=== PATIENT | female | born 2000 | race Native Hawaiian/Other Pacific Islander ===

== ENCOUNTER 2022-03-03 15:03 | Inpatient (IN) | payer OTHER, SELFPAY ==
--- NOTE | ~2022-03-03 | MR_ITS ---
EXAMINATION: MR ABDOMEN WITHOUT AND WITH CONTRAST CLINICAL INFORMATION: Pancreatitis. Elevated liver function tests. COMPARISON: Previous CT of the abdomen and pelvis, limited abdominal ultrasound and nuclear medicine scan from earlier this month. TECHNIQUE: MR abdomen was performed without and with use of 5 mL intravenous Gadavist gadolinium contrast. Postcontrast images are performed in multiphase dynamic sequences. Imaging was performed in 3 planes. MRCP sequences were also performed. FINDINGS: LUNG BASES: The visualized lung bases are unremarkable. LIVER, GALLBLADDER, AND BILIARY TREE: The liver is normal in size, smooth in contour, and normal in signal. No focal hepatic lesion or biliary ductal dilatation is present. The common bile duct measures 2 mm. No common bile duct stone is seen. The gallbladder is unremarkable with no evidence of gallbladder wall thickening, or obvious pericholecystic inflammatory changes. PANCREAS: There may be slight thickening of the tail of the pancreas. The pancreas is normal in signal. The pancreas enhances normally. The main pancreatic duct does not appear dilated. No ascites. SPLEEN: Normal. ADRENAL GLANDS: Normal. KIDNEYS AND URETERS: The kidneys are normal in size, shape, and enhance symmetrically. No hydronephrosis. No perinephric stranding. GASTROINTESTINAL TRACT: No bowel obstruction. No ascites or fluid collection. There is abnormal signal seen inferior to the left lobe of the liver, anterior to the right kidney and adjacent to the duodenum and head of the pancreas. This area measures approximately 3 x 5 cm in AP and transverse dimension and 4.7 cm in longitudinal dimension. This is intermediate signal on T1-weighted sequences, intermediate signal on T2-weighted sequences and does not demonstrate appreciable enhancement. It is uncertain whether this is related to an abnormal loop of bowel. ABDOMINAL WALL: No significant hernia is appreciated. LYMPH NODES: No lymphadenopathy. VASCULAR: Unremarkable. OSSEOUS STRUCTURES: Marrow signal normal. MR/MR abdomen wo/w con IMPRESSION: Slight enlargement of the tail of the pancreas. The pancreas enhances normally. Normal-appearing gallbladder. Normal-appearing intrahepatic and extrahepatic bile ducts. No common bile duct stone seen. Abnormal signal seen in the right upper quadrant inferior to the left lobe of the liver, anterior to the right kidney and adjacent to the duodenum and head of the pancreas. It is uncertain whether this represents an abnormal loop of bowel. Followup CT of the abdomen with IV and oral contrast is recommended for better characterization. Findings were communicated to Dr. Vo @8:04pm by telephone on 03/15/2022
--- NOTE | ~2022-03-03 | US_ITS ---
EXAMINATION: US ABDOMEN LIMITED XR CHEST CLINICAL INFORMATION: Elevated LFTs, vomiting and lipase elevated, low white count. COMPARISON: None TECHNIQUE: Limited abdomen ultrasound was obtained. Chest, one view. FINDINGS: CHEST: The lungs are well expanded and clear of acute process. The heart size and pulmonary vascularity is normal. ABDOMEN ULTRASOUND: Pancreas: The pancreas is homogeneous echotexture, normal size. The peripancreatic fat borders are normal. Liver: The liver is normal size, contour and echogenicity. No focal lesion or intrahepatic ductal dilatation seen. No perihepatic fluid collection seen. Spleen: The spleen is normal size measuring 11.0 cm. There is no free fluid visualized. US/US abdomen limited IMPRESSION: CHEST: Unremarkable chest x-ray. ABDOMEN: Unremarkable liver, spleen and pancreas on limited abdominal ultrasound.
--- NOTE | ~2022-03-03 | CT_ITS ---
EXAMINATION: CT ANGIOGRAM OF THE CHEST WITH AND WITHOUT CONTRAST (CT PULMONARY ANGIOGRAM FOR PE) CLINICAL INFORMATION: Reason for Exam chest pain COMPARISON: None TECHNIQUE: Prior to contrast administration, noncontrast localization images were obtained. Subsequently, multidetector volumetric imaging was performed from the thoracic inlet to below the diaphragms following the administration of 80 mL Omnipaque 350 intravenous contrast. No contrast reaction reported Sagittal, coronal, and MIP oblique sagittal reformatted images were obtained on the CT workstation, uploaded to PACS, and reviewed. This CT examination was performed using dose optimization techniques as appropriate, variously including the following: *Automated exposure control *Adjustment of mA and/or kV according to patient size (this includes techniques or standardized protocols for targeted exams where dose is matched to indication/reason for exam; i.e. extremities or head) *Use of iterative reconstruction technique Total exam dose-length product 192 mGy-cm FINDINGS: QUALITY OF STUDY/CONTRAST BOLUS: Satisfactory. PULMONARY ARTERIES: No central or segmental pulmonary emboli. THORACIC AORTA: No aneurysm or dissection. LUNG: Diffuse groundglass opacities basilar or focal distribution. Question minimal thickening of interlobular septal lines best seen on the sagittal projections. PLEURA: No pleural effusion or pneumothorax. MEDIASTINUM: Normal heart size. No pericardial effusion. No hilar or mediastinal lymphadenopathy. No evidence of septal bowing or right heart strain. CHEST WALL/AXILLA: No axillary or internal mammary lymphadenopathy. OSSEOUS STRUCTURES: No acute or suspicious osseous abnormality. UPPER ABDOMEN: Unremarkable. No reflux of contrast into the hepatic veins to suggest elevated right heart pressures. CT/CT angio chest PE protocol IMPRESSION: No evidence for acute or chronic pulmonary embolism. Groundglass opacities which may related to atypical infection or small vessel airway disease. VTE: negative
--- NOTE | ~2022-03-03 | CT_ITS ---
EXAMINATION: CT ABDOMEN AND PELVIS WITHOUT CONTRAST CLINICAL INFORMATION: Intractable nausea and vomiting COMPARISON: Previous limited abdominal ultrasound from earlier this month and chest CTA from earlier the same day TECHNIQUE: Multidetector volumetric imaging was performed from the superior aspect of the liver through the pubic symphysis. Sagittal and coronal reformatted images were obtained on the technologist's workstation. Exam is limited due to lack of oral and IV contrast and paucity of intra-abdominal fat. This CT examination was performed using dose optimization techniques as appropriate, variously including the following: *Automated exposure control *Adjustment of mA and/or kV according to patient size (this includes techniques or standardized protocols for targeted exams where dose is matched to indication/reason for exam; i.e. extremities or head) *Use of iterative reconstruction technique DLP: 364 mGy-cm FINDINGS: LUNG BASES: There are patchy groundglass opacities at the lung bases. There are small bilateral pleural effusions. There is a small pericardial effusion. LIVER, GALLBLADDER, AND BILIARY TREE: The liver is normal in size and shape. The gallbladder is normal in size. There is a question of pericholecystic fluid. No gallstones are appreciated. There is no intra or extrahepatic biliary duct dilatation. PANCREAS: Difficulty evaluate due to lack of oral and IV contrast and paucity of intra-abdominal fat but appears unremarkable. SPLEEN: Unremarkable. ADRENAL GLANDS: Unremarkable. KIDNEYS AND URETERS: The kidneys are normal in size, shape, and attenuation. No hydronephrosis, hydroureter. There are small high attenuation densities seen centrally in the kidneys. This probably represents excreted IV contrast in the collecting systems from yesterday's chest CTA. It is difficult to exclude a small stone.. BLADDER: Unremarkable. GASTROINTESTINAL TRACT: There is stool throughout the colon questionable for constipation. The small and large bowel are otherwise unremarkable. The appendix is unremarkable. There is a small amount of air inferior to the left lobe of the liver for example axial image 24-34 series 3. This probably represents air in the distal stomach and duodenum. ABDOMINAL WALL: No significant hernia is appreciated. LYMPH NODES: Normal. VASCULAR: Unremarkable. PELVIC VISCERA: There is a small amount of ascites in the pelvis. OSSEOUS STRUCTURES: Unremarkable. CT/CT abdomen pelvis wo con IMPRESSION: Limited exam due to lack of oral and IV contrast and paucity of intra-abdominal fat. Patchy areas of groundglass attenuation at the lung bases, small pericardial effusion and small bilateral pleural effusions similar to yesterday's chest CTA. Question small amount of fluid around the gallbladder or gallbladder wall edema. The gallbladder is normal in size and no gallstones are appreciated by CT. Small amount of air inferior to the left lobe of the liver that is probably in the distal stomach and duodenum. Evaluate evaluation of this region and evaluation of the pancreas is limited due to lack of oral and IV contrast and paucity of intra-abdominal fat. Stool throughout the colon questionable for constipation. Small amount of ascites in the pelvis. Fleischner guidelines were followed.
--- NOTE | ~2022-03-03 | NM_ITS ---
EXAMINATION: NM HIDA SCAN CLINICAL INFORMATION: Abdominal pain, abnormal gallbladder. Elevated LFTs. COMPARISON: Abdominal ultrasound 03/13/2022. TECHNIQUE: Following intravenous administration of 5 mCi of 99M technetium mebrofenin, imaging over the right upper quadrant was obtained up to 60 minutes. At 60 minutes, 8 ounces of Ensure was administered orally and further imaging was obtained up to next 60 minutes. FINDINGS: There is normal hepatic uptake without focal defect. There is prompt visualization of common bile duct and gallbladder by 10 minutes. CBD is not visualized. Post oral Ensure administration, there is visualization of small bowel by 61 minutes. More activity is seen in the subsequent 80 to 90 minutes. NM/NM hepatobiliary w pharm IMPRESSION: Normal hepatic uptake. Patent cystic duct. Patent CBD.
--- NOTE | ~2022-03-03 | US_ITS ---
EXAMINATION: US ABDOMEN LIMITED CLINICAL INFORMATION: Abdominal pain. Just need gallbladder evaluated. COMPARISON: CT abdomen and pelvis 03/08/2022. Ultrasound abdomen limited 03/03/2022. TECHNIQUE: Real-time imaging of the gallbladder and common bile duct. FINDINGS: GALLBLADDER: There is mild gallbladder wall thickening and pericholecystic fluid. The gallbladder is not significantly distended. No evidence of stones, sludge, or polyps. COMMON BILE DUCT: Normal in caliber measuring 0.3 cm in diameter. US/US abdomen limited IMPRESSION: Mild gallbladder wall thickening and pericholecystic fluid without cholelithiasis. Findings could reflect sequelae of fluid status or underlying liver disease.
[2022-03-03 15:50] VITALS: BP 105/76; PULSE 113; RESP 20; TEMP 37.5; O2SAT 100; BMI 18.8
[2022-03-03 17:20] LABS: PLT CLUMP 1; Red Cell Distribution Width 13.1 % (11.0-16.0); SCAN SMEAR FLAG 1
[2022-03-03 17:22] LABS: Hematocrit 35.7 % (37.0-47.0); Hemoglobin 11.9 g/dl (12.0-16.0); Imm Gran Abs Auto 0.01 X10*3/uL (0.00-0.03); Imm Gran Pct Auto 0.5 % (0.0-0.4); Lymphocytes Absolute Auto 0.7 X10*3/uL (1.2-4.9); Lymphocytes Percent Auto 36.8 % (20-40); MANUAL DIFF FLAG SCAN; Mean Corpuscular HGB Conc 33.3 g/dl (31.0-35.0); Mean Corpuscular Hemoglobin 28.6 pg (27.0-33.0); Mean Corpuscular Volume 85.8 fL (80.0-98.0); Mean Platelet Volume 10.6 fL (9.4-12.3); Monocytes Absolute Auto 0.1 X10*3/uL (0.1-1.2); Monocytes Percent Auto 5.5 % (2-11); Neutrophils Absolute Auto 1.2 x10*3/uL (2.0-8.3); Neutrophils Percent Auto 57.2 % (45-73); Red Blood Count 4.16 X10*6/uL (4.20-5.50)
[2022-03-03 17:35] LABS: Anion Gap 12 (12-20); Blood Urea Nitrogen 8 mg/dL (9-16); Calcium 8.8 mg/dL (8.4-10.2); Carbon Dioxide 24 mmol/L (22-29); Chloride 103 mmol/L (96-108); Creatinine Clr Calc Pharmacy 118.3; Estimated Glomerular Filt Rate > 60; Glucose Random 87 mg/dL (60-115); Potassium 4.1 mmol/L (3.3-5.1); Sodium 135 mmol/L (135-145)
[2022-03-03 17:40] LABS: Platelet Count 137 X10*3/uL (160-400)
[2022-03-03 17:41] LABS: SLIDE REVIEW VERIFIED
[2022-03-03 19:12] LABS: Alanine Aminotransferase 76 U/L (0-31); Albumin Level 3.8 g/dL (3.5-5.0); Alkaline Phosphatase 69 U/L (39-117); Aspartate Amino Transferase 150 U/L (5-31); Bilirubin Direct 0.5 mg/dL (0.0-0.5); Bilirubin Total 0.8 mg/dL (0.0-1.0); Lipase 262 U/L (8-78); Total Protein 9.2 g/dL (6.5-8.0)
[2022-03-03 19:20] LABS: COVID-19 Test Negative (Negative); IDNOW Serial# 16C4AD1C; Influenza A Negative (Negative); Influenza B2 Negative (Negative)
--- NOTE | 2022-03-03 19:20 | ED_ITS ---
HPI - Abdominal Pain General Chief Complaint: Abdominal Pain Stated Complaint: Vomiting/abd pain Time Seen by Provider: 03/03/22 18:30 Source: patient, family and old records reviewed Mode of arrival: ambulatory Limitations: no limitations History of Present Illness HPI narrative: 21 yo female states she has no medical problems was doing well until October when she just lost her appetite and noted on and off bouts of abdominal pain, fevers, acne, vomiting. She has been seen at her PCP and [facility] ER told her LFTs were fine and has a low WBC count. Plan for EGD on 03/11 and has oncology appointment on 03/17. She notes recently she has felt worse. She takes tylenol only occasionally for fevers, said she had a negative HIV test at [facility] last month, she takes only prescribed medications. Has no surgical history, transfusion history, IVDA. She does do home tattoos with friends. MD elicited complaint: abdominal pain (nausea vomiting, skin lesions, weakness, fevers, low WBC count) Pertinent past history: other (started around October) Onset (ago): month(s) (4) Pain Consistency: intermittent Location: epigastric Severity: moderate Quality: stabbing Migration to: no migration Exacerbating factors: eating Relieving factors: nothing Context: history of similar episodes Associated symptoms: nausea, vomiting, fever and chills Treatments prior to arrival: antacids Related Data Home Medications Medication Instructions Recorded Confirmed fluticasone propionate 50 1 spray INTRANASAL DAILY PRN 03/03/22 03/03/22 mcg/actuation nasal spray,suspension ondansetron 4 mg disintegrating 1 tab PO Q6H PRN 03/03/22 03/03/22 tablet Allergies Allergy/AdvReac Type Severity Reaction Status Date / Time No Known Allergies Allergy Verified 03/03/22 15:55 Review of Systems Review of Systems Constitutional : pos Weight loss, pos Fever, pos Chills ENT/Mouth : No sore throat, No Rhinorrhea, pos ulcers in mouth Eyes: No Swelling, No Redness Cardiovascular : No Chest Pain, No SOB, NoEdema Respiratory : No Cough, No Sputum, No Wheezing Gastrointestinal : Positive Nausea, Positive Vomiting, no Diarrhea, positive abdominal Pain, No Hematochezia, No Melena Genitourinary : No Dysuria, No Urinary Frequency, No Hematuria, No Urgency Musculoskeletal : No joint pain, No Myalgias, No Joint Swelling Skin : pos Skin Lesions, No rash Neuro : pos Weakness, No Numbness, No Dizziness, No Headache Psych : No Anxiety/Panic, No Depression Heme/Lymph: No Bruising, No Lymphadenopathy Endocrine : No Polyuria, No Polydipsia All other systems reviewed and are negative. [facility] Past Medical History Attestation statement: The following information was validated with the patient. Medical History Generalized headaches GERD (gastroesophageal reflux disease) Social History Social History (Updated 03/03/22 @ 19:32 by Erica Barlow DO) Patient Tobacco Use Status: Never used Tobacco Use of substances other than those prescribed or required for medical reasons: No Advance Directives: No Advance Directives Information Provided: No Patient : No Physical Exam ED Vital Signs: Vital Signs - 24 hr 03/03/22 15:50 03/03/22 20:40 Temperature 99.5 F 101.4 F H Pulse Rate 113 H 97 Respiratory Rate 20 18 Blood Pressure 105/76 113/67 Pulse Oximetry 100 98 BMI result Body Mass Index 18.8 Appearance: Alert. Oriented X3. No acute distress. Eyes: Pupils equal, round and reactive to light. ENT: Pharynx dry MM - mild, multiple ulcers noted on lips/pharynx/ soft and hard palate Neck: Normal inspection. Neck supple. CVS: Normal heart rate and rhythm. Pulses normal. Respiratory: No respiratory distress. Breath sounds normal. Abdomen: Soft and mild epigastric ttp Skin: Skin warm and dry. pale skin color. poor skin turgor. Extremities: No lower extremity edema. No calf ttp Neuro: Oriented X 3. No motor deficit. No sensory deficit. Course Course Course Narrative: [facility] admission - hepatitis panel negative HIV ab negative CT scan negative for acute findings in liver, pancreas, spleen fever of 101 at this time 840pm possible bacterial infection suspected given leukocytopenia will give dose of cefepime, cultures and lactic acid already done signed out to Dr Singh pending further results and admission. I did speak to the hospitalist about history and presentation. MDM - Abdominal Pain MDM Narrative Medical decision making narrative: 21 yo female with hx of GERD, headaches with prolonged illness since October now with pancytopenia, oral mucositis, elevated LFTs - mostly seen at [facility] has plan to see oncology 03/17 and EGD on 03/11. She appears ill denies IVDA but does do home tattoos - records from [facility] requested. Will obtain basic labs, HIV, hepatitis panel, UA, US of abdomen to evaluate the liver and spleen. IVF. Possible admission given presentation Lab Data Result diagrams: 03/03/22 17:15 03/03/22 17:15 Labs: Lab Results 03/03/22 03/03/22 03/03/22 Range/Units 17:15 17:15 18:57 WBC 2.0 L (4.8-10.8) X10*3/uL RBC 4.16 L (4.20-5.50) X10*6/uL Hgb 11.9 L (12.0-16.0) g/dl Hct 35.7 L (37.0-47.0) % MCV 85.8 (80.0-98.0) fL MCH 28.6 (27.0-33.0) pg MCHC 33.3 (31.0-35.0) g/dl RDW 13.1 (11.0-16.0) % Plt Count 137 L (160-400) X10*3/uL MPV 10.6 (9.4-12.3) fL Immature Gran % (Auto) 0.5 H (0.0-0.4) % Neut % (Auto) 57.2 (45-73) % Lymph % (Auto) 36.8 (20-40) % [place] % (Auto) 5.5 (2-11) % Eos % (Auto) 0.0 (0-4) % Baso % (Auto) 0.0 (0-2) % Lymph # (Auto) 0.7 L (1.2-4.9) X10*3/uL [place] # (Auto) 0.1 (0.1-1.2) X10*3/uL Eos # (Auto) 0.0 (0.0-0.4) X10*3/uL Baso # (Auto) 0.0 (0.0-0.2) X10*3/uL Abs Immat Gran (auto) 0.01 (0.00-0.03) X10*3/uL Absolute Neuts (auto) 1.2 L (2.0-8.3) x10*3/uL Absolute Nucleated RBC 0.000 (0.0-0.012) X10*3/uL Nucleated RBC % (auto) 0.0 (0.0-0.2) /100WBC Smear Tech's Comments VERIFIED ESR (0-20) MM/HR PT (9.9-13.0) SEC INR (0.9-1.1) APTT (24.1-38.0) SEC Sodium 135 (135-145) mmol/L Potassium 4.1 (3.3-5.1) mmol/L Chloride 103 (96-108) mmol/L Carbon Dioxide 24 (22-29) mmol/L Anion Gap 12 (12-20) BUN 8 L (9-16) mg/dL Creatinine 0.63 (0.5-1.4) mg/dL Estim Creat Clear Calc 118.3 Estimated GFR > 60 Random Glucose 87 (60-115) mg/dL Lactic Acid (0.5-2.0) mmol/L Calcium 8.8 (8.4-10.2) mg/dL Magnesium (1.6-2.6) mg/dL Total Bilirubin 0.8 (0.0-1.0) mg/dL Direct Bilirubin 0.5 (0.0-0.5) mg/dL AST 150 H (5-31) U/L ALT 76 H (0-31) U/L Alkaline Phosphatase 69 (39-117) U/L C-Reactive Protein (< or = 0.50) mg/dL Total Protein 9.2 H (6.5-8.0) g/dL Albumin 3.8 (3.5-5.0) g/dL Lipase 262 H (8-78) U/L TSH (0.32-4.0) uIU/mL Acetaminophen (<30) mcg/mL COVID-19 ([facility]) (Negative) COVID-19 Clin Com Influenza Type A (CB) Negative (Negative) Influenza Type B (CB) Negative (Negative) Influenza A & B Note See Note 03/03/22 03/03/22 03/03/22 Range/Units 18:57 19:51 19:51 WBC (4.8-10.8) X10*3/uL RBC (4.20-5.50) X10*6/uL Hgb (12.0-16.0) g/dl Hct (37.0-47.0) % MCV (80.0-98.0) fL MCH (27.0-33.0) pg MCHC (31.0-35.0) g/dl RDW (11.0-16.0) % Plt Count (160-400) X10*3/uL MPV (9.4-12.3) fL Immature Gran % (Auto) (0.0-0.4) % Neut % (Auto) (45-73) % Lymph % (Auto) (20-40) % [place] % (Auto) (2-11) % Eos % (Auto) (0-4) % Baso % (Auto) (0-2) % Lymph # (Auto) (1.2-4.9) X10*3/uL [place] # (Auto) (0.1-1.2) X10*3/uL Eos # (Auto) (0.0-0.4) X10*3/uL Baso # (Auto) (0.0-0.2) X10*3/uL Abs Immat Gran (auto) (0.00-0.03) X10*3/uL Absolute Neuts (auto) (2.0-8.3) x10*3/uL Absolute Nucleated RBC (0.0-0.012) X10*3/uL Nucleated RBC % (auto) (0.0-0.2) /100WBC Smear Tech's Comments ESR 29 H (0-20) MM/HR PT (9.9-13.0) SEC INR (0.9-1.1) APTT (24.1-38.0) SEC Sodium (135-145) mmol/L Potassium (3.3-5.1) mmol/L Chloride (96-108) mmol/L Carbon Dioxide (22-29) mmol/L Anion Gap (12-20) BUN (9-16) mg/dL Creatinine (0.5-1.4) mg/dL Estim Creat Clear Calc Estimated GFR Random Glucose (60-115) mg/dL Lactic Acid (0.5-2.0) mmol/L Calcium (8.4-10.2) mg/dL Magnesium 1.8 (1.6-2.6) mg/dL Total Bilirubin (0.0-1.0) mg/dL Direct Bilirubin (0.0-0.5) mg/dL AST (5-31) U/L ALT (0-31) U/L Alkaline Phosphatase (39-117) U/L C-Reactive Protein 0.72 H (< or = 0.50) mg/dL Total Protein (6.5-8.0) g/dL Albumin (3.5-5.0) g/dL Lipase (8-78) U/L TSH 1.32 (0.32-4.0) uIU/mL Acetaminophen < 1 (<30) mcg/mL COVID-19 ([facility]) Negative (Negative) COVID-19 Clin Com See Note Influenza Type A (CB) (Negative) Influenza Type B (CB) (Negative) Influenza A & B Note 03/03/22 03/03/22 Range/Units 19:51 19:51 WBC (4.8-10.8) X10*3/uL RBC (4.20-5.50) X10*6/uL Hgb (12.0-16.0) g/dl Hct (37.0-47.0) % MCV (80.0-98.0) fL MCH (27.0-33.0) pg MCHC (31.0-35.0) g/dl RDW (11.0-16.0) % Plt Count (160-400) X10*3/uL MPV (9.4-12.3) fL Immature Gran % (Auto) (0.0-0.4) % Neut % (Auto) (45-73) % Lymph % (Auto) (20-40) % [place] % (Auto) (2-11) % Eos % (Auto) (0-4) % Baso % (Auto) (0-2) % Lymph # (Auto) (1.2-4.9) X10*3/uL [place] # (Auto) (0.1-1.2) X10*3/uL Eos # (Auto) (0.0-0.4) X10*3/uL Baso # (Auto) (0.0-0.2) X10*3/uL Abs Immat Gran (auto) (0.00-0.03) X10*3/uL Absolute Neuts (auto) (2.0-8.3) x10*3/uL Absolute Nucleated RBC (0.0-0.012) X10*3/uL Nucleated RBC % (auto) (0.0-0.2) /100WBC Smear Tech's Comments ESR (0-20) MM/HR PT 13.2 H (9.9-13.0) SEC INR 1.2 H (0.9-1.1) APTT 25.1 (24.1-38.0) SEC Sodium (135-145) mmol/L Potassium (3.3-5.1) mmol/L Chloride (96-108) mmol/L Carbon Dioxide (22-29) mmol/L Anion Gap (12-20) BUN (9-16) mg/dL Creatinine (0.5-1.4) mg/dL Estim Creat Clear Calc Estimated GFR Random Glucose (60-115) mg/dL Lactic Acid 1.4 (0.5-2.0) mmol/L Calcium (8.4-10.2) mg/dL Magnesium (1.6-2.6) mg/dL Total Bilirubin (0.0-1.0) mg/dL Direct Bilirubin (0.0-0.5) mg/dL AST (5-31) U/L ALT (0-31) U/L Alkaline Phosphatase (39-117) U/L C-Reactive Protein (< or = 0.50) mg/dL Total Protein (6.5-8.0) g/dL Albumin (3.5-5.0) g/dL Lipase (8-78) U/L TSH (0.32-4.0) uIU/mL Acetaminophen (<30) mcg/mL COVID-19 ([facility]) (Negative) COVID-19 Clin Com Influenza Type A (CB) (Negative) Influenza Type B (CB) (Negative) Influenza A & B Note Discharge Plan Discharge Clinical Impression: Elevated LFTs, Acute mucositis, Elevated lipase Leukocytopenia, unspecified Qualifiers: Leukopenia type: unspecified Qualified Code(s): D72.819 - Decreased white blood cell count, unspecified Abdominal pain Qualifiers: Abdominal location: epigastric Qualified Code(s): R10.13 - Epigastric pain Vomiting Qualifiers: Vomiting type: unspecified Nausea presence: with nausea Qualified Code(s): R11.2 - Nausea with vomiting, unspecified Fever Qualifiers: Fever type: unspecified Qualified Code(s): R50.9 - Fever, unspecified Patient Disposition: Admitted As Inpatient
[2022-03-03] MEDS: ondansetron HCL 4 MG/2 ML VIAL IVPUSH (20:12)
[2022-03-03] MEDS: 0.9 % Sodium Chloride 1,000 ML 999 ML IVCONT (20:14)
[2022-03-03 20:15] LABS: INTERNATIONAL NORM RATIO 1.2 (0.9-1.1); Prothrombin Time 13.2 SEC (9.9-13.0)
[2022-03-03 20:18] LABS: Partial Thromboplastin Time 25.1 SEC (24.1-38.0)
[2022-03-03 20:22] LABS: Lactic Acid 1.4 mmol/L (0.5-2.0)
[2022-03-03 20:28] LABS: C Reactive Protein 0.72 mg/dL (< or = 0.50); Magnesium 1.8 mg/dL (1.6-2.6)
[2022-03-03 20:31] LABS: Acetaminophen LAB < 1 mcg/mL (<30)
[2022-03-03 20:40] VITALS: BP 113/67; PULSE 97; RESP 18; TEMP 38.6; O2SAT 98
[2022-03-03 20:42] LABS: Erythrocyte Sedimentation Rate 29 MM/HR (0-20)
--- NOTE | 2022-03-03 20:42 | PHA.MEDREC ---
Pharmacy Consult ? Medication Reconciliation Pharmacy has completed the medication reconciliation. No remarkable issues.
[2022-03-03 20:46] LABS: TSH reflex Free T4 1.32 uIU/mL (0.32-4.0)
[2022-03-03] MEDS: Ibuprofen Oral Susp 200 MG/10 ML ORAL.SUSP 400 MG PO (20:46)
--- NOTE | 2022-03-03 21:07 | MHC.CM.PN ---
CM met with admitted patient with bed assignment pending. Pt appears ill. Lives alone, but has recently been staying with her aunt, as she has been feeling so poorly. No DME or services. Pfizer x2.. PCP Erica Clayton. No HCP. Reviewed, completed and signed. Copies given. Uploaded into [facility] [employer] and [facility]. HCP/aunt Jeanne Klein ([phone]). Has appointments at [facility] for EGC 03/11 and Oncology 03/17. Pt would rather come to [facility]. States all they told her at [facility] was that she had a cyst on her ovary. Aunt tells CM pt can stay with her at discharge until she feels better. D/C plan is home without services. Aunt to provide transportation. CM to follow for d/c needs.
[2022-03-03] MEDS: cefEPime HCl 2 GM in 0.9 % Sodium Chloride 50 ML IV (21:14)
[2022-03-03 21:23] LABS: Monotest Negative (Negative)
[2022-03-03] MEDS: 0.9 % Sodium Chloride 1,000 ML 999 ML IV (21:53)
[2022-03-03 21:54] VITALS: BP 114/59; PULSE 100; RESP 18; TEMP 38.9; O2SAT 96
[2022-03-03 22:37] VITALS: TEMP 37.8
--- NOTE | 2022-03-03 23:09 | PC.NURSE ---
pt given urine cup and told of need for urine sample.
[2022-03-04] VITALS (7 sets, daily range): BP systolic 93–116; BP diastolic 54–70; PULSE 76–101; RESP 16–22; TEMP 36.6–39.1; O2SAT 95–100
[2022-03-04 00:16] LABS: Appearance Urine HAZY; Color Urine YELLOW; Glucose Urine UA NEG (NEG); Leukocyte Esterase Urine 2+ (NEG); Nitrite Urine NEG (NEG); PH 6.5 (5.0-8.0); UACC Culture Trigger YES; Urine Blood NEG (NEG); Urine Ketones >=80 MG/DL (NEG); Urine Protein 1+ MG/DL (NEG-TRACE)
[2022-03-04 00:19] LABS: UPreg QC Valid YES; Urine Pregnancy NEGATIVE (NEGATIVE)
[2022-03-04 00:25] LABS: Amphetamine Screen Urine Not Detected (Not Detect); Barbiturates, Urine Not Detected (Not Detect); Benzodiazepines Screen Urine Not Detected (Not Detect); Cannabinoid Screen Urine Not Detected (Not Detect); Cocaine Screen Urine Not Detected (Not Detect); Fentanyl, urine Not Detected (Not Detect); Opiate Screen Urine Not Detected (Not Detect); Phencyclidine Screen Urine Not Detected (Not Detect)
[2022-03-04 00:26] LABS: Bacteria Urine 2+ /LPF; Mucus Urine 2+ /LPF; Squamous Epithelial Cell Urine 1+ /LPF
--- NOTE | 2022-03-04 03:12 | P.HPHOSP_ITS ---
History of Present Illness Date of Service: 03/03/22 Chief Complaint: abdominal pain 21-year-old female with no significant past medical history presented to the hospital with a chief complaint of abdominal pain. Patient reported that over the past 3 weeks he has been having abdominal discomfort associated nausea; has been having reduced oral intake. Denies any diarrhea. Denies any blood in the vomitus. Symptoms have been gradually progressing; mentioned that she has seen her PCP few days ago and was referred to Gastroenterology. Also mentioned that she has outpatient labs which showed low white cell count; and is planned to see Hematology-Oncology as outpatient; patient also reported that she went to the [facility] recently. denies any chest pain palpitations lightheadedness or dizziness. Denies any high-risk sexual behavior. Mentions that she has rash in her hands which spread to do her face; going on since October. Denies any discharge. Also complains of couple oral lesions. Denies any rash on the lower parts of the body; Denies any throat pain, dysphagia, neck swelling. Reports he has occasional headaches and body aches. Denies any neck pain. Patient denied any urinary symptoms Review of all other systems is negative except mentioned above ER course: Per ER team patient noted to have rash, leukopenia, thrombocytopenia; concerning for acute viral syndrome; sent a HIV, hepatitis, Lyme titers; Monospot test negative. Patient was empirically given cefepime. Urinalysis was abnormal consistent UTI. [facility] Medical History Generalized headaches GERD (gastroesophageal reflux disease) Social History Household Members: Family Housing: House Do you presently have visiting nurse or other home services: No Alcohol intake: unknown Patient Tobacco Use Status: Never used Tobacco Advance Directives Date on File: 03/03/22 service: No Current occupational status: unemployed Meds Allergies Allergy/AdvReac Type Severity Reaction Status Date / Time No Known Allergies Allergy Verified 04/29/22 10:24 Active Medications: Current Medications Vancomycin HCl 1,000 mg/ (Sodium Chloride) 270 mls @ 270 mls/hr IV Q12H COUNT INCLUDES THE [facility] Cefepime HCl 1 gm/ Sodium (Chloride) 50 mls @ 100 mls/hr IV Q8H COUNT INCLUDES THE [facility] Pharmacy Consult (Consult Rx Perform Med Rec) 1 each MISCELLANE ONCE PRN PRN Reason: Consult order Pharmacy Consult (Consult Rx Vancomycin Dosing) 1 each MISCELLANE DAILY PRN PRN Reason: Consult order Sodium Chloride (0.9 % Sodium Chloride Flush 3 Ml Syringe) 3 ml IVFLUSH QSHIFT RAJAN Last Admin: 03/04/22 00:14 Dose: Not Given Documented by: Home Medications Medication Instructions Recorded Confirmed Last Taken Type fluticasone propionate 50 1 spray intranasal DAILY PRN 03/03/22 04/29/22 Unknown History mcg/actuation nasal Congestion spray,suspension Physical Exam Vital Signs and Narrative: Vital Signs: Last Vital Signs Temp 99.4 F 03/04/22 01:32 Pulse 93 03/04/22 01:32 Resp 18 03/04/22 01:32 BP 93/59 L 03/04/22 01:32 Pulse Ox 99 03/04/22 01:32 BMI result Body Mass Index 18.8 Gen: Appears be in no acute distress HEENT: NCAT, Moist mucosa. Pulmonary: Vesicular breath sounds, fair air entry CVS: Normal S1-S2 Abdomen: BS+, Soft, Nontender Extremities: Warm well perfused Neuro: Alert and awake. integumentary: Bilateral palms noted to have peripheral placed a papular lesions; whole face noted to have papular raised lesions with occasional crustin g; similar lesions noted on the buccal cavity 2 of them. Results Labs CBC and Chem 7: 03/16/22 05:50 03/16/22 05:50 Labs: Laboratory Results - last 24 hr 03/03/22 03/03/22 03/03/22 17:15 17:15 18:57 MCV 85.8 MCH 28.6 MCHC 33.3 RDW 13.1 Plt Count 137 L MPV 10.6 Immature Gran % (Auto) 0.5 H Neut % (Auto) 57.2 Lymph % (Auto) 36.8 [place] % (Auto) 5.5 Eos % (Auto) 0.0 Baso % (Auto) 0.0 Lymph # (Auto) 0.7 L [place] # (Auto) 0.1 Eos # (Auto) 0.0 Baso # (Auto) 0.0 Abs Immat Gran (auto) 0.01 Absolute Neuts (auto) 1.2 L Absolute Nucleated RBC 0.000 Nucleated RBC % (auto) 0.0 Smear Tech's Comments VERIFIED ESR PT INR APTT Anion Gap 12 Estim Creat Clear Calc 118.3 Estimated GFR > 60 Random Glucose 87 Lactic Acid Calcium 8.8 Magnesium Total Bilirubin 0.8 Direct Bilirubin 0.5 AST 150 H ALT 76 H Alkaline Phosphatase 69 C-Reactive Protein Total Protein 9.2 H Albumin 3.8 Lipase 262 H TSH Urine Color Urine Appearance Urine pH Ur Specific [place] Urine Protein Urine Glucose (UA) Urine Ketones Urine Blood Urine Nitrite Ur Leukocyte Esterase Urine RBC Urine WBC Ur Squamous Epith Cells Urine Bacteria Urine Mucus Urine Test Urine Opiates Screen Urine Fentanyl Screen Acetaminophen Ur Barbiturates Screen Ur Phencyclidine Scrn Ur Amphetamines Screen U Benzodiazepines Scrn Urine Cocaine Screen U Marijuana (THC) Screen COVID-19 ([facility]Y) COVID-19 Clin Com Monoscreen Influenza Type A (CB) Negative Influenza Type B (CB) Negative Influenza A & B Note See Note 03/03/22 03/03/22 03/03/22 18:57 19:51 19:51 MCV MCH MCHC RDW Plt Count MPV Immature Gran % (Auto) Neut % (Auto) Lymph % (Auto) [place] % (Auto) Eos % (Auto) Baso % (Auto) Lymph # (Auto) [place] # (Auto) Eos # (Auto) Baso # (Auto) Abs Immat Gran (auto) Absolute Neuts (auto) Absolute Nucleated RBC Nucleated RBC % (auto) Smear Tech's Comments ESR 29 H PT INR APTT Anion Gap Estim Creat Clear Calc Estimated GFR Random Glucose Lactic Acid Calcium Magnesium 1.8 Total Bilirubin Direct Bilirubin AST ALT Alkaline Phosphatase C-Reactive Protein 0.72 H Total Protein Albumin Lipase TSH 1.32 Urine Color Urine Appearance Urine pH Ur Specific [place] Urine Protein Urine Glucose (UA) Urine Ketones Urine Blood Urine Nitrite Ur Leukocyte Esterase Urine RBC Urine WBC Ur Squamous Epith Cells Urine Bacteria Urine Mucus Urine Test Urine Opiates Screen Urine Fentanyl Screen Acetaminophen < 1 Ur Barbiturates Screen Ur Phencyclidine Scrn Ur Amphetamines Screen U Benzodiazepines Scrn Urine Cocaine Screen U Marijuana (THC) Screen COVID-19 ([facility]Y) Negative COVID-19 Clin Com See Note Monoscreen Influenza Type A (CB) Influenza Type B (CB) Influenza A & B Note 03/03/22 03/03/22 03/03/22 19:51 19:51 21:01 MCV MCH MCHC RDW Plt Count MPV Immature Gran % (Auto) Neut % (Auto) Lymph % (Auto) [place] % (Auto) Eos % (Auto) Baso % (Auto) Lymph # (Auto) [place] # (Auto) Eos # (Auto) Baso # (Auto) Abs Immat Gran (auto) Absolute Neuts (auto) Absolute Nucleated RBC Nucleated RBC % (auto) Smear Tech's Comments ESR PT 13.2 H INR 1.2 H APTT 25.1 Anion Gap Estim Creat Clear Calc Estimated GFR Random Glucose Lactic Acid 1.4 Calcium Magnesium Total Bilirubin Direct Bilirubin AST ALT Alkaline Phosphatase C-Reactive Protein Total Protein Albumin Lipase TSH Urine Color Urine Appearance Urine pH Ur Specific [place] Urine Protein Urine Glucose (UA) Urine Ketones Urine Blood Urine Nitrite Ur Leukocyte Esterase Urine RBC Urine WBC Ur Squamous Epith Cells Urine Bacteria Urine Mucus Urine Test Urine Opiates Screen Urine Fentanyl Screen Acetaminophen Ur Barbiturates Screen Ur Phencyclidine Scrn Ur Amphetamines Screen U Benzodiazepines Scrn Urine Cocaine Screen U Marijuana (THC) Screen COVID-19 ([facility]) COVID-19 Clin Com Monoscreen Negative Influenza Type A (BC) Influenza Type B (CB) Influenza A & B Note 03/03/22 03/03/22 03/03/22 23:55 23:55 23:55 MCV MCH MCHC RDW Plt Count MPV Immature Gran % (Auto) Neut % (Auto) Lymph % (Auto) [place] % (Auto) Eos % (Auto) Baso % (Auto) Lymph # (Auto) [place] # (Auto) Eos # (Auto) Baso # (Auto) Abs Immat Gran (auto) Absolute Neuts (auto) Absolute Nucleated RBC Nucleated RBC % (auto) Smear Tech's Comments ESR PT INR APTT Anion Gap Estim Creat Clear Calc Estimated GFR Random Glucose Lactic Acid Calcium Magnesium Total Bilirubin Direct Bilirubin AST ALT Alkaline Phosphatase C-Reactive Protein Total Protein Albumin Lipase TSH Urine Color YELLOW Urine Appearance HAZY Urine pH 6.5 Ur Specific [place] 1.020 Urine Protein 1+ H Urine Glucose (UA) NEG Urine Ketones >=80 Urine Blood NEG Urine Nitrite NEG Ur Leukocyte Esterase 2+ H Urine RBC 1-4 Urine WBC 10-14 H Ur Squamous Epith Cells 1+ Urine Bacteria 2+ Urine Mucus 2+ Urine Test NEGATIVE Urine Opiates Screen Not Detected Urine Fentanyl Screen Not Detected Acetaminophen Ur Barbiturates Screen Not Detected Ur Phencyclidine Scrn Not Detected Ur Amphetamines Screen Not Detected U Benzodiazepines Scrn Not Detected Urine Cocaine Screen Not Detected U Marijuana (THC) Screen Not Detected COVID-19 ([facility]) COVID-19 Clin Com Monoscreen Influenza Type A (CB) Influenza Type B (CB) Influenza A & B Note Assessment and Plan (1) Nausea: Status: Acute Plan 21-year-old female with no significant past medical history presented to the hospital with a chief complaint of abdominal pain. Nausea/vomiting /abdominal pain: Ultrasound report pending. Benign abdominal examination. Patient has poor oral intake. GI consult for further recommendations. Will obtain ELIZABET panel. ESR and CRP elevated. Fever: Likely UTI as a source. Patient on empiric IV cefepime. Follow up cultures. Rash: Noted on bilateral palms; whole face; couple lesions in the oral mucosa; rash raised with papular lesions. Concerning for ? impetigo. per patient patient's rash has been going on since October of this year. Recently seen PCP who referred to dermatology. Will consult ID for further recommendations patient on IV vancomycin and cefepime Infectious mononucleosis-negative Pancytopenia: unclear etiology. 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 Quality Stroke Does the patient have a stroke diagnosis?: No VTE Prior VTE?: No VTE Risk Level:: Medical - moderate - high VTE Device Contraindication: N/A - Device Ordered VTE Drug Contraindication: Treatment Not Indicated
[2022-03-04] MEDS: vancomycin HCL 750 MG in 0.9 % Sodium Chloride 250 ML 265 MG IV (03:57)
[2022-03-04 04:38] LABS: HBS Num1 1.37 mIU/mL (0-7.99); HIV AB/AG Nonreactive (Nonreactive); HIV Num 1 0.07 S/CO (0.00-0.99); Hepatitis B Surface Antigen Negative (Negative); ~HepC Num1 0.21 S/CO (0.00-0.79); ~Hepatitis B Surface Antibody NONREACTIVE (Nonreactive); ~Hepatitis C Antibody Nonreactive (Nonreactive)
[2022-03-04] MEDS: cefEPime HCl 1 GM in 0.9 % Sodium Chloride 50 ML IV (05:01)
[2022-03-04 05:08] LABS: HBc Num2 0.27 S/CO; HBc Num3 0.19 S/CO; Hepatitis B Core Antibody Nonreactive (Nonreactive)
[2022-03-04] MEDS: Dextrose 5 % and 0.9 % NaCl 1,000 ML 100 ML IVCONT ×2 (06:25→20:53)
--- NOTE | 2022-03-04 07:53 | PC.NURSE ---
First contact with patient. rash all over face, reports feeling tired, denies abd pain at this time. was ambulatory to w/o assist. reports poor appetite, fluids running at 100ml'hr. is aware of admission status and awaits ID and GI consults. no complaints except fatigue at this time. #22 IV removed left hand. was painful.
--- NOTE | 2022-03-04 09:05 | PHA.PROG ---
Admission Date/Time: March 03, 2022 22:24 Indication: Concern for Impetigo Weight in k.07 kg Adjusted body weight in K kg [place] body weight in K.3 kg Obesity Dosing Indication % IBW: N/A Serum Creatinine - Last 168 Hours 03/03/22 17:15 Creatinine 0.63 Estimated CrCl and GFR - Last 168 Hours 03/03/22 17:15 Estim Creat Clear Calc 118.3 Estimated GFR > 60 Vancomycin Loading Dose: N/A Current Vancomycin Dosing Regimen: 1000 mg Q12H Date and Time for next Vancomycin Level to be drawn: 03/05 @ 1000 Pharmacist Comments on Vancomycin Plan: First dose given in the ED vancomycin 750 mg (14.15 mg/kg) which is not a optimal loading dose. Will start maintenance dose vancomycin 1000 mg Q12H 03/04 @ 1200, 8 hours from first dose since an optimal loading was not given. Expected AUC 450 with a trough of 12.2. Trough to be drawn prior to 4rd dose AM Creatinine was not drawn, however patient is young and last creatinine 03/03 @ 1715 was good therefore we will follow-up in the AM in lab not drawn later today Pharmacy will monitor renal function daily Mariama Coles, Lacey Vancomycin dosing will take advantage of [employer] as a clinical decision support tool that uses Bayesian modeling to calculate individual patient's pharmacokinetic parameters and forecast the patient's drug concentration time course with the target goal AUC 24 range of 400 - 600 mg/L/hr.
[2022-03-04 09:57] LABS: Creatinine Clr Calc Pharmacy 149.1; Estimated Glomerular Filt Rate > 60
[2022-03-04] MEDS: vancomycin HCL 1,000 MG in 0.9 % Sodium Chloride 250 ML 270 MG IV (11:26)
--- NOTE | 2022-03-04 12:12 | P.PNIM_ITS ---
Subjective Subjective Date of Service: 03/05/22 Interval History: f/u on abd pain, rash, fever interval history: Rash there since , no abd pain at this time, Review of Systems no fever rash on hads, face no abd pain Physical Exam Vital Signs: Vital Signs: Last Vital Signs Temp 98 F 03/04/22 09:37 Pulse 80 03/04/22 09:37 Resp 16 03/04/22 09:37 BP 107/68 03/04/22 09:37 Pulse Ox 99 03/04/22 09:37 BMI result Body Mass Index 18.8 Const: Other: General: AO X 3, no acute distress Resp: CTA bilateral CVS: S1,S2,RRR GI: +BS, NT, no distention Skin: No rash Neuro: motor grossly intact Psych: appropriate affect Objective Data Active Medications Cefepime HCl 1 gm/ Sodium (Chloride) 50 mls @ 100 mls/hr IV Q8H [facility] Last Infusion: 03/04/22 06:14 Dose: 100 mls/hr Documented by: FELIPE Dextrose/Sodium Chloride (D5ns) 1,000 mls @ 100 mls/hr IVCONT .Q10H [facility] Last Admin: 03/04/22 06:25 Dose: 100 mls/hr Documented by: FELIPE Vancomycin HCl 1,000 mg/ (Sodium Chloride) 270 mls @ 270 mls/hr IV Q12H [facility] Last Admin: 03/04/22 11:26 Dose: 270 mls/hr Documented by: NIKITA Pharmacy Consult (Consult Rx Perform Med Rec) 1 each MISCELLANE ONCE PRN PRN Reason: Consult order Pharmacy Consult (Consult Rx Vancomycin Dosing) 1 each MISCELLANE DAILY PRN PRN Reason: Consult order Sodium Chloride (0.9 % Sodium Chloride Flush 3 Ml Syringe) 3 ml IVFLUSH QSHIFT [facility] Last Admin: 03/04/22 07:02 Dose: Not Given Documented by: ROMANA Non-Admin Reason: Med Not Available Labs CBC & Chem 7: 03/03/22 17:15 03/05/22 06:40 Labs: Laboratory Results - last 24 hr 03/03/22 03/03/22 03/03/22 17:15 17:15 18:57 MCV 85.8 MCH 28.6 MCHC 33.3 RDW 13.1 Plt Count 137 L MPV 10.6 Immature Gran % (Auto) 0.5 H Neut % (Auto) 57.2 Lymph % (Auto) 36.8 [place] % (Auto) 5.5 Eos % (Auto) 0.0 Baso % (Auto) 0.0 Lymph # (Auto) 0.7 L [place] # (Auto) 0.1 Eos # (Auto) 0.0 Baso # (Auto) 0.0 Abs Immat Gran (auto) 0.01 Absolute Neuts (auto) 1.2 L Absolute Nucleated RBC 0.000 Nucleated RBC % (auto) 0.0 Smear Tech's Comments VERIFIED Smear Path Review SEE NOTE ESR PT INR APTT Anion Gap 12 Estim Creat Clear Calc 118.3 Estimated GFR > 60 Random Glucose 87 Lactic Acid Calcium 8.8 Magnesium Total Bilirubin 0.8 Direct Bilirubin 0.5 AST 150 H ALT 76 H Alkaline Phosphatase 69 C-Reactive Protein Total Protein 9.2 H Albumin 3.8 Lipase 262 H TSH Urine Color Urine Appearance Urine pH Ur Specific [place] Urine Protein Urine Glucose (UA) Urine Ketones Urine Blood Urine Nitrite Ur Leukocyte Esterase Urine RBC Urine WBC Ur Squamous Epith Cells Urine Bacteria Urine Mucus Urine Test Urine Opiates Screen Urine Fentanyl Screen Acetaminophen Ur Barbiturates Screen Ur Phencyclidine Scrn Ur Amphetamines Screen U Benzodiazepines Scrn Urine Cocaine Screen U Marijuana (THC) Screen COVID-19 ([facility]) COVID-19 Clin Com Hep Bs Antigen Hep Bs Antibody Hep B Core Total Ab Hepatitis C Ab (EIA) Monoscreen HIV 1&2 Ab/P24 Ag 4thGn Influenza Type A (CB) Negative Influenza Type B (CB) Negative Influenza A & B Note See Note 03/03/22 03/03/22 03/03/22 18:57 19:51 19:51 MCV MCH MCHC RDW Plt Count MPV Immature Gran % (Auto) Neut % (Auto) Lymph % (Auto) [place] % (Auto) Eos % (Auto) Baso % (Auto) Lymph # (Auto) [place] # (Auto) Eos # (Auto) Baso # (Auto) Abs Immat Gran (auto) Absolute Neuts (auto) Absolute Nucleated RBC Nucleated RBC % (auto) Smear Tech's Comments Smear Path Review ESR PT INR APTT Anion Gap Estim Creat Clear Calc Estimated GFR Random Glucose Lactic Acid Calcium Magnesium 1.8 Total Bilirubin Direct Bilirubin AST ALT Alkaline Phosphatase C-Reactive Protein 0.72 H Total Protein Albumin Lipase TSH 1.32 Urine Color Urine Appearance Urine pH Ur Specific [place] Urine Protein Urine Glucose (UA) Urine Ketones Urine Blood Urine Nitrite Ur Leukocyte Esterase Urine RBC Urine WBC Ur Squamous Epith Cells Urine Bacteria Urine Mucus Urine Test Urine Opiates Screen Urine Fentanyl Screen Acetaminophen < 1 Ur Barbiturates Screen Ur Phencyclidine Scrn Ur Amphetamines Screen U Benzodiazepines Scrn Urine Cocaine Screen U Marijuana (THC) Screen COVID-19 ([facility]Y) Negative COVID-19 Clin Com See Note Hep Bs Antigen Negative Hep Bs Antibody NONREACTIVE Hep B Core Total Ab Nonreactive Hepatitis C Ab (EIA) Nonreactive Monoscreen HIV 1&2 Ab/P24 Ag 4thGn Nonreactive Influenza Type A (CB) Influenza Type B (CB) Influenza A & B Note 03/03/22 03/03/22 03/03/22 19:51 19:51 19:51 MCV MCH MCHC RDW Plt Count MPV Immature Gran % (Auto) Neut % (Auto) Lymph % (Auto) [place] % (Auto) Eos % (Auto) Baso % (Auto) Lymph # (Auto) [place] # (Auto) Eos # (Auto) Baso # (Auto) Abs Immat Gran (auto) Absolute Neuts (auto) Absolute Nucleated RBC Nucleated RBC % (auto) Smear Tech's Comments Smear Path Review ESR 29 H PT 13.2 H INR 1.2 H APTT 25.1 Anion Gap Estim Creat Clear Calc Estimated GFR Random Glucose Lactic Acid 1.4 Calcium Magnesium Total Bilirubin Direct Bilirubin AST ALT Alkaline Phosphatase C-Reactive Protein Total Protein Albumin Lipase TSH Urine Color Urine Appearance Urine pH Ur Specific [place] Urine Protein Urine Glucose (UA) Urine Ketones Urine Blood Urine Nitrite Ur Leukocyte Esterase Urine RBC Urine WBC Ur Squamous Epith Cells Urine Bacteria Urine Mucus Urine Test Urine Opiates Screen Urine Fentanyl Screen Acetaminophen Ur Barbiturates Screen Ur Phencyclidine Scrn Ur Amphetamines Screen U Benzodiazepines Scrn Urine Cocaine Screen U Marijuana (THC) Screen COVID-19 ([facility]Y) COVID-19 Clin Com Hep Bs Antigen Hep Bs Antibody Hep B Core Total Ab Hepatitis C Ab (EIA) Monoscreen HIV 1&2 Ab/P24 Ag 4thGn Influenza Type A (CB) Influenza Type B (CB) Influenza A & B Note 03/03/22 03/03/22 03/03/22 21:01 23:55 23:55 MCV MCH MCHC RDW Plt Count MPV Immature Gran % (Auto) Neut % (Auto) Lymph % (Auto) [place] % (Auto) Eos % (Auto) Baso % (Auto) Lymph # (Auto) [place] # (Auto) Eos # (Auto) Baso # (Auto) Abs Immat Gran (auto) Absolute Neuts (auto) Absolute Nucleated RBC Nucleated RBC % (auto) Smear Tech's Comments Smear Path Review ESR PT INR APTT Anion Gap Estim Creat Clear Calc Estimated GFR Random Glucose Lactic Acid Calcium Magnesium Total Bilirubin Direct Bilirubin AST ALT Alkaline Phosphatase C-Reactive Protein Total Protein Albumin Lipase TSH Urine Color YELLOW Urine Appearance HAZY Urine pH 6.5 Ur Specific [place] 1.020 Urine Protein 1+ H Urine Glucose (UA) NEG Urine Ketones >=80 Urine Blood NEG Urine Nitrite NEG Ur Leukocyte Esterase 2+ H Urine RBC 1-4 Urine WBC 10-14 H Ur Squamous Epith Cells 1+ Urine Bacteria 2+ Urine Mucus 2+ Urine Test Urine Opiates Screen Not Detected Urine Fentanyl Screen Not Detected Acetaminophen Ur Barbiturates Screen Not Detected Ur Phencyclidine Scrn Not Detected Ur Amphetamines Screen Not Detected U Benzodiazepines Scrn Not Detected Urine Cocaine Screen Not Detected U Marijuana (THC) Screen Not Detected COVID-19 ([facility]) COVID-19 Clin Com Hep Bs Antigen Hep Bs Antibody Hep B Core Total Ab Hepatitis C Ab (EIA) Monoscreen Negative HIV 1&2 Ab/P24 Ag 4thGn Influenza Type A (CB) Influenza Type B (CB) Influenza A & B Note 03/03/22 03/04/22 23:55 09:22 MCV MCH MCHC RDW Plt Count MPV Immature Gran % (Auto) Neut % (Auto) Lymph % (Auto) [place] % (Auto) Eos % (Auto) Baso % (Auto) Lymph # (Auto) [place] # (Auto) Eos # (Auto) Baso # (Auto) Abs Immat Gran (auto) Absolute Neuts (auto) Absolute Nucleated RBC Nucleated RBC % (auto) Smear Tech's Comments Smear Path Review ESR PT INR APTT Anion Gap Estim Creat Clear Calc 149.1 Estimated GFR > 60 Random Glucose Lactic Acid Calcium Magnesium Total Bilirubin Direct Bilirubin AST ALT Alkaline Phosphatase C-Reactive Protein Total Protein Albumin Lipase TSH Urine Color Urine Appearance Urine pH Ur Specific [place] Urine Protein Urine Glucose (UA) Urine Ketones Urine Blood Urine Nitrite Ur Leukocyte Esterase Urine RBC Urine WBC Ur Squamous Epith Cells Urine Bacteria Urine Mucus Urine Test NEGATIVE Urine Opiates Screen Urine Fentanyl Screen Acetaminophen Ur Barbiturates Screen Ur Phencyclidine Scrn Ur Amphetamines Screen U Benzodiazepines Scrn Urine Cocaine Screen U Marijuana (THC) Screen COVID-19 ([facility]) COVID-19 Clin Com Hep Bs Antigen Hep Bs Antibody Hep B Core Total Ab Hepatitis C Ab (EIA) Monoscreen HIV 1&2 Ab/P24 Ag 4thGn Influenza Type A (CB) Influenza Type B (CB) Influenza A & B Note Assessment and Plan (1) Acute mucositis: Status: Acute (2) Fever of unknown origin: Status: Acute Plan 21-year-old female with no significant past medical history presented to the hospital with a chief complaint of abdominal pain and to have fever and rash on arm, palms and face has been there since October Nausea/vomiting /abdominal pain:??Ultrasound report pending.? Benign abdominal examination.? Patient has poor oral intake.? GI consult for further tiffany mmendations.? Will obtain ELIZABET panel. ESR and CRP elevated. Fever:?? Likely UTI as a source.? On Cefepime, change to Ceftriaxone Rash:? Noted on? bilateral palms; ? whole face; couple lesions in the oral mucosa;? rash? raised with papular lesions.? Concerning for ? impetigo--as noted early---I don't think empetigo at all, she has had these since october He has outpatient Derm eval pending, HIV negative, hep B and C , hep A pending. Anaplasmosis work up pending. Will request RPR, I don't think this rash need to be treated with Vanco and cefepime, [place] Danny, Awaiting ID eval Pancytopenia: Heme eval pending Quality Stroke Does the patient have a stroke diagnosis?: No VTE Prior VTE?: No VTE Risk Level:: Medical - moderate - high VTE Device Contraindication: N/A - Device Ordered VTE Drug Contraindication: Treatment Not Indicated
--- NOTE | 2022-03-04 12:48 | P.CNID_ITS ---
History of Present Illness Data of Consult Service Date: 03/04/22 Requesting physician: Marco Antonio Monge Primary Care Provider: Unknown Physician HPI Reason for consult: leukopenia,possible infection She [place] [facility] [place] and vomiting and inability to take po for two weeks. She has intermittent diarrhea,nonbloody and no fever. She denies dysuria at this time She has had rash on face and hands since October and has appointment with Hematology coming up to evaluate leukopenia as well as GI at [facility] to evaluate nausea and vomiting. She was hospitalized at [facility] 02/20-02/21 for nausea and vomiting,leukopenia to 1.9 and platelets 111 and SGOT 220 and SGPT of 127 and lipase 667. She was negative for HIV,Hepatitis A,B,C then. She has RPR negative 02/04/2022. She had opioid screen positive and rest of tox screen negative. [facility] shows script for Percocet 5/325, number 8 prescribed by Torsten Reyna on 01/16. Patient denies drug use,alcohol,travel and has two healthy dogs She has no h/o autoimmune syndromes in family. She has pyuria with 10-14 WBC but no dysuria. Review of Systems Review of Systems: Yes all other systems are reviewed and are negative PMFSH Past Medical History Medical History Generalized headaches GERD (gastroesophageal reflux disease) Family History Family history: reviewed and not pertinent Social History Social History Household Members: Family Housing: House Do you presently have visiting nurse or other home services: No Patient Tobacco Use Status: Never used Tobacco Use of substances other than those prescribed or required for medical reasons: No Currently Displaying Signs/Symptoms of Drug Intoxication Withdrawal: No Have you been hit, kicked, punched, or otherwise hurt by someone within the past year? If so, by whom?: No Do you feel safe in your current relationship?: Yes Is there a partner from a previous relationship who is making you feel unsafe now?: No Are you made to feel afraid or neglected: No Are you DNR?: No Advance Directives: Yes Advance Directives Information Provided: No Advance Directives on File: Yes Advance Directives Date on File: 03/03/22 Do you have thoughts of harming others: None Do you have a plan to hurt others: No Plan Recently lost weight without trying: Yes How much weight loss: 24-33 pounds Nutrition Risks: Difficulty chewing and Poor intake 0-25% >4 days Patient : No (HCG negative per pt) : No Poor oral hygiene: No service: No Current occupational status: unemployed Meds Allergies Allergy/AdvReac Type Severity Reaction Status Date / Time No Known Allergies Allergy Verified 03/03/22 15:55 Active Medications: Current Medications Dextrose/Sodium Chloride (D5ns) 1,000 mls @ 100 mls/hr IVCONT .Q10H COUNT INCLUDES THE [facility] Last Admin: 03/04/22 06:25 Dose: 100 mls/hr Documented by: Pharmacy Consult (Consult Rx Perform Med Rec) 1 each MISCELLANE ONCE PRN PRN Reason: Consult order Pharmacy Consult (Consult Rx Vancomycin Dosing) 1 each MISCELLANE DAILY PRN PRN Reason: Consult order Sodium Chloride (0.9 % Sodium Chloride Flush 3 Ml Syringe) 3 ml IVFLUSH QSHIFT COUNT INCLUDES THE [facility] Last Admin: 03/04/22 07:02 Dose: Not Given Documented by: Home Medications Medication Instructions Recorded Confirmed Last Taken Type fluticasone propionate 50 1 spray INTRANASAL DAILY PRN 03/03/22 03/03/22 Unknown History mcg/actuation nasal spray,suspension ondansetron 4 mg disintegrating 1 tab PO Q6H PRN 03/03/22 03/03/22 Unknown History tablet Physical Exam Vital Signs: Vital Signs: Last Vital Signs Temp 98 F 03/04/22 09:37 Pulse 80 03/04/22 09:37 Resp 16 03/04/22 09:37 BP 107/68 03/04/22 09:37 Pulse Ox 99 03/04/22 09:37 BMI result Body Mass Index 18.8 Const: General: cooperative HEENT: Head: Yes normal to inspection Mouth: Normal oral and palatal mucosa present Eyes: General: appearance normal, both eyes and all related structures Pupils: Equal, round and reactive pupils present Resp: Effort & Inspection: normal respiratory effort Cardio: Rate: regular rate Rhythm: regular rhythm GI: Palpation (GI): Soft to palpation and nontender Skin: Other: multiple circular reddened areas face and hands General skin exam: no rashes or lesions noted Neuro: Cranial nerves: Yes Equal, round and reactive pupils present Extrem: General: Yes normal to inspection Results Labs CBC & Chem 7: 03/10/22 15:33 03/14/22 06:12 Labs: Short CBC 03/03/22 Range/Units 17:15 WBC 2.0 L (4.8-10.8) X10*3/uL Hgb 11.9 L (12.0-16.0) g/dl Hct 35.7 L (37.0-47.0) % Plt Count 137 L (160-400) X10*3/uL BMP 03/03/22 03/04/22 17:15 09:22 Sodium 135 Potassium 4.1 Chloride 103 Carbon Dioxide 24 BUN 8 L Creatinine 0.63 0.50 Calcium 8.8 Liver Function 03/03/22 Range/Units 17:15 Total Bilirubin 0.8 (0.0-1.0) mg/dL Direct Bilirubin 0.5 (0.0-0.5) mg/dL AST 150 H (5-31) U/L ALT 76 H (0-31) U/L Alkaline Phosphatase 69 (39-117) U/L Albumin 3.8 (3.5-5.0) g/dL Urine 03/03/22 Range/Units 23:55 Urine Color YELLOW Urine Appearance HAZY Urine pH 6.5 (5.0-8.0) Ur Specific [place] 1.020 (1.005-1.025) Urine Protein 1+ H (NEG-TRACE) MG/DL Urine Glucose (UA) NEG (NEG) MG/DL Assessment and Plan (1) Leukocytopenia, unspecified: Qualifiers: Leukopenia type: unspecified Qualified Code(s): D72.819 - Decreased white blood cell count, unspecified Status: Acute There doesnt appear to be a chronic infection as HIV negative and doesnt seem to have fungal disorder although possible histoplasmosis or cryptococcus. There possibly is an autoimmune disorder ?lupus There is possibly vasculitis or other CVD, ?Behcets ?copper metabolism disorder/ Gaucher Less likely is somatoform disorder or poisoning. Malignancy with paraneoplastic syndrome possible She may have some UTI and doesnt appear septic. (2) Abdominal pain: Qualifiers: Abdominal location: epigastric Qualified Code(s): R10.13 - Epigastric pain Status: Acute (3) Fever: Qualifiers: Fever type: unspecified Qualified Code(s): R50.9 - Fever, unspecified Status: Acute Plan Would check histoplasma and blastomycosis and cryptococcus antibodies Check with Hematology consult ?bone marrow or peripheral blood evaluation. Liver biopsy especially may be helpful through IR or GI evaluate fungus/burkholderia?heavy metal toxicity/hemochromatosis/lupus Change to po Ceftin 500 mg bid for total 7 days when taking po well, due to vomiting IV Ceftriaxone for now. Hydration
[2022-03-04] MEDS: Morphine Sulfate 2 MG/ML CARTRIDGE IVPUSH ×2 (13:10→19:35)
[2022-03-04] MEDS: cefTRIAXone sodium 1 GM in 0.9 % Sodium Chloride 50 ML IV (14:52)
[2022-03-04] MEDS: 0.9 % Sodium Chloride Flush 3 ML SYRINGE IVFLUSH (14:53)
--- NOTE | 2022-03-04 15:41 | PM.EVENT ---
Event Note Date of Service: 03/04/22 Event Note: GI consult dictated Nausea/vomiting and intermittent abdominal pain. Empiric trial of omeprazole F/u as outpt for EGD as already scheduled.
--- NOTE | 2022-03-04 18:17 | PC.NURSE ---
Report given to inpatient RN. Preparing for transport to the floor now.
[2022-03-04] MEDS: Ibuprofen 400 MG TABLET PO (20:53)
--- NOTE | 2022-03-05 02:40 | CONS_ITS ---
DATE OF SERVICE: 03/04/2022 REFERRING PHYSICIAN: Marco Antonio Monge MD REASON FOR CONSULTATION: Nausea and vomiting. HISTORY OF PRESENT ILLNESS: The patient is a pleasant 21-year-old woman, who was admitted to the hospital after presenting to the emergency department with complaints of intermittent abdominal discomfort with fevers, nausea, and vomiting as well as facial rash. She was seen in consultation by her GI provider at [facility] and has outpatient endoscopy scheduled for next week. She describes nausea with generalized abdominal pain without any precipitating or relieving factors. This can occur with or without food. There is no radiation of the pain. The quality of the pain is described as sharp and intermittent. There has been no hematemesis or melena. She has not vomited since admission and has been given antiemetic medications. She does not describe atypical reflux symptoms and has no complaints of dysphagia. She has been noted to have a low white blood cell count and is being evaluated from a hematologic standpoint for this. She denies any family history of stomach or esophageal cancer. PAST MEDICAL HISTORY: 1. Abdominal pain with nausea and vomiting as above. 2. Skin rash. 3. Leukopenia. 4. Headaches. CURRENT MEDICATIONS: Her current medication list is reviewed in the chart. ALLERGIES: THERE ARE NONE REPORTED. FAMILY HISTORY: This is reviewed with the patient and is noncontributory. SOCIAL HISTORY: There is no current tobacco, alcohol, or substance abuse. REVIEW OF SYSTEMS: SKIN: No pruritus. HEENT: Negative. CARDIOPULMONARY: No shortness of breath or chest pain. GASTROINTESTINAL: As above. GENITOURINARY: Negative. NEUROPSYCHIATRIC: Negative. PHYSICAL EXAMINATION: GENERAL: Shows a pleasant female, lying comfortably in bed. She is interviewed with a family member. VITAL SIGNS: Stable. SKIN: Anicteric. HEENT: Shows no scleral icterus. She does have a red facial rash. NECK: Without lymphadenopathy or thyromegaly. LUNGS: Clear. HEART: Shows a regular rate and rhythm. S1, S2. No murmur. ABDOMEN: Soft without focal masses or tenderness. There is some mild diffuse tenderness to palpation. Bowel sounds are present. No organomegaly is noted. EXTREMITIES: Without edema. LABORATORY DATA: Reviewed. She has had mild elevations of her liver function tests and did have a fever overnight. Imaging was obtained with abdominal ultrasound, which was limited, but unremarkable including the liver, pancreas, and spleen. IMPRESSION: Abdominal pain with nausea and vomiting. Some of her abdominal pain could possibly related to acid peptic disease and her nausea could also represent atypical reflux. Therefore, I have recommended a trial of omeprazole 20 mg daily. I have discussed with her following up with her GI providers at [facility] for her endoscopy and for further evaluation of her leukopenia and possible underlying infection. Thanks for asking me to see her. I will follow her in the hospital with you. MD CHELLY Grant/VENKAT / [phone]
[2022-03-05 04:08] LABS: Hepatitis A Antibody IgM 0.17 Index (0-0.79); ~Hepatitis A Antibody IgM Nonreactive (Nonreactive)
[2022-03-05 05:41] LABS: Syphilis Screen Nonreactive (Nonreactive)
[2022-03-05] MEDS: Dextrose 5 % and 0.9 % NaCl 1,000 ML 100 ML IVCONT ×2 (06:03→16:19)
[2022-03-05 07:34] VITALS: BP 110/69; PULSE 75; RESP 18; TEMP 36.9; O2SAT 99
[2022-03-05 07:36] LABS: Creatinine Clr Calc Pharmacy 149.1; Estimated Glomerular Filt Rate > 60
[2022-03-05] MEDS: Morphine Sulfate 2 MG/ML CARTRIDGE IVPUSH ×2 (10:18→16:24)
[2022-03-05] MEDS: 0.9 % Sodium Chloride Flush 3 ML SYRINGE IVFLUSH ×2 (10:21→15:58)
[2022-03-05 10:35] LABS: Vancomycin Trough < 3.0 mcg/mL (10.0-20.0)
[2022-03-05 12:14] VITALS: BMI 18.8
--- NOTE | 2022-03-05 14:16 | MHC.CM.PN ---
Female 21 DX Fever She is receiving work up for fever. Per MD rounds source not yet identified. DP home with family and she will arrange for transportation.
[2022-03-05] MEDS: cefTRIAXone sodium 1 GM in 0.9 % Sodium Chloride 50 ML IV (14:51)
[2022-03-05 15:21] VITALS: BP 109/62; PULSE 90; RESP 18; TEMP 39.5; O2SAT 98
[2022-03-05] MEDS: Acetaminophen 325 MG TABLET 650 MG PO (15:56)
--- NOTE | 2022-03-05 16:55 | HO.PM.IMPN ---
Subjective Subjective Date of Service: 03/06/22 Interval History: f/u on abd pain, rash, fever interval history: Rash there since , no abd pain at this time, Review of Systems no fever rash on hads, face no abd pain Physical Exam Vital Signs: Vital Signs: Last Vital Signs Temp 103.1 F H 03/05/22 15:21 Pulse 90 03/05/22 15:21 Resp 18 03/05/22 15:21 BP 109/62 03/05/22 15:21 Pulse Ox 98 03/05/22 15:21 BMI result Body Mass Index 18.8 Const: Other: General: AO X 3, no acute distress Resp: CTA bilateral CVS: S1,S2,RRR GI: +BS, NT, no distention Skin: No rash Neuro: motor grossly intact Psych: appropriate affect Objective Data Active Medications Acetaminophen (Acetaminophen 325 Mg Tablet) 650 mg PO Q6H PRN PRN Reason: Pain, Mild (Pain Scale 1-3) Last Admin: 03/05/22 15:56 Dose: 650 mg Documented by: MAHESH Dextrose/Sodium Chloride (D5ns) 1,000 mls @ 100 mls/hr IVCONT .Q10H [facility] Last Admin: 03/05/22 16:19 Dose: 100 mls/hr Documented by: MAHESH Ceftriaxone Sodium 1 gm/ (Sodium Chloride) 50 mls @ 100 mls/hr IV Q24H [facility] Last Infusion: 03/05/22 16:28 Dose: 0 mls/hr Documented by: MAHESH Morphine Sulfate (Morphine Sulfate 2 Mg/Ml Cartridge) 2 mg IVPUSH Q6H PRN; Protocol PRN Reason: Pain, Severe (Pain Scale 7-10) Last Admin: 03/05/22 16:24 Dose: 2 mg Documented by: MAHESH Pharmacy Consult (Consult Rx Perform Med Rec) 1 each MISCELLANE ONCE PRN PRN Reason: Consult order Pharmacy Consult (Consult Rx Vancomycin Dosing) 1 each MISCELLANE DAILY PRN PRN Reason: Consult order Sodium Chloride (0.9 % Sodium Chloride Flush 3 Ml Syringe) 3 ml IVFLUSH QSHIFT [facility] Last Admin: 03/05/22 15:58 Dose: 3 ml Documented by: MAHESH Labs CBC & Chem 7: 03/03/22 17:15 03/06/22 06:06 Labs: Laboratory Results - last 24 hr 03/03/22 03/04/22 03/05/22 19:51 09:22 06:40 Estim Creat Clear Calc 149.1 Estimated GFR > 60 Vancomycin Trough T.pallidum Ab (EIA) Nonreactive Hepatitis A IgM Ab Nonreactive 03/05/22 09:56 Estim Creat Clear Calc Estimated GFR Vancomycin Trough < 3.0 L T.pallidum Ab (EIA) Hepatitis A IgM Ab Microbiology Microbiology Results: Microbiology 03/04/22 Unknown Urine Culture - Final Urine clean catch - Urine teran top No growth. 03/03/22 20:09 Blood Culture - Preliminary Blood - Venous No growth after 24 hours. 03/03/22 19:51 Blood Culture - Preliminary Blood - Venous No growth after 24 hours. Assessment and Plan (1) Acute mucositis: Status: Acute (2) Fever of unknown origin: Status: Acute Plan 21-year-old female with no significant past medical history presented to the hospital with a chief complaint of abdominal pain and to have fever and rash on arm, palms and face has been there since October Nausea/vomiting /abdominal pain:??Ultrasound report pending.? Benign abdominal examination.? Patient has poor oral intake.? GI consult for further recommendations.? Will obtain ELIZABET panel. ESR and CRP elevated. Fever:?? Likely UTI as a source.? On Cefepime, change to Ceftriaxone Rash:? Noted on? bilateral palms; ? whole face; couple lesions in the oral mucosa;? rash? raised with papular lesions.? Concerning for ? impetigo--as noted early---I don't think empetigo at all, she has had these since october He has outpatient Derm eval pending, HIV negative, hep B and C , hep A pending. Anaplasmosis work up pending. Will request RPR, I don't think this rash need to be treated with Vanco and cefepime, DC Vanco, Awaiting ID eval Pancytopenia: Heme eval pending Quality Stroke Does the patient have a stroke diagnosis?: No VTE Prior VTE?: No VTE Risk Level:: Medical - moderate - high VTE Device Contraindication: N/A - Device Ordered VTE Drug Contraindication: Treatment Not Indicated
[2022-03-05 17:27] VITALS: TEMP 38.3
[2022-03-05 19:34] VITALS: BP 101/66; PULSE 74; RESP 18; TEMP 37.1; O2SAT 97
[2022-03-06] VITALS (11 sets, daily range): BP systolic 101–127; BP diastolic 51–76; PULSE 74–104; RESP 16–20; TEMP 37.2–39.2; O2SAT 97–98
[2022-03-06] MEDS: Acetaminophen 325 MG TABLET 650 MG PO ×2 (00:21→11:53)
[2022-03-06] MEDS: ondansetron HCL 4 MG/2 ML VIAL IVPUSH ×3 (01:50→19:31)
[2022-03-06] MEDS: Dextrose 5 % and 0.9 % NaCl 1,000 ML 100 ML IVCONT (01:52)
[2022-03-06] MEDS: Morphine Sulfate 2 MG/ML CARTRIDGE IVPUSH ×2 (01:59→09:07)
--- NOTE | 2022-03-06 06:04 | PC.NURSE ---
PATIENT NOTED WITH A TEMPERATURE OF 102.0AT 0000, MEDICATED WITH TYLENOL AT 0025, TEMP DECREASED TO 101.2, UTIKIZED ICE PACKS, REPOSITIONED, IVF ORDERED. BP 119/72-HR [id number] TREVINO CLEAR. PT STATED TO ALSO HAVE AN UPSET STOMACH AND THEN VOMITED APPROX., 100ML GREEN BILE AT 0134. MD MADE AWARE AND ORDERED A ONE TIME DOSE OF ZOFRAN FOR NAUSEA AND GIVEN AT 0150 WITH EFFECT AND NO FURTHER VOMITING. FEVER DOWN TO 99.0. PT STATED ABD PAIN 10/10 AND MEDICATED WITH MORPHINE 2MG IVP AT 0200 WITH GOOD EFFECT. PT MONITORED AND NOTED TO SLEEP QUIETLY IN NAPS. WILL CONTINUE TO MONITOR CLOSELY.
[2022-03-06 06:50] LABS: Creatinine Clr Calc Pharmacy 152.2; Estimated Glomerular Filt Rate > 60
[2022-03-06] MEDS: 0.9 % Sodium Chloride Flush 3 ML SYRINGE IVFLUSH ×2 (09:08→15:30)
[2022-03-06 09:17] LABS: Lyme Abs Screen <0.90 index
--- NOTE | 2022-03-06 09:58 | P.PNIM_ITS ---
Subjective Subjective Date of Service: 03/06/22 Interval History: f/u on abd pain, rash, fever interval history: Rash there since , no abd pain at this time, Review of Systems no fever rash on hads, face no abd pain Physical Exam Vital Signs: Vital Signs: Last Vital Signs Temp 100.5 F H 03/06/22 07:28 Pulse 93 03/06/22 07:28 Resp 17 03/06/22 07:28 BP 105/51 L 03/06/22 07:28 Pulse Ox 97 03/06/22 07:28 BMI result Body Mass Index 18.8 Const: Other: General: AO X 3, no acute distress Resp: CTA bilateral CVS: S1,S2,RRR GI: +BS, NT, no distention Skin: No rash Neuro: motor grossly intact Psych: appropriate affect Objective Data Active Medications Acetaminophen (Acetaminophen 325 Mg Tablet) 650 mg PO Q6H PRN PRN Reason: Pain, Mild (Pain Scale 1-3) Last Admin: 03/06/22 00:21 Dose: 650 mg Documented by: HEAVENLY Ceftriaxone Sodium 1 gm/ (Sodium Chloride) 50 mls @ 100 mls/hr IV Q24H [facility] Last Infusion: 03/05/22 16:28 Dose: 0 mls/hr Documented by: MAHESH Morphine Sulfate (Morphine Sulfate 2 Mg/Ml Cartridge) 2 mg IVPUSH Q6H PRN; Protocol PRN Reason: Pain, Severe (Pain Scale 7-10) Last Admin: 03/06/22 09:07 Dose: 2 mg Documented by: JOHN Ondansetron HCl (Ondansetron Hcl 4 Mg/2 Ml Vial) 4 mg IVPUSH Q8H PRN PRN Reason: Nausea and Vomiting Pharmacy Consult (Consult Rx Perform Med Rec) 1 each MISCELLANE ONCE PRN PRN Reason: Consult order Pharmacy Consult (Consult Rx Vancomycin Dosing) 1 each MISCELLANE DAILY PRN PRN Reason: Consult order Sodium Chloride (0.9 % Sodium Chloride Flush 3 Ml Syringe) 3 ml IVFLUSH QSHIFT [facility] Last Admin: 03/06/22 09:08 Dose: 3 ml Documented by: JOHN Labs CBC & Chem 7: 03/03/22 17:15 03/06/22 06:06 Labs: Laboratory Results - last 24 hr 03/03/22 03/04/22 03/05/22 21:01 14:13 09:56 Estim Creat Clear Calc Estimated GFR Vancomycin Trough < 3.0 L Lyme Screen IgG & IgM <0.90 Cryptococcal Ag SEE NOTE 03/06/22 06:06 Estim Creat Clear Calc 152.2 Estimated GFR > 60 Vancomycin Trough Lyme Screen IgG & IgM Cryptococcal Ag Microbiology Microbiology Results: Microbiology 03/03/22 20:09 Blood Culture - Preliminary Blood - Venous No growth after 48 hours. 03/03/22 19:51 Blood Culture - Preliminary Blood - Venous No growth after 48 hours. 03/04/22 Unknown Urine Culture - Final Urine clean catch - Urine teran top No growth. Assessment and Plan (1) Acute mucositis: Status: Acute (2) Fever of unknown origin: Status: Acute Plan 21-year-old female with no significant past medical history presented to the hospital with a chief complaint of abdominal pain and to have fever and rash on arm, palms and face has been there since October Nausea/vomiting /abdominal pain:??Ultrasound report pending.? Benign abdominal examination.? Patient has poor oral intake.? GI consult for further recomm endations.? Will obtain ELIZABET panel. ESR and CRP elevated. Fever:?? Likely UTI as a source.? On Cefepime, change to Ceftriaxone Rash:? Noted on? bilateral palms; ? whole face; couple lesions in the oral mucosa;? rash? raised with papular lesions.? Concerning for ? impetigo--as noted early---I don't think empetigo at all, she has had these since october He has outpatient Derm eval pending, HIV negative, hep B and C , hep A pending. Anaplasmosis work up pending. Will request RPR, I don't think this rash need to be treated with Vanco and cefepime, DC Vanco, Awaiting ID eval Pancytopenia: Heme eval pending Need for inapatient: ongoing work for fever on unknown source, and potential infectious cause being treated with IV abx Quality Stroke Does the patient have a stroke diagnosis?: No VTE Prior VTE?: No VTE Risk Level:: Medical - moderate - high VTE Device Contraindication: N/A - Device Ordered VTE Drug Contraindication: Treatment Not Indicated
--- NOTE | 2022-03-06 10:00 | HO.PM.IMPN ---
Subjective Subjective Date of Service: 03/06/22 Interval History: f/u on abd pain, rash, fever interval history:no change in nature of rash in face and hand, nausea and vomitting overnight Review of Systems no fever rash on hads, face no abd pain Physical Exam Vital Signs: Vital Signs: Last Vital Signs Temp 100.5 F H 03/06/22 07:28 Pulse 93 03/06/22 07:28 Resp 17 03/06/22 07:28 BP 105/51 L 03/06/22 07:28 Pulse Ox 97 03/06/22 07:28 BMI result Body Mass Index 18.8 Const: Other: General: AO X 3, no acute distress Resp: CTA bilateral CVS: S1,S2,RRR GI: +BS, NT, no distention Skin: No rash Neuro: motor grossly intact Psych: appropriate affect Objective Data Active Medications Acetaminophen (Acetaminophen 325 Mg Tablet) 650 mg PO Q6H PRN PRN Reason: Pain, Mild (Pain Scale 1-3) Last Admin: 03/06/22 00:21 Dose: 650 mg Documented by: HEAVENLY Ceftriaxone Sodium 1 gm/ (Sodium Chloride) 50 mls @ 100 mls/hr IV Q24H [facility] Last Infusion: 03/05/22 16:28 Dose: 0 mls/hr Documented by: MAHESH Morphine Sulfate (Morphine Sulfate 2 Mg/Ml Cartridge) 2 mg IVPUSH Q6H PRN; Protocol PRN Reason: Pain, Severe (Pain Scale 7-10) Last Admin: 03/06/22 09:07 Dose: 2 mg Documented by: JOHN Ondansetron HCl (Ondansetron Hcl 4 Mg/2 Ml Vial) 4 mg IVPUSH Q8H PRN PRN Reason: Nausea and Vomiting Pharmacy Consult (Consult Rx Perform Med Rec) 1 each MISCELLANE ONCE PRN PRN Reason: Consult order Pharmacy Consult (Consult Rx Vancomycin Dosing) 1 each MISCELLANE DAILY PRN PRN Reason: Consult order Sodium Chloride (0.9 % Sodium Chloride Flush 3 Ml Syringe) 3 ml IVFLUSH QSHIFT [facility] Last Admin: 03/06/22 09:08 Dose: 3 ml Documented by: JOHN Labs CBC & Chem 7: 03/03/22 17:15 03/06/22 06:06 Labs: Laboratory Results - last 24 hr 03/03/22 03/04/22 03/05/22 21:01 14:13 09:56 Estim Creat Clear Calc Estimated GFR Vancomycin Trough < 3.0 L Lyme Screen IgG & IgM <0.90 Cryptococcal Ag SEE NOTE 03/06/22 06:06 Estim Creat Clear Calc 152.2 Estimated GFR > 60 Vancomycin Trough Lyme Screen IgG & IgM Cryptococcal Ag Microbiology Microbiology Results: Microbiology 03/03/22 20:09 Blood Culture - Preliminary Blood - Venous No growth after 48 hours. 03/03/22 19:51 Blood Culture - Preliminary Blood - Venous No growth after 48 hours. 03/04/22 Unknown Urine Culture - Final Urine clean catch - Urine teran top No growth. Assessment and Plan (1) Acute mucositis: Status: Acute (2) Fever of unknown origin: Status: Acute Plan 21-year-old female with no significant past medical history presented to the hospital with a chief complaint of abdominal pain and to have fever and rash on arm, palms and face has been there since October Nausea/vomiting /abdominal pain:??Ultrasound negative.? Benign abdominal examination.?GI recommends outpatient follow up.? Rash, Fever:? Noted on? bilateral palms; ? whole face; couple lesions in the oral mucosa;? rash? raised with papular lesions. Culture negative, lyme, HIV, Hep A. B.C negative, blood cultures negative. ELIZABET is pending. Highly suspect rheumatoligical cause.. ie lupus, ELIZABET will help diagnose, anaplasmosis w/u pending.. Unfortunately no physics technical officer available. UTi--Ceftriaxone, Ceftin at discharge Pancytopenia: Heme eval pending Need for inapatient: ongoing work for fever on unknown source, and potential infectious cause being treated with IV abx Quality Stroke Does the patient have a stroke diagnosis?: No VTE Prior VTE?: No VTE Risk Level:: Medical - moderate - high VTE Device Contraindication: N/A - Device Ordered VTE Drug Contraindication: Treatment Not Indicated
--- NOTE | 2022-03-06 13:27 | PM.HEMONCCN ---
Subjective - Subjective Chief complaint: Rash of hands and face Patient: new to practice Consult date: 03/06/22 Requesting Physician: Dr. Monge Primary Care Provider: Erica Clayton MD HPI - Consult Narrative Reason for consult: Leukopenia and thrombocytopenia Narrative: Yaz Perez is a 21 year old female who has been admitted with complaints of abdominal pain and inability to eat. Patient states that she developed a rash on her hands sometime in October of this year. A few months later she developed rash on her face, at the same time she started to experience abdominal pain, nausea and emesis. She says she has not been able to eat much in the last several weeks. Two weeks ago she was admitted at [facility] overnight. She had a CT scan of her abdomen and some blood work. She was told of low white cell count only recently. She denies any recent infections but she reports fevers. She lives alone. She has not been able to go to work because of dizziness when she stands. She denies any other chronic medical problems or use of any new medications. She saw her PCP sometime back about the rash, she was prescribed hydrocortisone cream. Review of Systems - Constitutional Reports as per HPI, Reports fatigue, Reports malaise, Reports poor appetite, Reports weakness, Reports weight loss - Cardiovascular Reports no additional cardiovascular complaints - Respiratory Reports no additional respiratory complaints - Gastrointestinal Reports abdominal pain PMFSH Medical History: Medical History (Last Reviewed 03/04/22 @ 12:58 by Kenisha Boyle MD) Generalized headaches GERD (gastroesophageal reflux disease) Family history: reviewed and not pertinent Social History: Social History (Last Reviewed 03/04/22 @ 12:58 by Kenisha Boyle MD) Living Situation History: Household Members: Family Housing: House Do you presently have visiting nurse or other home services: No Alcohol History Details: 1. How often do you have a drink containing alcohol?: a. Never AUDIT-C Alcohol total score: 0 Currently Displaying Signs/Symptoms of Alcohol Withdrawal: No Tobacco History: Patient Tobacco Use Status: Never used Tobacco Substance Use History: Use of substances other than those prescribed or required for medical reasons: No Currently Displaying Signs/Symptoms of Drug Intoxication Withdrawal: No Domestic Abuse History: Have you been hit, kicked, punched, or otherwise hurt by someone within the past year? If so, by whom?: No Do you feel safe in your current relationship?: Yes Is there a partner from a previous relationship who is making you feel unsafe now?: No Are you made to feel afraid or neglected: No Advance Directives: Advance Directives: Yes Advance Directives Information Provided: No Advance Directives on File: Yes Advance Directives Date on File: 03/03/22 Homicidal Assessment: Do you have thoughts of harming others: None Do you have a plan to hurt others: No Plan Nutrition Assessment: Recently lost weight without trying: Yes How much weight loss: 24-33 pounds Nutrition Risks: Difficulty chewing Nutrition Risks: Poor intake 0-25% >4 days Patient : No : No Poor oral hygiene: No Occupation Assessmet: service: No Current occupational status: unemployed Home Medications and Allergies Current Medications: Current Medications Acetaminophen (Acetaminophen 325 Mg Tablet) 650 mg PO Q6H PRN PRN Reason: Pain, Mild (Pain Scale 1-3) Last Admin: 03/06/22 11:53 Dose: 650 mg Documented by: Ceftriaxone Sodium 1 gm/ (Sodium Chloride) 50 mls @ 100 mls/hr IV Q24H [facility] Last Infusion: 03/05/22 16:28 Dose: Infused Documented by: Morphine Sulfate (Morphine Sulfate 2 Mg/Ml Cartridge) 2 mg IVPUSH Q6H PRN; Protocol PRN Reason: Pain, Severe (Pain Scale 7-10) Last Admin: 03/06/22 09:07 Dose: 2 mg Documented by: Ondansetron HCl (Ondansetron Hcl 4 Mg/2 Ml Vial) 4 mg IVPUSH Q8H PRN PRN Reason: Nausea and Vomiting Last Admin: 03/06/22 10:23 Dose: 4 mg Documented by: Pharmacy Consult (Consult Rx Perform Med Rec) 1 each MISCELLANE ONCE PRN PRN Reason: Consult order Pharmacy Consult (Consult Rx Vancomycin Dosing) 1 each MISCELLANE DAILY PRN PRN Reason: Consult order Sodium Chloride (0.9 % Sodium Chloride Flush 3 Ml Syringe) 3 ml IVFLUSH [facility] Last Admin: 03/06/22 09:08 Dose: 3 ml Documented by: Home Medications Medication Instructions Recorded Confirmed Type fluticasone propionate 50 1 spray INTRANASAL DAILY PRN 03/03/22 03/03/22 History mcg/actuation nasal spray,suspension ondansetron 4 mg disintegrating 1 tab PO Q6H PRN 03/03/22 03/03/22 History tablet Allergies Allergy/AdvReac Type Severity Reaction Status Date / Time No Known Allergies Allergy Verified 03/03/22 15:55 Physical Exam Vital signs: Vital Signs Temp 102.2 F H 03/06/22 10:55 Pulse 88 03/06/22 10:55 Resp 18 03/06/22 10:55 BP 106/59 L 03/06/22 10:55 Pulse Ox 97 03/06/22 10:55 Intake & Output 03/05/22 03/06/22 03/06/22 18:59 06:59 18:59 Intake Total 1850 / 3545 1695 / 3545 1000 / 1000 Output Total 100 / 100 Balance 1850 / 3445 1595 / 3445 1000 / 1000 Intake: Intake, Oral Amount 800 / 1540 740 / 1540 Intake, IV Amount 1050 / 2005 955 / 2005 1000 / 1000 cefTRIAXone sodium 1 gm In 0.9 50 / 50 % Sodium Chloride 50 ml @ 100 mls/hr IV Q24H [facility] Rx#: [id number] Dextrose 5 % and 0.9 % NaCl 1, 1000 / 1955 955 / 1955 1000 / 1000 000 ml @ 100 mls/hr IVCONT . Q10H [facility]JAN Rx#:[id number] Output: Output, Emesis Amount 100 / 100 Other: Meal Refused No NPO No Breakfast % Eaten 100% Lunch % Eaten 100% Dinner % Eaten 75% Number of Unmeasured Voids 3 1 Urine Bathroom Urine Color Yellow Emesis Color Light Green Weight 53.07 kg Weight 53.07 kg - Constitutional Present: no acute distress, average body habitus - Routine HEENT Exam Head: Present: normal inspection Eye: Present: EOMI - Routine Neck Exam Present: supple. Absent: lymphadenopathy - Routine Respiratory Exam Present: CTAB - Routine Cardiovascular Exam Cardiovascular: Present: RRR, S1, S2 - Routine Abdominal Exam Present: normal bowel sounds, soft - Routine Extremities Exam Present: normal inspection, pulses intact - Routine Skin Exam Present: intact, rash Comments: Face with macular spotty diffuse rash. Hands with palmar erythema and slight peeling. - Routine Neurological Exam Present: alert, oriented X3 Hem/Onc Consult Result - Labs CBC & Chem 7: 03/03/22 17:15 03/06/22 06:06 Labs: BMP 03/06/22 06:06 Creatinine 0.49 L Assessment and Plan Patient Active problem list reviewed?: Yes (1) Leukocytopenia, unspecified Status: Acute Assessment and plan: 1. This is a 21-year-old woman with fever, rash GI symptoms and pancytopenia. Probable etiology appear to be possible autoimmune, vasculitic or infectious and workup is underway. I will try to obtain blood work from her PCP which would be helpful to assess her cytopenias. It is probably related to ongoing illness in the last few months and inability to eat. Review of peripheral smear shows mature wbc's although decreased in number. Normocytic, normochromic anemia without any significant schistocytes or immature appearing cells. Ultrasound abdomen does not show hepatosplenomegaly or lymphadenopathy. Further lab tests, including LDH, iron studies, vitamin B12, folic acid levels, reticulocyte count and serum immunofixation has been ordered. I thank you for this consultation. - Time Spent With Patient Time Spent with Patient (in minutes): 20
[2022-03-06 14:27] LABS: Immature Retic Fraction 6.4 % (3.0-15.9); Retic HGB Equivalent 31.7 pg (30.0-35.0); Reticulocyte Percent 0.6 % (0.5-1.8); Reticulocytes Absolute 0.018 X10*6/uL (0.026-0.095)
[2022-03-06 14:47] LABS: Iron 22 mcg/dL (30-160); Lactate Dehydrogenase 522 U/L (122-220); Percent Iron Saturation 12 % (15-50); Total Iron Binding Capacity 191 mcg/dL (228-428); Unsaturated Iron Binding 169 ug/dL
[2022-03-06 15:19] LABS: Vitamin B12 654 pg/mL (200-900)
[2022-03-06] MEDS: cefTRIAXone sodium 1 GM in 0.9 % Sodium Chloride 50 ML IV (15:28)
[2022-03-06] MEDS: LORazepam 2 MG/ML VIAL 0.5 MG IVPUSH (22:49)
[2022-03-06] MEDS: Dextrose 5 % and 0.9 % NaCl 1,000 ML 50 ML IVCONT (22:50)
[2022-03-06] MEDS: Famotidine/PF 20 MG/2 ML VIAL IVPUSH (22:50)
[2022-03-07] VITALS (11 sets, daily range): BP systolic 100–134; BP diastolic 57–80; PULSE 63–91; RESP 16–20; TEMP 36.8–39.1; O2SAT 94–98
--- NOTE | 2022-03-07 | ECG_ITS ---
Test Reason : pain Blood Pressure : / mmHG Vent. Rate : 073 BPM Atrial Rate : 073 BPM P-R Int : 140 ms QRS Dur : 084 ms QT Int : 384 ms P-R-T Axes : -03 087 048 degrees QTc Int : 423 ms Normal sinus rhythm Nonspecific T wave abnormality Abnormal ECG No previous ECGs available Referred By: Omer Vo Electronically Signed By:NGUYEN LAZO MD
[2022-03-07] MEDS: Acetaminophen 325 MG TABLET 650 MG PO (02:19)
[2022-03-07] MEDS: Morphine Sulfate 2 MG/ML CARTRIDGE IVPUSH ×3 (03:18→20:25)
[2022-03-07] MEDS: ondansetron HCL 4 MG/2 ML VIAL IVPUSH ×2 (03:18→12:52)
[2022-03-07 07:19] LABS: Creatinine Clr Calc Pharmacy 133.1; Estimated Glomerular Filt Rate > 60
[2022-03-07] MEDS: Famotidine/PF 20 MG/2 ML VIAL IVPUSH ×2 (09:14→20:14)
[2022-03-07] MEDS: Dextrose 5 % and 0.9 % NaCl 1,000 ML 100 ML IVCONT (09:15)
[2022-03-07] MEDS: 0.9 % Sodium Chloride Flush 3 ML SYRINGE IVFLUSH ×2 (09:16→16:23)
[2022-03-07 12:51] LABS: Anti Nuclear Antibody Pattern Nuclear, Speckled; Anti Nuclear Antibody Screen POSITIVE (NEGATIVE)
[2022-03-07 14:26] LABS: A. Phagocytophilum Ab IgG <1:64 (<1:64); A. Phagocytophilum Ab IgM <1:20 (<1:20); E. Chaffeensis Ab IgG <1:64 (<1:64); E. Chaffeensis Ab IgM <1:20 (<1:20)
[2022-03-07] MEDS: cefTRIAXone sodium 1 GM in 0.9 % Sodium Chloride 50 ML IV (14:48)
--- NOTE | 2022-03-07 14:49 | MHC.CLN ---
F/U PT IS CURRENTLY BORDERLINE UNDER WT FOR HT WITH BMI 18.8 PT REPORTED 22% SIGNIFICANT WT LOSS X 3 WEEKS R/T POOR PO INTAKE SECONDARY TO NAUSEA PT REPORTS UBW 150# AND LOST OVER THE LAST 3 WEEKS IN ADDITION TO COMPLAINING OF NAUSEA WITH POOR PO X 3 WEEKS DIET [id number] PO INTAKE 25-50% X 2 MEALS. PT C/O NAUSEA OVERNIGHT WITH ONE EPISODE OF VOMITING PT RECEIVING ENSURE CLEAR BETWEEN MEALS TO INCREASE KCALS BUT UNABLE TO TOLERATE AT THIS TIME IF PO INTAKE DOES NOT IMPROVE; CONSIDER NGT OR PPN MONITOR PO INTAKE CLOSELY
--- NOTE | 2022-03-07 15:59 | MHC.CM.PN ---
Female 21 DX fever DP home no services family transport. No DC today Temp 102.
[2022-03-07] MEDS: Lactated Ringers 1,000 ML 150 ML IVCONT (17:08)
[2022-03-07] MEDS: methylPREDNISolone Sod Succ 40 MG/ML VIAL IVPUSH (20:14)
--- NOTE | 2022-03-07 20:28 | PC.NURSE ---
stabbing right sided chest pain #9. MD Vo notified, EKG done trop ordered , medicated with morphine 2 mg IV
[2022-03-07 21:05] LABS: Troponin-I High Sensitivity 14.8 ng/L (<3.5-17.0)
[2022-03-07] MEDS: iohexoL 350 MG/ML 100 ML INFUS..BTL IV (21:11)
--- NOTE | 2022-03-07 21:13 | PC.NURSE ---
chest pain down from #9 to # 4 , pt back to her room from CT scan of her chest ,
[2022-03-08] VITALS (7 sets, daily range): BP systolic 113–140; BP diastolic 67–88; PULSE 50–80; RESP 14–20; TEMP 24.8–37.2; O2SAT 93–99
[2022-03-08 00:17] LABS: Troponin-I High Sensitivity 18.5 ng/L (<3.5-17.0)
[2022-03-08] MEDS: Lactated Ringers 1,000 ML 150 ML IVCONT ×2 (02:40→12:58)
[2022-03-08] MEDS: methylPREDNISolone Sod Succ 40 MG/ML VIAL IVPUSH ×2 (05:39→14:19)
[2022-03-08 07:30] LABS: Creatinine Clr Calc Pharmacy 149.1; Estimated Glomerular Filt Rate > 60
[2022-03-08] MEDS: Famotidine/PF 20 MG/2 ML VIAL IVPUSH ×2 (09:48→21:59)
[2022-03-08] MEDS: 0.9 % Sodium Chloride Flush 3 ML SYRINGE IVFLUSH (09:49)
--- NOTE | 2022-03-08 12:48 | P.PNIM_ITS ---
Subjective Subjective Date of Service: 03/09/22 Interval History: f/u on abd pain, rash, fever interval history:rash seems bettter, reports that she has not had bm in 2 weeks Review of Systems no fever rash on hads, face no abd pain Physical Exam Vital Signs: Vital Signs: Last Vital Signs Temp 98.6 F 03/08/22 12:00 Pulse 66 03/08/22 12:00 Resp 19 03/08/22 12:00 BP 121/67 03/08/22 12:00 Pulse Ox 99 03/08/22 12:00 BMI result Body Mass Index 18.8 Const: Other: General: AO X 3, no acute distress Resp: CTA bilateral CVS: S1,S2,RRR GI: +BS, NT, no distention Skin: No rash Neuro: motor grossly intact Psych: appropriate affect General: cooperative HEENT: Head: Yes normal to inspection Mouth: Normal oral and palatal mucosa present Eyes: General: appearance normal, both eyes and all related structures Pupils: Equal, round and reactive pupils present Resp: Effort & Inspection: normal respiratory effort Cardio: Rate: regular rate Rhythm: regular rhythm GI: Palpation (GI): Soft to palpation and nontender Skin: Other: multiple circular reddened areas face and hands General skin exam: no rashes or lesions noted Neuro: Cranial nerves: Yes Equal, round and reactive pupils present Extrem: General: Yes normal to inspection Objective Data Active Medications Acetaminophen (Acetaminophen 325 Mg Tablet) 650 mg PO Q6H PRN PRN Reason: Pain, Mild (Pain Scale 1-3) Last Admin: 03/07/22 02:19 Dose: 650 mg Documented by: TRUDI Famotidine (Famotidine/Pf 20 Mg/2 Ml Vial) 20 mg IVPUSH BID [facility] Last Admin: 03/08/22 09:48 Dose: 20 mg Documented by: SCOOTER Ceftriaxone Sodium 1 gm/ (Sodium Chloride) 50 mls @ 100 mls/hr IV Q24H [facility] Last Infusion: 03/07/22 16:17 Dose: 0 mls/hr Documented by: MAHESH Dextrose/Sodium Chloride (D5ns) 1,000 mls @ 50 mls/hr IVCONT .Q20H [facility] Last Infusion: 03/07/22 17:06 Dose: 0 mls/hr Documented by: MAHESH Lactated Ringer's (Lr) 1,000 mls @ 150 mls/hr IVCONT .Q6H40M [facility] Last Admin: 03/08/22 06:02 Dose: Not Given Documented by: ALENA Non-Admin Reason: IV Running Promethazine HCl 12.5 mg/ (Sodium Chloride) 50.5 mls @ 202 mls/hr IV Q6H PRN PRN Reason: Nausea and Vomiting Last Infusion: 03/08/22 11:56 Dose: 0 mls/hr Documented by: SCOOTER Methylprednisolone Sodium Succinate (Methylprednisolone Sod Succ 40 Mg/Ml Vial) 40 mg IVPUSH Q8H [facility] Last Admin: 03/08/22 05:39 Dose: 40 mg Documented by: ALENA Morphine Sulfate (Morphine Sulfate 2 Mg/Ml Cartridge) 2 mg IVPUSH Q6H PRN; Protocol PRN Reason: Pain, Severe (Pain Scale 7-10) Last Admin: 03/07/22 20:25 Dose: 2 mg Documented by: MAHESH Ondansetron HCl (Ondansetron Hcl 4 Mg/2 Ml Vial) 4 mg IVPUSH Q8H PRN PRN Reason: Nausea and Vomiting Last Admin: 03/07/22 12:52 Dose: 4 mg Documented by: JOHN Pharmacy Consult (Consult Rx Perform Med Rec) 1 each MISCELLANE ONCE PRN PRN Reason: Consult order Pharmacy Consult (Consult Rx Vancomycin Dosing) 1 each MISCELLANE DAILY PRN PRN Reason: Consult order Sodium Chloride (0.9 % Sodium Chloride Flush 3 Ml Syringe) 3 ml IVFLUSH QSHIFT [facility] Last Admin: 03/08/22 09:49 Dose: 3 ml Documented by: SCOOTER Labs CBC & Chem 7: 03/08/22 17:36 03/09/22 06:53 Labs: Laboratory Results - last 24 hr 03/03/22 03/04/22 03/07/22 21:01 09:22 20:39 Estim Creat Clear Calc Estimated GFR Troponin I High Sens 14.8 ELIZABET Screen POSITIVE A ELIZABET Titer 1:1280 H ELIZABET Titer 2 TNP ELIZABET Titer 3 TNP ELIZABET Pattern Nuclear, Speckled A ELIZABET Pattern 2 TNP ELIZABET Pattern 3 TNP A. phagocytophilum IgG <1:64 A. phagocytophilum IgM <1:20 A.phagocytophilum Intrp A. phagocytophilum Cmmt See Below E. chaffeensis IgG Ab <1:64 E. chaffeensis IgM Ab <1:20 E. chaffeensis Interp E. chaffeensis Comment See Below 03/07/22 03/08/22 23:31 06:33 Estim Creat Clear Calc 149.1 Estimated GFR > 60 Troponin I High Sens 18.5 H ELIZABET Screen ELIZABET Titer ELIZABET Titer 2 ELIZABET Titer 3 ELIZABET Pattern ELIZABET Pattern 2 ELIZABET Pattern 3 A. phagocytophilum IgG A. phagocytophilum IgM A.phagocytophilum Intrp A. phagocytophilum Cmmt E. chaffeensis IgG Ab E. chaffeensis IgM Ab E. chaffeensis Interp E. chaffeensis Comment Assessment and Plan (1) Fever of unknown origin: Status: Acute (2) Leukocytopenia, unspecified: Status: Acute (3) Elevated LFTs: Status: Acute Plan 21-year-old female with no significant past medical history presented to the hospital with a chief complaint of abdominal pain and to have fever and rash on arm, palms and face has been there since October Nausea/vomiting /abdominal pain:??Ultrasound negative.? Benign abdominal examination.?GI recommends outpatient follow up.? Recent CT ? show free air. Her abdominal exam is very bening, closer review of CT with sagital view show that air in stomach.. discrepency likely from no contrast.. Surgery to assess Rash, Fever:? Noted on? bilateral palms; ? whole face; couple lesions in the oral mucosa;? rash? raised with papular lesions. Culture negative, lyme, HIV, Hep A. B.C negative, blood cultures negative. + ELIZABET suggest possibility of lupus, low dose steroid and over the phone consultation with Rheum UTi--Ceftriaxone, Ceftin at discharge Pancytopenia: Heme eval pending Need for inapatient: ongoing work for fever on unknown source, and potential infectious cause being treated with IV abx Quality Stroke Does the patient have a stroke diagnosis?: No VTE Prior VTE?: No VTE Risk Level:: Medical - moderate - high VTE Device Contraindication: N/A - Device Ordered VTE Drug Contraindication: Treatment Not Indicated
[2022-03-08] MEDS: cefTRIAXone sodium 1 GM in 0.9 % Sodium Chloride 50 ML IV (14:19)
[2022-03-08 18:05] LABS: Hematocrit 27.1 % (37.0-47.0); Hemoglobin 9.1 g/dl (12.0-16.0); Mean Corpuscular HGB Conc 33.6 g/dl (31.0-35.0); Mean Corpuscular Hemoglobin 28.4 pg (27.0-33.0); Mean Corpuscular Volume 84.7 fL (80.0-98.0); Mean Platelet Volume 10.9 fL (9.4-12.3); Platelet Count 152 X10*3/uL (160-400); Red Cell Distribution Width 13.6 % (11.0-16.0)
[2022-03-08 18:09] LABS: Lactic Acid 1.6 mmol/L (0.5-2.0)
[2022-03-08 18:15] LABS: White Blood Count 1.4 X10*3/uL (4.8-10.8)
[2022-03-08] MEDS: Morphine Sulfate 2 MG/ML CARTRIDGE IVPUSH (18:33)
[2022-03-08] MEDS: Mineral OiL enema 133 ML ENEMA PR (19:40)
[2022-03-08] MEDS: Acetaminophen 325 MG TABLET 650 MG PO (21:59)
[2022-03-08] MEDS: ondansetron HCL 4 MG/2 ML VIAL IVPUSH (22:06)
[2022-03-09] MEDS: Lactated Ringers 1,000 ML 150 ML IVCONT ×2 (00:36→10:25)
[2022-03-09 04:00] VITALS: BP 128/62; PULSE 75; RESP 18; TEMP 37; O2SAT 98
[2022-03-09 07:26] VITALS: BP 128/70; PULSE 80; RESP 19; TEMP 37; O2SAT 99
[2022-03-09 07:40] LABS: Estimated Glomerular Filt Rate > 60
[2022-03-09] MEDS: methylPREDNISolone Sod Succ 40 MG/ML VIAL 20 MG IVPUSH ×2 (10:26→21:13)
[2022-03-09] MEDS: Famotidine/PF 20 MG/2 ML VIAL IVPUSH ×2 (10:26→21:14)
[2022-03-09] MEDS: ondansetron HCL 4 MG/2 ML VIAL IVPUSH (10:26)
--- NOTE | 2022-03-09 10:27 | HO.PM.IMPN ---
Subjective Subjective Date of Service: 03/09/22 Interval History: f/u on abd pain, rash, fever interval history:rash seems bettter, had a small bowel mvoment, yesterday and feels better today Review of Systems no fever rash on hads, face no abd pain Physical Exam Vital Signs: Vital Signs: Last Vital Signs Temp 98.6 F 03/09/22 07:26 Pulse 80 03/09/22 07:26 Resp 19 03/09/22 07:26 BP 128/70 03/09/22 07:26 Pulse Ox 99 03/09/22 07:26 BMI result Body Mass Index 18.8 Const: Other: General: AO X 3, no acute distress Resp: CTA bilateral CVS: S1,S2,RRR GI: +BS, NT, no distention Skin: rash on face fading, compare to prior photos Neuro: motor grossly intact Psych: appropriate affect Objective Data Active Medications Acetaminophen (Acetaminophen 325 Mg Tablet) 650 mg PO Q6H PRN PRN Reason: Pain, Mild (Pain Scale 1-3) Last Admin: 03/08/22 21:59 Dose: 650 mg Documented by: TRUDI Famotidine (Famotidine/Pf 20 Mg/2 Ml Vial) 20 mg IVPUSH BID [facility] Last Admin: 03/08/22 21:59 Dose: 20 mg Documented by: TRUDI Ceftriaxone Sodium 1 gm/ (Sodium Chloride) 50 mls @ 100 mls/hr IV Q24H [facility] Last Infusion: 03/08/22 15:42 Dose: 0 mls/hr Documented by: COLKAMAR Lactated Ringer's (Lr) 1,000 mls @ 150 mls/hr IVCONT .Q6H40M [facility] Last Infusion: 03/09/22 09:47 Dose: 0 mls/hr Documented by: DOBROZofia Promethazine HCl 12.5 mg/ (Sodium Chloride) 50.5 mls @ 202 mls/hr IV Q6H PRN PRN Reason: Nausea and Vomiting Last Infusion: 03/08/22 18:32 Dose: 0 mls/hr Documented by: TRUDI Methylprednisolone Sodium Succinate (Methylprednisolone Sod Succ 40 Mg/Ml Vial) 20 mg IVPUSH BID [facility] Morphine Sulfate (Morphine Sulfate 2 Mg/Ml Cartridge) 2 mg IVPUSH Q6H PRN; Protocol PRN Reason: Pain, Severe (Pain Scale 7-10) Last Admin: 03/08/22 18:33 Dose: 2 mg Documented by: TRUDI Morphine Sulfate (Morphine Sulfate 2 Mg/Ml Cartridge) 2 mg IVPUSH Q6H PRN; Protocol PRN Reason: Pain, Severe (Pain Scale 7-10) Ondansetron HCl (Ondansetron Hcl 4 Mg/2 Ml Vial) 4 mg IVPUSH Q8H PRN PRN Reason: Nausea and Vomiting Last Admin: 03/08/22 22:06 Dose: 4 mg Documented by: TRUDI Pharmacy Consult (Consult Rx Perform Med Rec) 1 each MISCELLANE ONCE PRN PRN Reason: Consult order Pharmacy Consult (Consult Rx Vancomycin Dosing) 1 each MISCELLANE DAILY PRN PRN Reason: Consult order Sodium Chloride (0.9 % Sodium Chloride Flush 3 Ml Syringe) 3 ml IVFLUSH QSHIFT [facility] Last Admin: 03/09/22 09:47 Dose: Not Given Documented by: MEI Non-Admin Reason: IV Running Labs CBC & Chem 7: 03/08/22 17:36 03/09/22 06:53 Labs: Laboratory Results - last 24 hr 03/08/22 03/08/22 03/09/22 17:36 17:36 06:53 MCV 84.7 MCH 28.4 MCHC 33.6 RDW 13.6 Plt Count 152 L MPV 10.9 Absolute Nucleated RBC 0.000 Nucleated RBC % (auto) 0.0 Estim Creat Clear Calc 138.0 Estimated GFR > 60 Lactic Acid 1.6 Microbiology Microbiology Results: Microbiology 03/03/22 20:09 Blood Culture - Final Blood - Venous No growth after 5 days. 03/03/22 19:51 Blood Culture - Final Blood - Venous No growth after 5 days. Assessment and Plan (1) Fever of unknown origin: Status: Acute (2) Leukocytopenia, unspecified: Status: Acute (3) Elevated LFTs: Status: Acute Plan 21-year-old female with no significant past medical history presented to the hospital with a chief complaint of abdominal pain and to have fever and rash on arm, palms and face has been there since October and now positive ELIZABET with other constellation of problems suggestive lupus. Nausea/vomiting /abdominal pain, CT showing severe constipation, ? air seem to be in stomach.. clinically does not have acute abdomen. Enema and other bowel regimen. Clear liquid diet. Rash, Fever:? Noted on? bilateral palms; ? whole face; couple lesions in the oral mucosa;? rash? raised with papular lesions. Culture negative, lyme, HIV, Hep A. B.C negative, blood cultures negative. + ELIZABET suggest possibility of lupus, low dose steroid and over the phone consultation with Rheum, and outpatient follow with rheum. No more fever UTi--Ceftriaxone. DC Abx after 5 days Pancytopenia: Likely related to lupus, heme following Need for inapatient: ongoing work for fever on unknown source, and potential infectious cause being treated with IV abx Quality Stroke Does the patient have a stroke diagnosis?: No VTE Prior VTE?: No VTE Risk Level:: Medical - moderate - high VTE Device Contraindication: N/A - Device Ordered VTE Drug Contraindication: Treatment Not Indicated
[2022-03-09] MEDS: Morphine Sulfate 2 MG/ML CARTRIDGE IVPUSH ×3 (10:29→21:14)
[2022-03-09 10:59] VITALS: BP 130/70; PULSE 80; RESP 20; TEMP 37; O2SAT 99
--- NOTE | 2022-03-09 12:14 | P.CONGS_ITS ---
History of Present Illness Consult details Consult date: 03/09/22 Reason for consult: abdominal pain Requesting physician: Marco Antonio Monge Narrative: 21-year-old female patient admitted on 03/03/2022 with complaints of abdominal pain. Pain was associated with nausea and anorexia. She was found to be leukopenic and is being evaluated by Hematology-Oncology. Patient was also found to have a rash involving her face and hands since October. Laboratories reveal WBC of 1.4 as well as an anemia with hemoglobin of 9.1. A CT of the abdomen and pelvis was obtained on 03/08/2022. This study was performed without the aid of oral or intravenous contrast . This revealed a small amount of fluid around the gallbladder or gallbladder wall edema With a normal size gallbladder and no gallstones. A small amount air inferior to the left lobe of the liver probably in the distal stomach and proximal duodenum, although the exam is difficult to interpret without contrast. Stool is noted in the colon including distal sigmoid and rectum suggestive of constipation . Review of Systems Constitutional: Constitutional: Denies chills, Denies fever(s), Denies headache(s) and Reports poor appetite ENT: Denies dizziness and Denies headache(s) Cardiovascular: Cardiovascular: Denies chest pain, Denies rapid heart rate, Denies palpitations and Denies slow heart rate Respiratory: Respiratory: Denies chest congestion, Denies cough, Denies pain on inspiration and Denies wheezing Gastrointestinal: Gastrointestinal: Reports abdominal pain, Reports bloating, Denies change in stool character, Reports constipation, Denies diarrhea, Reports nausea, Denies vomiting and Denies hematemesis Musculoskeletal: Musculoskeletal: Denies back pain, Denies arthralgias, Denies joint swelling and Denies numbness Integumentary/Breasts: Skin/Breast: Reports as per HPI, Denies change in pigmentation, Denies erythema and Reports rash Neurologic: Denies dizziness, Denies headache(s) and Denies numbness Psychiatric: Psychiatric: Denies anxiety and Denies depression Endocrine: Endocrine: Denies palpitations Hematologic/Lymphatic: Hematologic/Lymphatic: Denies easy bleeding, Denies easy bruising and Denies lymphadenopathy Allergic/Immunologic: Allergic/Immunologic: Denies wheezing PMFSH Past Medical History Medical History Generalized headaches GERD (gastroesophageal reflux disease) Family History Family history: reviewed and not pertinent Social History Social History Household Members: Family Housing: House Do you presently have visiting nurse or other home services: No Patient Tobacco Use Status: Never used Tobacco Use of substances other than those prescribed or required for medical reasons: No Currently Displaying Signs/Symptoms of Drug Intoxication Withdrawal: No Have you been hit, kicked, punched, or otherwise hurt by someone within the past year? If so, by whom?: No Do you feel safe in your current relationship?: Yes Is there a partner from a previous relationship who is making you feel unsafe now?: No Are you made to feel afraid or neglected: No Advance Directives: Yes Advance Directives Information Provided: No Advance Directives on File: Yes Advance Directives Date on File: 03/03/22 Do you have thoughts of harming others: None Do you have a plan to hurt others: No Plan Recently lost weight without trying: Yes How much weight loss: 24-33 pounds Nutrition Risks: Difficulty chewing and Poor intake 0-25% >4 days Patient : No : No Poor oral hygiene: No service: No Current occupational status: unemployed Meds Allergies Allergy/AdvReac Type Severity Reaction Status Date / Time No Known Allergies Allergy Verified 03/03/22 15:55 Active Medications: Current Medications Acetaminophen (Acetaminophen 325 Mg Tablet) 650 mg PO Q6H PRN PRN Reason: Pain, Mild (Pain Scale 1-3) Last Admin: 03/08/22 21:59 Dose: 650 mg Documented by: Famotidine (Famotidine/Pf 20 Mg/2 Ml Vial) 20 mg IVPUSH BID [facility] Last Admin: 03/09/22 10:26 Dose: 20 mg Documented by: Ceftriaxone Sodium 1 gm/ (Sodium Chloride) 50 mls @ 100 mls/hr IV Q24H [facility] Last Infusion: 03/08/22 15:42 Dose: Infused Documented by: Lactated Ringer's (Lr) 1,000 mls @ 150 mls/hr IVCONT .Q6H40M [facility] Last Admin: 03/09/22 10:25 Dose: 150 mls/hr Documented by: Promethazine HCl 12.5 mg/ (Sodium Chloride) 50.5 mls @ 202 mls/hr IV Q6H PRN PRN Reason: Nausea and Vomiting Last Infusion: 03/08/22 18:32 Dose: Infused Documented by: Methylprednisolone Sodium Succinate (Methylprednisolone Sod Succ 40 Mg/Ml Vial) 20 mg IVPUSH BID [facility] Last Admin: 03/09/22 10:26 Dose: 20 mg Documented by: Morphine Sulfate (Morphine Sulfate 2 Mg/Ml Cartridge) 2 mg IVPUSH Q6H PRN; Protocol PRN Reason: Pain, Severe (Pain Scale 7-10) Last Admin: 03/09/22 10:29 Dose: 2 mg Documented by: Morphine Sulfate (Morphine Sulfate 2 Mg/Ml Cartridge) 2 mg IVPUSH Q6H PRN; Protocol PRN Reason: Pain, Severe (Pain Scale 7-10) Ondansetron HCl (Ondansetron Hcl 4 Mg/2 Ml Vial) 4 mg IVPUSH Q8H PRN PRN Reason: Nausea and Vomiting Last Admin: 03/09/22 10:26 Dose: 4 mg Documented by: Pharmacy Consult (Consult Rx Perform Med Rec) 1 each MISCELLANE ONCE PRN PRN Reason: Consult order Pharmacy Consult (Consult Rx Vancomycin Dosing) 1 each MISCELLANE DAILY PRN PRN Reason: Consult order Sodium Chloride (0.9 % Sodium Chloride Flush 3 Ml Syringe) 3 ml IVFLUSH QSHIFT [facility] Last Admin: 03/09/22 09:47 Dose: Not Given Documented by: Home Medications Medication Instructions Recorded Confirmed Last Taken Type fluticasone propionate 50 1 spray INTRANASAL DAILY PRN 03/03/22 03/03/22 Unknown History mcg/actuation nasal spray,suspension ondansetron 4 mg disintegrating 1 tab PO Q6H PRN 03/03/22 03/03/22 Unknown Histo ry tablet Physical Exam Vital Signs: Vital Signs: Last Vital Signs Temp 98.6 F 03/09/22 10:59 Pulse 80 03/09/22 10:59 Resp 20 03/09/22 10:59 BP 130/70 03/09/22 10:59 Pulse Ox 99 03/09/22 10:59 BMI result Body Mass Index 18.8 Const: General: cooperative, comfortable and well developed Nutritional Appearance: well nourished Orientation/consciousness: patient oriented x3 Eyes: Sclerae: sclerae normal EOM: EOMs intact bilaterally Neck: Neck: Yes normal visual inspection Resp: Effort & Inspection: normal respiratory effort, no cough, no respiratory distress and no stridor Cardio: Jugular venous distension: no JVD GI: Inspection: Yes normal to inspection Palpation (GI): Soft to palpation, nontender, no guarding and not rigid Skin: General skin exam: dry skin Rashes: no rashes Neuro: General: patient oriented x3 and no focal motor deficits Extrem: General: Yes full ROM and Yes no clubbing, cyanosis or edema Psych: Appearance: grossly normal Results Labs Result diagrams: 03/08/22 17:36 03/09/22 06:53 Labs: Abnormal lab results 03/08/22 Range/Units 17:36 WBC 1.4 L (4.8-10.8) X10*3/uL RBC 3.20 L D (4.20-5.50) X10*6/uL Hgb 9.1 L D (12.0-16.0) g/dl Hct 27.1 L D (37.0-47.0) % Plt Count 152 L (160-400) X10*3/uL Short CBC 03/08/22 Range/Units 17:36 WBC 1.4 L (4.8-10.8) X10*3/uL Hgb 9.1 L D (12.0-16.0) g/dl Hct 27.1 L D (37.0-47.0) % Plt Count 152 L (160-400) X10*3/uL BMP 03/09/22 06:53 Creatinine 0.54 Urine 03/03/22 03/03/22 Range/Units 23:55 23:55 Urine Color YELLOW Urine Appearance HAZY Urine pH 6.5 (5.0-8.0) Ur Specific Yoder 1.020 (1.005-1.025) Urine Protein 1+ H (NEG-TRACE) MG/DL Urine Glucose (UA) NEG (NEG) MG/DL Urine Test NEGATIVE (NEGATIVE) All other labs normal. Imaging Abdomen CT scan report/results: image reviewed CT scan - pelvis: image reviewed Assessment and Plan (1) Abdominal pain: Qualifiers: Abdominal location: epigastric Qualified Code(s): R10.13 - Epigastric pain Status: Acute (2) Vomiting: Qualifiers: Nausea presence: with nausea Vomiting type: unspecified Qualified Code(s): R11.2 - Nausea with vomiting, unspecified Status: Acute (3) Leukocytopenia, unspecified: Qualifiers: Leukopenia type: unspecified Qualified Code(s): D72.819 - Decreased white blood cell count, unspecified Status: Acute Plan 21-year-old female patient presenting with a constellation of symptoms including facial and rash, abdominal pain, nausea, constipation, and leukopenia. Patient was found on CT to have air below the left lobe of the liver. I reviewed the CT this appears to be within the distal stomach proximal and proximal duodenum. There is no evidence of free air under the diaphragm. Patient is noted to be constipated with thick possibly contrast-enhanced stool in the rectum. Patient took a fleets enema yesterday without significant improvement. I suggested proceeding to a soapsuds enema. She expressed understanding and agrees with the plan. Procedures Date of Service Date of Service: 03/09/22
--- NOTE | 2022-03-09 14:12 | PC.NURSE ---
Soap suds enema ordered for patient. Enema given at 1300 patient was able to tolerated 1200ml - Patient reported two episodes of small bm, still c/o of abdominal pain rating in 11 out of 10. MD notified
[2022-03-09 15:13] VITALS: BP 126/74; PULSE 52; RESP 14; TEMP 36.6; O2SAT 95
[2022-03-09] MEDS: cefTRIAXone sodium 1 GM in 0.9 % Sodium Chloride 50 ML IV (15:35)
[2022-03-09 19:22] VITALS: BP 123/73; PULSE 54; RESP 14; TEMP 36.7; O2SAT 95
[2022-03-09] MEDS: 0.9 % Sodium Chloride Flush 3 ML SYRINGE IVFLUSH (21:12)
[2022-03-09 23:27] VITALS: BP 119/79; PULSE 45; RESP 17; TEMP 36.4; O2SAT 97
[2022-03-10 03:54] VITALS: BP 132/76; PULSE 43; RESP 17; TEMP 36.3; O2SAT 92
[2022-03-10] MEDS: Morphine Sulfate 2 MG/ML CARTRIDGE IVPUSH ×4 (04:12→20:45)
[2022-03-10 08:00] VITALS: BP 144/87; PULSE 46; RESP 20; TEMP 36.6; O2SAT 95
[2022-03-10] MEDS: 0.9 % Sodium Chloride Flush 3 ML SYRINGE IVFLUSH ×3 (09:00→20:45)
[2022-03-10] MEDS: Famotidine/PF 20 MG/2 ML VIAL IVPUSH ×2 (09:00→20:45)
[2022-03-10] MEDS: methylPREDNISolone Sod Succ 40 MG/ML VIAL 20 MG IVPUSH (09:01)
--- NOTE | 2022-03-10 09:53 | PM.PNGS ---
Subjective Subjective Date of Service: 03/10/22 Interval history: Reports pain is intermittent and not really improved however she is hungry and wants to eat her sandwich. Had bowel movements with the enema yesterday. Physical Exam Vital Signs: Vital Signs: Last Vital Signs Temp 97.8 F 03/10/22 08:00 Pulse 46 L 03/10/22 08:00 Resp 20 03/10/22 08:00 BP 144/87 H 03/10/22 08:00 Pulse Ox 95 03/10/22 08:00 BMI result Body Mass Index 18.8 Const: General: comfortable, no acute distress and alert Orientation/consciousness: patient oriented x3 Resp: Effort & Inspection: normal respiratory effort GI: Inspection: No distended Palpation (GI): Soft to palpation, Tenderness to palpation present (GI) (mild, diffuse), no guarding and not rigid Percussion: Yes normal to percussion Skin: General skin exam: no rashes or lesions noted Neuro: General: patient oriented x3 Objective Data Active Medications Acetaminophen (Acetaminophen 325 Mg Tablet) 650 mg PO Q6H PRN PRN Reason: Pain, Mild (Pain Scale 1-3) Last Admin: 03/08/22 21:59 Dose: 650 mg Documented by: TRUDI Famotidine (Famotidine/Pf 20 Mg/2 Ml Vial) 20 mg IVPUSH BID [facility] Last Admin: 03/10/22 09:00 Dose: 20 mg Documented by: TYRELL Promethazine HCl 12.5 mg/ (Sodium Chloride) 50.5 mls @ 202 mls/hr IV Q6H PRN PRN Reason: Nausea and Vomiting Last Infusion: 03/08/22 18:32 Dose: 0 mls/hr Documented by: TRUDI Methylprednisolone Sodium Succinate (Methylprednisolone Sod Succ 40 Mg/Ml Vial) 20 mg IVPUSH BID [facility] Last Admin: 03/10/22 09:01 Dose: 20 mg Documented by: TYRELL Morphine Sulfate (Morphine Sulfate 2 Mg/Ml Cartridge) 2 mg IVPUSH Q4H PRN; Protocol PRN Reason: Pain, Severe (Pain Scale 7-10) Last Admin: 03/10/22 09:00 Dose: 2 mg Documented by: TYRELL Ondansetron HCl (Ondansetron Hcl 4 Mg/2 Ml Vial) 4 mg IVPUSH Q8H PRN PRN Reason: Nausea and Vomiting Last Admin: 03/09/22 10:26 Dose: 4 mg Documented by: MEI Pharmacy Consult (Consult Rx Perform Med Rec) 1 each MISCELLANE ONCE PRN PRN Reason: Consult order Pharmacy Consult (Consult Rx Vancomycin Dosing) 1 each MISCELLANE DAILY PRN PRN Reason: Consult order Sodium Chloride (0.9 % Sodium Chloride Flush 3 Ml Syringe) 3 ml IVFLUSH QSHIFT [facility] Last Admin: 03/10/22 09:00 Dose: 3 ml Documented by: TYRELL Labs CBC & Chem 7: 03/08/22 17:36 03/09/22 06:53 Procedures Date of Service Date of Service: 03/10/22 Progress Note: A&P Assessment and plan (1) Abdominal pain: Status: Acute Plan 21-year-old female patient presenting with a constellation of symptoms including facial rash, abdominal pain, nausea, constipation, and leukopenia. Thought to have air below the left lobe of the liver on CT however this was reviewed and it appears to be within the distal stomach proximal and proximal duodenum without evidence of free air under the diaphragm. Her abdomen remains benign- soft, mild diffuse tenderness. No peritoneal signs. There are no acute surgical issues at this time. Abd pain secondary to ?lupus. Can continue bowel regimen, enemas as needed. Can advance diet as tolerated. Will sign off for now. Call with questions, thank you. Time Spent With Patient Time: Total time spent is greater than 50% in coordination of care (as documented) at patient's floor/unit and/or counseling patient: Quality Stroke Does the patient have a stroke diagnosis?: No VTE Prior VTE?: No VTE Risk Level:: Medical - moderate - high VTE Device Contraindication: N/A - Device Ordered VTE Drug Contraindication: Treatment Not Indicated
[2022-03-10 12:00] VITALS: BP 153/85; PULSE 46; RESP 20; TEMP 35.4; O2SAT 95
--- NOTE | 2022-03-10 12:52 | MHC.CM.PN ---
Female 21 DX Fever Per MD rounds DC today or tomorrow. Patient's diet to be advanced today. DP home no services family transport. Patient will follow up with Rheumatology outpatient.
--- NOTE | 2022-03-10 14:32 | MHC.CLN ---
F/U PO INTAKE IMPROVED BUT REMAINS VARIABLE DIET RX: C/L-APPROPRIATE RECOMMEND RE-STARTING ENSURE CLEAR BETWEEN MEALS TO INCREASE KCALS MONITOR PO INTAKE CLOSELY
[2022-03-10 14:36] LABS: IgA 215 mg/dL (47-310); IgG 2713 mg/dL (600-1640); IgM 90 mg/dL (50-300)
--- NOTE | 2022-03-10 14:56 | PM.DS ---
DS: Providers Provider Date of admission: 03/03/22 22:24 Primary care physician: Eirca Clayton MD Consults: 03/04/22 03:10 Consult to Infectious Diseases Routine Consulting Provider: Kenisha Boyle Reason for consultation: FUO; Rash on palms and Face; ?impetigo 03/04/22 03:11 Consult to Gastroenterology Routine Consulting Provider: Shay Robbins Reason for consultation: Nausea/abd pain 03/06/22 10:04 Consult to Hematology / Oncology Routine Consulting Provider: Vickie Schmidt Reason for consultation: Pancytopenia associated rash ? need for BM 03/08/22 17:21 Consult to General Surgery Routine Consulting Provider: Jordan Walker Reason for consultation: ? air in stomach Has provider been notified: No DS: Diagnosis Discharge Diagnosis (1) Abdominal pain: Status: Acute DS: Summary Hospital Course Hospital Course: Chief Complaint:? abdominal pain ?21-year-old female with no significant past medical history presented to the hospital with a chief complaint of abdominal pain.? Patient reported that over the past 3 weeks he has been having abdominal discomfort associated nausea; has been having reduced oral intake.? Denies any diarrhea.? Denies any blood in the vomitus.? Symptoms have been gradually progressing; mentioned that she has seen her PCP few days ago and was referred to Gastroenterology.? Also mentioned that she has outpatient labs which showed low white cell count; and is planned to see Hematology-Oncology as outpatient; ?patient also reported that she went to the [facility] recently. ?denies any chest pain palpitations lightheadedness or dizziness.? Denies any high-risk sexual behavior.? Mentions that she has rash in her hands which spread to do her face; going on since October.? Denies any discharge.? Also complains of couple oral lesions.? Denies any rash on the lower parts of the body; ? Denies any throat pain, dysphagia, neck swelling.? Reports he has occasional headaches and body aches.? Denies any neck pain.? ? Patient denied any urinary symptoms Review of all other systems is negative except mentioned above ER course: Per ER team patient noted to have rash, leukopenia, thrombocytopenia;? concerning for acute viral syndrome; sent a HIV, hepatitis, Lyme titers; Monospot test negative.? Patient was empirically given cefepime.? Urinalysis was abnormal consistent UTI. Hospital course: Pancytopenia Elevated LFTs Fever Rash on Face Constipation Nauea and vomitting Time Spent with Patient Time attestation: Total time spent providing and/or coordinating discharge services: Discharge coordination time: Greater than 30 minutes Quality: Safe Use of Opioids Does Pt have an Active Cancer Diagnosis on the Problem List?: No Quality: Stroke Does the patient have a stroke diagnosis?: No Physical Exam Vital Signs: Vital Signs: Last Vital Signs Temp 95.8 F L 03/10/22 12:00 Pulse 46 L 03/10/22 12:00 Resp 20 03/10/22 12:00 BP 153/85 H 03/10/22 12:00 Pulse Ox 95 03/10/22 12:00 BMI result Body Mass Index 18.8 DS: Data Data Completed and Pending Labs on day of discharge: Laboratory Results - last 24 hr 03/06/22 14:18 IgG Total 2713 H IgA Total 215 IgM 90 YUN Interpretation Discharge Plan Discharge Patient Disposition: Home, Self-Care Discharge Diagnosis: Suspected Lupus Referrals: Erica Clayton MD [Primary Care Provider] - 1 Week Discharge Medications: Continued fluticasone propionate 50 mcg/actuation spray,suspension 1 spray INTRANASAL DAILY PRN (Reason: Congestion) 0RF ondansetron 4 mg tablet,disintegrating 1 tab PO Q6H PRN (Reason: nausea/vomiting) 0RF Discharge Orders: Discharge Order (Routine); Ordered 03/10/22 Ordered By: Marco Antonio Monge Diet: advance to usual diet Activity on Discharge: No Running or jogging Stand Alone Forms: Patient Portal Discharge page Other Ambulatory Orders: Complete Blood Count Auto Diff (Routine) Timeframe: [id number] Facility: [facility] - Location: Laboratory Ordered By: Vickie Schmidt Care Plan Goals: Complete work up and diagnosis of rheumatoligcal work up Health Concerns: Constellation of rash, fever, abnormal blood count, liver enzymes raising the posibilit of lupus Plan of Treatment: Take prednisone as directed and follow up with air brake operator as directed Follow up with your Doctor as directed and Assessment: As above
--- NOTE | 2022-03-10 15:13 | MHC.CM.PN ---
Female 21 DX Fever She is discharged to home today. She will follow up outpatient with [facility]. She has arranged for transportation home.
--- NOTE | 2022-03-10 15:23 | HO.PM.IMPN ---
Subjective Subjective Date of Service: 03/11/22 Interval History: f/u on abd pain, rash, fever, abdominal pain, pancytopenia, and elevated ELIZABET raising the posibility of Lupus interval history:Rash seems better, had multiple bowel movement yesterday, no more nausea or vomitting. No fever over 48 hrs. Review of Systems Review of Systems no fever rash on hads, face--better no abd pain, no constipation Physical Exam Vital Signs: Vital Signs: Last Vital Signs Temp 95.8 F L 03/10/22 12:00 Pulse 46 L 03/10/22 12:00 Resp 20 03/10/22 12:00 BP 153/85 H 03/10/22 12:00 Pulse Ox 95 03/10/22 12:00 BMI result Body Mass Index 18.8 Const: Other: General: AO X 3, no acute distress Resp: CTA bilateral CVS: S1,S2,RRR GI: +BS, NT, no distention Skin: No rash, 03/10 03/06 Neuro: motor grossly intact Psych: appropriate affect Objective Data Active Medications Acetaminophen (Acetaminophen 325 Mg Tablet) 650 mg PO Q6H PRN PRN Reason: Pain, Mild (Pain Scale 1-3) Last Admin: 03/08/22 21:59 Dose: 650 mg Documented by: TRUDI Docusate Sodium (Docusate Sodium 100 Mg Capsule) 100 mg PO BID [facility] Famotidine (Famotidine/Pf 20 Mg/2 Ml Vial) 20 mg IVPUSH BID [facility] Last Admin: 03/10/22 09:00 Dose: 20 mg Documented by: TYRELL Promethazine HCl 12.5 mg/ (Sodium Chloride) 50.5 mls @ 202 mls/hr IV Q6H PRN PRN Reason: Nausea and Vomiting Last Infusion: 03/08/22 18:32 Dose: 0 mls/hr Documented by: TRUDI Morphine Sulfate (Morphine Sulfate 2 Mg/Ml Cartridge) 2 mg IVPUSH Q4H PRN; Protocol PRN Reason: Pain, Severe (Pain Scale 7-10) Last Admin: 03/10/22 14:33 Dose: 2 mg Documented by: TYRELL Ondansetron HCl (Ondansetron Hcl 4 Mg/2 Ml Vial) 4 mg IVPUSH Q8H PRN PRN Reason: Nausea and Vomiting Last Admin: 03/09/22 10:26 Dose: 4 mg Documented by: MEI Pharmacy Consult (Consult Rx Perform Med Rec) 1 each MISCELLANE ONCE PRN PRN Reason: Consult order Pharmacy Consult (Consult Rx Vancomycin Dosing) 1 each MISCELLANE DAILY PRN PRN Reason: Consult order Sodium Chloride (0.9 % Sodium Chloride Flush 3 Ml Syringe) 3 ml IVFLUSH QSHIFT [facility] Last Admin: 03/10/22 09:00 Dose: 3 ml Documented by: TYRELL Labs CBC & Chem 7: 03/10/22 15:33 03/10/22 15:33 Labs: Laboratory Results - last 24 hr 03/06/22 14:18 IgG Total 2713 H IgA Total 215 IgM 90 YUN Interpretation Assessment and Plan (1) Fever of unknown origin: Status: Acute (2) Leukocytopenia, unspecified: Status: Acute (3) Elevated LFTs: Status: Acute Plan 21-year-old female with no significant past medical history presented to the hospital with a chief complaint of abdominal pain and to have fever and rash on arm, palms and face has been there since October and now positive ELIZABET with other constellation of problems suggestive lupus. Nausea/vomiting /abdominal pain, CT showing severe constipation, ? free. On closer review, air is in stomch on sagital views. She never had acute abdomen. Shw was followed by surgery with advised of conservative managment. She has been given enema and has had multiple bowel movment on 03/09, abdominal exam today is fairly bening, she has not had any further nausea and vomitting, diet is advanced and tolerating. She was also seen by GI and recommend outpatient follow up with her primary GI Rash, Fever:? Noted on? bilateral palms; ? whole face; couple lesions in the oral mucosa;?see pictures. Culture negative, lyme, HIV, Hep A. B.C negative, blood cultures negative, B12, Folate, TSH are normal. + ELIZABET suggesting the possibility of lupus, low dose steroid and over the phone consultation with Rheum, and outpatient follow with rheum. Further testing with C3, C4 and KEVIN, double stranded DNA, and lupus anticoagulants panel pending. Upon discharge should follow up with rheumatology on outpatient basis. Dr. Doan will be will to see her in the office UTi--completed course of Ceftriaxone. Pancytopenia, : Likely related to about process, has been evaluated by Hematology and will need to follow up with them on outpatient basis, ? need for bone marrow Bx Iron def anemia--once constipation improve with add Iron with stool softners Mild Transaminitis--likely related to above process, hep A, B, C negative.. Monitor for now. Need for inapatient: ongoing work for fever on unknown source, and potential infectious cause being treated with IV abx Quality Stroke Does the patient have a stroke diagnosis?: No VTE Prior VTE?: No VTE Risk Level:: Medical - moderate - high VTE Device Contraindication: N/A - Device Ordered VTE Drug Contraindication: Treatment Not Indicated
[2022-03-10 15:55] VITALS: BP 124/68; PULSE 52; RESP 14; TEMP 36.7; O2SAT 97
[2022-03-10 15:55] LABS: Hematocrit 28.6 % (37.0-47.0); Hemoglobin 9.4 g/dl (12.0-16.0); Mean Corpuscular HGB Conc 32.9 g/dl (31.0-35.0); Mean Corpuscular Hemoglobin 28.1 pg (27.0-33.0); Mean Corpuscular Volume 85.6 fL (80.0-98.0); Mean Platelet Volume 11.5 fL (9.4-12.3); Platelet Count 184 X10*3/uL (160-400); Red Blood Count 3.34 X10*6/uL (4.20-5.50); Red Cell Distribution Width 13.9 % (11.0-16.0); White Blood Count 3.9 X10*3/uL (4.8-10.8)
[2022-03-10 16:20] LABS: Alanine Aminotransferase 64 U/L (0-31); Albumin Level 2.9 g/dL (3.5-5.0); Alkaline Phosphatase 59 U/L (39-117); Anion Gap 8 (12-20); Aspartate Amino Transferase 116 U/L (5-31); Bilirubin Direct 0.4 mg/dL (0.0-0.5); Bilirubin Total 0.7 mg/dL (0.0-1.0); Blood Urea Nitrogen 12 mg/dL (9-16); Calcium 8.2 mg/dL (8.4-10.2); Carbon Dioxide 24 mmol/L (22-29); Chloride 111 mmol/L (96-108); Estimated Glomerular Filt Rate > 60; Glucose Random 161 mg/dL (60-115); Potassium 3.1 mmol/L (3.3-5.1); Sodium 140 mmol/L (135-145); Total Protein 7.1 g/dL (6.5-8.0)
[2022-03-10] MEDS: Potassium Chloride ER 20 MEQ TAB.ER.PRT 40 MEQ PO (18:52)
[2022-03-10 20:00] VITALS: BP 136/92; PULSE 50; RESP 14; TEMP 36.6; O2SAT 97
[2022-03-10] MEDS: Docusate Sodium 100 MG CAPSULE PO (20:45)
[2022-03-10 21:28] LABS: SM/Ribonucleoprotein Ab >8.0 POS AI (<1.0 NEG); Smith Protein >8.0 POS AI (<1.0 NEG)
[2022-03-10 23:45] VITALS: BP 120/78; PULSE 46; RESP 17; TEMP 36.4; O2SAT 97
[2022-03-11] VITALS (7 sets, daily range): BP systolic 119–165; BP diastolic 66–92; PULSE 44–56; RESP 16–18; TEMP 36.4–37.3; O2SAT 95–99
[2022-03-11] MEDS: Morphine Sulfate 2 MG/ML CARTRIDGE IVPUSH ×4 (04:04→22:38)
[2022-03-11] MEDS: 0.9 % Sodium Chloride Flush 3 ML SYRINGE IVFLUSH ×2 (08:56→18:19)
[2022-03-11] MEDS: Docusate Sodium 100 MG CAPSULE PO ×2 (08:56→20:35)
[2022-03-11] MEDS: Famotidine/PF 20 MG/2 ML VIAL IVPUSH ×2 (08:56→20:35)
--- NOTE | 2022-03-11 10:19 | P.PNIM_ITS ---
Subjective Subjective Date of Service: 03/11/22 Interval History: f/u on abd pain, rash, fever, abdominal pain, pancytopenia, and elevated ELIZABET raising the posibility of Lupus interval history:Still c/o abdominal pain going to her chest, but no more nausea or vomitting. Review of Systems Review of Systems no fever rash on hads, face--better abd pain, constipation resolved Physical Exam Vital Signs: Vital Signs: Last Vital Signs Temp 97.6 F 03/11/22 07:59 Pulse 50 03/11/22 07:59 Resp 18 03/11/22 08:55 BP 131/81 03/11/22 07:59 Pulse Ox 95 03/11/22 07:59 BMI result Body Mass Index 18.8 Const: Other: General: AO X 3, no acute distress Resp: CTA bilateral CVS: S1,S2,RRR GI: +BS, NT, no distention Skin: No rash, 03/10 03/06 Neuro: motor grossly intact Psych: appropriate affect Objective Data Active Medications Acetaminophen (Acetaminophen 325 Mg Tablet) 650 mg PO Q6H PRN PRN Reason: Pain, Mild (Pain Scale 1-3) Last Admin: 03/08/22 21:59 Dose: 650 mg Documented by: TRUDI Docusate Sodium (Docusate Sodium 100 Mg Capsule) 100 mg PO BID [facility] Last Admin: 03/11/22 08:56 Dose: 100 mg Documented by: VITO Famotidine (Famotidine/Pf 20 Mg/2 Ml Vial) 20 mg IVPUSH BID [facility] Last Admin: 03/11/22 08:56 Dose: 20 mg Documented by: VITO Promethazine HCl 12.5 mg/ (Sodium Chloride) 50.5 mls @ 202 mls/hr IV Q6H PRN PRN Reason: Nausea and Vomiting Last Infusion: 03/08/22 18:32 Dose: 0 mls/hr Documented by: TRUDI Morphine Sulfate (Morphine Sulfate 2 Mg/Ml Cartridge) 2 mg IVPUSH Q4H PRN; Protocol PRN Reason: Pain, Severe (Pain Scale 7-10) Last Admin: 03/11/22 08:55 Dose: 2 mg Documented by: VITO Ondansetron HCl (Ondansetron Hcl 4 Mg/2 Ml Vial) 4 mg IVPUSH Q8H PRN PRN Reason: Nausea and Vomiting Last Admin: 03/09/22 10:26 Dose: 4 mg Documented by: MEI Pharmacy Consult (Consult Rx Perform Med Rec) 1 each MISCELLANE ONCE PRN PRN Reason: Consult order Sodium Chloride (0.9 % Sodium Chloride Flush 3 Ml Syringe) 3 ml IVFLUSH QSHIFT [facility] Last Admin: 03/11/22 08:56 Dose: 3 ml Documented by: VITO Labs CBC & Chem 7: 03/10/22 15:33 03/10/22 15:33 Labs: Laboratory Results - last 24 hr 03/06/22 03/08/22 03/10/22 14:18 18:47 15:33 MCV 85.6 MCH 28.1 MCHC 32.9 RDW 13.9 Plt Count 184 MPV 11.5 Absolute Nucleated RBC 0.000 Nucleated RBC % (auto) 0.0 Anion Gap Estim Creat Clear Calc Estimated GFR Random Glucose Calcium Total Bilirubin Direct Bilirubin AST ALT Alkaline Phosphatase Total Protein Albumin IgG Total 2713 H IgA Total 215 IgM 90 YUN Interpretation Sm (Torres) Antibody >8.0 POS A SM/ELECTRIC REFRIGERATOR SERVICER IgG Antibody >8.0 POS A 03/10/22 15:33 MCV MCH MCHC RDW Plt Count MPV Absolute Nucleated RBC Nucleated RBC % (auto) Anion Gap 8 L Estim Creat Clear Calc 138.0 Estimated GFR > 60 Random Glucose 161 H Calcium 8.2 L D Total Bilirubin 0.7 Direct Bilirubin 0.4 AST 116 H ALT 64 H Alkaline Phosphatase 59 Total Protein 7.1 D Albumin 2.9 L D IgG Total IgA Total IgM YUN Interpretation Sm (Torres) Antibody SM/ELECTRIC REFRIGERATOR SERVICER IgG Antibody Assessment and Plan (1) Fever of unknown origin: Status: Acute (2) Leukocytopenia, unspecified: Status: Acute (3) Elevated LFTs: Status: Acute Plan 21-year-old female with no significant past medical history presented to the hospital with a chief complaint of abdominal pain and to have fever and rash on arm, palms and face has been there since October and now positive ELIZABET with other constellation of problems suggestive lupus. Nausea/vomiting /abdominal pain, CT showing severe constipation, ? free. On closer review, air is in stomch on sagital views. She never had acute abdomen. Shw was followed by surgery with advised of conservative managment. She has been given enema and has had multiple bowel movment on 03/09, abdominal exam today is fairly bening, she has not had any further nausea and vomitting, diet is advanced and tolerating. She was also seen by GI and recommend outpatient follow up with her primary GI but now that she's having more abdominla pain will ask GI to reasses, add PPI Rash, Fever:? Noted on? bilateral palms; ? whole face; couple lesions in the oral mucosa;?see pictures. Culture negative, lyme, HIV, Hep A. B.C negative, blood cultures negative, B12, Folate, TSH are normal. + ELIZABET suggesting the possibility of lupus, low dose steroid and over the phone consultation with Rheum, and outpatient follow with rheum. Further testing with C3, C4 and KEVIN, double stranded DNA, and lupus anticoagulants panel pending. anti torres antibody is positive ( Seen in Lupus or mixed connective tissue desorder), ELECTRIC REFRIGERATOR SERVICER IgG antibody is positive which may also point to mixed connective tissue desorder. Upon discharge should follow up with rheumatology on outpatient basis. Dr. Doan will be will to see her in the office UTi--completed course of Ceftriaxone. Pancytopenia, : Likely related to about process, has been evaluated by Hematology and will need to follow up with them on outpatient basis, ? need for bone marrow Bx Iron def anemia--once constipation improve with add Iron with stool softners Mild Transaminitis--likely related to above process, hep A, B, C negative.. Monitor for now. Need for inapatient: ongoing work for fever on unknown source, and potential infectious cause being treated with IV abx, Will attempt to dc after GI eval Quality Stroke Does the patient have a stroke diagnosis?: No VTE Prior VTE?: No VTE Risk Level:: Medical - moderate - high VTE Device Contraindication: N/A - Device Ordered VTE Drug Contraindication: Treatment Not Indicated
--- NOTE | 2022-03-11 10:48 | PM.DS ---
DS: Providers Provider Date of Service: 05/04/22 Date of admission: 03/03/22 22:24 Primary care physician: Erica Clayton MD Consults: 03/04/22 03:10 Consult to Infectious Diseases Routine Consulting Provider: Kenisha Boyle Reason for consultation: FUO; Rash on palms and Face; ?impetigo 03/04/22 03:11 Consult to Gastroenterology Routine Consulting Provider: Shay Robbins Reason for consultation: Nausea/abd pain 03/06/22 10:04 Consult to Hematology / Oncology Routine Consulting Provider: Vickie Schmidt Reason for consultation: Pancytopenia associated rash ? need for BM 03/08/22 17:21 Consult to General Surgery Routine Consulting Provider: Jordan Walker Reason for consultation: ? air in stomach Has provider been notified: No DS: Diagnosis Discharge Diagnosis (1) Fever of unknown origin: Status: Resolved (2) Leukocytopenia, unspecified: Status: Resolved (3) Elevated LFTs: Status: Resolved DS: Summary Hospital Course Hospital Course: Chief Complaint:? abdominal pain ?21-year-old female with no significant past medical history presented to the hospital with a chief complaint of abdominal pain.? Patient reported that over the past 3 weeks he has been having abdominal discomfort associated nausea; has been having reduced oral intake.? Denies any diarrhea.? Denies any blood in the vomitus.? Symptoms have been gradually progressing; mentioned that she has seen her PCP few days ago and was referred to Gastroenterology.? Also mentioned that she has outpatient labs which showed low white cell count; and is planned to see Hematology-Oncology as outpatient; ?patient also reported that she went to the [facility] recently. ?denies any chest pain palpitations lightheadedness or dizziness.? Denies any high-risk sexual behavior.? Mentions that she has rash in her hands which spread to do her face; going on since October.? Denies any discharge.? Also complains of couple oral lesions.? Denies any rash on the lower parts of the body; ? Denies any throat pain, dysphagia, neck swelling.? Reports he has occasional headaches and body aches.? Denies any neck pain.? ? Patient denied any urinary symptoms Review of all other systems is negative except mentioned above ER course: Per ER team patient noted to have rash, leukopenia, thrombocytopenia;? concerning for acute viral syndrome; sent a HIV, hepatitis, Lyme titers; Monospot test negative.? Patient was empirically given cefepime.? Urinalysis was abnormal consistent UTI. Hospital course: Nausea/vomiting /abdominal pain, CT showing severe constipation, ? free. On closer review, air is in stomch on sagital views. She never had acute abdomen. Shw was followed by surgery with advised of conservative managment. She has been given? enema and has had multiple bowel movment on 03/09, abdominal exam today is fairly bening, she has not had any further nausea and vomitting, diet is advanced and tolerating.? She was also seen by GI and recommend outpatient follow up with her primary GI but now that she's having more abdominla pain will ask GI to reasses, add PPI.. EGD today ? Rash, Fever:? Noted on? bilateral palms; ? whole face; couple lesions in the oral mucosa;?see pictures. Culture negative, lyme, HIV, Hep A. B.C negative, blood cultures negative, B12, Folate, TSH are normal.? + ELIZABET suggesting the possibility of lupus, low dose steroid and over the phone consultation with Rheum, and outpatient follow with rheum. Further testing with C3, C4 and KEVIN, double stranded DNA, and lupus anticoagulants panel pending.? anti torres antibody is positive ( Seen in Lupus or mixed connective tissue desorder),? HYDRO STATION OPERATOR IgG antibody is positive? which may also point to mixed connective tissue desorder. Upon discharge should follow up with rheumatology on outpatient basis. Dr. Doan will be will to see her in the office.. Low dose predniosone of 5 bid UTi--completed course of Ceftriaxone. Pancytopenia, : Likely related to about process, has been evaluated by Hematology and will need to follow up with them on outpatient basis, ? need for bone marrow Bx Iron def anemia--once constipation improve with add Iron with stool softners--EGD today Mild Transaminitis--likely related to above process, hep A, B, C negative.. likely to related to autoiummune process. GI consult reviewed. MRI failed to demonstrate acute pathology. Last 24 hours prior to discharge patient appetite returned and she was able to eat full diet without pain or nausea and vomiting. At this point time she will be discharged to follow-up with PCP, Hematology at [facility] and Dr. Gentile here at [facility] Time Spent with Patient Time attestation: Total time spent providing and/or coordinating discharge services: Discharge coordination time: Greater than 30 minutes Quality: Safe Use of Opioids Does Pt have an Active Cancer Diagnosis on the Problem List?: No Quality: Stroke Does the patient have a stroke diagnosis?: No Physical Exam Vital Signs: Vital Signs: Last Vital Signs Temp 97.6 F 03/11/22 07:59 Pulse 50 03/11/22 07:59 Resp 18 03/11/22 08:55 BP 131/81 03/11/22 07:59 Pulse Ox 95 03/11/22 07:59 BMI result Body Mass Index 18.8 DS: Data Data Completed and Pending Labs on day of discharge: Laboratory Results - last 24 hr 03/06/22 03/08/22 03/10/22 14:18 18:47 15:33 WBC 3.9 L RBC 3.34 L Hgb 9.4 L Hct 28.6 L MCV 85.6 MCH 28.1 MCHC 32.9 RDW 13.9 Plt Count 184 MPV 11.5 Absolute Nucleated RBC 0.000 Nucleated RBC % (auto) 0.0 Sodium Potassium Chloride Carbon Dioxide Anion Gap BUN Creatinine Estim Creat Clear Calc Estimated GFR Random Glucose Calcium Total Bilirubin Direct Bilirubin AST ALT Alkaline Phosphatase Total Protein Albumin IgG Total 2713 H IgA Total 215 IgM 90 YUN Interpretation Sm (Torres) Antibody >8.0 POS A SM/HYDRO STATION OPERATOR IgG Antibody >8.0 POS A 03/10/22 15:33 WBC RBC Hgb Hct MCV MCH MCHC RDW Plt Count MPV Absolute Nucleated RBC Nucleated RBC % (auto) Sodium 140 Potassium 3.1 L D Chloride 111 H Carbon Dioxide 24 Anion Gap 8 L BUN 12 Creatinine 0.54 Estim Creat Clear Calc 138.0 Estimated GFR > 60 Random Glucose 161 H Calcium 8.2 L D Total Bilirubin 0.7 Direct Bilirubin 0.4 AST 116 H ALT 64 H Alkaline Phosphatase 59 Total Protein 7.1 D Albumin 2.9 L D IgG Total IgA Total IgM YUN Interpretation Sm (Torres) Antibody SM/HYDRO STATION OPERATOR IgG Antibody Discharge Plan Discharge Anticipated Discharge Date/Time: 03/16/22 16:00 Patient Disposition: Home, Self-Care Discharge Diagnosis: Suspected Lupus Referrals: Erica Clayton MD [Primary Care Provider] - 1 Week Discharge Medications: Continued fluticasone propionate 50 mcg/actuation spray,suspension 1 spray INTRANASAL DAILY PRN (Reason: Congestion) No Action prednisone 5 mg tablet 15 mg PO BID Qty: 180 1RF hydroxychloroquine 200 mg tablet 300 mg PO DAILY Qty: 45 3RF ondansetron 4 mg tablet,disintegrating 4 mg PO BID PRN (Reason: nausea/vomiting) Qty: 30 1RF Discharge Orders: Discharge Order (Routine); Ordered 03/16/22 Ordered By: Idris Fitzpatrick Activity on Discharge: No Running or jogging Stand Alone Forms: Patient Portal Discharge page Other Ambulatory Orders: Complete Blood Count Auto Diff (Routine) Timeframe: [id number] Facility: [facility] - Location: Laboratory Ordered By: Vickie Schmidt Care Plan Goals: Complete work up and diagnosis of rheumatoligcal work up Health Concerns: Constellation of rash, fever, abnormal blood count, liver enzymes raising the posibilit of lupus Plan of Treatment: Take prednisone as directed and follow up with artificial cherry maker as directed -- Dr. Jhonny Gentile MD [address] [place] [address] ? office will be in touch with you, if you don't hear back in a week, call them Follow up with your Doctor as directed a Assessment: As above Discharge Date/Time: 03/16/22 16:00
--- NOTE | 2022-03-11 11:14 | MHC.CM.PN ---
Addendum entered by Zulma Tavera 03/12/22 07:45: Patient did not discharge as planned. She has continued abdominal pain radiating to the chest. GI plans to perform an EGD today. ELIAS santana,madelin home no services family transport. Original Note: Female 21 DX Fever Patient has had an extensive work up for fever. She is discharged today, home self care. She will follow up with Rheumatology out patient esther GALINDO. Patient will arrange for family transportation.
[2022-03-11] MEDS: Omeprazole 20 MG CAPSULE.DR PO (12:21)
[2022-03-11 14:22] LABS: Complement C3 38 mg/dL (83-193)
[2022-03-11 14:52] LABS: Angiotensin Converting Enzyme 65.3 U/L (9-67)
--- NOTE | 2022-03-11 17:17 | PM.GIPN ---
Subjective Subjective Date of Service: 03/11/22 Interval History: c/o generalized abd pain radiating to chest somewhat better since starting omeprazole. Critical Care Time (minutes): 0 Physical Exam Vital Signs: Vital Signs: Last Vital Signs Temp 98.1 F 03/11/22 11:54 Pulse 50 03/11/22 11:54 Resp 17 03/11/22 11:54 BP 165/92 H 03/11/22 11:54 Pulse Ox 95 03/11/22 11:54 BMI result Body Mass Index 18.8 GI: Other: abd is soft and nontender. Objective Data Labs CBC & Chem 7: 03/10/22 15:33 03/10/22 15:33 Microbiology Microbiology Results: Microbiology 03/03/22 20:09 Blood - Venous Blood Culture - Final No growth after 5 days. 03/03/22 19:51 Blood - Venous Blood Culture - Final No growth after 5 days. 03/04/22 Unknown Urine clean catch - Urine teran top Urine Culture - Final No growth. Procedures Date of Service Date of Service: 03/11/22 Progress Note: A&P Assessment and plan (1) Abdominal pain: Status: Acute Assessment and Plan: I discussed egd with patient for further evaluation of abdominal pain she understands risks and benefits and agrees to proceed. Planned for tomorrow pending OR schedule. Time Spent With Patient Time: Total time spent is greater than 50% in coordination of care (as documented) at patient's floor/unit and/or counseling patient: Quality Stroke Does the patient have a stroke diagnosis?: No VTE Prior VTE?: No VTE Risk Level:: Medical - moderate - high VTE Device Contraindication: N/A - Device Ordered VTE Drug Contraindication: Treatment Not Indicated
--- NOTE | 2022-03-11 17:25 | MHC.SHP ---
Pre-Procedural Eval Section A Date of Service: 03/11/22 The patient is an INPATIENT: Yes Changes since office visit: No Cold of Flu in the past 2 weeks, No New Medical Problems, No Changes in Medication and No Patient answered all questions The History & Physical has been completed within 30 days and I have reviewed it.: Yes Section B Chief Complaint: Fever Allergies: Allergies Allergy/AdvReac Type Severity Reaction Status Date / Time No Known Allergies Allergy Verified 03/03/22 15:55 Plan I have reviewed the history and physical and performed a pertinent physical examination on my patient. No changes have occurred unless specified.
[2022-03-11] MEDS: ondansetron HCL 4 MG/2 ML VIAL IVPUSH (22:43)
[2022-03-12] VITALS (9 sets, daily range): BP systolic 120–152; BP diastolic 75–98; PULSE 52–67; RESP 14–19; TEMP 36.3–37.2; O2SAT 97–99; BMI 18.6
[2022-03-12] MEDS: 0.9 % Sodium Chloride Flush 3 ML SYRINGE IVFLUSH ×4 (00:14→23:43)
[2022-03-12] MEDS: Morphine Sulfate 2 MG/ML CARTRIDGE IVPUSH ×2 (02:48→22:12)
[2022-03-12] MEDS: Omeprazole 20 MG CAPSULE.DR PO (05:27)
[2022-03-12 05:37] LABS: DRVVT 1:1 Mix Interpretation Not Indicated; PTT (LAC) Screen 31 sec (<=40)
[2022-03-12] MEDS: ondansetron HCL 4 MG/2 ML VIAL IVPUSH ×3 (06:03→22:12)
--- NOTE | 2022-03-12 07:06 | P.CDIC_ITS ---
CDI Concurrent Query Documentation Clarification: PHYSICIAN'S DOCUMENTATION REQUEST Date of Query: 03/12/22 0707 Patient Name: Yaz Perez Admit Date: 03/03/22 Dear Doctor, A review of the medical record indicates additional documentation may be needed. Please review below and update the documentation accordingly. Clinical Indicators: The following diagnoses or signs and symptoms were noted in the patient record: Lab Tests: Imaging: Progress Notes: per MD progress note 03/11/22: elevated ELIZABET raising the possibility of Lupus Nurse's Notes: Ancillary Notes: Other Documentation: Risk Factors/Clinical Indicators/Treatments Based on the above, could you clarify in the Progress Notes the appropriate diagnosis, if significant, that supports the above abnormalities and additional evaluation, monitoring, and/or treatment rendered: * Based on the above clinical note, please provide the specificity for the Lupus (Discoid, local, Erythematosus (discoid)(local), Exedens, Nontuberculosis, not disseminated, Pernio (Besnier), Systemic (SLE), Vulgaris * Other (please specify) * Unable to determine Use of terms such as suspected, likely, concern for, or probable (associated with a specific diagnosis that is being evaluated, monitored, or treated as if it exists) are acceptable and can be coded in the inpatient setting, when docu mented at the time of discharge. Thank you, Aparna Nicole [insert CDI's credentials] Extension: [4-digit phone extension] Please use your independent medical judgment in providing your response. THIS QUERY IS PART OF THE PERMANENT MEDICAL RECORD Provider Response: Other Other Diagnosis: Unable to confirm lupus at this time
[2022-03-12] MEDS: Famotidine/PF 20 MG/2 ML VIAL IVPUSH (08:46)
--- NOTE | 2022-03-12 10:01 | HO.PM.IMPN ---
Subjective Subjective Date of Service: 03/12/22 Interval History: f/u on abd pain, rash, fever, abdominal pain, pancytopenia, and elevated ELIZABET raising the posibility of Lupus interval history:no new complaint, awaiting EGD today, additional lab show c3, and c4 low Review of Systems Review of Systems no fever rash on hads, face--better abd pain, constipation resolved Physical Exam Vital Signs: Vital Signs: Last Vital Signs Temp 98.2 F 03/12/22 08:00 Pulse 52 03/12/22 08:00 Resp 18 03/12/22 08:00 BP 152/98 H 03/12/22 08:00 Pulse Ox 98 03/12/22 08:00 BMI result Body Mass Index 18.8 Const: Other: General: AO X 3, no acute distress Resp: CTA bilateral CVS: S1,S2,RRR GI: +BS, NT, no distention Skin: No rash, 03/10 03/06 Neuro: motor grossly intact Psych: appropriate affect Objective Data Active Medications Acetaminophen (Acetaminophen 325 Mg Tablet) 650 mg PO Q6H PRN PRN Reason: Pain, Mild (Pain Scale 1-3) Last Admin: 03/08/22 21:59 Dose: 650 mg Documented by: TRUDI Benzocaine (Throat Lozenge, Medicated Lozenge) 1 lozenge MUCOUS MEM Q2H PRN PRN Reason: Sore Throat Docusate Sodium (Docusate Sodium 100 Mg Capsule) 100 mg PO BID [facility] Last Admin: 03/12/22 08:48 Dose: Not Given Documented by: MITZI Non-Admin Reason: Patient Refused Famotidine (Famotidine/Pf 20 Mg/2 Ml Vial) 20 mg IVPUSH BID [facility] Last Admin: 03/12/22 08:46 Dose: 20 mg Documented by: MITZI Promethazine HCl 12.5 mg/ (Sodium Chloride) 50.5 mls @ 202 mls/hr IV Q6H PRN PRN Reason: Nausea and Vomiting Last Infusion: 03/08/22 18:32 Dose: 0 mls/hr Documented by: TRUDI Morphine Sulfate (Morphine Sulfate 2 Mg/Ml Cartridge) 2 mg IVPUSH Q4H PRN; Protocol PRN Reason: Pain, Severe (Pain Scale 7-10) Last Admin: 03/12/22 02:48 Dose: 2 mg Documented by: COURTNEY Omeprazole (Omeprazole 20 Mg Capsule.Dr) 20 mg PO DAILY@0630 [facility] Last Admin: 03/12/22 05:27 Dose: 20 mg Documented by: COURTNEY Ondansetron HCl (Ondansetron Hcl 4 Mg/2 Ml Vial) 4 mg IVPUSH Q8H PRN PRN Reason: Nausea and Vomiting Last Admin: 03/12/22 06:03 Dose: 4 mg Documented by: COURTNEY Pharmacy Consult (Consult Rx Perform Med Rec) 1 each MISCELLANE ONCE PRN PRN Reason: Consult order Sodium Chloride (0.9 % Sodium Chloride Flush 3 Ml Syringe) 3 ml IVFLUSH QSHIFT [facility] Last Admin: 03/12/22 08:48 Dose: 3 ml Documented by: MITZI Labs CBC & Chem 7: 03/10/22 15:33 03/10/22 15:33 Labs: Laboratory Results - last 24 hr 03/05/22 03/08/22 03/09/22 15:31 18:47 07:27 LA PTT Screen 31 dRVV Screen 27 dRVVT Mix Interpret Not Indicated Lupus Anticoag Interp see note Angiotensin Convert Enz 65.3 Complement C3 38 L Complement C4 10 L Assessment and Plan (1) Fever of unknown origin: Status: Acute (2) Leukocytopenia, unspecified: Status: Acute (3) Elevated LFTs: Status: Acute Plan 21-year-old female with no significant past medical history presented to the hospital with a chief complaint of abdominal pain and to have fever and rash on arm, palms and face has been there since October and now positive ELIZABET with other constellation of problems suggestive lupus. Nausea/vomiting /abdominal pain, CT showing severe constipation, ? free. On closer review, air is in stomch on sagital views. She never had acute abdomen. Shw was followed by surgery with advised of conservative managment. She has been given enema and has had multiple bowel movment on 03/09, abdominal exam today is fairly bening, she has not had any further nausea and vomitting, diet is advanced and tolerating. She was also seen by GI and recommend outpatient follow up with her primary GI but now that she's having more abdominla pain will ask GI to reasses, add PPI.. EGD today Rash, Fever:? Noted on? bilateral palms; ? whole face; couple lesions in the oral mucosa;?see pictures. Culture negative, lyme, HIV, Hep A. B.C negative, blood cultures negative, B12, Folate, TSH are normal. + ELIZABET suggesting the possibility of lupus, low dose steroid and over the phone consultation with Rheum, and outpatient follow with rheum. Further testing with C3, C4 and KEVIN, double stranded DNA, and lupus anticoagulants panel pending. anti torres antibody is positive ( Seen in Lupus or mixed connective tissue desorder), [employer]S SUPERINTENDENT IgG antibody is positive which may also point to mixed connective tissue desorder. Upon discharge should follow up with rheumatology on outpatient basis. Dr. Doan will be will to see her in the office.. Low dose predniosone of 5 bid UTi--completed course of Ceftriaxone. Pancytopenia, : Likely related to about process, has been evaluated by Hematology and will need to follow up with them on outpatient basis, ? need for bone marrow Bx Iron def anemia--once constipation improve with add Iron with stool softners--EGD today Mild Transaminitis--likely related to above process, hep A, B, C negative.. likely to related to autoiummune process. Need for inapatient: ongoing work for fever on unknown source, and potential infectious cause being treated with IV abx, Will attempt to dc after GI eval Quality Stroke Does the patient have a stroke diagnosis?: No VTE Prior VTE?: No VTE Risk Level:: Medical - moderate - high VTE Device Contraindication: N/A - Device Ordered VTE Drug Contraindication: Treatment Not Indicated
--- NOTE | 2022-03-12 11:00 | HO.ANESPROP2 ---
HPI - Anesthesia Eval Consult details Narrative: 21 yo female patient for EGD PMFSH Active Problems Active Problems: All Active Problems (Updated 03/06/22 @ 13:27 by Vickie Schmidt MD) Fever of unknown origin (Acute) Leukocytopenia, unspecified (Acute) Elevated LFTs (Acute) Abdominal pain (Acute) Vomiting (Acute) Fever (Acute) Acute mucositis (Acute) Elevated lipase (Acute) Past Medical History Medical History Generalized headaches GERD (gastroesophageal reflux disease) Family History Family history of problems with anesthesia: No Surgical History History of Problems with Anesthesia: No Social History Social History Household Members: Family Housing: House Do you presently have visiting nurse or other home services: No Patient Tobacco Use Status: Never used Tobacco Use of substances other than those prescribed or required for medical reasons: No Currently Displaying Signs/Symptoms of Drug Intoxication Withdrawal: No Have you been hit, kicked, punched, or otherwise hurt by someone within the past year? If so, by whom?: No Do you feel safe in your current relationship?: Yes Is there a partner from a previous relationship who is making you feel unsafe now?: No Are you made to feel afraid or neglected: No Are you DNR?: No Advance Directives: Yes Advance Directives Information Provided: No Advance Directives on File: Yes Advance Directives Date on File: 03/03/22 Do you have thoughts of harming others: None Do you have a plan to hurt others: No Plan Recently lost weight without trying: Yes How much weight loss: 24-33 pounds Nutrition Risks: Difficulty chewing and Poor intake 0-25% >4 days Patient : No (HCG negative per pt) : No Poor oral hygiene: No service: No Current occupational status: unemployed Meds Allergies Allergy/AdvReac Type Severity Reaction Status Date / Time No Known Allergies Allergy Verified 03/03/22 15:55 Active Medications: Current Medications Acetaminophen (Acetaminophen 325 Mg Tablet) 650 mg PO Q6H PRN PRN Reason: Pain, Mild (Pain Scale 1-3) Last Admin: 03/08/22 21:59 Dose: 650 mg Documented by: Benzocaine (Throat Lozenge, Medicated Lozenge) 1 lozenge MUCOUS MEM Q2H PRN PRN Reason: Sore Throat Docusate Sodium (Docusate Sodium 100 Mg Capsule) 100 mg PO BID [facility] Last Admin: 03/12/22 08:48 Dose: Not Given Documented by: Famotidine (Famotidine/Pf 20 Mg/2 Ml Vial) 20 mg IVPUSH BID [facility] Last Admin: 03/12/22 08:46 Dose: 20 mg Documented by: Promethazine HCl 12.5 mg/ (Sodium Chloride) 50.5 mls @ 202 mls/hr IV Q6H PRN PRN Reason: Nausea and Vomiting Last Infusion: 03/08/22 18:32 Dose: Infused Documented by: Morphine Sulfate (Morphine Sulfate 2 Mg/Ml Cartridge) 2 mg IVPUSH Q4H PRN; Protocol PRN Reason: Pain, Severe (Pain Scale 7-10) Last Admin: 03/12/22 02:48 Dose: 2 mg Documented by: Omeprazole (Omeprazole 20 Mg Capsule.Dr) 20 mg PO DAILY@0630 [facility] Last Admin: 03/12/22 05:27 Dose: 20 mg Documented by: Ondansetron HCl (Ondansetron Hcl 4 Mg/2 Ml Vial) 4 mg IVPUSH Q8H PRN PRN Reason: Nausea and Vomiting Last Admin: 03/12/22 06:03 Dose: 4 mg Documented by: Pharmacy Consult (Consult Rx Perform Med Rec) 1 each MISCELLANE ONCE PRN PRN Reason: Consult order Prednisone (Prednisone 5 Mg Tablet) 5 mg PO BID [facility] Sodium Chloride (0.9 % Sodium Chloride Flush 3 Ml Syringe) 3 ml IVFLUSH QSHIFT [facility] Last Admin: 03/12/22 08:48 Dose: 3 ml Documented by: Home Medications Medication Instructions Recorded Confirmed Last Taken Type fluticasone propionate 50 1 spray INTRANASAL DAILY PRN 03/03/22 03/03/22 Unknown History mcg/actuation nasal spray,suspension ondansetron 4 mg disintegrating 1 tab PO Q6H PRN 03/03/22 03/03/22 Unknown History tablet Exam Exam Date and Time: March 12, 2022 1100 Height,Weight and Vital Signs: Height 5 ft 6 in Weight 52.163 kg Last Vital Signs Temp 97.3 F 03/12/22 10:02 Pulse 56 03/12/22 10:02 Resp 16 03/12/22 10:02 BP 139/92 H 03/12/22 10:02 Pulse Ox 98 03/12/22 10:02 Pertinent Lab Results Pertinent Lab Results: Laboratory Tests 03/03/22 03/03/22 03/03/22 17:15 17:15 18:57 WBC 2.0 L RBC 4.16 L Hgb 11.9 L Hct 35.7 L MCV 85.8 MCH 28.6 MCHC 33.3 RDW 13.1 Plt Count 137 L MPV 10.6 Immature Gran % (Auto) 0.5 H Neut % (Auto) 57.2 Lymph % (Auto) 36.8 [place] % (Auto) 5.5 Eos % (Auto) 0.0 Baso % (Auto) 0.0 Lymph # (Auto) 0.7 L [place] # (Auto) 0.1 Eos # (Auto) 0.0 Baso # (Auto) 0.0 Abs Immat Gran (auto) 0.01 Absolute Neuts (auto) 1.2 L Absolute Nucleated RBC 0.000 Nucleated RBC % (auto) 0.0 Smear Tech's Comments VERIFIED Smear Path Review SEE NOTE ESR Absolute Retic Percent Retic Immature Retic Fraction Retic Hgb Equivalent PT INR APTT LA PTT Screen dRVV Screen dRVVT Mix Interpret Lupus Anticoag Interp Sodium 135 Potassium 4.1 Chloride 103 Carbon Dioxide 24 Anion Gap 12 BUN 8 L Creatinine 0.63 Estim Creat Clear Calc 118.3 Estimated GFR > 60 Random Glucose 87 Lactic Acid Calcium 8.8 Magnesium Iron TIBC % Saturation Unsat Iron Binding Total Bilirubin 0.8 Direct Bilirubin 0.5 AST 150 H ALT 76 H Alkaline Phosphatase 69 Lactate Dehydrogenase Troponin I High Sens C-Reactive Protein Total Protein 9.2 H Albumin 3.8 Lipase 262 H Angiotensin Convert Enz Vitamin B12 Folate TSH Urine Color Urine Appearance Urine pH Ur Specific Holt Urine Protein Urine Glucose (UA) Urine Ketones Urine Blood Urine Nitrite Ur Leukocyte Esterase Urine RBC Urine WBC Ur Squamous Epith Cells Urine Bacteria Urine Mucus Urine Test Vancomycin Trough Urine Opiates Screen Urine Fentanyl Screen Acetaminophen Ur Barbiturates Screen Ur Phencyclidine Scrn Ur Amphetamines Screen U Benzodiazepines Scrn Urine Cocaine Screen U Marijuana (THC) Screen IgG Total IgA Total IgM YUN Interpretation ELIZABET Screen ELIZABET Titer ELIZABET Titer 2 ELIZABET Titer 3 ELIZABET Pattern ELIZABET Pattern 2 ELIZABET Pattern 3 Sm ([place]) Antibody SM/REGISTERED CLIENT ASSOCIATE IgG Antibody Complement C3 Complement C4 T.pallidum Ab (EIA) A. phagocytophilum IgG A. phagocytophilum IgM A.phagocytophilum Intrp A. phagocytophilum Cmmt Lyme Screen IgG & IgM Lyme Progressive Test COVID-19 ([facility]) COVID-19 Clin Com E. chaffeensis IgG Ab E. chaffeensis IgM Ab E. chaffeensis Interp E. chaffeensis Comment Hepatitis A IgM Ab Hep Bs Antigen Hep Bs Antibody Hep B Core Total Ab Hepatitis C Ab (EIA) Monoscreen HIV 1&2 Ab/P24 Ag 4thGn Influenza Type A (CB) Negative Influenza Type B (CB) Negative Influenza A & B Note See Note Cryptococcal Ag 03/03/22 03/03/22 03/03/22 18:57 19:51 19:51 WBC RBC Hgb Hct MCV MCH MCHC RDW Plt Count MPV Immature Gran % (Auto) Neut % (Auto) Lymph % (Auto) [place] % (Auto) Eos % (Auto) Baso % (Auto) Lymph # (Auto) [place] # (Auto) Eos # (Auto) Baso # (Auto) Abs Immat Gran (auto) Absolute Neuts (auto) Absolute Nucleated RBC Nucleated RBC % (auto) Smear Tech's Comments Smear Path Review ESR Absolute Retic Percent Retic Immature Retic Fraction Retic Hgb Equivalent PT INR APTT LA PTT Screen dRVV Screen dRVVT Mix Interpret Lupus Anticoag Interp Sodium Potassium Chloride Carbon Dioxide Anion Gap BUN Creatinine Estim Creat Clear Calc Estimated GFR Random Glucose Lactic Acid Calcium Magnesium 1.8 Iron TIBC % Saturation Unsat Iron Binding Total Bilirubin Direct Bilirubin AST ALT Alkaline Phosphatase Lactate Dehydrogenase Troponin I High Sens C-Reactive Protein 0.72 H Total Protein Albumin Lipase Angiotensin Convert Enz Vitamin B12 Folate TSH 1.32 Urine Color Urine Appearance Urine pH Ur Specific Holt Urine Protein Urine Glucose (UA) Urine Ketones Urine Blood Urine Nitrite Ur Leukocyte Esterase Urine RBC Urine WBC Ur Squamous Epith Cells Urine Bacteria Urine Mucus Urine Test Vancomycin Trough Urine Opiates Screen Urine Fentanyl Screen Acetaminophen < 1 Ur Barbiturates Screen Ur Phencyclidine Scrn Ur Amphetamines Screen U Benzodiazepines Scrn Urine Cocaine Screen U Marijuana (THC) Screen IgG Total IgA Total IgM YUN Interpretation ELIZABET Screen ELIZABET Titer ELIZABET Titer 2 ELIZABET Titer 3 ELIZABET Pattern ELIZABET Pattern 2 ELIZABET Pattern 3 Sm ([place]) Antibody SM/REGISTERED CLIENT ASSOCIATE IgG Antibody Complement C3 Complement C4 T.pallidum Ab (EIA) A. phagocytophilum IgG A. phagocytophilum IgM A.phagocytophilum Intrp A. phagocytophilum Cmmt Lyme Screen IgG & IgM Lyme Progressive Test COVID-19 ([facility]) Negative COVID-19 Clin Com See Note E. chaffeensis IgG Ab E. chaffeensis IgM Ab E. chaffeensis Interp E. chaffeensis Comment Hepatitis A IgM Ab Nonreactive Hep Bs Antigen Negative Hep Bs Antibody NONREACTIVE Hep B Core Total Ab Nonreactive Hepatitis C Ab (EIA) Nonreactive Monoscreen HIV 1&2 Ab/P24 Ag 4thGn Nonreactive Influenza Type A (CB) Influenza Type B (CB) Influenza A & B Note Cryptococcal Ag 03/03/22 03/03/22 03/03/22 19:51 19:51 19:51 WBC RBC Hgb Hct MCV MCH MCHC RDW Plt Count MPV Immature Gran % (Auto) Neut % (Auto) Lymph % (Auto) [place] % (Auto) Eos % (Auto) Baso % (Auto) Lymph # (Auto) [place] # (Auto) Eos # (Auto) Baso # (Auto) Abs Immat Gran (auto) Absolute Neuts (auto) Absolute Nucleated RBC Nucleated RBC % (auto) Smear Tech's Comments Smear Path Review ESR 29 H Absolute Retic Percent Retic Immature Retic Fraction Retic Hgb Equivalent PT 13.2 H INR 1.2 H APTT 25.1 LA PTT Screen dRVV Screen dRVVT Mix Interpret Lupus Anticoag Interp Sodium Potassium Chloride Carbon Dioxide Anion Gap BUN Creatinine Estim Creat Clear Calc Estimated GFR Random Glucose Lactic Acid 1.4 Calcium Magnesium Iron TIBC % Saturation Unsat Iron Binding Total Bilirubin Direct Bilirubin AST ALT Alkaline Phosphatase Lactate Dehydrogenase Troponin I High Sens C-Reactive Protein Total Protein Albumin Lipase Angiotensin Convert Enz Vitamin B12 Folate TSH Urine Color Urine Appearance Urine pH Ur Specific Holt Urine Protein Urine Glucose (UA) Urine Ketones Urine Blood Urine Nitrite Ur Leukocyte Esterase Urine RBC Urine WBC Ur Squamous Epith Cells Urine Bacteria Urine Mucus Urine Test Vancomycin Trough Urine Opiates Screen Urine Fentanyl Screen Acetaminophen Ur Barbiturates Screen Ur Phencyclidine Scrn Ur Amphetamines Screen U Benzodiazepines Scrn Urine Cocaine Screen U Marijuana (THC) Screen IgG Total IgA Total IgM YUN Interpretation ELIZABET Screen ELIZABET Titer ELIZABET Titer 2 ELIZABET Titer 3 ELIZABET Pattern ELIZABET Pattern 2 ELIZABET Pattern 3 Sm ([place]) Antibody SM/REGISTERED CLIENT ASSOCIATE IgG Antibody Complement C3 Complement C4 T.pallidum Ab (EIA) A. phagocytophilum IgG A. phagocytophilum IgM A.phagocytophilum Intrp A. phagocytophilum Cmmt Lyme Screen IgG & IgM Lyme Progressive Test COVID-19 ([facility]) COVID-19 Clin Com E. chaffeensis IgG Ab E. chaffeensis IgM Ab E. chaffeensis Interp E. chaffeensis Comment Hepatitis A IgM Ab Hep Bs Antigen Hep Bs Antibody Hep B Core Total Ab Hepatitis C Ab (EIA) Monoscreen HIV 1&2 Ab/P24 Ag 4thGn Influenza Type A (CB) Influenza Type B (CB) Influenza A & B Note Cryptococcal Ag 03/03/22 03/03/22 03/03/22 21:01 21:01 21:01 WBC RBC Hgb Hct MCV MCH MCHC RDW Plt Count MPV Immature Gran % (Auto) Neut % (Auto) Lymph % (Auto) [place] % (Auto) Eos % (Auto) Baso % (Auto) Lymph # (Auto) [place] # (Auto) Eos # (Auto) Baso # (Auto) Abs Immat Gran (auto) Absolute Neuts (auto) Absolute Nucleated RBC Nucleated RBC % (auto) Smear Tech's Comments Smear Path Review ESR Absolute Retic Percent Retic Immature Retic Fraction Retic Hgb Equivalent PT INR APTT LA PTT Screen dRVV Screen dRVVT Mix Interpret Lupus Anticoag Interp Sodium Potassium Chloride Carbon Dioxide Anion Gap BUN Creatinine Estim Creat Clear Calc Estimated GFR Random Glucose Lactic Acid Calcium Magnesium Iron TIBC % Saturation Unsat Iron Binding Total Bilirubin Direct Bilirubin AST ALT Alkaline Phosphatase Lactate Dehydrogenase Troponin I High Sens C-Reactive Protein Total Protein Albumin Lipase Angiotensin Convert Enz Vitamin B12 Folate TSH Urine Color Urine Appearance Urine pH Ur Specific Holt Urine Protein Urine Glucose (UA) Urine Ketones Urine Blood Urine Nitrite Ur Leukocyte Esterase Urine RBC Urine WBC Ur Squamous Epith Cells Urine Bacteria Urine Mucus Urine Test Vancomycin Trough Urine Opiates Screen Urine Fentanyl Screen Acetaminophen Ur Barbiturates Screen Ur Phencyclidine Scrn Ur Amphetamines Screen U Benzodiazepines Scrn Urine Cocaine Screen U Marijuana (THC) Screen IgG Total IgA Total IgM YUN Interpretation ELIZABET Screen ELIZABET Titer ELIZABET Titer 2 ELIZABET Titer 3 ELIZABET Pattern ELIZABET Pattern 2 ELIZABET Pattern 3 Sm ([place]) Antibody SM/REGISTERED CLIENT ASSOCIATE IgG Antibody Complement C3 Complement C4 T.pallidum Ab (EIA) A. phagocytophilum IgG <1:64 A. phagocytophilum IgM <1:20 A.phagocytophilum Intrp A. phagocytophilum Cmmt See Below Lyme Screen IgG & IgM <0.90 Lyme Progressive Test TNP COVID-19 ([facility]) COVID-19 Clin Com E. chaffeensis IgG Ab <1:64 E. chaffeensis IgM Ab <1:20 E. chaffeensis Interp E. chaffeensis Comment See Below Hepatitis A IgM Ab Hep Bs Antigen Hep Bs Antibody Hep B Core Total Ab Hepatitis C Ab (EIA) Monoscreen Negative HIV 1&2 Ab/P24 Ag 4thGn Influenza Type A (CB) Influenza Type B (CB) Influenza A & B Note Cryptococcal Ag 03/03/22 03/03/22 03/03/22 23:55 23:55 23:55 WBC RBC Hgb Hct MCV MCH MCHC RDW Plt Count MPV Immature Gran % (Auto) Neut % (Auto) Lymph % (Auto) [place] % (Auto) Eos % (Auto) Baso % (Auto) Lymph # (Auto) [place] # (Auto) Eos # (Auto) Baso # (Auto) Abs Immat Gran (auto) Absolute Neuts (auto) Absolute Nucleated RBC Nucleated RBC % (auto) Smear Tech's Comments Smear Path Review ESR Absolute Retic Percent Retic Immature Retic Fraction Retic Hgb Equivalent PT INR APTT LA PTT Screen dRVV Screen dRVVT Mix Interpret Lupus Anticoag Interp Sodium Potassium Chloride Carbon Dioxide Anion Gap BUN Creatinine Estim Creat Clear Calc Estimated GFR Random Glucose Lactic Acid Calcium Magnesium Iron TIBC % Saturation Unsat Iron Binding Total Bilirubin Direct Bilirubin AST ALT Alkaline Phosphatase Lactate Dehydrogenase Troponin I High Sens C-Reactive Protein Total Protein Albumin Lipase Angiotensin Convert Enz Vitamin B12 Folate TSH Urine Color YELLOW Urine Appearance HAZY Urine pH 6.5 Ur Specific Holt 1.020 Urine Protein 1+ H Urine Glucose (UA) NEG Urine Ketones >=80 Urine Blood NEG Urine Nitrite NEG Ur Leukocyte Esterase 2+ H Urine RBC 1-4 Urine WBC 10-14 H Ur Squamous Epith Cells 1+ Urine Bacteria 2+ Urine Mucus 2+ Urine Test NEGATIVE Vancomycin Trough Urine Opiates Screen Not Detected Urine Fentanyl Screen Not Detected Acetaminophen Ur Barbiturates Screen Not Detected Ur Phencyclidine Scrn Not Detected Ur Amphetamines Screen Not Detected U Benzodiazepines Scrn Not Detected Urine Cocaine Screen Not Detected U Marijuana (THC) Screen Not Detected IgG Total IgA Total IgM YUN Interpretation ELIZABET Screen ELIZABET Titer ELIZABET Titer 2 ELIZABET Titer 3 ELIZABET Pattern ELIZABET Pattern 2 ELIZABET Pattern 3 Sm ([place]) Antibody SM/REGISTERED CLIENT ASSOCIATE IgG Antibody Complement C3 Complement C4 T.pallidum Ab (EIA) A. phagocytophilum IgG A. phagocytophilum IgM A.phagocytophilum Intrp A. phagocytophilum Cmmt Lyme Screen IgG & IgM Lyme Progressive Test COVID-19 ([facility]) COVID-19 Clin Com E. chaffeensis IgG Ab E. chaffeensis IgM Ab E. chaffeensis Interp E. chaffeensis Comment Hepatitis A IgM Ab Hep Bs Antigen Hep Bs Antibody Hep B Core Total Ab Hepatitis C Ab (EIA) Monoscreen HIV 1&2 Ab/P24 Ag 4thGn Influenza Type A (CB) Influenza Type B (CB) Influenza A & B Note Cryptococcal Ag 03/04/22 03/04/22 03/04/22 09:22 09: 09:22 WBC RBC Hgb Hct MCV MCH MCHC RDW Plt Count MPV Immature Gran % (Auto) Neut % (Auto) Lymph % (Auto) [place] % (Auto) Eos % (Auto) Baso % (Auto) Lymph # (Auto) [place] # (Auto) Eos # (Auto) Baso # (Auto) Abs Immat Gran (auto) Absolute Neuts (auto) Absolute Nucleated RBC Nucleated RBC % (auto) Smear Tech's Comments Smear Path Review ESR Absolute Retic Percent Retic Immature Retic Fraction Retic Hgb Equivalent PT INR APTT LA PTT Screen dRVV Screen dRVVT Mix Interpret Lupus Anticoag Interp Sodium Potassium Chloride Carbon Dioxide Anion Gap BUN Creatinine 0.50 Estim Creat Clear Calc 149.1 Estimated GFR > 60 Random Glucose Lactic Acid Calcium Magnesium Iron TIBC % Saturation Unsat Iron Binding Total Bilirubin Direct Bilirubin AST ALT Alkaline Phosphatase Lactate Dehydrogenase Troponin I High Sens C-Reactive Protein Total Protein Albumin Lipase Angiotensin Convert Enz Vitamin B12 Folate TSH Urine Color Urine Appearance Urine pH Ur Specific Holt Urine Protein Urine Glucose (UA) Urine Ketones Urine Blood Urine Nitrite Ur Leukocyte Esterase Urine RBC Urine WBC Ur Squamous Epith Cells Urine Bacteria Urine Mucus Urine Test Vancomycin Trough Urine Opiates Screen Urine Fentanyl Screen Acetaminophen Ur Barbiturates Screen Ur Phencyclidine Scrn Ur Amphetamines Screen U Benzodiazepines Scrn Urine Cocaine Screen U Marijuana (THC) Screen IgG Total IgA Total IgM YUN Interpretation ELIZABET Screen POSITIVE A ELIZABET Titer 1:1280 H ELIZABET Titer 2 TNP ELIZAEBT Titer 3 TNP ELIZABET Pattern Nuclear, Speckled A ELIZABET Pattern 2 TNP ELIZABET Pattern 3 TNP Sm ([place]) Antibody SM/REGISTERED CLIENT ASSOCIATE IgG Antibody Complement C3 Complement C4 T.pallidum Ab (EIA) Nonreactive A. phagocytophilum IgG A. phagocytophilum IgM A.phagocytophilum Intrp A. phagocytophilum Cmmt Lyme Screen IgG & IgM Lyme Progressive Test COVID-19 ([facility]) COVID-19 Clin Com E. chaffeensis IgG Ab E. chaffeensis IgM Ab E. chaffeensis Interp E. chaffeensis Comment Hepatitis A IgM Ab Hep Bs Antigen Hep Bs Antibody Hep B Core Total Ab Hepatitis C Ab (EIA) Monoscreen HIV 1&2 Ab/P24 Ag 4thGn Influenza Type A (CB) Influenza Type B (CB) Influenza A & B Note Cryptococcal Ag 03/04/22 03/05/22 03/05/22 14:13 06:40 09:56 WBC RBC Hgb Hct MCV MCH MCHC RDW Plt Count MPV Immature Gran % (Auto) Neut % (Auto) Lymph % (Auto) [place] % (Auto) Eos % (Auto) Baso % (Auto) Lymph # (Auto) [place] # (Auto) Eos # (Auto) Baso # (Auto) Abs Immat Gran (auto) Absolute Neuts (auto) Absolute Nucleated RBC Nucleated RBC % (auto) Smear Tech's Comments Smear Path Review ESR Absolute Retic Percent Retic Immature Retic Fraction Retic Hgb Equivalent PT INR APTT LA PTT Screen dRVV Screen dRVVT Mix Interpret Lupus Anticoag Interp Sodium Potassium Chloride Carbon Dioxide Anion Gap BUN Creatinine 0.50 Estim Creat Clear Calc 149.1 Estimated GFR > 60 Random Glucose Lactic Acid Calcium Magnesium Iron TIBC % Saturation Unsat Iron Binding Total Bilirubin Direct Bilirubin AST ALT Alkaline Phosphatase Lactate Dehydrogenase Troponin I High Sens C-Reactive Protein Total Protein Albumin Lipase Angiotensin Convert Enz Vitamin B12 Folate TSH Urine Color Urine Appearance Urine pH Ur Specific Holt Urine Protein Urine Glucose (UA) Urine Ketones Urine Blood Urine Nitrite Ur Leukocyte Esterase Urine RBC Urine WBC Ur Squamous Epith Cells Urine Bacteria Urine Mucus Urine Test Vancomycin Trough < 3.0 L Urine Opiates Screen Urine Fentanyl Screen Acetaminophen Ur Barbiturates Screen Ur Phencyclidine Scrn Ur Amphetamines Screen U Benzodiazepines Scrn Urine Cocaine Screen U Marijuana (THC) Screen IgG Total IgA Total IgM YUN Interpretation ELIZABET Screen ELIZABET Titer ELIZABET Titer 2 ELIZABET Titer 3 ELIZABET Pattern ELIZABET Pattern 2 ELIZABET Pattern 3 Sm ([place]) Antibody SM/REGISTERED CLIENT ASSOCIATE IgG Antibody Complement C3 Complement C4 T.pallidum Ab (EIA) A. phagocytophilum IgG A. phagocytophilum IgM A.phagocytophilum Intrp A. phagocytophilum Cmmt Lyme Screen IgG & IgM Lyme Progressive Test COVID-19 ([facility]) COVID-19 Clin Com E. chaffeensis IgG Ab E. chaffeensis IgM Ab E. chaffeensis Interp E. chaffeensis Comment Hepatitis A IgM Ab Hep Bs Antigen Hep Bs Antibody Hep B Core Total Ab Hepatitis C Ab (EIA) Monoscreen HIV 1&2 Ab/P24 Ag 4thGn Influenza Type A (CB) Influenza Type B (CB) Influenza A & B Note Cryptococcal Ag SEE NOTE 03/05/22 03/06/22 03/06/22 15:31 06:06 14:18 WBC RBC Hgb Hct MCV MCH MCHC RDW Plt Count MPV Immature Gran % (Auto) Neut % (Auto) Lymph % (Auto) [place] % (Auto) Eos % (Auto) Baso % (Auto) Lymph # (Auto) [place] # (Auto) Eos # (Auto) Baso # (Auto) Abs Immat Gran (auto) Absolute Neuts (auto) Absolute Nucleated RBC Nucleated RBC % (auto) Smear Tech's Comments Smear Path Review ESR Absolute Retic 0.018 L Percent Retic 0.6 Immature Retic Fraction 6.4 Retic Hgb Equivalent 31.7 PT INR APTT LA PTT Screen dRVV Screen dRVVT Mix Interpret Lupus Anticoag Interp Sodium Potassium Chloride Carbon Dioxide Anion Gap BUN Creatinine 0.49 L Estim Creat Clear Calc 152.2 Estimated GFR > 60 Random Glucose Lactic Acid Calcium Magnesium Iron TIBC % Saturation Unsat Iron Binding Total Bilirubin Direct Bilirubin AST ALT Alkaline Phosphatase Lactate Dehydrogenase Troponin I High Sens C-Reactive Protein Total Protein Albumin Lipase Angiotensin Convert Enz 65.3 Vitamin B12 Folate TSH Urine Color Urine Appearance Urine pH Ur Specific Holt Urine Protein Urine Glucose (UA) Urine Ketones Urine Blood Urine Nitrite Ur Leukocyte Esterase Urine RBC Urine WBC Ur Squamous Epith Cells Urine Bacteria Urine Mucus Urine Test Vancomycin Trough Urine Opiates Screen Urine Fentanyl Screen Acetaminophen Ur Barbiturates Screen Ur Phencyclidine Scrn Ur Amphetamines Screen U Benzodiazepines Scrn Urine Cocaine Screen U Marijuana (THC) Screen IgG Total IgA Total IgM YUN Interpretation ELIZABET Screen ELIZABET Titer ELIZABET Titer 2 ELIZABET Titer 3 ELIZABET Pattern ELIZABET Pattern 2 ELIZABET Pattern 3 Sm ([place]) Antibody SM/REGISTERED CLIENT ASSOCIATE IgG Antibody Complement C3 Complement C4 T.pallidum Ab (EIA) A. phagocytophilum IgG A. phagocytophilum IgM A.phagocytophilum Intrp A. phagocytophilum Cmmt Lyme Screen IgG & IgM Lyme Progressive Test COVID-19 ([facility]) COVID-19 Clin Com E. chaffeensis IgG Ab E. chaffeensis IgM Ab E. chaffeensis Interp E. chaffeensis Comment Hepatitis A IgM Ab Hep Bs Antigen Hep Bs Antibody Hep B Core Total Ab Hepatitis C Ab (EIA) Monoscreen HIV 1&2 Ab/P24 Ag 4thGn Influenza Type A (CB) Influenza Type B (CB) Influenza A & B Note Cryptococcal Ag 03/06/22 03/06/22 03/06/22 14:18 14:18 14:18 WBC RBC Hgb Hct MCV MCH MCHC RDW Plt Count MPV Immature Gran % (Auto) Neut % (Auto) Lymph % (Auto) [place] % (Auto) Eos % (Auto) Baso % (Auto) Lymph # (Auto) [place] # (Auto) Eos # (Auto) Baso # (Auto) Abs Immat Gran (auto) Absolute Neuts (auto) Absolute Nucleated RBC Nucleated RBC % (auto) Smear Tech's Comments Smear Path Review ESR Absolute Retic Percent Retic Immature Retic Fraction Retic Hgb Equivalent PT INR APTT LA PTT Screen dRVV Screen dRVVT Mix Interpret Lupus Anticoag Interp Sodium Potassium Chloride Carbon Dioxide Anion Gap BUN Creatinine Estim Creat Clear Calc Estimated GFR Random Glucose Lactic Acid Calcium Magnesium Iron 22 L TIBC 191 L % Saturation 12 L Unsat Iron Binding 169 Total Bilirubin Direct Bilirubin AST ALT Alkaline Phosphatase Lactate Dehydrogenase 522 H Troponin I High Sens C-Reactive Protein Total Protein Albumin Lipase Angiotensin Convert Enz Vitamin B12 654 Folate 13.0 TSH Urine Color Urine Appearance Urine pH Ur Specific Holt Urine Protein Urine Glucose (UA) Urine Ketones Urine Blood Urine Nitrite Ur Leukocyte Esterase Urine RBC Urine WBC Ur Squamous Epith Cells Urine Bacteria Urine Mucus Urine Test Vancomycin Trough Urine Opiates Screen Urine Fentanyl Screen Acetaminophen Ur Barbiturates Screen Ur Phencyclidine Scrn Ur Amphetamines Screen U Benzodiazepines Scrn Urine Cocaine Screen U Marijuana (THC) Screen IgG Total 2713 H IgA Total 215 IgM 90 YUN Interpretation ELIZABET Screen ELIZABET Titer ELIZABET Titer 2 ELIZABET Titer 3 ELIZABET Pattern ELIZABET Pattern 2 ELIZABET Pattern 3 Sm ([place]) Antibody SM/REGISTERED CLIENT ASSOCIATE IgG Antibody Complement C3 Complement C4 T.pallidum Ab (EIA) A. phagocytophilum IgG A. phagocytophilum IgM A.phagocytophilum Intrp A. phagocytophilum Cmmt Lyme Screen IgG & IgM Lyme Progressive Test COVID-19 ([facility]) COVID-19 Clin Com E. chaffeensis IgG Ab E. chaffeensis IgM Ab E. chaffeensis Interp E. chaffeensis Comment Hepatitis A IgM Ab Hep Bs Antigen Hep Bs Antibody Hep B Core Total Ab Hepatitis C Ab (EIA) Monoscreen HIV 1&2 Ab/P24 Ag 4thGn Influenza Type A (CB) Influenza Type B (CB) Influenza A & B Note Cryptococcal Ag 03/07/22 03/07/22 03/07/22 06:48 20:39 23:31 WBC RBC Hgb Hct MCV MCH MCHC RDW Plt Count MPV Immature Gran % (Auto) Neut % (Auto) Lymph % (Auto) [place] % (Auto) Eos % (Auto) Baso % (Auto) Lymph # (Auto) [place] # (Auto) Eos # (Auto) Baso # (Auto) Abs Immat Gran (auto) Absolute Neuts (auto) Absolute Nucleated RBC Nucleated RBC % (auto) Smear Tech's Comments Smear Path Review ESR Absolute Retic Percent Retic Immature Retic Fraction Retic Hgb Equivalent PT INR APTT LA PTT Screen dRVV Screen dRVVT Mix Interpret Lupus Anticoag Interp Sodium Potassium Chloride Carbon Dioxide Anion Gap BUN Creatinine 0.56 Estim Creat Clear Calc 133.1 Estimated GFR > 60 Random Glucose Lactic Acid Calcium Magnesium Iron TIBC % Saturation Unsat Iron Binding Total Bilirubin Direct Bilirubin AST ALT Alkaline Phosphatase Lactate Dehydrogenase Troponin I High Sens 14.8 18.5 H C-Reactive Protein Total Protein Albumin Lipase Angiotensin Convert Enz Vitamin B12 Folate TSH Urine Color Urine Appearance Urine pH Ur Specific Holt Urine Protein Urine Glucose (UA) Urine Ketones Urine Blood Urine Nitrite Ur Leukocyte Esterase Urine RBC Urine WBC Ur Squamous Epith Cells Urine Bacteria Urine Mucus Urine Test Vancomycin Trough Urine Opiates Screen Urine Fentanyl Screen Acetaminophen Ur Barbiturates Screen Ur Phencyclidine Scrn Ur Amphetamines Screen U Benzodiazepines Scrn Urine Cocaine Screen U Marijuana (THC) Screen IgG Total IgA Total IgM YUN Interpretation ELIZAEBT Screen ELIZABET Titer ELIZABET Titer 2 ELIZABET Titer 3 ELIZABET Pattern ELIZABET Pattern 2 ELIZABET Pattern 3 Sm ([place]) Antibody SM/REGISTERED CLIENT ASSOCIATE IgG Antibody Complement C3 Complement C4 T.pallidum Ab (EIA) A. phagocytophilum IgG A. phagocytophilum IgM A.phagocytophilum Intrp A. phagocytophilum Cmmt Lyme Screen IgG & IgM Lyme Progressive Test COVID-19 (MONTY) COVID-19 Clin Com E. chaffeensis IgG Ab E. chaffeensis IgM Ab E. chaffeensis Interp E. chaffeensis Comment Hepatitis A IgM Ab Hep Bs Antigen Hep Bs Antibody Hep B Core Total Ab Hepatitis C Ab (EIA) Monoscreen HIV 1&2 Ab/P24 Ag 4thGn Influenza Type A (CB) Influenza Type B (CB) Influenza A & B Note Cryptococcal Ag 03/08/22 03/08/22 03/08/22 06:33 17:36 17:36 WBC 1.4 L RBC 3.20 L D Hgb 9.1 L D Hct 27.1 L D MCV 84.7 MCH 28.4 MCHC 33.6 RDW 13.6 Plt Count 152 L MPV 10.9 Immature Gran % (Auto) Neut % (Auto) Lymph % (Auto) [place] % (Auto) Eos % (Auto) Baso % (Auto) Lymph # (Auto) [place] # (Auto) Eos # (Auto) Baso # (Auto) Abs Immat Gran (auto) Absolute Neuts (auto) Absolute Nucleated RBC 0.000 Nucleated RBC % (auto) 0.0 Smear Tech's Comments Smear Path Review ESR Absolute Retic Percent Retic Immature Retic Fraction Retic Hgb Equivalent PT INR APTT LA PTT Screen dRVV Screen dRVVT Mix Interpret Lupus Anticoag Interp Sodium Potassium Chloride Carbon Dioxide Anion Gap BUN Creatinine 0.50 Estim Creat Clear Calc 149.1 Estimated GFR > 60 Random Glucose Lactic Acid 1.6 Calcium Magnesium Iron TIBC % Saturation Unsat Iron Binding Total Bilirubin Direct Bilirubin AST ALT Alkaline Phosphatase Lactate Dehydrogenase Troponin I High Sens C-Reactive Protein Total Protein Albumin Lipase Angiotensin Convert Enz Vitamin B12 Folate TSH Urine Color Urine Appearance Urine pH Ur Specific Holt Urine Protein Urine Glucose (UA) Urine Ketones Urine Blood Urine Nitrite Ur Leukocyte Esterase Urine RBC Urine WBC Ur Squamous Epith Cells Urine Bacteria Urine Mucus Urine Test Vancomycin Trough Urine Opiates Screen Urine Fentanyl Screen Acetaminophen Ur Barbiturates Screen Ur Phencyclidine Scrn Ur Amphetamines Screen U Benzodiazepines Scrn Urine Cocaine Screen U Marijuana (THC) Screen IgG Total IgA Total IgM YUN Interpretation ELIZABET Screen ELIZABET Titer ELIZABET Titer 2 ELIZABET Titer 3 ELIZABET Pattern ELIZABET Pattern 2 ELIZABET Pattern 3 Sm ([place]) Antibody SM/REGISTERED CLIENT ASSOCIATE IgG Antibody Complement C3 Complement C4 T.pallidum Ab (EIA) A. phagocytophilum IgG A. phagocytophilum IgM A.phagocytophilum Intrp A. phagocytophilum Cmmt Lyme Screen IgG & IgM Lyme Progressive Test COVID-19 (MONTY) COVID-19 Clin Com E. chaffeensis IgG Ab E. chaffeensis IgM Ab E. chaffeensis Interp E. chaffeensis Comment Hepatitis A IgM Ab Hep Bs Antigen Hep Bs Antibody Hep B Core Total Ab Hepatitis C Ab (EIA) Monoscreen HIV 1&2 Ab/P24 Ag 4thGn Influenza Type A (CB) Influenza Type B (CB) Influenza A & B Note Cryptococcal Ag 03/08/22 03/08/22 03/09/22 18:47 18:47 06:53 WBC RBC Hgb Hct MCV MCH MCHC RDW Plt Count MPV Immature Gran % (Auto) Neut % (Auto) Lymph % (Auto) [place] % (Auto) Eos % (Auto) Baso % (Auto) Lymph # (Auto) [place] # (Auto) Eos # (Auto) Baso # (Auto) Abs Immat Gran (auto) Absolute Neuts (auto) Absolute Nucleated RBC Nucleated RBC % (auto) Smear Tech's Comments Smear Path Review ESR Absolute Retic Percent Retic Immature Retic Fraction Retic Hgb Equivalent PT INR APTT LA PTT Screen dRVV Screen dRVVT Mix Interpret Lupus Anticoag Interp Sodium Potassium Chloride Carbon Dioxide Anion Gap BUN Creatinine 0.54 Estim Creat Clear Calc 138.0 Estimated GFR > 60 Random Glucose Lactic Acid Calcium Magnesium Iron TIBC % Saturation Unsat Iron Binding Total Bilirubin Direct Bilirubin AST ALT Alkaline Phosphatase Lactate Dehydrogenase Troponin I High Sens C-Reactive Protein Total Protein Albumin Lipase Angiotensin Convert Enz Vitamin B12 Folate TSH Urine Color Urine Appearance Urine pH Ur Specific Holt Urine Protein Urine Glucose (UA) Urine Ketones Urine Blood Urine Nitrite Ur Leukocyte Esterase Urine RBC Urine WBC Ur Squamous Epith Cells Urine Bacteria Urine Mucus Urine Test Vancomycin Trough Urine Opiates Screen Urine Fentanyl Screen Acetaminophen Ur Barbiturates Screen Ur Phencyclidine Scrn Ur Amphetamines Screen U Benzodiazepines Scrn Urine Cocaine Screen U Marijuana (THC) Screen IgG Total IgA Total IgM YUN Interpretation ELIZABET Screen ELIZABET Titer ELIZABET Titer 2 ELIZABET Titer 3 ELIZABET Pattern ELIZABET Pattern 2 ELIZABET Pattern 3 Sm ([place]) Antibody >8.0 POS A SM/REGISTERED CLIENT ASSOCIATE IgG Antibody >8.0 POS A Complement C3 38 L Complement C4 10 L T.pallidum Ab (EIA) A. phagocytophilum IgG A. phagocytophilum IgM A.phagocytophilum Intrp A. phagocytophilum Cmmt Lyme Screen IgG & IgM Lyme Progressive Test COVID-19 (MONTY) COVID-19 Clin Com E. chaffeensis IgG Ab E. chaffeensis IgM Ab E. chaffeensis Interp E. chaffeensis Comment Hepatitis A IgM Ab Hep Bs Antigen Hep Bs Antibody Hep B Core Total Ab Hepatitis C Ab (EIA) Monoscreen HIV 1&2 Ab/P24 Ag 4thGn Influenza Type A (CB) Influenza Type B (CB) Influenza A & B Note Cryptococcal Ag 03/09/22 03/10/22 03/10/22 07:27 15:33 15:33 WBC 3.9 L RBC 3.34 L Hgb 9.4 L Hct 28.6 L MCV 85.6 MCH 28.1 MCHC 32.9 RDW 13.9 Plt Count 184 MPV 11.5 Immature Gran % (Auto) Neut % (Auto) Lymph % (Auto) [place] % (Auto) Eos % (Auto) Baso % (Auto) Lymph # (Auto) [place] # (Auto) Eos # (Auto) Baso # (Auto) Abs Immat Gran (auto) Absolute Neuts (auto) Absolute Nucleated RBC 0.000 Nucleated RBC % (auto) 0.0 Smear Tech's Comments Smear Path Review ESR Absolute Retic Percent Retic Immature Retic Fraction Retic Hgb Equivalent PT INR APTT LA PTT Screen 31 dRVV Screen 27 dRVVT Mix Interpret Not Indicated Lupus Anticoag Interp see note Sodium 140 Potassium 3.1 L D Chloride 111 H Carbon Dioxide 24 Anion Gap 8 L BUN 12 Creatinine 0.54 Estim Creat Clear Calc 138.0 Estimated GFR > 60 Random Glucose 161 H Lactic Acid Calcium 8.2 L D Magnesium Iron TIBC % Saturation Unsat Iron Binding Total Bilirubin 0.7 Direct Bilirubin 0.4 AST 116 H ALT 64 H Alkaline Phosphatase 59 Lactate Dehydrogenase Troponin I High Sens C-Reactive Protein Total Protein 7.1 D Albumin 2.9 L D Lipase Angiotensin Convert Enz Vitamin B12 Folate TSH Urine Color Urine Appearance Urine pH Ur Specific Holt Urine Protein Urine Glucose (UA) Urine Ketones Urine Blood Urine Nitrite Ur Leukocyte Esterase Urine RBC Urine WBC Ur Squamous Epith Cells Urine Bacteria Urine Mucus Urine Test Vancomycin Trough Urine Opiates Screen Urine Fentanyl Screen Acetaminophen Ur Barbiturates Screen Ur Phencyclidine Scrn Ur Amphetamines Screen U Benzodiazepines Scrn Urine Cocaine Screen U Marijuana (THC) Screen IgG Total IgA Total IgM YUN Interpretation ELIZABET Screen ELIZABET Titer ELIZABET Titer 2 ELIZABET Titer 3 ELIZABET Pattern ELIZABET Pattern 2 ELIZABET Pattern 3 Sm ([place]) Antibody SM/REGISTERED CLIENT ASSOCIATE IgG Antibody Complement C3 Complement C4 T.pallidum Ab (EIA) A. phagocytophilum IgG A. phagocytophilum IgM A.phagocytophilum Intrp A. phagocytophilum Cmmt Lyme Screen IgG & IgM Lyme Progressive Test COVID-19 ([facility]ONTY) COVID-19 Clin Com E. chaffeensis IgG Ab E. chaffeensis IgM Ab E. chaffeensis Interp E. chaffeensis Comment Hepatitis A IgM Ab Hep Bs Antigen Hep Bs Antibody Hep B Core Total Ab Hepatitis C Ab (EIA) Monoscreen HIV 1&2 Ab/P24 Ag 4thGn Influenza Type A (CB) Influenza Type B (CB) Influenza A & B Note Cryptococcal Ag Airway Mallampati Class: II TM Dist: >3cm Neck ROM: Full Loose/Missing/Broken Teeth: No Heart: RRR Lungs: CTAB Assessment and Plan Final Anesthetic Review Family History of Problems with Anesthesia: No History of Problems with Anesthesia: No NPO: Yes ASA Class: III Final Preanesthetic Review: No Changes in Pt Med Stat, Meds/Allgs Chart Reviewed, Consent Obtained/Reviewed and Anes Risks/Benef Reviewed Patient Risk: Intermediate Procedure Risk: Low Assessment/Block/Sedation in SS: Assess/Block/Sedation-SS Anesthetic Plan Anesthetic Plan: MAC: Disposition: Standard PACU and Inp. Admit - Standard Bed
[2022-03-12] MEDS: Lactated Ringers 1,000 ML 100 ML IVCONT ×2 (11:20→22:15)
--- NOTE | 2022-03-12 12:08 | PM.OP ---
Brief Operative Note Date of Service: 03/12/22 Pre-op diagnosis: Abdominal pain Post-op diagnosis: other (R/O [place] esophagitis, Small hiatal hernia) Procedure: EGD with biopsies Surgeon: Abdoul Thomas Anesthesia: MAC Was an Workforce Development Assistant used for this Procedure?: No Estimated blood loss (mL): 2.0 Pathology: other (A. Descending duodenum B. Gastric antrum C. Esophagus 25-35cm) Condition: stable Disposition: PACU
--- NOTE | 2022-03-12 12:09 | PM.EVENT ---
Event Note Date of Service: 03/12/22 Event Note: GI-EGD-Full note dictated Findings: 1. ? of esophageal candidiasis, no esophagitis-biopsies taken in esophagus at 25-35cm, small hiatal hernia 2. Normal stomach-Antrum biopsied x 3 3. Duodenum-Mild duodenitis and ? of decreased duodenal folds-multiple biopsies taken to R/O celiac disease Rec: Check path, advance diet, continue po PPI and D/C IV H2-mike, F/U LFT's and pancreas enzymes. Check gallbladder U/S as the limited RUQ U/S report does not describe the gallbladder. Thanks
--- NOTE | 2022-03-12 13:41 | PC.NURSE ---
pt drowsy, unsteady, and hallucinating post procedure, camera placed in room for safety, bed alarm on, aunt at bedside, pt resting at this time
--- NOTE | 2022-03-12 13:54 | MHC.CLN ---
F/U PO INTAKE IMPROVED 100% X3 MEALS DIET RX: REGULAR-APPROPRIATE RECOMMEND RE-STARTING ENSURE CLEAR BETWEEN MEALS TO INCREASE KCALS MONITOR PO INTAKE CLOSELY
[2022-03-12] MEDS: Docusate Sodium 100 MG CAPSULE PO (22:12)
[2022-03-12] MEDS: predniSONE 5 MG TABLET PO (22:12)
--- NOTE | 2022-03-12 23:25 | OP_ITS ---
SURGEON: Abdoul Thomas MD INDICATIONS: The patient presents for evaluation of abdominal pain. Full consent was obtained from her for this, including risks of bleeding and perforation. PREOPERATIVE DIAGNOSIS: Abdominal pain. POSTOPERATIVE DIAGNOSIS: PROCEDURE PERFORMED: Esophagogastroduodenoscopy with biopsies. ESTIMATED BLOOD LOSS: COMPLICATIONS: ANESTHESIA: Monitored anesthesia care. ASSISTANTS: SPECIMENS: POSTOPERATIVE DIAGNOSES: Abdominal pain, small hiatal hernia, rule out esophageal candidiasis, rule out Helicobacter pylori, rule out celiac disease. DESCRIPTION OF PROCEDURE: The patient was placed in the left lateral decubitus position. The Olympus video gastroscope was passed in the posterior oropharynx and upper esophagus under direct vision. The scope was passed slowly to the distal esophagus. The gastroesophageal junction appeared normal at 38 cm. There was no sign of any esophagitis. However, throughout the esophagus were some slight areas of whitish exudate that did wash away for the most part without any underlying inflammation. However, multiple biopsies were obtained between 25 and 35 cm to rule out any component of candidiasis. The scope entered into the stomach. There was a small hiatal hernia. The scope was advanced to the pylorus and the duodenum was cannulated to the descending portion. The duodenum including the bulb appeared normal without mass or ulceration, other than some slight edema and perhaps some diminished number of duodenal folds in the 2nd and 3rd portions. Multiple biopsies were obtained to rule out celiac disease. The scope was withdrawn back into the stomach. The gastric antrum and body appeared normal with good peristalsis. The scope was retroflexed visualizing the proximal stomach carefully, which appeared normal, without any sign of mass or ulceration. The scope was straightened. Biopsies were obtained from the gastric antrum. The scope was withdrawn back from the esophagus. The esophageal mucosa appeared normal. The scope was withdrawn from the patient. She tolerated the procedure well and was returned to the recovery area in stable condition. IMPRESSION: 1. Rule out esophageal candidiasis. 2. Rule out celiac disease. 3. Rule out Helicobacter pylori. PLAN: The results of the biopsies will be checked. Her diet will be advanced. She will have repeat laboratories tomorrow to reassess her LFTs and lipase, which have been elevated earlier in the admission. In reviewing her record, she did have a limited right upper quadrant ultrasound, but there was no mention made of the gallbladder and I shall order a gallbladder ultrasound tomorrow. She has already had a CT scan. MD ARISTEO West/VENKAT / [id number] MTDHany
[2022-03-13] VITALS (7 sets, daily range): BP systolic 99–144; BP diastolic 60–93; PULSE 64–77; RESP 16–20; TEMP 36.6–37.2; O2SAT 96–100
[2022-03-13] MEDS: Lactated Ringers 1,000 ML 100 ML IVCONT ×2 (04:53→15:46)
[2022-03-13] MEDS: Omeprazole 20 MG CAPSULE.DR PO (04:53)
[2022-03-13 07:49] LABS: Alanine Aminotransferase 109 U/L (0-31); Albumin Level 2.8 g/dL (3.5-5.0); Alkaline Phosphatase 61 U/L (39-117); Aspartate Amino Transferase 122 U/L (5-31); Bilirubin Direct 0.4 mg/dL (0.0-0.5); Bilirubin Total 0.8 mg/dL (0.0-1.0); Lipase 298 U/L (8-78); Total Protein 6.6 g/dL (6.5-8.0)
[2022-03-13 08:18] LABS: Amylase 212 U/L (28-100)
[2022-03-13] MEDS: ondansetron HCL 4 MG/2 ML VIAL IVPUSH ×2 (08:36→18:33)
[2022-03-13] MEDS: Morphine Sulfate 2 MG/ML CARTRIDGE IVPUSH ×3 (08:36→18:32)
[2022-03-13] MEDS: predniSONE 5 MG TABLET PO (08:37)
[2022-03-13] MEDS: Docusate Sodium 100 MG CAPSULE PO ×2 (08:37→19:58)
--- NOTE | 2022-03-13 09:11 | MHC.PIE ---
Patient c/o abd pain & nausea. No vomiting. Patient medicated w/ morphine & zofran at 2212. Nausea persisted - medicated w/ additional antiemetic - phenergen @ 0037. Patient rested after being medicated. Patient up to bathroom - high fall risk precautions remain r/t meds given & IV fluids running.
--- NOTE | 2022-03-13 09:49 | HO.POSTANES ---
Post Anesthesia Evaluation Post Anesthesia Evaluation Vital Signs: Vital Signs Temp Pulse Resp BP Pulse Ox 03/13/22 07:16 98.3 F 74 16 99/60 96 03/13/22 03:48 97.9 F 77 20 138/80 98 03/13/22 00:00 98.7 F 69 18 144/93 H 97 Anesthesia: Monitored Mental Status: Awake Pain Control: Satisfactory Nausea/Vomiting: None Hydration: Adequate Anesthesia-Related Issues: No Anes. Related Issues
[2022-03-13] MEDS: Acetaminophen 325 MG TABLET 650 MG PO (11:38)
--- NOTE | 2022-03-13 14:54 | HO.PM.IMPN ---
Subjective Subjective Date of Service: 03/14/22 Interval History: complaining of persistent nausea decreased by mouth intake and right upper quadrant abdominal pain, denies fever chills no acute issues overnight, denies chest pain, no palpitation, no dizziness, no joint pain, facial rash is fading, no new rash. Review of Systems FACILITIES ASSISTANT no headache no dizziness CVS no chest pain, no palpitation respiratory no cough, no shortness of breath Review of Systems: Yes all other systems are reviewed and are negative Physical Exam Vital Signs: Vital Signs: Last Vital Signs Temp 98.3 F 03/13/22 11:04 Pulse 67 03/13/22 11:04 Resp 16 03/13/22 11:04 BP 109/65 03/13/22 11:04 Pulse Ox 96 03/13/22 13:10 BMI result Body Mass Index 18.6 Const: Other: General awake alert x3, no acute distress. Neck no JVD. CVS regular rate rhythm, Respiratory lungs clear to auscultation, no respiratory distress, no wheeze, no rhonchi. Gastrointestinal abdomen soft, mild right upper quadrant tenderness to palpation, no guarding , no rigidity. Extremities no edema. no joint deformity Neuro nonfocal Skin facial rash is fading, no new lesion psych appropriate affect Objective Data Active Medications Acetaminophen (Acetaminophen 325 Mg Tablet) 650 mg PO Q6H PRN PRN Reason: Pain, Mild (Pain Scale 1-3) Last Admin: 03/13/22 11:38 Dose: 650 mg Documented by: CORI Benzocaine (Throat Lozenge, Medicated Lozenge) 1 lozenge MUCOUS MEM Q2H PRN PRN Reason: Sore Throat Docusate Sodium (Docusate Sodium 100 Mg Capsule) 100 mg PO BID [facility] Last Admin: 03/13/22 08:37 Dose: 100 mg Documented by: CORI Promethazine HCl 12.5 mg/ (Sodium Chloride) 50.5 mls @ 202 mls/hr IV Q6H PRN PRN Reason: Nausea and Vomiting Last Admin: 03/13/22 13:18 Dose: 202 mls/hr Documented by: CORI Lactated Ringer's (Lr) 1,000 mls @ 100 mls/hr IVCONT .Q10H [facility] Last Admin: 03/13/22 04:53 Dose: 100 mls/hr Documented by: VANDA Morphine Sulfate (Morphine Sulfate 2 Mg/Ml Cartridge) 2 mg IVPUSH Q4H PRN; Protocol PRN Reason: Pain, Severe (Pain Scale 7-10) Last Admin: 03/13/22 12:49 Dose: 2 mg Documented by: CORI Omeprazole (Omeprazole 20 Mg Capsule.Dr) 20 mg PO DAILY@0630 [facility] Last Admin: 03/13/22 04:53 Dose: 20 mg Documented by: VANDA Ondansetron HCl (Ondansetron Hcl 4 Mg/2 Ml Vial) 4 mg IVPUSH Q8H PRN PRN Reason: Nausea and Vomiting Last Admin: 03/13/22 08:36 Dose: 4 mg Documented by: CORI Pharmacy Consult (Consult Rx Perform Med Rec) 1 each MISCELLANE ONCE PRN PRN Reason: Consult order Prednisone (Prednisone 5 Mg Tablet) 5 mg PO BID [facility] Last Admin: 03/13/22 08:37 Dose: 5 mg Documented by: CORI Sodium Chloride (0.9 % Sodium Chloride Flush 3 Ml Syringe) 3 ml IVFLUSH QSHIFT [facility] Last Admin: 03/13/22 08:37 Dose: Not Given Documented by: CORI Non-Admin Reason: IV Running Labs CBC & Chem 7: 03/10/22 15:33 03/14/22 06:12 Labs: Laboratory Results - last 24 hr 03/09/22 03/13/22 07:27 06:52 LA Thrombin Time TNP dRVVT Confirm Interp TNP dRVVT Mixing Study TNP Hexagon Phase Neutraliz TNP Total Bilirubin 0.8 Direct Bilirubin 0.4 AST 122 H ALT 109 H Alkaline Phosphatase 61 Total Protein 6.6 Albumin 2.8 L Amylase 212 H Lipase 298 H Assessment and Plan (1) Fever of unknown origin: Status: Acute (2) Leukocytopenia, unspecified: Status: Acute (3) Elevated LFTs: Status: Acute Plan 21-year-old female with no significant past medical history presented to the hospital with a chief complaint of abdominal pain and to have fever and rash on arm, palms and face has been there since October and now positive ELIZABET with other constellation of problems suggestive lupus. Nausea/vomiting /abdominal pain, persistent symptoms but mild, able to tolerate diet CT abdomen showed severe constipation, ? free air, on re-evaluation, air is in stomch on sagital views surgery advised conservative managment, treated with enema and had multiple bowel movment on 03/09 underwent upper endoscopy on 03/12 that showed ? of esophageal candidiasis, no esophagitis-biopsies taken in esophagus at 25-35cm, small hiatal hernia, Normal stomach-Antrum biopsied x 3 taken, Duodenum exam revealed Mild duodenitis and ? of decreased duodenal folds-multiple biopsies taken to R/O celiac disease, GI recommend to continue by mouth PPI abdominal ultrasound is pending LFTs and pancreatic enzymes remains elevated but stable question upper symptoms related to lupus /mixed connective tissue disease workup in progress Rash, Fever:? rash Noted on? bilateral palms and face; couple lesions in the oral mucosa;?see pictures. rash now fading, no new lesions noted lyme, HIV, Hep A. B.C negative, blood cultures negative, B12, Folate, TSH are normal. + ELIZABET suggesting the possibility of lupus low C3, C4 , double stranded DNA pending. 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 elevated IgG level, no monoclonal proteins detected, low albumin no evidence of joint disease, normal renal function, no pleural or pericardial effusion, no evidence of Raynaud's disease, no malar rash Dr. Monge discussed case with Rheumatology on phone. he will see her in the office.Low dose predniosone of 5 mg bid given and now on prednisone 5mg daily. UTi--completed course of Ceftriaxone. Pancytopenia, : Likely related to above process, has been evaluated by Hematology and will need to follow up with them on outpatient basis, ? need for bone marrow Bx Anemia not consistent with iron deficiency Mild Transaminitis--likely related to above process, hep A, B, C negative.. likely to related to autoiummune process , follow-up abdominal ultrasound to rule out acute cholecystitis. Need for inapatient: ongoing work up for fever on unknown source, persistent abdominal pain and nausea Quality Stroke Does the patient have a stroke diagnosis?: No VTE Prior VTE?: No VTE Risk Level:: Medical - moderate - high VTE Device Contraindication: N/A - Device Ordered VTE Drug Contraindication: Treatment Not Indicated
[2022-03-13] MEDS: Potassium Chloride/H20 10 MEQ/100 ML PIGGYBACK 100 MEQ IV ×2 (18:01→19:58)
--- NOTE | 2022-03-13 23:05 | PM.EVENT ---
Event Note Date of Service: 03/13/22 Event Note: GI-Course noted Patient still with abdominal pain, elevated LFT's and lipase, and abnormal GB U/S today with evidence of some inflammatory changes although no gallstones. I would recommend further w/u with HIDA scan with CCK and surgical consult to assess for any component of acalculous cholecystitis and potential need for surgery. I placed the orders for the HIDA with CCK and surgery consult. Thanks
[2022-03-14] VITALS: BP 115/70; PULSE 60; RESP 16; TEMP 36.6; O2SAT 97
[2022-03-14] MEDS: 0.9 % Sodium Chloride Flush 3 ML SYRINGE IVFLUSH ×4 (00:51→20:44)
[2022-03-14 04:00] VITALS: BP 111/75; PULSE 75; RESP 12; TEMP 36.9; O2SAT 98
[2022-03-14] MEDS: Morphine Sulfate 2 MG/ML CARTRIDGE IVPUSH ×2 (05:19→10:59)
[2022-03-14] MEDS: Omeprazole 20 MG CAPSULE.DR PO ×2 (05:19→16:42)
[2022-03-14 07:04] LABS: Alanine Aminotransferase 90 U/L (0-31); Albumin Level 2.6 g/dL (3.5-5.0); Alkaline Phosphatase 56 U/L (39-117); Anion Gap 7 (12-20); Aspartate Amino Transferase 84 U/L (5-31); Bilirubin Direct 0.4 mg/dL (0.0-0.5); Bilirubin Total 0.7 mg/dL (0.0-1.0); Blood Urea Nitrogen 9 mg/dL (9-16); Carbon Dioxide 28 mmol/L (22-29); Chloride 104 mmol/L (96-108); Creatinine Clr Calc Pharmacy 146.5; Estimated Glomerular Filt Rate > 60; Glucose Random 102 mg/dL (60-115); Lipase 503 U/L (8-78); Potassium 2.9 mmol/L (3.3-5.1); Sodium 136 mmol/L (135-145); Total Protein 6.2 g/dL (6.5-8.0)
[2022-03-14 07:33] VITALS: BP 107/69; PULSE 61; RESP 18; TEMP 36.9; O2SAT 98
[2022-03-14] MEDS: ondansetron HCL 4 MG/2 ML VIAL IVPUSH ×2 (10:12→22:57)
[2022-03-14] MEDS: Potassium Chloride ER 20 MEQ TAB.ER.PRT 40 MEQ PO (10:15)
[2022-03-14] MEDS: predniSONE 5 MG TABLET PO (10:16)
[2022-03-14] MEDS: Docusate Sodium 100 MG CAPSULE PO ×2 (10:16→20:42)
[2022-03-14 13:00] VITALS: O2SAT 97
--- NOTE | 2022-03-14 13:19 | MHC.CLN ---
F/U PO INTAKE VARIABLE R/T PERSISTENT NAUSEA DIET [id number] PT RECEIVING ENSURE CLEAR BETWEEN MEALS TO INCREASE KCALS BUT ONLY TOLERATES OCCASIONALLY IF PO INTAKE DOES NOT IMPROVE; CONSIDER PPN-RECOMMEND D10AA4.25 AT 30ML/HR TO START PPN WOULD PROVIDE 367KCALS, 31G PROTEIN CONTINUE TO MONITOR PO INTAKE CLOSELY
[2022-03-14 14:30] LABS: DNAds, Crithidia Antibody Negative (Negative)
--- NOTE | 2022-03-14 14:30 | P.PNGS_ITS ---
Subjective Subjective Date of Service: 03/14/22 Interval history: Patient continues to report abdominal pain. She continues to report constipation despite stool softeners. The pain is located diffusely. She feels the rash is improving. Physical Exam Vital Signs: Vital Signs: Last Vital Signs Temp 98.4 F 03/14/22 07:33 Pulse 61 03/14/22 07:33 Resp 18 03/14/22 07:33 BP 107/69 03/14/22 07:33 Pulse Ox 98 03/14/22 07:33 BMI result Body Mass Index 18.6 Const: General: no acute distress Nutritional Appearance: thin Orientation/consciousness: patient oriented x3 Limitations: no limitations Resp: Effort & Inspection: normal respiratory effort, no audible wheezes, no cough and no respiratory distress GI: Inspection: Yes normal to inspection, No distended and Yes scaphoid Palpation (GI): Soft to palpation and Tenderness to palpation present (GI) Percussion: Yes normal to percussion Auscultation: normal bowel sounds Skin: Rashes: rashes noted (Facial rash is much improved) Neuro: General: patient oriented x3 Objective Data Active Medications Acetaminophen (Acetaminophen 325 Mg Tablet) 650 mg PO Q6H PRN PRN Reason: Pain, Mild (Pain Scale 1-3) Last Admin: 03/13/22 11:38 Dose: 650 mg Documented by: CORI Benzocaine (Throat Lozenge, Medicated Lozenge) 1 lozenge MUCOUS MEM Q2H PRN PRN Reason: Sore Throat Docusate Sodium (Docusate Sodium 100 Mg Capsule) 100 mg PO BID RAJAN Last Admin: 03/14/22 10:16 Dose: 100 mg Documented by: IAN Promethazine HCl 12.5 mg/ (Sodium Chloride) 50.5 mls @ 202 mls/hr IV Q6H PRN PRN Reason: Nausea and Vomiting Last Infusion: 03/13/22 15:34 Dose: 0 mls/hr Documented by: CORI Morphine Sulfate (Morphine Sulfate 2 Mg/Ml Cartridge) 2 mg IVPUSH Q4H PRN; Protocol PRN Reason: Pain, Severe (Pain Scale 7-10) Last Admin: 03/14/22 10:59 Dose: 2 mg Documented by: IAN Omeprazole (Omeprazole 20 Mg Capsule.) 20 mg PO DAILY@0630 [facility] Last Admin: 03/14/22 05:19 Dose: 20 mg Documented by: ALENA Ondansetron HCl (Ondansetron Hcl 4 Mg/2 Ml Vial) 4 mg IVPUSH Q8H PRN PRN Reason: Nausea and Vomiting Last Admin: 03/14/22 10:12 Dose: 4 mg Documented by: IAN Pharmacy Consult (Consult Rx Perform Med Rec) 1 each MISCELLANE ONCE PRN PRN Reason: Consult order Prednisone (Prednisone 5 Mg Tablet) 5 mg PO DAILY [facility] Last Admin: 03/14/22 10:16 Dose: 5 mg Documented by: IAN Sodium Chloride (0.9 % Sodium Chloride Flush 3 Ml Syringe) 3 ml IVFLUSH QSHIFT [facility] Last Admin: 03/14/22 10:13 Dose: 3 ml Documented by: IAN Labs CBC & Chem 7: 03/10/22 15:33 03/14/22 06:12 Labs: Laboratory Results - last 24 hr 03/14/22 06:12 Anion Gap 7 L Estim Creat Clear Calc 146.5 Estimated GFR > 60 Random Glucose 102 Calcium 8.0 L Total Bilirubin 0.7 Direct Bilirubin 0.4 AST 84 H ALT 90 H Alkaline Phosphatase 56 Total Protein 6.2 L Albumin 2.6 L Lipase 503 H Procedures Date of Service Date of Service: 03/14/22 Progress Note: A&P Assessment and plan (1) Elevated LFTs: Status: Acute (2) Abdominal pain: Status: Acute Plan 21-year-old female patient presenting with complaints of abdominal pain found to have a thickened gallbladder ultrasound and CT. No gallstones are noted by either study but pericholecystic fluid was identified on the ultrasound. This raises the question of cholecystitis. Patient just completed a HIDA scan. Report is not available at this time however review of the study does reveal prompt filling of the gallbladder which is strong evidence against acute cholecystitis. The ejection fraction is 84%, well within the normal range and a strong evidence against biliary dyskinesia. Patient's symptoms are unlikely to be due to acute or chronic cholecystitis. Will await the final reading on the HIDA scan but at this point no surgical intervention is recommended at this time. Time Spent With Patient Time: Total time spent is greater than 50% in coordination of care (as documented) at patient's floor/unit and/or counseling patient: Quality Stroke Does the patient have a stroke diagnosis?: No VTE Prior VTE?: No VTE Risk Level:: Medical - moderate - high VTE Device Contraindication: N/A - Device Ordered VTE Drug Contraindication: Treatment Not Indicated
--- NOTE | 2022-03-14 14:59 | P.PNIM_ITS ---
Subjective Subjective Date of Service: 03/14/22 Interval History: NPO for HIDA scan, complain of persistent nausea, abdominal pain and decreased appetite does not like hospital food noted to have low albumin, no overnight acute issues no fevers, no chills. Review of Systems [employer] no headache no dizziness CVS no chest pain, no palpatations musculoskeletal no joint pain Review of Systems: Yes all other systems are reviewed and are negative Physical Exam Vital Signs: Vital Signs: Last Vital Signs Temp 98.4 F 03/14/22 07:33 Pulse 61 03/14/22 07:33 Resp 18 03/14/22 07:33 BP 107/69 03/14/22 07:33 Pulse Ox 97 03/14/22 13:00 BMI result Body Mass Index 18.6 Const: Other: General? awake alert x3, no acute distress.? face no new lesions, no carotid swelling Neck? no JVD, no lymphadenopathy. CVS? regular rate rhythm, Respiratory lungs clear to auscultation, no respiratory distress, no wheeze, no rhonchi. Gastrointestinal abdomen soft, tenderness mid abdomen diffuse, no mass, no rigidity. Extremities no edema. no joint deformity, no swelling of fingers dry rash tips of fingers fading Neuro nonfocal Skin? facial rash is fading, no new lesion psych appropriate affect Objective Data Active Medications Acetaminophen (Acetaminophen 325 Mg Tablet) 650 mg PO Q6H PRN PRN Reason: Pain, Mild (Pain Scale 1-3) Last Admin: 03/13/22 11:38 Dose: 650 mg Documented by: CORI Benzocaine (Throat Lozenge, Medicated Lozenge) 1 lozenge MUCOUS MEM Q2H PRN PRN Reason: Sore Throat Docusate Sodium (Docusate Sodium 100 Mg Capsule) 100 mg PO BID RAJAN Last Admin: 03/14/22 10:16 Dose: 100 mg Documented by: IAN Promethazine HCl 12.5 mg/ (Sodium Chloride) 50.5 mls @ 202 mls/hr IV Q6H PRN PRN Reason: Nausea and Vomiting Last Infusion: 03/13/22 15:34 Dose: 0 mls/hr Documented by: CORI Morphine Sulfate (Morphine Sulfate 2 Mg/Ml Cartridge) 2 mg IVPUSH Q4H PRN; Protocol PRN Reason: Pain, Severe (Pain Scale 7-10) Last Admin: 03/14/22 10:59 Dose: 2 mg Documented by: IAN Omeprazole (Omeprazole 20 Mg Capsule.Dr) 20 mg PO DAILY@0630 [facility] Last Admin: 03/14/22 05:19 Dose: 20 mg Documented by: ALENA Ondansetron HCl (Ondansetron Hcl 4 Mg/2 Ml Vial) 4 mg IVPUSH Q8H PRN PRN Reason: Nausea and Vomiting Last Admin: 03/14/22 10:12 Dose: 4 mg Documented by: IAN Pharmacy Consult (Consult Rx Perform Med Rec) 1 each MISCELLANE ONCE PRN PRN Reason: Consult order Prednisone (Prednisone 5 Mg Tablet) 5 mg PO DAILY [facility] Last Admin: 03/14/22 10:16 Dose: 5 mg Documented by: IAN Sodium Chloride (0.9 % Sodium Chloride Flush 3 Ml Syringe) 3 ml IVFLUSH QSHIFT [facility] Last Admin: 03/14/22 10:13 Dose: 3 ml Documented by: IAN Labs CBC & Chem 7: 03/10/22 15:33 03/14/22 06:12 Labs: Laboratory Results - last 24 hr 03/07/22 03/14/22 18:34 06:12 Anion Gap 7 L Estim Creat Clear Calc 146.5 Estimated GFR > 60 Random Glucose 102 Calcium 8.0 L Total Bilirubin 0.7 Direct Bilirubin 0.4 AST 84 H ALT 90 H Alkaline Phosphatase 56 Total Protein 6.2 L Albumin 2.6 L Lipase 503 H Anti-ds DNA (Crithidia) Negative Assessment and Plan (1) Fever of unknown origin: Status: Acute (2) Leukocytopenia, unspecified: Status: Acute (3) Elevated LFTs: Status: Acute Plan 21-year-old female with no significant past medical history presented to the hospital with a chief complaint of abdominal pain and to have fever and rash on arm, palms and face has been there since October and now positive ELIZABET with other constellation of problems suggestive lupus. Nausea/vomiting / persistent abdominal pain, persistent symptoms able to tolerate diet , family will bring food CT abdomen showed severe constipation, ? free air, on re-evaluation, air is in stomch on sagital views, initial abdominal ultrasound showed normal pancreas surgery advised conservative managment, treated with enema and had multiple bowel movment on 03/09 underwent upper endoscopy on 03/12 that showed ? of esophageal candidiasis, no esophagitis-biopsies taken in esophagus at 25-35cm, small hiatal hernia, Normal stomach-Antrum biopsied x 3 taken, Duodenum exam revealed Mild duodenitis and ? of decreased duodenal folds- multiple biopsies taken to R/O celiac disease, GI recommend to continue by mouth PPI abdominal ultrasound showed mild pericholecystic fluid and gallbladder wall thickening without cholelithiasis LFTs and pancreatic enzymes remains elevated but stable case discussed with Dr. Thomas he recommended Diflucan 100 mg daily for 10 days, and he will order IgG4 subtypes to rule out autoimmune pancreatitis Rash, Fever / abdominal pain as per patient she has symptoms since last 2 weeks of January was briefly admitted to [facility] overnight due to significant abdominal pain, she at that time also had generalized body aches. rash Noted on? bilateral palms and face; couple lesions in the oral mucosa;?see pictures. rash now fading, no new lesions noted lyme, HIV, Hep A. B.C negative, blood cultures negative, B12, Folate, TSH are normal. + ELIZABET suggesting the possibility of lupus low C3, C4 , double stranded DNA negative, anti torres antibody is positive ( Seen in Lupus or mixed connective tissue desorder), [employer] IgG antibody is positive which may also point to mixed connective tissue desorder. elevated IgG level, no monoclonal proteins detected, low albumin, mild proteinurea no evidence of joint disease, normal renal function, no pleural or pericardial effusion, no evidence of Raynaud's disease, no malar rash case discussed with Dr. Gentile on phone he recommend to obtain Xavi test and urine microalbumin/ creatinine ratio and also obtain IgG subtypes ( Dr. Thomas will order ) he recommend prednisone 20 mg by mouth b.i.d. UTi--completed course of Ceftriaxone. Pancytopenia, : Likely related to above process, has been evaluated by Hematology and will need to follow up with them on outpatient basis, ? need for bone marrow Bx Anemia not consistent with iron deficiency likely related to above process Mild Transaminitis--likely related to above process, hep A, B, C negative.. likely to related to autoiummune process see above abdominal ultrasound report Need for inapatient: ongoing work up for fever on unknown source, persistent abdominal pain and nausea , hypoalbuminemia decreased by mouth intake, requiring further imaging studies and lab work. Quality Stroke Does the patient have a stroke diagnosis?: No VTE Prior VTE?: No VTE Risk Level:: Medical - moderate - high VTE Device Contraindication: N/A - Device Ordered VTE Drug Contraindication: Treatment Not Indicated
[2022-03-14 16:00] VITALS: BP 116/66; PULSE 71; RESP 18; TEMP 37.3; O2SAT 99
[2022-03-14] MEDS: Fluconazole 100 MG TABLET PO (16:42)
[2022-03-14] MEDS: predniSONE 20 MG TABLET PO (16:42)
[2022-03-14] MEDS: Acetaminophen 325 MG TABLET 650 MG PO (18:04)
--- NOTE | 2022-03-14 19:21 | P.PNGI_ITS ---
Subjective Subjective Date of Service: 03/14/22 Interval History: Patient still having upper abdominal pain, particularly after trying to eat. Denies vomiting/diarrhea. Critical Care Time (minutes): 0 Physical Exam Vital Signs: Vital Signs: Last Vital Signs Temp 99.1 F 03/14/22 16:00 Pulse 71 03/14/22 16:00 Resp 18 03/14/22 16:00 BP 116/66 03/14/22 16:00 Pulse Ox 99 03/14/22 16:00 BMI result Body Mass Index 18.6 Const: General: cooperative, comfortable, no acute distress, alert and awake Nutritional Appearance: thin Eyes: Other: Anicteric GI: Other: Nondistended, +BS, Soft, Epigastric tenderness to palpation, no mass, no rebound, + guarding Objective Data Labs CBC & Chem 7: 03/10/22 15:33 03/14/22 06:12 Labs: Laboratory Results - last 24 hr 03/07/22 03/14/22 03/14/22 18:34 06:12 16:53 Sodium 136 Potassium 2.9 L Chloride 104 Carbon Dioxide 28 Anion Gap 7 L BUN 9 Creatinine 0.50 Estim Creat Clear Calc 146.5 Estimated GFR > 60 Random Glucose 102 Calcium 8.0 L Total Bilirubin 0.7 Direct Bilirubin 0.4 AST 84 H ALT 90 H Alkaline Phosphatase 56 Total Protein 6.2 L Albumin 2.6 L Lipase 503 H Anti-ds DNA (Crithidia) Negative KWABENA, Polyspecific NEGATIVE Positive KWABENA Work-up TNP Imaging US - abdomen: Radiologist's impression: Some thickening of GB wall and some fluid around the GB, no stones HIDA scan: Radiologist's impression: GB, CBD, and small bowel filled................but there is no measurement of the GB EF re: ? of acalculous cholecystitis in the report Microbiology Microbiology Results: Microbiology 03/03/22 20:09 Blood - Venous Blood Culture - Final No growth after 5 days. 03/03/22 19:51 Blood - Venous Blood Culture - Final No growth after 5 days. 03/04/22 Unknown Urine clean catch - Urine teran top Urine Culture - Final No growth. Procedures Date of Service Date of Service: 03/14/22 Progress Note: A&P Assessment and plan (1) Abdominal pain: Status: Acute (2) Elevated lipase: Status: Acute Assessment and Plan: Imp: Patient continues to have abdominal pain with labs and exam suggestive of pancreatitis-she does not appear toxic but does appear uncomfortable-? etiology--? biliary, ? autoimmune. Unfortunately radiologist did not put GB EF in the report of the HIDA scan re: ? of acalculous cholecystitis. Rec: Check IgG subtypes re: ? of autoimmune process. Check MRI of abdomen with and without contrast to assess pancreas, and the pancreatic and bile ducts. F/U labs in AM. She my need trial of NPO if problems persist. I called [facility] and they will ask Dr. Huang to amend the HIDA scan report as he is apparently on this weekend. (3) Abnormal gallbladder ultrasound: Status: Acute (4) Esophageal candidiasis: Status: Acute Assessment and Plan: Discussed this with patient--she denies odynophagia. Probably due to the prednisone. Agree with course of Diflucan. Time Spent With Patient Time: Total time spent is greater than 50% in coordination of care (as documented) at patient's floor/unit and/or counseling patient: Quality Stroke Does the patient have a stroke diagnosis?: No VTE Prior VTE?: No VTE Risk Level:: Medical - moderate - high VTE Device Contraindication: N/A - Device Ordered VTE Drug Contraindication: Treatment Not Indicated
[2022-03-14 20:06] VITALS: BP 134/74; PULSE 77; RESP 18; TEMP 36.9; O2SAT 99
[2022-03-14 23:56] LABS: Microalbum/Creatinine Ratio Ur 5.9 ug/mg cr
[2022-03-15] VITALS (7 sets, daily range): BP systolic 112–135; BP diastolic 71–91; PULSE 70–74; RESP 18–20; TEMP 36.6–37.6; O2SAT 98–100
[2022-03-15] MEDS: Omeprazole 20 MG CAPSULE.DR PO ×2 (06:20→16:17)
[2022-03-15] MEDS: 0.9 % Sodium Chloride Flush 3 ML SYRINGE IVFLUSH ×2 (07:45→16:17)
[2022-03-15] MEDS: Fluconazole 100 MG TABLET PO (07:45)
[2022-03-15] MEDS: predniSONE 20 MG TABLET PO ×2 (07:45→16:17)
[2022-03-15] MEDS: Docusate Sodium 100 MG CAPSULE PO ×2 (07:45→20:27)
[2022-03-15 08:03] LABS: Alanine Aminotransferase 75 U/L (0-31); Albumin Level 2.8 g/dL (3.5-5.0); Alkaline Phosphatase 58 U/L (39-117); Anion Gap 9 (12-20); Aspartate Amino Transferase 56 U/L (5-31); Bilirubin Direct 0.3 mg/dL (0.0-0.5); Bilirubin Total 0.5 mg/dL (0.0-1.0); Blood Urea Nitrogen 11 mg/dL (9-16); Calcium 8.1 mg/dL (8.4-10.2); Carbon Dioxide 25 mmol/L (22-29); Chloride 105 mmol/L (96-108); Creatinine Clr Calc Pharmacy 149.5; Estimated Glomerular Filt Rate > 60; Glucose Fasting 124 mg/dL (60-99); Lipase 526 U/L (8-78); Sodium 135 mmol/L (135-145); Total Protein 6.5 g/dL (6.5-8.0)
--- NOTE | 2022-03-15 12:24 | PM.GIPN ---
Subjective Subjective Date of Service: 03/15/22 Interval History: some upper abd discomfort tolerated cereal for breakfast hungry no vomiting Critical Care Time (minutes): 0 Physical Exam Vital Signs: Vital Signs: Last Vital Signs Temp 98.7 F 03/15/22 07:53 Pulse 71 03/15/22 07:53 Resp 18 03/15/22 07:53 BP 121/78 03/15/22 07:53 Pulse Ox 100 03/15/22 07:53 BMI result Body Mass Index 18.6 GI: Other: abdomen is soft and nontender Objective Data Labs CBC & Chem 7: 03/10/22 15:33 03/15/22 06:01 Procedures Date of Service Date of Service: 03/15/22 Progress Note: A&P Assessment and plan (1) Abdominal pain: Status: Acute Plan lfts improving lipase still elevated mri pending Time Spent With Patient Time: Total time spent is greater than 50% in coordination of care (as documented) at patient's floor/unit and/or counseling patient: Quality Stroke Does the patient have a stroke diagnosis?: No VTE Prior VTE?: No VTE Risk Level:: Medical - moderate - high VTE Device Contraindication: N/A - Device Ordered VTE Drug Contraindication: Treatment Not Indicated
--- NOTE | 2022-03-15 15:13 | HO.PM.IMPN ---
Subjective Subjective Date of Service: 03/15/22 Interval History: No acute issues overnight. Still complaining of postprandial pain Review of Systems Denies chest pain Denies shortness of breath Denies nausea vomiting diarrhea next Denies fever chills Physical Exam Vital Signs: Vital Signs: Last Vital Signs Temp 98.3 F 03/15/22 12:00 Pulse 71 03/15/22 12:00 Resp 18 03/15/22 12:00 BP 114/91 H 03/15/22 12:00 Pulse Ox 98 03/15/22 13:00 BMI result Body Mass Index 18.6 Const: Other: Awake alert oriented x3 no acute distress Resp: Other: Clear to auscultation bilaterally no rales rhonchi or wheezes Cardio: Other: No S4; positive S1-S2; no S3 murmurs rubs or gallops GI: Other: Soft minimally tender over the epigastrium; positive bowel sounds x4 quadrants. No acute peritoneal signs Extrem: Other: No edema bilaterally Objective Data Active Medications Acetaminophen (Acetaminophen 325 Mg Tablet) 650 mg PO Q6H PRN PRN Reason: Pain, Mild (Pain Scale 1-3) Last Admin: 03/14/22 18:04 Dose: 650 mg Documented by: MAVIS Benzocaine (Throat Lozenge, Medicated Lozenge) 1 lozenge MUCOUS MEM Q2H PRN PRN Reason: Sore Throat Docusate Sodium (Docusate Sodium 100 Mg Capsule) 100 mg PO BID [facility] Last Admin: 03/15/22 07:45 Dose: 100 mg Documented by: CORI Fluconazole (Fluconazole 100 Mg Tablet) 100 mg PO DAILY [facility] Stop: 03/23/22 15:55 Last Admin: 03/15/22 07:45 Dose: 100 mg Documented by: CORI Promethazine HCl 12.5 mg/ (Sodium Chloride) 50.5 mls @ 202 mls/hr IV Q6H PRN PRN Reason: Nausea and Vomiting Last Infusion: 03/13/22 15:34 Dose: 0 mls/hr Documented by: CORI Omeprazole (Omeprazole 20 Mg Capsule.) 20 mg PO BID@0630,1630 [facility] Last Admin: 03/15/22 06:20 Dose: 20 mg Documented by: MIROSLAVA Ondansetron HCl (Ondansetron Hcl 4 Mg/2 Ml Vial) 4 mg IVPUSH Q8H PRN PRN Reason: Nausea and Vomiting Last Admin: 03/14/22 22:57 Dose: 4 mg Documented by: MIROSLAVA Pharmacy Consult (Consult Rx Perform Med Rec) 1 each MISCELLANE ONCE PRN PRN Reason: Consult order Prednisone (Prednisone 20 Mg Tablet) 20 mg PO BIDWM [facility] Last Admin: 03/15/22 07:45 Dose: 20 mg Documented by: CORI Sodium Chloride (0.9 % Sodium Chloride Flush 3 Ml Syringe) 3 ml IVFLUSH QSHIFT [facility] Last Admin: 03/15/22 07:45 Dose: 3 ml Documented by: CORI Labs CBC & Chem 7: 03/10/22 15:33 03/15/22 06:01 Labs: Laboratory Results - last 24 hr 03/14/22 03/14/22 03/15/22 16:53 22:48 06:01 Anion Gap 9 L Estim Creat Clear Calc 149.5 Estimated GFR > 60 Fasting Glucose 124 H Calcium 8.1 L Total Bilirubin 0.5 Direct Bilirubin 0.3 AST 56 H ALT 75 H Alkaline Phosphatase 58 Total Protein 6.5 Albumin 2.8 L Lipase 526 H Urine Creatinine 116.80 Urine Microalbumin 7.0 Microalb/Creat Ratio 5.9 KWABENA, Polyspecific NEGATIVE Positive KWABENA Work-up TNP Assessment and Plan (1) Vomiting: Status: Acute (2) Elevated LFTs: Status: Acute Plan 21-year-old female with no significant past medical history presented to the hospital with a chief complaint of abdominal pain and to have fever and rash on arm, palms and face has been there since October and now positive ELIZABET with other constellation of problems suggestive lupus. 1.Nausea/vomiting / persistent abdominal pain, -workup essentially unremarkable save positive ELIZABET 1: 1280, nuclear speckled; Oglesby antibody positive Sm/BUTT WELDER IgG antibody positive -continue prednisone as ordered -complete course of Diflucan 2. Transaminitis -trend LFTs -MRCP 3. Anemia -stable hemoglobin -trend daily Need for inapatient: ongoing work up for fever on unknown source, persistent abdominal pain and nausea , hypoalbuminemia decreased by mouth intake, requiring further imaging studies and lab work. Quality Stroke Does the patient have a stroke diagnosis?: No VTE Prior VTE?: No VTE Risk Level:: Medical - moderate - high VTE Device Contraindication: N/A - Device Ordered VTE Drug Contraindication: Treatment Not Indicated
--- NOTE | 2022-03-15 21:07 | PM.EVENT ---
Event Note Date of Service: 03/15/22 Event Note: ? duodenal ulcer: CT abdomen concerning for question DNR ulcer. Will consult Gastroenterology for further recommendations. IV PPI NPO after midnight Will change the prednisone to Solu-Medrol.
[2022-03-15] MEDS: Dextrose 5 % and 0.45 % NaCl 1,000 ML 80 ML IVCONT (22:41)
[2022-03-16] VITALS: BP 117/75; PULSE 62; RESP 18; TEMP 37; O2SAT 99
[2022-03-16 03:46] VITALS: BP 130/79; PULSE 80; RESP 18; TEMP 36.3; O2SAT 99
[2022-03-16] MEDS: Pantoprazole Sodium 40 MG/10 ML VIAL IVPUSH (06:02)
[2022-03-16 06:19] LABS: MANUAL DIFF FLAG NO
[2022-03-16 06:30] LABS: Basophils Percent Auto 0.2 % (0-2); Hematocrit 28.9 % (37.0-47.0); Hemoglobin 9.4 g/dl (12.0-16.0); Imm Gran Abs Auto 0.03 X10*3/uL (0.00-0.03); Imm Gran Pct Auto 0.6 % (0.0-0.4); Lymphocytes Absolute Auto 1.3 X10*3/uL (1.2-4.9); Lymphocytes Percent Auto 24.7 % (20-40); Mean Corpuscular HGB Conc 32.5 g/dl (31.0-35.0); Mean Corpuscular Hemoglobin 28.3 pg (27.0-33.0); Monocytes Absolute Auto 0.6 X10*3/uL (0.1-1.2); Monocytes Percent Auto 11.5 % (2-11); Neutrophils Absolute Auto 3.2 x10*3/uL (2.0-8.3); Platelet Count 227 X10*3/uL (160-400); Red Blood Count 3.32 X10*6/uL (4.20-5.50); Red Cell Distribution Width 14.3 % (11.0-16.0); White Blood Count 5.1 X10*3/uL (4.8-10.8)
[2022-03-16 07:02] LABS: Alanine Aminotransferase 71 U/L (0-31); Albumin Level 2.9 g/dL (3.5-5.0); Alkaline Phosphatase 65 U/L (39-117); Aspartate Amino Transferase 53 U/L (5-31); Bilirubin Total 0.4 mg/dL (0.0-1.0); Blood Urea Nitrogen 9 mg/dL (9-16); Calcium 8.2 mg/dL (8.4-10.2); Creatinine Clr Calc Pharmacy 149.5; Estimated Glomerular Filt Rate > 60; Glucose Fasting 129 mg/dL (60-99); Total Protein 6.5 g/dL (6.5-8.0)
[2022-03-16 07:22] LABS: Anion Gap 9 (12-20); Carbon Dioxide 22 mmol/L (22-29); Chloride 107 mmol/L (96-108); Potassium 3.4 mmol/L (3.3-5.1); Sodium 135 mmol/L (135-145)
[2022-03-16 08:00] VITALS: BP 118/72; PULSE 67; RESP 18; TEMP 36.8; O2SAT 98
[2022-03-16] MEDS: Fluconazole 100 MG TABLET PO (09:39)
[2022-03-16] MEDS: Docusate Sodium 100 MG CAPSULE PO (09:39)
[2022-03-16] MEDS: Dextrose 5 % and 0.45 % NaCl 1,000 ML 80 ML IVCONT (09:39)
[2022-03-16] MEDS: 0.9 % Sodium Chloride Flush 3 ML SYRINGE IVFLUSH (09:39)
[2022-03-16] MEDS: methylPREDNISolone Sod Succ 40 MG/ML VIAL 20 MG IVPUSH (09:54)
[2022-03-16 11:03] LABS: Lipase 704 U/L (8-78)
[2022-03-16 11:08] VITALS: BP 142/90; PULSE 62; RESP 18; TEMP 36.7; O2SAT 99
--- NOTE | 2022-03-16 11:39 | PM.GIPN ---
Subjective Subjective Date of Service: 03/16/22 Interval History: tolerating diet, mild abd discomfort Critical Care Time (minutes): 0 Physical Exam Vital Signs: Vital Signs: Last Vital Signs Temp 98.0 F 03/16/22 11:08 Pulse 62 03/16/22 11:08 Resp 18 03/16/22 11:08 BP 142/90 H 03/16/22 11:08 Pulse Ox 99 03/16/22 11:08 BMI result Body Mass Index 18.6 GI: Other: abdomen is soft and nontender Objective Data Labs CBC & Chem 7: 03/16/22 05:50 03/16/22 05:50 Microbiology Microbiology Results: Microbiology 03/03/22 20:09 Blood - Venous Blood Culture - Final No growth after 5 days. 03/03/22 19:51 Blood - Venous Blood Culture - Final No growth after 5 days. 03/04/22 Unknown Urine clean catch - Urine teran top Urine Culture - Final No growth. Procedures Date of Service Date of Service: 03/16/22 Progress Note: A&P Assessment and plan (1) Abdominal pain: Status: Acute Assessment and Plan: reviewed mri [facility] Dr christopher she does not have a duodenal ulcer based on EGD findings abnormality is probably a sb loop I think she can be discharged for outpt followup Time Spent With Patient Time: Total time spent is greater than 50% in coordination of care (as documented) at patient's floor/unit and/or counseling patient: Quality Stroke Does the patient have a stroke diagnosis?: No VTE Prior VTE?: No VTE Risk Level:: Medical - moderate - high VTE Device Contraindication: N/A - Device Ordered VTE Drug Contraindication: Treatment Not Indicated
[2022-03-16 13:00] VITALS: O2SAT 98
--- NOTE | 2022-03-16 14:26 | P.DS_ITS ---
DS: Providers Provider Date of Service: 03/16/22 Date of admission: 03/03/22 22:24 Date of discharge: 03/16/22 Primary care physician: Erica Clayton MD Consults: 03/04/22 03:10 Consult to Infectious Diseases Routine Consulting Provider: Kenisha Boyle Reason for consultation: FUO; Rash on palms and Face; ?impetigo 03/04/22 03:11 Consult to Gastroenterology Routine Consulting Provider: Shay Robbins Reason for consultation: Nausea/abd pain 03/06/22 10:04 Consult to Hematology / Oncology Routine Consulting Provider: Vickie Schmidt Reason for consultation: Pancytopenia associated rash ? need for BM 03/08/22 17:21 Consult to General Surgery Routine Consulting Provider: Jordan Walker Reason for consultation: ? air in stomach Has provider been notified: No 03/13/22 22:57 Consult to General Surgery Routine Consulting Provider: Jordan Walker Reason for consultation: Abdominal pain, abnormal GB U/S, ? Cholecystitis Has provider been notified: No 03/15/22 20:06 Consult to Gastroenterology Routine Consulting Provider: Shay Robbins Reason for consultation: ?Duodenal ulcer DS: Diagnosis Discharge Diagnosis (1) Abdominal pain: Status: Acute DS: Summary Hospital Course Hospital Course: Chief Complaint:? abdominal pain ?21-year-old female with no significant past medical history presented to the hospital with a chief complaint of abdominal pain.? Patient reported that over the past 3 weeks he has been having abdominal discomfort associated nausea; has been having reduced oral intake.? Denies any diarrhea.? Denies any blood in the vomitus.? Symptoms have been gradually progressing; mentioned that she has seen her PCP few days ago and was referred to Gastroenterology.? Also mentioned that she has outpatient labs which showed low white cell count; and is planned to see Hematology-Oncology as outpatient; ?patient also reported that she went to the [facility] recently. ?denies any chest pain palpitations lightheadedness or dizziness.? Denies any high-risk sexual behavior.? Mentions that she has rash in her hands which spread to do her face; going on since October.? Denies any discharge.? Also complains of couple oral lesions.? Denies any rash on the lower parts of the body; ? Denies any throat pain, dysphagia, neck swelling.? Reports he has occasional headaches and body aches.? Denies any neck pain.? ? Patient denied any urinary symptoms Review of all other systems is negative except mentioned above ER course: Per ER team patient noted to have rash, leukopenia, thrombocytopenia;? concerning for acute viral syndrome; sent a HIV, hepatitis, Lyme titers; Monospot test negative.? Patient was empirically given cefepime.? Urinalysis was abnormal consistent UTI. Hospital course: Nausea/vomiting /abdominal pain, CT showing severe constipation, ? free. On closer review, air is in stomch on sagital views. She never had acute abdomen. Shw was followed by surgery with advised of conservative managment. She has been given? enema and has had multiple bowel movment on 03/09, abdominal exam today is fairly bening, she has not had any further nausea and vomitting, diet is advanced and tolerating.? She was also seen by GI and recommend outpatient follow up with her primary GI but now that she's having more abdominla pain will ask GI to reasses, add PPI.. EGD today ? Rash, Fever:? Noted on? bilateral palms; ? whole face; couple lesions in the oral mucosa;?see pictures. Culture negative, lyme, HIV, Hep A. B.C negative, blood cultures negative, B12, Folate, TSH are normal.? + ELIZABET suggesting the possibility of lupus, low dose steroid and over the phone consultation with Rheum, and outpatient follow with rheum. Further testing with C3, C4 and KEVIN, double stranded DNA, and lupus anticoagulants panel pending.? anti torres antibody is positive ( Seen in Lupus or mixed connective tissue desorder),? BENDER HELPER IgG antibody is positive? which may also point to mixed connective tissue de sorder. Upon discharge should follow up with rheumatology on outpatient basis. Dr. Doan will be will to see her in the office.. Low dose predniosone of 5 bid UTi--completed course of Ceftriaxone. Pancytopenia, : Likely related to about process, has been evaluated by Hematology and will need to follow up with them on outpatient basis, ? need for bone marrow Bx Iron def anemia--once constipation improve with add Iron with stool softners--EGD today Mild Transaminitis--likely related to above process, hep A, B, C negative.. likely to related to autoiummune process. GI consult reviewed. MRI failed to demonstrate acute pathology. Last 24 hours prior to discharge patient appetite returned and she was able to eat full diet without pain or nausea and vomiting. At this point time she will be discharged to follow-up with PCP, Hematology at [facility] and Dr. Gentile here at [facility] Time Spent with Patient Time attestation: Total time spent providing and/or coordinating discharge services: Discharge coordination time: Greater than 30 minutes Quality: Safe Use of Opioids Does Pt have an Active Cancer Diagnosis on the Problem List?: No Quality: Stroke Does the patient have a stroke diagnosis?: No Physical Exam Vital Signs: Vital Signs: Last Vital Signs Temp 98.0 F 03/16/22 11:08 Pulse 62 03/16/22 11:08 Resp 18 03/16/22 11:08 BP 142/90 H 03/16/22 11:08 Pulse Ox 98 03/16/22 13:00 BMI result Body Mass Index 18.6 Const: Other: Awake alert oriented x3 no acute distress Resp: Other: Clear to auscultation bilaterally no rales rhonchi or wheezes Cardio: Other: No S4; positive S1-S2; no S3 murmurs rubs or gallops GI: Other: Soft minimally tender over the epigastrium; positive bowel sounds x4 quadrants. No acute peritoneal signs Extrem: Other: No edema bilaterally DS: Data Data Completed and Pending Completed studies during hospitalization [Text1]: Pending at discharge 03/12/22 11:48 Surgical [PTH] Routine Labs on day of discharge: Laboratory Results - last 24 hr 03/16/22 03/16/22 05:50 05:50 WBC 5.1 RBC 3.32 L Hgb 9.4 L Hct 28.9 L MCV 87.0 MCH 28.3 MCHC 32.5 RDW 14.3 Plt Count 227 MPV 11.0 Immature Gran % (Auto) 0.6 H Neut % (Auto) 63.0 Lymph % (Auto) 24.7 [place] % (Auto) 11.5 H Eos % (Auto) 0.0 Baso % (Auto) 0.2 Lymph # (Auto) 1.3 [place] # (Auto) 0.6 Eos # (Auto) 0.0 Baso # (Auto) 0.0 Abs Immat Gran (auto) 0.03 Absolute Neuts (auto) 3.2 Absolute Nucleated RBC 0.000 Nucleated RBC % (auto) 0.0 Sodium 135 Potassium 3.4 Chloride 107 Carbon Dioxide 22 Anion Gap 9 L BUN 9 Creatinine 0.49 L Estim Creat Clear Calc 149.5 Estimated GFR > 60 Fasting Glucose 129 H Calcium 8.2 L Total Bilirubin 0.4 AST 53 H ALT 71 H Alkaline Phosphatase 65 Total Protein 6.5 Albumin 2.9 L Lipase 704 H Discharge Plan Discharge Anticipated Discharge Date/Time: 03/12/22 10:13 Patient Disposition: Home, Self-Care Discharge Diagnosis: Suspected Lupus Referrals: Erica Clayton MD [Primary Care Provider] - 1 Week Discharge Medications: New fluconazole 100 mg Tablet 100 mg PO DAILY Qty: 7 0RF Continued fluticasone propionate 50 mcg/actuation spray,suspension 1 spray INTRANASAL DAILY PRN (Reason: Congestion) 0RF ondansetron 4 mg tablet,disintegrating 1 tab PO Q6H PRN (Reason: nausea/vomiting) 0RF Discharge Orders: Discharge Order (Routine); Ordered 03/16/22 Ordered By: Idris Fitzpatrick Diet: advance to usual diet Activity on Discharge: No Running or jogging Stand Alone Forms: Patient Portal Discharge page Other Ambulatory Orders: Complete Blood Count Auto Diff (Routine) Timeframe: [id number] Facility: [facility] - Location: Laboratory Ordered By: Vickie Schmidt Care Plan Goals: Complete work up and diagnosis of rheumatoligcal work up Health Concerns: Constellation of rash, fever, abnormal blood count, liver enzymes raising the posibilit of lupus Plan of Treatment: Take prednisone as directed and follow up with nailing machine operator automatic as directed -- Dr. Jhonny Gentile MD [address] [place] [id number] ? office will be in touch with you, if you don't hear back in a week, call them Follow up with your Doctor as directed a Assessment: As above
--- NOTE | 2022-03-16 14:37 | MHC.CM.PN ---
Patient has been medically cleared for dc to home today, self care.
[2022-03-17 15:47] LABS: Immunoglobulin G Subclass 1 1616 mg/dL (382-929); Immunoglobulin G Subclass 2 170 mg/dL (241-700); Immunoglobulin G Subclass 3 192 mg/dL (22-178); Immunoglobulin G Subclass 4 54.9 mg/dL (4-86); Immunoglobulin G Total 2152 mg/dL (600-1640)
== END 2022-03-16 16:00 | disposition home or self-care (01) | DRG 346 ==
LOC: HO.ED 21:00 → HO.EDOVER 22:45 → HO.IMC 03-04 18:03
PROVIDERS: Emergency Medicine; Hospitalist; Internal Medicine; Internal Medicine Gastroenterology; Physician Assistant Medical; Admitting Provider Hospitalist; Emergency Provider Emergency Medicine; PCP Internal Medicine; Visit Provider Hospitalist
PROC: 0DJ08ZZ Inspection of Upper Intestinal Tract, Via Natural or Artificial Opening Endoscopic (ICD-10-PCS; CPT 43235; principal; 2022-03-12 10:20)
DX: M32.9 Systemic lupus erythematosus, unspecified (principal); D61.818 Other pancytopenia; B37.81 Candidal esophagitis; N39.0 Urinary tract infection, site not specified; K12.30 Oral mucositis (ulcerative), unspecified; K21.9 Gastro-esophageal reflux disease without esophagitis; K59.00 Constipation, unspecified; D50.9 Iron deficiency anemia, unspecified; K30 Functional dyspepsia; Z79.899 Other long term (current) drug therapy
CPT/HCPCS: 36415; 71045; 71275; 74176; 74183; 76705; 78227; 80048; 80053; 80076; 80143; 80202; 80307; 81001; 81025; 82043; 82150; 82164; 82565; 82607; 82746; 82784; 83540; 83605; 83615; 83690; 83735; 84443; 84484; 85025; 85027; 85045; 85597; 85610; 85613; 85652; 85730; 86038; 86039; 86140; 86160; 86235; 86255; 86308; 86334; 86403; 86617; 86618; 86666; 86704; 86706; 86709; 86780; 86803; 86880; 87040; 87086; 87340; 87389; 87502; 87635; 88305; 88312; 88342; 93005; 96361; 96374; 96375; 99285; A9537; A9585; J0692; J0696; J2060; J2250; J2270; J2405; J2550; J2920; J3370; Q9967

== ENCOUNTER → 2022-03-19 07:58 | Outpatient (BNVA) | payer OTHER, SELFPAY | PROVIDERS: PCP Internal Medicine; Visit Provider Internal Medicine Rheumatology | DX: M32.9 Systemic lupus erythematosus, unspecified (principal); D72.819 Decreased white blood cell count, unspecified; R79.89 Other specified abnormal findings of blood chemistry; R74.8 Abnormal levels of other serum enzymes; Z79.899 Other long term (current) drug therapy | CPT/HCPCS: 99202 ==

== ENCOUNTER 2022-04-01 10:22 | Outpatient (REF) | payer OTHER, MEDICAID, SELFPAY ==
[2022-04-01 11:45] LABS: Basophils Percent Auto 0.4 % (0-2); Eosinophils Percent Auto 0.4 % (0-4); Hematocrit 33.9 % (37.0-47.0); Lymphocytes Absolute Auto 0.9 X10*3/uL (1.2-4.9); Lymphocytes Percent Auto 37.1 % (20-40); MANUAL DIFF FLAG SCAN; Mean Corpuscular HGB Conc 32.4 g/dl (31.0-35.0); Mean Corpuscular Hemoglobin 29.6 pg (27.0-33.0); Mean Corpuscular Volume 91.1 fL (80.0-98.0); Mean Platelet Volume 10.4 fL (9.4-12.3); Monocytes Absolute Auto 0.3 X10*3/uL (0.1-1.2); Monocytes Percent Auto 11.7 % (2-11); Neutrophils Absolute Auto 1.3 x10*3/uL (2.0-8.3); Neutrophils Percent Auto 50.4 % (45-73); Platelet Count 261 X10*3/uL (160-400); Red Blood Count 3.72 X10*6/uL (4.20-5.50); SCAN SMEAR FLAG 1
[2022-04-01 11:46] LABS: White Blood Count 2.5 X10*3/uL (4.8-10.8)
[2022-04-01 12:09] LABS: SLIDE REVIEW VERIFIED
[2022-04-01 12:19] LABS: Alanine Aminotransferase 47 U/L (0-31); Albumin Level 3.9 g/dL (3.5-5.0); Alkaline Phosphatase 70 U/L (39-117); Anion Gap 11 (12-20); Aspartate Amino Transferase 31 U/L (5-31); Bilirubin Total 0.4 mg/dL (0.0-1.0); Blood Urea Nitrogen 15 mg/dL (9-16); Calcium 9.1 mg/dL (8.4-10.2); Carbon Dioxide 25 mmol/L (22-29); Chloride 106 mmol/L (96-108); Estimated Glomerular Filt Rate > 60; Glucose Random 72 mg/dL (60-115); Potassium 3.6 mmol/L (3.3-5.1); Sodium 138 mmol/L (135-145); Total Protein 7.8 g/dL (6.5-8.0)
[2022-04-01 12:46] LABS: Creatinine Urine 188.42 mg/dL
== END 2022-04-01 10:23 | disposition home or self-care (01) ==
LOC: HO.LAB 10:22
PROVIDERS: PCP Internal Medicine; Visit Provider Internal Medicine Rheumatology
DX: D72.819 Decreased white blood cell count, unspecified (principal); R79.89 Other specified abnormal findings of blood chemistry; Z79.899 Other long term (current) drug therapy
CPT/HCPCS: 36415; 80053; 82043; 85025

== ENCOUNTER → 2022-04-07 08:30 | Outpatient (BNVA) | payer OTHER, MEDICAID, SELFPAY | PROVIDERS: PCP Internal Medicine; Visit Provider Internal Medicine Rheumatology | DX: M32.9 Systemic lupus erythematosus, unspecified (principal); R11.0 Nausea; Z79.899 Other long term (current) drug therapy | CPT/HCPCS: 99212 ==

== ENCOUNTER 2022-04-12 01:21 | Emergency (ER) | payer OTHER, SELFPAY ==
[2022-04-12 01:26] VITALS: BP 130/88; PULSE 90; RESP 16; TEMP 36.7; O2SAT 99; BMI 18.8
--- NOTE | 2022-04-12 06:21 | PC.NURSE ---
Pt continues to await initial provider evaluation
--- NOTE | 2022-04-12 07:31 | ED_ITS ---
HPI - General Adult General Chief complaint: General Medical Stated complaint: lupus flare up, foot & leg pains Time Seen by Provider: 04/12/22 01:39 Source: patient Mode of arrival: ambulatory History of Present Illness HPI narrative: 21-year-old female presents with bilateral foot discomfort without redness or swelling or traumatic injury and has recently been diagnosed with lupus and was evaluated for the same symptoms on 04/07. Patient denies fevers or chills currently, denies any new cough. On review of clinic note patient had not been taking her prednisone as prescribed and she had no new rashes at that time. Related Data Home Medications Medication Instructions Recorded Confirmed fluticasone propionate 50 1 spray intranasal DAILY PRN 03/03/22 04/07/22 mcg/actuation nasal Congestion spray,suspension Previous Rx's Medication Instructions Recorded hydroxychloroquine 200 mg tablet 300 mg PO DAILY #45 tabs 03/19/22 prednisone 5 mg tablet 15 mg PO BID #180 tabs 03/19/22 ondansetron 4 mg disintegrating 4 mg PO BID PRN nausea/vomiting 04/07/22 tablet #30 tabs Allergies Allergy/AdvReac Type Severity Reaction Status Date / Time No Known Allergies Allergy Verified 04/07/22 08:35 Review of Systems Review of Systems: Pertinent positives and negatives as stated in HPI 10 point review of systems is otherwise negative. [facility] Past Medical History Source: nursing notes reviewed Medical History Generalized headaches GERD (gastroesophageal reflux disease) Social History Social History Household Members: Family Housing: House Do you presently have visiting nurse or other home services: No Alcohol intake: unknown Patient Tobacco Use Status: Never used Tobacco Use of substances other than those prescribed or required for medical reasons: No Advance Directives: Yes Advance Directives on File: Yes Advance Directives Date on File: 03/03/22 service: No Current occupational status: unemployed Physical Exam ED Vital Signs: Vital Signs - 24 hr 04/12/22 01:26 04/12/22 08:56 Temperature 98.1 F 99.6 F Pulse Rate 90 83 Respiratory Rate 16 16 Blood Pressure 130/88 132/88 Pulse Oximetry 99 100 Oxygen Delivery Method Room Air Room Air BMI result Body Mass Index 18.8 VITAL SIGNS: Reviewed. GENERAL: Well developed, well nourished, in no acute distress. HEAD: Normocephalic/atraumatic EYES: PERRLA, EOMI EARS: Ext canals without abnormality OROPHARYNX: no oral lesions noted, posterior pharynx clear LUNGS: Normal breath sounds. No adventitious sounds or accessory muscle use. SpO2<99> CARDIOVASCULAR: Regular rate and rhythm without noted murmurs ABDOMEN: Soft, non-tender, non-distended with bowel sounds. MUSCULOSKELETAL: No tenderness, deformities, or effusions noted on gross inspection. EXTREMITIES: No cyanosis, clubbing or edema, no noted ankle or foot swelling, no erythema, no obvious deformity, neurovascular intact otherwise. SKIN: Inspection of the skin reveals no rashes NEUROLOGIC: Alert and oriented x 4. Strength and sensation to light touch were grossly intact x 4. Course Course Course Narrative: 21-year-old female with history and clinical presentation consistent with recent diagnosis of lupus, it appears that she had been taking less prednisone than initially prescribed which was addressed on her outpatient visit but now presents with persistent bilateral foot pain and I suspect some persistent intra-abdominal serositis. On evaluation of her lab work there is significant improvement in comparison to prior with resolution of the leukopenia mild improvement of anemia, ESR/ CRP are well within normal limits. Patient was provided with combination analgesics and I suspect a component of gastritis likely secondary to steroid use and she will be provided with a GI cocktail. on re-evaluation patient states that she is feeling better after receiving the GI cocktail and medications for pain. On review of her remaining laboratory investigations they demonstrate continued improvement, all these results and findings were discussed with patient at bedside and she was encouraged to follow-up with her physician on Thursday morning. Medical Decision Making Lab Data Result diagrams: 04/12/22 07:54 04/12/22 07:54 Labs: Lab Results 04/12/22 04/12/22 04/12/22 Range/Units 07:54 07:54 07:54 WBC 6.7 (4.8-10.8) X10*3/uL RBC 4.08 L (4.20-5.50) X10*6/uL Hgb 11.9 L (12.0-16.0) g/dl Hct 36.4 L (37.0-47.0) % MCV 89.2 (80.0-98.0) fL MCH 29.2 (27.0-33.0) pg MCHC 32.7 (31.0-35.0) g/dl RDW 14.2 (11.0-16.0) % Plt Count 250 (160-400) X10*3/uL MPV 9.7 (9.4-12.3) fL Immature Gran % (Auto) 0.3 (0.0-0.4) % Neut % (Auto) 62.4 (45-73) % Lymph % (Auto) 30.5 (20-40) % [place] % (Auto) 6.8 (2-11) % Eos % (Auto) 0.0 (0-4) % Baso % (Auto) 0.0 (0-2) % Lymph # (Auto) 2.0 (1.2-4.9) X10*3/uL [place] # (Auto) 0.5 (0.1-1.2) X10*3/uL Eos # (Auto) 0.0 (0.0-0.4) X10*3/uL Baso # (Auto) 0.0 (0.0-0.2) X10*3/uL Abs Immat Gran (auto) 0.02 (0.00-0.03) X10*3/uL Absolute Neuts (auto) 4.2 (2.0-8.3) x10*3/uL Absolute Nucleated RBC 0.000 (0.0-0.012) X10*3/uL Nucleated RBC % (auto) 0.0 (0.0-0.2) /100WBC ESR 20 (0-20) MM/HR Sodium 136 (135-145) mmol/L Potassium 4.0 (3.3-5.1) mmol/L Chloride 103 (96-108) mmol/L Carbon Dioxide 26 (22-29) mmol/L Anion Gap 11 L (12-20) BUN 12 (9-16) mg/dL Creatinine 0.58 (0.5-1.4) mg/dL Estim Creat Clear Calc 128.5 Estimated GFR > 60 Random Glucose 82 (60-115) mg/dL Calcium 9.3 (8.4-10.2) mg/dL Total Bilirubin 0.3 (0.0-1.0) mg/dL AST 21 (5-31) U/L ALT 32 H (0-31) U/L Alkaline Phosphatase 65 (39-117) U/L C-Reactive Protein 0.02 (< or = 0.50) mg/dL Total Protein 7.7 (6.5-8.0) g/dL Albumin 3.9 (3.5-5.0) g/dL Amylase 167 H D (28-100) U/L Lipase 273 H (8-78) U/L Urine Color Urine Appearance Urine pH (5.0-8.0) Ur Specific [place] (1.005-1.025) Urine Protein (NEG-TRACE) MG/DL Urine Glucose (UA) (NEG) MG/DL Urine Ketones (NEG) MG/DL Urine Blood (NEG) Urine Nitrite (NEG) Ur Leukocyte Esterase (NEG) Urine RBC (0) /HPF Urine WBC (0-4) /HPF Ur Squamous Epith Cells /LPF Urine Bacteria /LPF Urine Test (NEGATIVE) 04/12/22 04/12/22 Range/Units 09:07 09:07 WBC (4.8-10.8) X10*3/uL RBC (4.20-5.50) X10*6/uL Hgb (12.0-16.0) g/dl Hct (37.0-47.0) % MCV (80.0-98.0) fL MCH (27.0-33.0) pg MCHC (31.0-35.0) g/dl RDW (11.0-16.0) % Plt Count (160-400) X10*3/uL MPV (9.4-12.3) fL Immature Gran % (Auto) (0.0-0.4) % Neut % (Auto) (45-73) % Lymph % (Auto) (20-40) % [place] % (Auto) (2-11) % Eos % (Auto) (0-4) % Baso % (Auto) (0-2) % Lymph # (Auto) (1.2-4.9) X10*3/uL [place] # (Auto) (0.1-1.2) X10*3/uL Eos # (Auto) (0.0-0.4) X10*3/uL Baso # (Auto) (0.0-0.2) X10*3/uL Abs Immat Gran (auto) (0.00-0.03) X10*3/uL Absolute Neuts (auto) (2.0-8.3) x10*3/uL Absolute Nucleated RBC (0.0-0.012) X10*3/uL Nucleated RBC % (auto) (0.0-0.2) /100WBC ESR (0-20) MM/HR Sodium (135-145) mmol/L Potassium (3.3-5.1) mmol/L Chloride (96-108) mmol/L Carbon Dioxide (22-29) mmol/L Anion Gap (12-20) BUN (9-16) mg/dL Creatinine (0.5-1.4) mg/dL Estim Creat Clear Calc Estimated GFR Random Glucose (60-115) mg/dL Calcium (8.4-10.2) mg/dL Total Bilirubin (0.0-1.0) mg/dL AST (5-31) U/L ALT (0-31) U/L Alkaline Phosphatase (39-117) U/L C-Reactive Protein (< or = 0.50) mg/dL Total Protein (6.5-8.0) g/dL Albumin (3.5-5.0) g/dL Amylase (28-100) U/L Lipase (8-78) U/L Urine Color YELLOW Urine Appearance CLEAR Urine pH 6.0 (5.0-8.0) Ur Specific [place] 1.010 (1.005-1.025) Urine Protein NEG (NEG-TRACE) MG/DL Urine Glucose (UA) NEG (NEG) MG/DL Urine Ketones NEG (NEG) MG/DL Urine Blood 2+ H (NEG) Urine Nitrite NEG (NEG) Ur Leukocyte Esterase NEG (NEG) Urine RBC 10-14 H (0) /HPF Urine WBC 0-2 (0-4) /HPF Ur Squamous Epith Cells 1+ /LPF Urine Bacteria NONE /LPF Urine Test NEGATIVE (NEGATIVE) Discharge Plan Discharge Clinical Impression: Systemic lupus erythematosus, Gastritis Patient Disposition: Home, Self-Care Instructions: Gastritis (ED), Diet for Stomach Ulcers and Gastritis (ED) Additional Instructions: 1. Continue to take 15 mg of prednisone twice a day. And continue with the remaining medications as prescribed. 2. While you are taking steroids please follow a diet that is suggested for individuals with stomach ulcers, this information has been provided to you. Continue to increase your water intake. 3. Please follow-up with Dr. Gentile on Thursday morning return to the ER for worsening symptoms. Prescriptions: No Action fluticasone propionate 50 mcg/actuation spray,suspension 1 spray INTRANASAL DAILY PRN (Reason: Congestion) prednisone 5 mg tablet 15 mg PO BID Qty: 180 1RF hydroxychloroquine 200 mg tablet 300 mg PO DAILY Qty: 45 3RF ondansetron 4 mg tablet,disintegrating 4 mg PO BID PRN (Reason: nausea/vomiting) Qty: 30 1RF Referrals: Jhonny Gentile MD [Physician] - Erica Clayton MD [Primary Care Provider] - Stand Alone Forms: Work/School Release
[2022-04-12 07:58] LABS: MANUAL DIFF FLAG NO
[2022-04-12 08:00] LABS: Hematocrit 36.4 % (37.0-47.0); Hemoglobin 11.9 g/dl (12.0-16.0); Imm Gran Abs Auto 0.02 X10*3/uL (0.00-0.03); Imm Gran Pct Auto 0.3 % (0.0-0.4); Lymphocytes Percent Auto 30.5 % (20-40); Mean Corpuscular HGB Conc 32.7 g/dl (31.0-35.0); Mean Corpuscular Hemoglobin 29.2 pg (27.0-33.0); Mean Corpuscular Volume 89.2 fL (80.0-98.0); Mean Platelet Volume 9.7 fL (9.4-12.3); Monocytes Absolute Auto 0.5 X10*3/uL (0.1-1.2); Monocytes Percent Auto 6.8 % (2-11); Neutrophils Absolute Auto 4.2 x10*3/uL (2.0-8.3); Neutrophils Percent Auto 62.4 % (45-73); Platelet Count 250 X10*3/uL (160-400); Red Blood Count 4.08 X10*6/uL (4.20-5.50); Red Cell Distribution Width 14.2 % (11.0-16.0); White Blood Count 6.7 X10*3/uL (4.8-10.8)
[2022-04-12 08:31] LABS: Alanine Aminotransferase 32 U/L (0-31); Albumin Level 3.9 g/dL (3.5-5.0); Alkaline Phosphatase 65 U/L (39-117); Anion Gap 11 (12-20); Aspartate Amino Transferase 21 U/L (5-31); Bilirubin Total 0.3 mg/dL (0.0-1.0); Blood Urea Nitrogen 12 mg/dL (9-16); Calcium 9.3 mg/dL (8.4-10.2); Carbon Dioxide 26 mmol/L (22-29); Chloride 103 mmol/L (96-108); Creatinine Clr Calc Pharmacy 128.5; Estimated Glomerular Filt Rate > 60; Glucose Random 82 mg/dL (60-115); Sodium 136 mmol/L (135-145); Total Protein 7.7 g/dL (6.5-8.0)
[2022-04-12 08:41] LABS: Erythrocyte Sedimentation Rate 20 MM/HR (0-20)
[2022-04-12 08:56] VITALS: BP 132/88; PULSE 83; RESP 16; TEMP 37.6; O2SAT 100
[2022-04-12 09:24] LABS: C Reactive Protein 0.02 mg/dL (< or = 0.50)
[2022-04-12] MEDS: Acetaminophen 325 MG TABLET 975 MG PO (09:32)
[2022-04-12] MEDS: Magnesium Hydrox/Alum Hydrox 30 ML ORAL.SUSP PO (09:33)
[2022-04-12] MEDS: Lidocaine HCl Viscous 2 % 15 ML SOLUTION 10 ML MUCOUS MEM (09:33)
[2022-04-12 09:49] LABS: Appearance Urine CLEAR; Color Urine YELLOW; Glucose Urine UA NEG (NEG); Leukocyte Esterase Urine NEG (NEG); Nitrite Urine NEG (NEG); UACC Culture Trigger NO; Urine Blood 2+ (NEG); Urine Ketones NEG (NEG); Urine Protein NEG (NEG-TRACE)
[2022-04-12 09:52] LABS: UPreg QC Valid YES; Urine Pregnancy NEGATIVE (NEGATIVE)
[2022-04-12 09:57] LABS: Squamous Epithelial Cell Urine 1+ /LPF; WBC Urine 0-2 /HPF (0-4)
[2022-04-12 09:58] LABS: Amylase 167 U/L (28-100)
[2022-04-12 10:00] LABS: Lipase 273 U/L (8-78)
== END 2022-04-12 10:36 | disposition home or self-care (01) ==
PROVIDERS: Emergency Provider Student in an Organized Health Care Education/Training Program; PCP Internal Medicine
DX: K29.70 Gastritis, unspecified, without bleeding (principal); M32.9 Systemic lupus erythematosus, unspecified; M79.605 Pain in left leg; M79.604 Pain in right leg; Z79.899 Other long term (current) drug therapy
CPT/HCPCS: 36415; 80053; 81001; 81025; 82150; 83690; 85025; 85652; 86140; 99284

== ENCOUNTER → 2022-04-29 10:15 | Outpatient (BNVA) | payer OTHER, SELFPAY | PROVIDERS: PCP Internal Medicine; Visit Provider Internal Medicine Rheumatology | DX: M32.9 Systemic lupus erythematosus, unspecified (principal); R11.0 Nausea; M79.671 Pain in right foot; Z79.52 Long term (current) use of systemic steroids; Z79.899 Other long term (current) drug therapy | CPT/HCPCS: 99212 ==

== ENCOUNTER 2022-05-07 12:27 | Outpatient (REF) | payer OTHER, SELFPAY ==
--- NOTE | ~2022-05-07 | XR_ITS ---
EXAMINATION: XR FOOT, RIGHT CLINICAL INFORMATION: M32.9 - Systemic lupus erythematosus, unspecified COMPARISON: None TECHNIQUE: AP, lateral, and oblique views of the right foot. FINDINGS: No acute or healing fracture, dislocation, destructive process. No visible ankle capsular effusion. Retrocalcaneal recess is preserved. There is no joint narrowing or erosive changes. No chondrocalcinosis. No subluxation. XR/XR foot RT min 3V IMPRESSION: Unremarkable right foot.
[2022-05-07 12:39] LABS: MANUAL DIFF FLAG NO
[2022-05-07 13:09] LABS: Basophils Percent Auto 0.2 % (0-2); Eosinophils Percent Auto 0.2 % (0-4); Hematocrit 41.3 % (37.0-47.0); Hemoglobin 13.3 g/dl (12.0-16.0); Imm Gran Abs Auto 0.03 X10*3/uL (0.00-0.03); Imm Gran Pct Auto 0.6 % (0.0-0.4); Lymphocytes Absolute Auto 1.6 X10*3/uL (1.2-4.9); Lymphocytes Percent Auto 32.2 % (20-40); Mean Corpuscular HGB Conc 32.2 g/dl (31.0-35.0); Mean Corpuscular Hemoglobin 29.5 pg (27.0-33.0); Mean Corpuscular Volume 91.6 fL (80.0-98.0); Mean Platelet Volume 9.8 fL (9.4-12.3); Monocytes Absolute Auto 0.4 X10*3/uL (0.1-1.2); Monocytes Percent Auto 7.6 % (2-11); Neutrophils Absolute Auto 2.9 x10*3/uL (2.0-8.3); Neutrophils Percent Auto 59.2 % (45-73); Platelet Count 257 X10*3/uL (160-400); Red Blood Count 4.51 X10*6/uL (4.20-5.50); Red Cell Distribution Width 13.7 % (11.0-16.0); White Blood Count 4.8 X10*3/uL (4.8-10.8)
[2022-05-07 13:51] LABS: Erythrocyte Sedimentation Rate 10 MM/HR (0-20)
[2022-05-07 14:02] LABS: Alanine Aminotransferase 36 U/L (0-31); Albumin Level 3.9 g/dL (3.5-5.0); Alkaline Phosphatase 62 U/L (39-117); Amylase 159 U/L (28-100); Anion Gap 12 (12-20); Aspartate Amino Transferase 21 U/L (5-31); Bilirubin Total 0.4 mg/dL (0.0-1.0); Blood Urea Nitrogen 15 mg/dL (9-16); C Reactive Protein 0.02 mg/dL (< or = 0.50); Calcium 9.3 mg/dL (8.4-10.2); Carbon Dioxide 26 mmol/L (22-29); Chloride 103 mmol/L (96-108); Estimated Glomerular Filt Rate > 60; Glucose Random 82 mg/dL (60-115); Lipase 179 U/L (8-78); Potassium 4.2 mmol/L (3.3-5.1); Sodium 137 mmol/L (135-145); Total Protein 7.3 g/dL (6.5-8.0)
[2022-05-08 11:51] LABS: Complement C3 120 mg/dL (83-193)
[2022-05-09 11:40] LABS: Anti DNA DS Antibody 1 IU/mL
== END 2022-05-07 12:28 | disposition home or self-care (01) ==
LOC: HO.XRAY 12:27
PROVIDERS: PCP Internal Medicine; Visit Provider Internal Medicine Rheumatology
DX: M79.671 Pain in right foot (principal); M32.9 Systemic lupus erythematosus, unspecified; R11.0 Nausea; Z79.899 Other long term (current) drug therapy
CPT/HCPCS: 36415; 73630; 80053; 82150; 83690; 85025; 85652; 86140; 86160; 86225

== ENCOUNTER → 2022-06-04 10:39 | Outpatient (BNVA) | payer OTHER, SELFPAY | PROVIDERS: PCP Internal Medicine; Visit Provider Internal Medicine Rheumatology | DX: M32.9 Systemic lupus erythematosus, unspecified (principal); Z79.52 Long term (current) use of systemic steroids; Z79.899 Other long term (current) drug therapy | CPT/HCPCS: 99212 ==

== ENCOUNTER 2022-07-11 11:08 | Outpatient (REF) | payer OTHER, SELFPAY ==
[2022-07-11 11:20] LABS: MANUAL DIFF FLAG NO
[2022-07-11 11:37] LABS: Basophils Percent Auto 0.3 % (0-2); Eosinophils Percent Auto 0.5 % (0-4); Hematocrit 37.2 % (37.0-47.0); Hemoglobin 12.1 g/dl (12.0-16.0); Imm Gran Abs Auto 0.02 X10*3/uL (0.00-0.03); Imm Gran Pct Auto 0.5 % (0.0-0.4); Lymphocytes Absolute Auto 0.9 X10*3/uL (1.2-4.9); Mean Corpuscular HGB Conc 32.5 g/dl (31.0-35.0); Mean Corpuscular Hemoglobin 29.7 pg (27.0-33.0); Mean Corpuscular Volume 91.2 fL (80.0-98.0); Mean Platelet Volume 9.8 fL (9.4-12.3); Monocytes Absolute Auto 0.4 X10*3/uL (0.1-1.2); Monocytes Percent Auto 10.9 % (2-11); Neutrophils Absolute Auto 2.3 x10*3/uL (2.0-8.3); Neutrophils Percent Auto 63.8 % (45-73); Platelet Count 234 X10*3/uL (160-400); Red Blood Count 4.08 X10*6/uL (4.20-5.50); Red Cell Distribution Width 12.2 % (11.0-16.0); White Blood Count 3.7 X10*3/uL (4.8-10.8)
[2022-07-11 12:08] LABS: Creatinine Urine 294.01 mg/dL; Microalbum/Creatinine Ratio Ur 10.8 ug/mg cr
[2022-07-11 12:10] LABS: Alanine Aminotransferase 39 U/L (0-31); Albumin Level 3.7 g/dL (3.5-5.0); Alkaline Phosphatase 66 U/L (39-117); Amylase 136 U/L (28-100); Anion Gap 14 (12-20); Aspartate Amino Transferase 31 U/L (5-31); Bilirubin Total 0.3 mg/dL (0.0-1.0); Blood Urea Nitrogen 14 mg/dL (9-16); C Reactive Protein 0.05 mg/dL (< or = 0.50); Calcium 8.9 mg/dL (8.4-10.2); Carbon Dioxide 25 mmol/L (22-29); Chloride 104 mmol/L (96-108); Estimated Glomerular Filt Rate > 60; Glucose Random 83 mg/dL (60-115); Potassium 3.8 mmol/L (3.3-5.1); Sodium 139 mmol/L (135-145)
[2022-07-11 12:32] LABS: Erythrocyte Sedimentation Rate 14 MM/HR (0-20)
== END 2022-07-11 11:09 | disposition home or self-care (01) ==
LOC: HO.LAB 11:08
PROVIDERS: PCP Internal Medicine; Visit Provider Internal Medicine Rheumatology
DX: M32.9 Systemic lupus erythematosus, unspecified (principal); Z79.899 Other long term (current) drug therapy
CPT/HCPCS: 36415; 80053; 82043; 82150; 85025; 85652; 86140

== ENCOUNTER → 2022-07-15 08:38 | Outpatient (BNVA) | payer OTHER, SELFPAY | PROVIDERS: PCP Internal Medicine; Visit Provider Internal Medicine Rheumatology | DX: M32.9 Systemic lupus erythematosus, unspecified (principal); Z79.899 Other long term (current) drug therapy | CPT/HCPCS: 99212 ==

== ENCOUNTER → 2022-09-17 08:32 | Outpatient (BNVA) | payer OTHER, SELFPAY | PROVIDERS: PCP Internal Medicine; Referring Provider Internal Medicine; Visit Provider Internal Medicine Rheumatology | DX: M32.9 Systemic lupus erythematosus, unspecified (principal); R11.0 Nausea; Z79.899 Other long term (current) drug therapy | CPT/HCPCS: 99212 ==

== ENCOUNTER 2022-11-10 11:32 | Outpatient (REF) | payer OTHER, SELFPAY ==
[2022-11-10 12:11] LABS: Basophils Percent Auto 0.3 % (0-2); Eosinophils Percent Auto 0.3 % (0-4); Hematocrit 38.2 % (37.0-47.0); Hemoglobin 12.8 g/dl (12.0-16.0); Lymphocytes Absolute Auto 1.2 X10*3/uL (1.2-4.9); Lymphocytes Percent Auto 40.7 % (20-40); MANUAL DIFF FLAG SCAN; Mean Corpuscular HGB Conc 33.5 g/dl (31.0-35.0); Mean Corpuscular Hemoglobin 28.9 pg (27.0-33.0); Mean Corpuscular Volume 86.2 fL (80.0-98.0); Mean Platelet Volume 10.4 fL (9.4-12.3); Monocytes Absolute Auto 0.2 X10*3/uL (0.1-1.2); Neutrophils Absolute Auto 1.6 x10*3/uL (2.0-8.3); Neutrophils Percent Auto 53.7 % (45-73); Platelet Count 208 X10*3/uL (160-400); Red Blood Count 4.43 X10*6/uL (4.20-5.50); Red Cell Distribution Width 11.8 % (11.0-16.0); SCAN SMEAR FLAG 1
[2022-11-10 12:45] LABS: SLIDE REVIEW VERIFIED
[2022-11-10 12:50] LABS: Alanine Aminotransferase 25 U/L (0-31); Albumin Level 4.2 g/dL (3.5-5.0); Alkaline Phosphatase 65 U/L (39-117); Anion Gap 9 (12-20); Aspartate Amino Transferase 31 U/L (5-31); Bilirubin Total 0.4 mg/dL (0.0-1.0); Blood Urea Nitrogen 10 mg/dL (9-16); Calcium 9.2 mg/dL (8.4-10.2); Carbon Dioxide 26 mmol/L (22-29); Chloride 105 mmol/L (96-108); Estimated Glomerular Filt Rate > 60; Glucose Random 85 mg/dL (60-115); Potassium 3.5 mmol/L (3.3-5.1); Sodium 136 mmol/L (135-145); Total Protein 8.4 g/dL (6.5-8.0)
[2022-11-10 13:05] LABS: Erythrocyte Sedimentation Rate 18 MM/HR (0-20)
[2022-11-11 13:58] LABS: Complement C3 104 mg/dL (83-193)
[2022-11-19 09:24] LABS: Anti DNA DS Antibody 1 IU/mL
== END 2022-11-10 11:33 | disposition home or self-care (01) ==
LOC: HO.LAB 11:32
PROVIDERS: PCP Internal Medicine; Visit Provider Internal Medicine Rheumatology
DX: M32.9 Systemic lupus erythematosus, unspecified (principal); Z79.899 Other long term (current) drug therapy
CPT/HCPCS: 36415; 80053; 85025; 85652; 86160; 86225

== ENCOUNTER 2022-11-11 12:14 | Outpatient (REF) | payer OTHER, SELFPAY ==
[2022-11-11 14:37] LABS: Creatinine Urine 123.92 mg/dL; Total Protein Urine Random < 7 mg/dL (<12)
== END 2022-11-11 12:15 | disposition home or self-care (01) ==
LOC: HO.LNP 12:14
PROVIDERS: Visit Provider Internal Medicine Rheumatology
DX: M32.9 Systemic lupus erythematosus, unspecified (principal); Z79.899 Other long term (current) drug therapy
CPT/HCPCS: 84156

== ENCOUNTER 2022-11-17 07:50 | Outpatient (REF) | payer OTHER, SELFPAY ==
[2022-11-17 09:51] LABS: Basophils Percent Auto 0.5 % (0-2); Eosinophils Absolute Auto 0.1 X10*3/uL (0.0-0.4); Eosinophils Percent Auto 3.3 % (0-4); Hematocrit 40.7 % (37.0-47.0); Hemoglobin 13.4 g/dl (12.0-16.0); Lymphocytes Absolute Auto 1.2 X10*3/uL (1.2-4.9); Lymphocytes Percent Auto 54.5 % (20-40); MANUAL DIFF FLAG SCAN; Mean Corpuscular HGB Conc 32.9 g/dl (31.0-35.0); Mean Corpuscular Hemoglobin 28.8 pg (27.0-33.0); Mean Corpuscular Volume 87.3 fL (80.0-98.0); Mean Platelet Volume 10.5 fL (9.4-12.3); Monocytes Absolute Auto 0.1 X10*3/uL (0.1-1.2); Monocytes Percent Auto 6.6 % (2-11); Neutrophils Absolute Auto 0.7 x10*3/uL (2.0-8.3); Neutrophils Percent Auto 35.1 % (45-73); Platelet Count 231 X10*3/uL (160-400); Red Blood Count 4.66 X10*6/uL (4.20-5.50); Red Cell Distribution Width 12.3 % (11.0-16.0); SCAN SMEAR FLAG 1
[2022-11-17 09:58] LABS: White Blood Count 2.1 X10*3/uL (4.8-10.8)
[2022-11-17 10:29] LABS: Alanine Aminotransferase 26 U/L (0-31); Albumin Level 4.2 g/dL (3.5-5.0); Alkaline Phosphatase 70 U/L (39-117); Amylase 117 U/L (28-100); Anion Gap 11 (12-20); Aspartate Amino Transferase 33 U/L (5-31); Bilirubin Total 0.5 mg/dL (0.0-1.0); Blood Urea Nitrogen 12 mg/dL (9-16); Carbon Dioxide 23 mmol/L (22-29); Chloride 106 mmol/L (96-108); Estimated Glomerular Filt Rate > 60; Glucose Random 82 mg/dL (60-115); Potassium 4.2 mmol/L (3.3-5.1); Sodium 136 mmol/L (135-145); Total Protein 8.3 g/dL (6.5-8.0)
[2022-11-17 11:13] LABS: Erythrocyte Sedimentation Rate 19 MM/HR (0-20)
[2022-11-17 11:14] LABS: SLIDE REVIEW VERIFIED
[2022-11-17 11:24] LABS: HBsAGNum1 0.31 S/CO (0.00-0.99); Hepatitis A Antibody IgM 0.16 Index (0-0.79); Hepatitis B Core Antibody Nonreactive (Nonreactive); Hepatitis B Surface Antigen Negative (Negative); ~HepC Num1 0.11 S/CO (0.00-0.79); ~Hepatitis A Antibody IgM Nonreactive (Nonreactive); ~Hepatitis B Surface Antibody NONREACTIVE (Nonreactive); ~Hepatitis C Antibody Nonreactive (Nonreactive)
[2022-11-19 17:08] LABS: TS Negative Control Passed; TS Panel A 0; TS Panel B 1; TS Positive Control Passed; TSpotTB Negative (Negative)
== END 2022-11-17 07:51 | disposition home or self-care (01) ==
LOC: HO.LAB 07:50
PROVIDERS: PCP Internal Medicine; Visit Provider Internal Medicine Rheumatology
DX: M32.9 Systemic lupus erythematosus, unspecified (principal); K21.9 Gastro-esophageal reflux disease without esophagitis; Z79.899 Other long term (current) drug therapy
CPT/HCPCS: 36415; 80053; 82150; 85025; 85652; 86140; 86481; 86704; 86706; 86709; 86803; 87340; 99212

== ENCOUNTER → 2022-12-25 12:30 | Outpatient (BNVA) | payer OTHER, SELFPAY | PROVIDERS: PCP Internal Medicine; Visit Provider Internal Medicine Rheumatology | DX: Z13.89 Encounter for screening for other disorder (principal) ==

== ENCOUNTER 2022-12-31 13:50 | Emergency (ER) | payer OTHER, SELFPAY ==
--- NOTE | ~2022-12-31 | CT_ITS ---
EXAMINATION: CT ANGIOGRAM OF THE CHEST WITH AND WITHOUT CONTRAST (CT PULMONARY ANGIOGRAM FOR PE) CLINICAL INFORMATION: Reason for Exam + dimer, cp, sob COMPARISON: CTA chest 03/07/[address] abdomen pelvis 03/08/2022 TECHNIQUE: Prior to contrast administration, noncontrast localization images were obtained. Subsequently, multidetector volumetric imaging was performed from the thoracic inlet to below the diaphragms following the administration of 80 mL Omnipaque 350 intravenous contrast. No contrast reaction reported Sagittal, coronal, and MIP oblique sagittal reformatted images were obtained on the CT workstation, uploaded to PACS, and reviewed. This CT examination was performed using dose optimization techniques as appropriate, variously including the following: *Automated exposure control *Adjustment of mA and/or kV according to patient size (this includes techniques or standardized protocols for targeted exams where dose is matched to indication/reason for exam; i.e. extremities or head) *Use of iterative reconstruction technique Total exam dose-length product 186 mGy-cm FINDINGS: QUALITY OF STUDY/CONTRAST BOLUS: Satisfactory. PULMONARY ARTERIES: No central or segmental pulmonary emboli. THORACIC AORTA: No aneurysm or dissection. LUNG: No focal consolidation, nodules or masses. PLEURA: No pleural effusion or pneumothorax. MEDIASTINUM: Normal heart size. No pericardial effusion. No hilar or mediastinal lymphadenopathy. No evidence of septal bowing or right heart strain. CORONARY ARTERY CALCIFICATION: None visualized on this study. CHEST WALL/AXILLA: There is a right lateral breast nodule likely intramammary lymph node measuring 9 mm on axial image 28/6. There are bilateral abnormal axillary lymph nodes. The largest right axillary lymph node measures 2 cm on image 16/6 OSSEOUS STRUCTURES: No acute or suspicious osseous abnormality. UPPER ABDOMEN: Visualized liver, spleen, pancreas and bilateral adrenal glands unremarkable. No reflux of contrast into the hepatic veins to suggest elevated right heart pressures. CT/CT angio chest PE protocol IMPRESSION: No evidence of PE. No evidence of aortic dissection or aneurysm. Abnormal bilateral axillary lymph nodes. Prominent right lateral breast intramammary lymph node. These are unchanged to previous study 03/07/2022. Recommend clinical correlation. VTE: negative
--- NOTE | ~2022-12-31 | XR_ITS ---
EXAMINATION: XR CHEST CLINICAL INFORMATION: Cough COMPARISON: 03/03/2022 TECHNIQUE: 2 views of the chest were obtained. FINDINGS: The lungs are well expanded. There is no focal consolidation, edema, or effusion. No pneumothorax. The cardiomediastinal silhouette is within normal limits. No acute osseous abnormality. XR/XR chest 2V IMPRESSION: Clear lungs.
--- NOTE | 2022-12-31 13:54 | ECG_ITS ---
Test Reason : chest pain Blood Pressure : / mmHG Vent. Rate : 077 BPM Atrial Rate : 077 BPM P-R Int : 150 ms QRS Dur : 088 ms QT Int : 400 ms P-R-T Axes : 060 085 053 degrees QTc Int : 452 ms Normal sinus rhythm Normal ECG When compared with ECG of 07-MAR-2022 20:27, Nonspecific T wave abnormality no longer evident in Anterolateral leads Referred By: Josefa Dao Electronically Signed By:RAIMUNDO YAÑEZ
[2022-12-31 14:04] VITALS: BP 127/77; PULSE 94; RESP 18; TEMP 36.5; O2SAT 95; BMI 22.4
--- NOTE | 2022-12-31 14:04 | ED.CHESTPAIN ---
HPI - Chest Pain General Chief Complaint: Chest Pain <DANIA Barnett - Last Filed: 12/31/22 14:10> Stated Complaint: Chest tightness <DANIA Barnett - Last Filed: 12/31/22 14:10> Time Seen by Provider: 12/31/22 16:15 <DANIA Barnett - Last Filed: 12/31/22 14:10> Source: patient <DANIA Coley - Last Filed: 12/31/22 20:31> Mode of arrival: ambulatory <DANIA Coley - Last Filed: 12/31/22 20:31> Limitations: no limitations <DANIA Coley - Last Filed: 12/31/22 20:31> History of Present Illness HPI narrative: 22 year old female hx of lupus presents w/ nausea, chills, chest pain, shortness of breath, lump under right side of jaw X3 days. Patient tells me this all started w/ a dry cough which has been going away. Now experiencing substernal chest pressure rates it a 5/10 non radiating at times associated w/ sob. Tells me she doesn't have pain right now and the pain is intermittent. Also noted a lump under right side of jaw that is not painful. Denies fevers, vomiting, abd pain, beltre, dizziness, vision changes, changes in bowel habits, neck paink, sick contacts. <DANIA Coley - Last Filed: 12/31/22 20:31> Related Data Home Medications: Home Medications Medication Instructions Recorded Confirmed fluticasone propionate 50 1 spray intranasal DAILY PRN 03/03/22 12/25/22 mcg/actuation nasal Congestion spray,suspension amitriptyline 10 mg tablet 10 mg PO BEDTIME 11/17/22 12/25/22 omeprazole 20 mg capsule,delayed 40 mg PO DAILY 11/17/22 12/25/22 release Previous Rx's Medication Instructions Recorded triamcinolone acetonide 0.1 % 1 appl dental BEDTIME #5 grams 07/15/22 dental paste hydroxychloroquine 200 mg tablet 300 mg PO DAILY #45 tabs 09/17/22 prednisone 5 mg tablet See Rx Instructions .Route 09/17/22 .COMPLEX #45 tabs ondansetron 4 mg disintegrating 4 mg PO TID PRN nausea/vomiting 10/29/22 tablet #90 tabs belimumab 200 mg/mL subcutaneous 200 mg subcut QWEEK #4 mL 12/22/22 auto-injector (Benlysta) ketorolac 10 mg tablet 10 mg PO TID PRN pain 5 days #15 12/31/22 tabs <DANIA Barnett - Last Filed: 12/31/22 14:10> Allergies/Adverse Reactions: Allergies Allergy/AdvReac Type Severity Reaction Status Date / Time No Known Allergies Allergy Verified 12/25/22 13:32 <DANIA Barnett - Last Filed: 12/31/22 14:10> Review of Systems Review of Systems: Constitutional : No Weight loss, No Fever, + Chills, No Fatigue, No Malaise ENT/Mouth : No sore throat, No Rhinorrhea Eyes: No Eye Pain, No Swelling, No Redness Cardiovascular : + Chest Pain, + SOB, No Dyspnea on Exertion, No Orthopnea, No Edema, No Palpitations Respiratory : + Cough, No Sputum, No Wheezing Gastrointestinal : + Nausea, No Vomiting, No Diarrhea, No Constipation, No abdominal Pain, No Hematochezia, No Melena Genitourinary : No Dysuria, No Urinary Frequency, No Hematuria, Musculoskeletal : No joint pain, No Myalgias, No Joint Swelling Skin : No Skin Lesions, No rash Neuro : No Weakness, No Numbness, No Dizziness, No Headache Psych : No Anxiety/Panic, No Depression All other systems reviewed and are negative <DANIA Coley - Last Filed: 12/31/22 20:31> Yes all other systems are reviewed and are negative <DANIA Coley - Last Filed: 12/31/22 20:31> [facility] Past Medical History Attestation statement: The following information was validated with the patient. <DANIA Coley - Last Filed: 12/31/22 20:31> Source: old records reviewed and nursing notes reviewed <DANIA Coley - Last Filed: 12/31/22 20:31> Medical History: Medical History Generalized headaches GERD (gastroesophageal reflux disease) longterm current use of immunosuppressive drug Systemic lupus erythematosus <DANIA Barnett - Last Filed: 12/31/22 14:10> Social History Social History: Social History Household Members: Family Housing: House Do you presently have visiting nurse or other home services: No Alcohol intake: unknown Patient Tobacco Use Status: Never used Tobacco Advance Directives: Yes Advance Directives on File: Yes Advance Directives Date on File: 03/03/22 service: No Current occupational status: unemployed <DANIA Barnett - Last Filed: 12/31/22 14:10> Physical Exam Vital Signs: Vital Signs: Last Vital Signs Temp 97.7 F 12/31/22 14:04 Pulse 76 12/31/22 16:53 Resp 18 12/31/22 16:53 BP 106/59 L 12/31/22 16:53 Pulse Ox 98 12/31/22 16:53 O2 Del Method 12/31/22 14:04 BMI result Body Mass Index 22.4 <DANIA Barnett - Last Filed: 12/31/22 14:10> Vital Signs: Last Vital Signs Temp 97.7 F 12/31/22 14:04 Pulse 76 12/31/22 16:53 Resp 18 12/31/22 16:53 BP 106/59 L 12/31/22 16:53 Pulse Ox 98 12/31/22 16:53 O2 Del Method 12/31/22 14:04 BMI result Body Mass Index 22.4 vss <DANIA Coley - Last Filed: 12/31/22 20:31> Appearance: Alert.? Oriented X3.? No acute distress.? Head: Normocephalic, atraumatic, no step-offs or deformities Eyes: Pupils equal, round and reactive to light.? Neck: Normal inspection.? Neck supple.?right sided cervical chain 1.5cm lymphadenopathy noted. CVS: Normal heart rate and rhythm.? Pulses normal.? Respiratory: No respiratory distress.? Breath sounds normal.? Abdomen: Soft and nontender.? Skin: Skin warm and dry.? Normal skin color.? Normal skin turgor.? Extremities: No lower extremity edema.? No calf ttp. 5/5 strength to bilateral upper and lower extremities Neuro: Oriented X 3.? No motor deficit.? No sensory deficit. CN 2-12 intact <DANIA Coley - Last Filed: 12/31/22 20:31> Course Course Course Narrative: NAN - 22 yo F, with a hx of lupus, presenting today with chest pain and tightness x 3 days. States that the chest pain was intermittent for the last 3 days, but last night became constant. States that while she was in the shower this afternoon, the tightness worsened and she had associated shortness of breath. States that she woke up this morning with a lump on the right side of her neck, no fevers or recent illness. On exam, right sided cervical chain 1.5cm lymphadenopathy noted. She is not on control. PERC negative. Recently started benlysta last week for lupus. VSS stable in triage. Plan - Labs, ekg, chest xray. <DANIA Barnett - Last Filed: 12/31/22 14:10> Reevaluation(s) Reevaluation #1: CBC with no acute findings. Chemistry without electrolyte abnormalities requiring intervention. Trop negative EKG non ischemic. CXR unremarkable. Due to patients hx of lupus dimer ordered to r/o PE although less likely. <DANIA Coley - Last Filed: 12/31/22 20:31> Time: 17:00 <DANIA Coley - Last Filed: 12/31/22 20:31> Reevaluation #2: D-dimer positive. CTA ordered. <DANIA Coley - Last Filed: 12/31/22 20:31> Time: 17:10 <DANIA Coley Last Filed: 12/31/22 20:31> Reevaluation #3: On re-evaluation patient was feeling much better. Reports she is no longer having chest pain or shortness of breath. CT of chest with no evidence of PE. No evidence of aortic dissection or aneurysm. Abnormal bilateral axillary lymph nodes, prominent right lateral breast inflammatory lymph node. Unchanged to previous studies. Patient was discharged home. Educated patient on diagnosis and treatment plan, answered all question, patient verbalizes understanding. At this time patient will be discharged home, advised to return with new or worsening symptoms. Educated on worrisome signs and symptoms and when to return. At this time I feel comfortable discharge home. <DANIA Coley - Last Filed: 12/31/22 20:31> Time: 20:30 <DANIA Coley - Last Filed: 12/31/22 20:31> Medications Administered Discontinued Medications Generic Name Dose Route Start Last Admin Trade Name Freq PRN Reason Stop Dose Admin Iohexol 100 ml 12/31/22 18:55 12/31/22 18:55 Iohexol 350 Mg/Ml 100 Ml Infus..Btl IV 12/31/22 18:56 65 ml ONCE ONE Administration Ketorolac Tromethamine 30 mg 12/31/22 16:25 12/31/22 16:45 Ketorolac Tromethamine 15 Mg/Ml Vial IM 12/31/22 16:26 30 mg ONCE ONE Administration <DANIA Barnett - Last Filed: 12/31/22 14:10> Medications Administered Discontinued Medications Generic Name Dose Route Start Last Admin Trade Name Freq PRN Reason Stop Dose Admin Iohexol 100 ml 12/31/22 18:55 12/31/22 18:55 Iohexol 350 Mg/Ml 100 Ml Infus..Btl IV 12/31/22 18:56 65 ml ONCE ONE Administration Ketorolac Tromethamine 30 mg 12/31/22 16:25 12/31/22 16:45 Ketorolac Tromethamine 15 Mg/Ml Vial IM 12/31/22 16:26 30 mg ONCE ONE Administration <DANIA Coley - Last Filed: 12/31/22 20:31> Medical Decision Making Medical Decision Making [facility] Narrative: 1629 22 yo f presents w/ nausea, chills, chest pain, shortness of breath, lump under right side of jaw X3 days. PE w/ right sided right sided cervical chain 1.5cm lymphadenopathy noted. RRR. Lungs clear. Abdomen soft non tender non distended. Negative idalmis b/l. VSS Likely viral. Unlikely ACS, PE ( perc negative), pericarditis, CHF, PNA, AAA. Lymphadenopathy likely reactive from viral illness unlikely malignancy. Plan- labs, imaging, trop, ekg, cxr <DANIA Coley - Last Filed: 12/31/22 20:31> Differential Diagnosis Differential Diagnoses: The differential diagnosis associated with the presentation includes <DANIA Coley - Last Filed: 12/31/22 20:31> Likely viral. Unlikely ACS, PE ( perc negative), pericarditis, CHF, PNA, AAA. Lymphadenopathy likely reactive from viral illness unlikely malignancy. <DANIA Coley - Last Filed: 12/31/22 20:31> Admission/Observation Consideration of admission/observation: Escalation of care including admission/observation considered <DANIA Coley - Last Filed: 12/31/22 20:31> Unlikely <DANIA Coley - Last Filed: 12/31/22 20:31> Lab Data MDM Lab Attestation statement: I reviewed the patient's lab results. <DANIA Coley - Last Filed: 12/31/22 20:31> Result Diagrams: 12/31/22 15:16 12/31/22 15:16 <DANIA Barnett - Last Filed: 12/31/22 14:10> Labs: Lab Results 12/31/22 12/31/22 12/31/22 Range/Units 15:13 15:16 15:16 WBC 2.4 L (4.8-10.8) X10*3/uL RBC 4.00 L (4.20-5.50) X10*6/uL Hgb 11.7 L (12.0-16.0) g/dl Hct 35.1 L (37.0-47.0) % MCV 85.8 (80.0-98.0) fL MCH 28.6 (27.0-33.0) pg MCHC 33.3 (31.0-35.0) g/dl RDW 12.8 (11.0-16.0) % Plt Count 200 (160-400) X10*3/uL MPV 9.8 (9.4-12.3) fL Immature Gran % (Auto) 0.0 (0.0-0.4) % Neut % (Auto) 55.2 (45-73) % Lymph % (Auto) 37.0 (20-40) % [place] % (Auto) 7.0 (2-11) % Eos % (Auto) 0.4 (0-4) % Baso % (Auto) 0.4 (0-2) % Lymph # (Auto) 0.9 L (1.2-4.9) X10*3/uL [place] # (Auto) 0.2 (0.1-1.2) X10*3/uL Eos # (Auto) 0.0 (0.0-0.4) X10*3/uL Baso # (Auto) 0.0 (0.0-0.2) X10*3/uL Abs Immat Gran (auto) 0.00 (0.00-0.03) X10*3/uL Absolute Neuts (auto) 1.3 L (2.0-8.3) x10*3/uL Absolute Nucleated RBC 0.000 (0.0-0.012) X10*3/uL Nucleated RBC % (auto) 0.0 (0.0-0.2) /100WBC Smear Tech's Comments VERIFIED D-Dimer High Sensitivty NG/ML Sodium 140 (135-145) mmol/L Potassium 3.7 (3.3-5.1) mmol/L Chloride 106 (96-108) mmol/L Carbon Dioxide 28 (22-29) mmol/L Anion Gap 10 L (12-20) BUN 17 H (9-16) mg/dL Creatinine 0.64 (0.5-1.4) mg/dL Estim Creat Clear Calc 124.0 Estimated GFR > 60 Random Glucose 77 (60-115) mg/dL Calcium 8.8 (8.4-10.2) mg/dL Magnesium 1.8 (1.6-2.6) mg/dL Total Bilirubin 0.6 (0.0-1.0) mg/dL Direct Bilirubin 0.2 (0.0-0.5) mg/dL AST 27 (5-31) U/L ALT 22 (0-31) U/L Alkaline Phosphatase 51 (39-117) U/L Troponin I High Sens (<3.5-17.0) ng/L Total Protein 7.4 (6.5-8.0) g/dL Albumin 3.9 (3.5-5.0) g/dL Beta HCG, Quant < 2 mIU/mL COVID-19 ([facility]) Negative (Negative) COVID-19 Clin Com See Note 12/31/22 12/31/22 Range/Units 15:16 16:41 WBC (4.8-10.8) X10*3/uL RBC (4.20-5.50) X10*6/uL Hgb (12.0-16.0) g/dl Hct (37.0-47.0) % MCV (80.0-98.0) fL MCH (27.0-33.0) pg MCHC (31.0-35.0) g/dl RDW (11.0-16.0) % Plt Count (160-400) X10*3/uL MPV (9.4-12.3) fL Immature Gran % (Auto) (0.0-0.4) % Neut % (Auto) (45-73) % Lymph % (Auto) (20-40) % [place] % (Auto) (2-11) % Eos % (Auto) (0-4) % Baso % (Auto) (0-2) % Lymph # (Auto) (1.2-4.9) X10*3/uL [place] # (Auto) (0.1-1.2) X10*3/uL Eos # (Auto) (0.0-0.4) X10*3/uL Baso # (Auto) (0.0-0.2) X10*3/uL Abs Immat Gran (auto) (0.00-0.03) X10*3/uL Absolute Neuts (auto) (2.0-8.3) x10*3/uL Absolute Nucleated RBC (0.0-0.012) X10*3/uL Nucleated RBC % (auto) (0.0-0.2) /100WBC Smear Tech's Comments D-Dimer High Sensitivty 257 NG/ML Sodium (135-145) mmol/L Potassium (3.3-5.1) mmol/L Chloride (96-108) mmol/L Carbon Dioxide (22-29) mmol/L Anion Gap (12-20) BUN (9-16) mg/dL Creatinine (0.5-1.4) mg/dL Estim Creat Clear Calc Estimated GFR Random Glucose (60-115) mg/dL Calcium (8.4-10.2) mg/dL Magnesium (1.6-2.6) mg/dL Total Bilirubin (0.0-1.0) mg/dL Direct Bilirubin (0.0-0.5) mg/dL AST (5-31) U/L ALT (0-31) U/L Alkaline Phosphatase (39-117) U/L Troponin I High Sens < 3.5 (<3.5-17.0) ng/L Total Protein (6.5-8.0) g/dL Albumin (3.5-5.0) g/dL Beta HCG, Quant mIU/mL COVID-19 ([facility]) (Negative) COVID-19 Clin Com <DANIA Barnett - Last Filed: 12/31/22 14:10> Lab Results 12/31/22 12/31/22 12/31/22 Range/Units 15:13 15:16 15:16 WBC 2.4 L (4.8-10.8) X10*3/uL RBC 4.00 L (4.20-5.50) X10*6/uL Hgb 11.7 L (12.0-16.0) g/dl Hct 35.1 L (37.0-47.0) % MCV 85.8 (80.0-98.0) fL MCH 28.6 (27.0-33.0) pg MCHC 33.3 (31.0-35.0) g/dl RDW 12.8 (11.0-16.0) % Plt Count 200 (160-400) X10*3/uL MPV 9.8 (9.4-12.3) fL Immature Gran % (Auto) 0.0 (0.0-0.4) % Neut % (Auto) 55.2 (45-73) % Lymph % (Auto) 37.0 (20-40) % [place] % (Auto) 7.0 (2-11) % Eos % (Auto) 0.4 (0-4) % Baso % (Auto) 0.4 (0-2) % Lymph # (Auto) 0.9 L (1.2-4.9) X10*3/uL [place] # (Auto) 0.2 (0.1-1.2) X10*3/uL Eos # (Auto) 0.0 (0.0-0.4) X10*3/uL Baso # (Auto) 0.0 (0.0-0.2) X10*3/uL Abs Immat Gran (auto) 0.00 (0.00-0.03) X10*3/uL Absolute Neuts (auto) 1.3 L (2.0-8.3) x10*3/uL Absolute Nucleated RBC 0.000 (0.0-0.012) X10*3/uL Nucleated RBC % (auto) 0.0 (0.0-0.2) /100WBC Smear Tech's Comments VERIFIED D-Dimer High Sensitivty NG/ML Sodium 140 (135-145) mmol/L Potassium 3.7 (3.3-5.1) mmol/L Chloride 106 (96-108) mmol/L Carbon Dioxide 28 (22-29) mmol/L Anion Gap 10 L (12-20) BUN 17 H (9-16) mg/dL Creatinine 0.64 (0.5-1.4) mg/dL Estim Creat Clear Calc 124.0 Estimated GFR > 60 Random Glucose 77 (60-115) mg/dL Calcium 8.8 (8.4-10.2) mg/dL Magnesium 1.8 (1.6-2.6) mg/dL Total Bilirubin 0.6 (0.0-1.0) mg/dL Direct Bilirubin 0.2 (0.0-0.5) mg/dL AST 27 (5-31) U/L ALT 22 (0-31) U/L Alkaline Phosphatase 51 (39-117) U/L Troponin I High Sens (<3.5-17.0) ng/L Total Protein 7.4 (6.5-8.0) g/dL Albumin 3.9 (3.5-5.0) g/dL Beta HCG, Quant < 2 mIU/mL COVID-19 ([facility]) Negative (Negative) COVID-19 Clin Com See Note 12/31/22 12/31/22 Range/Units 15:16 16:41 WBC (4.8-10.8) X10*3/uL RBC (4.20-5.50) X10*6/uL Hgb (12.0-16.0) g/dl Hct (37.0-47.0) % MCV (80.0-98.0) fL MCH (27.0-33.0) pg MCHC (31.0-35.0) g/dl RDW (11.0-16.0) % Plt Count (160-400) X10*3/uL MPV (9.4-12.3) fL Immature Gran % (Auto) (0.0-0.4) % Neut % (Auto) (45-73) % Lymph % (Auto) (20-40) % [place] % (Auto) (2-11) % Eos % (Auto) (0-4) % Baso % (Auto) (0-2) % Lymph # (Auto) (1.2-4.9) X10*3/uL [place] # (Auto) (0.1-1.2) X10*3/uL Eos # (Auto) (0.0-0.4) X10*3/uL Baso # (Auto) (0.0-0.2) X10*3/uL Abs Immat Gran (auto) (0.00-0.03) X10*3/uL Absolute Neuts (auto) (2.0-8.3) x10*3/uL Absolute Nucleated RBC (0.0-0.012) X10*3/uL Nucleated RBC % (auto) (0.0-0.2) /100WBC Smear Tech's Comments D-Dimer High Sensitivty 257 NG/ML Sodium (135-145) mmol/L Potassium (3.3-5.1) mmol/L Chloride (96-108) mmol/L Carbon Dioxide (22-29) mmol/L Anion Gap (12-20) BUN (9-16) mg/dL Creatinine (0.5-1.4) mg/dL Estim Creat Clear Calc Estimated GFR Random Glucose (60-115) mg/dL Calcium (8.4-10.2) mg/dL Magnesium (1.6-2.6) mg/dL Total Bilirubin (0.0-1.0) mg/dL Direct Bilirubin (0.0-0.5) mg/dL AST (5-31) U/L ALT (0-31) U/L Alkaline Phosphatase (39-117) U/L Troponin I High Sens < 3.5 (<3.5-17.0) ng/L Total Protein (6.5-8.0) g/dL Albumin (3.5-5.0) g/dL Beta HCG, Quant mIU/mL COVID-19 ([facility]) (Negative) COVID-19 Clin Com <DANIA Coley - Last Filed: 12/31/22 20:31> Independent Interpretation I performed an independent interpretation of an: EKG and Plain X-Ray ( XR/XR chest 2V IMPRESSION: Clear lungs. ) <DANIA Coley - Last Filed: 12/31/22 20:31> Radiology Impression Discussion of test interpretation with radiology: I have reviewed the radiologist's reading. <DANIA Coley - Last Filed: 12/31/22 20:31> Core Measures AMI core measures followed: Yes <DANIA Coley - Last Filed: 12/31/22 20:31> Measure exclusions: not indicated <DANIA Coley - Last Filed: 12/31/22 20:31> Critical Care Time Critical Care Time Critical Care Time: No <DANIA Coley - Last Filed: 12/31/22 20:31> Discharge Plan Discharge Clinical Impression: Chest pain, Shortness of breath, Viral illness <DANIA Barnett - Last Filed: 12/31/22 14:10> Patient Disposition: Home, Self-Care <DANIA Barnett - Last Filed: 12/31/22 14:10> Additional Instructions: Take your medications as prescribed. If you were prescribed antibiotics today, it is important that you take your medication to their entirety, do not skip any doses, do not finish them early. Follow-up with your primary care provider this week. Return to the emergency department with new or worsening symptoms. Such as fevers, chills, chest pain, shortness of breath, nausea, vomiting, dizziness, headache, vision changes, lethargy In case of emergency call 911 Toradol has been sent to your pharmacy, you tolerated this well in the department. Please take this as prescribed do not take this with ibuprofen, or other NSAIDs, do not mix this with alcohol. Side effects of this medication including increased risk for bleeding and possible kidney injury. CT/CT angio chest PE protocol IMPRESSION: No evidence of PE. ? No evidence of aortic dissection or aneurysm. ? Abnormal bilateral axillary lymph nodes. Prominent right lateral breast intramammary lymph node. These are unchanged to previous study 03/07/2022. Recommend clinical correlation. ? VTE: negative <DAINA Barnett - Last Filed: 12/31/22 14:10> Prescriptions: New ketorolac 10 mg tablet 10 mg PO TID PRN (Reason: pain) 5 Days Qty: 15 0RF No Action ondansetron 4 mg tablet,disintegrating 4 mg PO TID PRN (Reason: nausea/vomiting) Qty: 90 1RF Benlysta 200 mg/mL auto-injector 200 mg subcut QWEEK Qty: 4 5RF Rx Instructions: inject into upper thigh or abdomen; rotate sites fluticasone propionate 50 mcg/actuation spray,suspension 1 spray INTRANASAL DAILY PRN (Reason: Congestion) amitriptyline 10 mg tablet 10 mg PO BEDTIME omeprazole 20 mg capsule,delayed release(DR/EC) 40 mg PO DAILY triamcinolone acetonide 0.1 % paste 1 appl dental BEDTIME Qty: 5 3RF Rx Instructions: apply to affected area at bedtime hydroxychloroquine 200 mg tablet 300 mg PO DAILY Qty: 45 3RF prednisone 5 mg tablet See Rx Instructions .ROUTE .COMPLEX Qty: 45 3RF Rx Instructions: one tab in AM and 1/2 tab in PM <DANIA Barnett - Last Filed: 12/31/22 14:10> [place] [facility] [place] [facility] [place] Group] - 2 days Erica Clayton MD [Primary Care Provider] - 2 days <DANIA Barnett - Last Filed: 12/31/22 14:10> Stand Alone Forms: Work/School Release <DANIA Barnett - Last Filed: 12/31/22 14:10> Interventions: ED Discharge Assessment Last Done: 12/31/22 20:14 <DANIA Barnett - Last Filed: 12/31/22 14:10> Discharge Date/Time: 12/31/22 20:14 <DANIA Barnett - Last Filed: 12/31/22 14:10>
[2022-12-31 15:27] LABS: Basophils Percent Auto 0.4 % (0-2); Eosinophils Percent Auto 0.4 % (0-4); Hematocrit 35.1 % (37.0-47.0); Hemoglobin 11.7 g/dl (12.0-16.0); Lymphocytes Absolute Auto 0.9 X10*3/uL (1.2-4.9); MANUAL DIFF FLAG SCAN; Mean Corpuscular HGB Conc 33.3 g/dl (31.0-35.0); Mean Corpuscular Hemoglobin 28.6 pg (27.0-33.0); Mean Corpuscular Volume 85.8 fL (80.0-98.0); Mean Platelet Volume 9.8 fL (9.4-12.3); Monocytes Absolute Auto 0.2 X10*3/uL (0.1-1.2); Neutrophils Absolute Auto 1.3 x10*3/uL (2.0-8.3); Neutrophils Percent Auto 55.2 % (45-73); Platelet Count 200 X10*3/uL (160-400); Red Cell Distribution Width 12.8 % (11.0-16.0); SCAN SMEAR FLAG 1
[2022-12-31 15:28] LABS: White Blood Count 2.4 X10*3/uL (4.8-10.8)
[2022-12-31 15:40] LABS: COVID-19 Test Negative (Negative); IDNOW Serial# 6674DD1D
[2022-12-31 15:45] LABS: Alanine Aminotransferase 22 U/L (0-31); Albumin Level 3.9 g/dL (3.5-5.0); Alkaline Phosphatase 51 U/L (39-117); Anion Gap 10 (12-20); Aspartate Amino Transferase 27 U/L (5-31); Bilirubin Direct 0.2 mg/dL (0.0-0.5); Bilirubin Total 0.6 mg/dL (0.0-1.0); Blood Urea Nitrogen 17 mg/dL (9-16); Calcium 8.8 mg/dL (8.4-10.2); Carbon Dioxide 28 mmol/L (22-29); Chloride 106 mmol/L (96-108); Estimated Glomerular Filt Rate > 60; Glucose Random 77 mg/dL (60-115); Magnesium 1.8 mg/dL (1.6-2.6); Potassium 3.7 mmol/L (3.3-5.1); SLIDE REVIEW VERIFIED; Sodium 140 mmol/L (135-145); Total Protein 7.4 g/dL (6.5-8.0)
[2022-12-31 15:53] LABS: Troponin-I High Sensitivity < 3.5 ng/L (<3.5-17.0)
[2022-12-31] MEDS: Ketorolac Tromethamine 15 MG/ML VIAL 30 MG IM (16:45)
[2022-12-31 16:53] VITALS: BP 106/59; PULSE 76; RESP 18; O2SAT 98
[2022-12-31 16:56] LABS: D Dimer High Sensitivity 257 NG/ML
[2022-12-31 18:23] LABS: HCG Quantitative < 2 mIU/mL
[2022-12-31] MEDS: iohexoL 350 MG/ML 100 ML INFUS..BTL IV (18:55)
== END 2022-12-31 20:14 | disposition home or self-care (01) ==
PROVIDERS: Physician Assistant; Emergency Provider Student in an Organized Health Care Education/Training Program; PCP Internal Medicine
DX: R07.9 Chest pain, unspecified (principal); R06.02 Shortness of breath; B34.9 Viral infection, unspecified; R05.9 Cough, unspecified; R59.1 Generalized enlarged lymph nodes; Z20.822 Contact with and (suspected) exposure to COVID-19; M32.9 Systemic lupus erythematosus, unspecified; Z79.899 Other long term (current) drug therapy
CPT/HCPCS: 36415; 71046; 71275; 80048; 80076; 83735; 84484; 84702; 85025; 85379; 87635; 93005; 96372; 99284; J1885; Q9967

== ENCOUNTER 2023-01-02 20:09 | Emergency (ER) | payer OTHER, SELFPAY ==
--- NOTE | 2023-01-02 | ECG_ITS ---
Test Reason : chest pain Blood Pressure : / mmHG Vent. Rate : 099 BPM Atrial Rate : 099 BPM P-R Int : 132 ms QRS Dur : 086 ms QT Int : 346 ms P-R-T Axes : 068 086 049 degrees QTc Int : 444 ms Normal sinus rhythm Normal ECG When compared with ECG of 31-DEC-2022 13:57, No significant change was found Referred By: Generic ED Physician Electronically Signed By:RAIMUNDO YAÑEZ
--- NOTE | ~2023-01-02 | XR_ITS ---
EXAMINATION: XR CHEST CLINICAL INFORMATION: Chest pain. COMPARISON: Chest radiograph 12/31/2022. CTA chest 12/31/2022. TECHNIQUE: Frontal view of the chest was obtained. FINDINGS: No significant abnormality is noted involving the heart, lungs, mediastinum, bony thorax or soft tissues. XR/XR chest 1V IMPRESSION: Unremarkable examination.
[2023-01-02 20:15] VITALS: BP 122/82; PULSE 96; RESP 18; TEMP 37.1; O2SAT 98; BMI 22.4
[2023-01-02 20:55] LABS: Hematocrit 34.4 % (37.0-47.0); Hemoglobin 11.6 g/dl (12.0-16.0); Lymphocytes Absolute Auto 0.6 X10*3/uL (1.2-4.9); Lymphocytes Percent Auto 24.7 % (20-40); MANUAL DIFF FLAG SCAN; Mean Corpuscular HGB Conc 33.7 g/dl (31.0-35.0); Mean Corpuscular Hemoglobin 28.9 pg (27.0-33.0); Mean Corpuscular Volume 85.6 fL (80.0-98.0); Mean Platelet Volume 10.1 fL (9.4-12.3); Monocytes Absolute Auto 0.2 X10*3/uL (0.1-1.2); Monocytes Percent Auto 6.1 % (2-11); Neutrophils Absolute Auto 1.7 x10*3/uL (2.0-8.3); Neutrophils Percent Auto 69.2 % (45-73); Platelet Count 201 X10*3/uL (160-400); Red Blood Count 4.02 X10*6/uL (4.20-5.50); Red Cell Distribution Width 12.5 % (11.0-16.0); SCAN SMEAR FLAG 1
[2023-01-02 21:02] LABS: Alanine Aminotransferase 25 U/L (0-31); Albumin Level 4.1 g/dL (3.5-5.0); Alkaline Phosphatase 60 U/L (39-117); Anion Gap 11 (12-20); Aspartate Amino Transferase 33 U/L (5-31); Bilirubin Total 0.4 mg/dL (0.0-1.0); Blood Urea Nitrogen 16 mg/dL (9-16); Calcium 8.5 mg/dL (8.4-10.2); Carbon Dioxide 23 mmol/L (22-29); Chloride 106 mmol/L (96-108); Creatinine Clr Calc Pharmacy 134.6; Estimated Glomerular Filt Rate > 60; Glucose Random 97 mg/dL (60-115); Potassium 4.1 mmol/L (3.3-5.1); Sodium 136 mmol/L (135-145); Total Protein 7.9 g/dL (6.5-8.0); White Blood Count 2.5 X10*3/uL (4.8-10.8)
[2023-01-02 21:13] LABS: SLIDE REVIEW VERIFIED
[2023-01-02 21:15] LABS: Troponin-I High Sensitivity < 3.5 ng/L (<3.5-17.0)
--- NOTE | 2023-01-02 23:49 | ED.CHESTPAIN ---
HPI - Chest Pain General Chief Complaint: Chest Pain Stated Complaint: chest pain, hurts to breathe Time Seen by Provider: 01/02/23 23:43 Source: patient and family Mode of arrival: ambulatory Limitations: no limitations History of Present Illness HPI narrative: Patient comes emergency room complaining chest pain for 4 days. Patient was seen here 2 days ago, for the same reason. Also, patient complaining of a painful lump under the right side of the ear which has been present for 4 days as well. On patient's last visit, CTA scan for pulmonary embolism was negative. Patient denies fever chills Related Data Home Medications Medication Instructions Recorded Confirmed fluticasone propionate 50 1 spray intranasal DAILY PRN 03/03/22 12/25/22 mcg/actuation nasal Congestion spray,suspension amitriptyline 10 mg tablet 10 mg PO BEDTIME 11/17/22 12/25/22 omeprazole 20 mg capsule,delayed 40 mg PO DAILY 11/17/22 12/25/22 release Previous Rx's Medication Instructions Recorded triamcinolone acetonide 0.1 % 1 appl dental BEDTIME #5 grams 07/15/22 dental paste hydroxychloroquine 200 mg tablet 300 mg PO DAILY #45 tabs 09/17/22 prednisone 5 mg tablet See Rx Instructions .Route 09/17/22 .COMPLEX #45 tabs ondansetron 4 mg disintegrating 4 mg PO TID PRN nausea/vomiting 10/29/22 tablet #90 tabs belimumab 200 mg/mL subcutaneous 200 mg subcut QWEEK #4 mL 12/22/22 auto-injector (Benlysta) ketorolac 10 mg tablet 10 mg PO TID PRN pain 5 days #15 12/31/22 tabs amoxicillin 500 mg-potassium 1 tab PO BID #14 tabs 01/03/23 clavulanate 125 mg tablet (Augmentin) ketorolac 10 mg tablet 10 mg PO TID PRN pain #7 tabs 01/03/23 Allergies Allergy/AdvReac Type Severity Reaction Status Date / Time No Known Allergies Allergy Verified 01/02/23 20:19 Review of Systems Review of Systems: Constitutional : No Weight loss, No Fever, No Chills, No Night Sweats, No Fatigue, No Malaise ENT/Mouth : No Hearing loss, No Ear Pain, No Nasal Congestion, No Sinus Pain, No Hoarseness, No sore throat, No Rhinorrhea, No Swallowing Difficulty Eyes: No Eye Pain, No Swelling, No Redness, No Foreign Body, No Discharge, No Vision Changes Cardiovascular : Complaining of chest pain in the middle of the chest, squeezing sensation, No SOB, No Dyspnea on Exertion, No Orthopnea, No Edema, No Palpitations Respiratory : No Cough, No Sputum, No Wheezing, No Smoke Exposure, No Dyspnea Gastrointestinal : No Nausea, No Vomiting, No Diarrhea, No Constipation, No abdominal Pain, No Hematochezia, No Melena Genitourinary : no irregular bleeding, No Dysuria, No Urinary Frequency, No Hematuria, No Urinary Incontinence, No Urgency, No Flank Pain, No Urinary Flow Changes, No Hesitancy Musculoskeletal : No joint pain, No Myalgias, No Joint Swelling Skin : No Skin Lesions, No rash Neuro : No Weakness, No Numbness, No Paresthesias, No Loss of Consciousness, No Dizziness, No Headache Psych : No Anxiety/Panic, No Depression, No SI/HI/AH/VH, No Social Issues, Heme/Lymph: No Bruising, No Bleeding, complaining lymphadenopathy on the right side of the neck Endocrine : No Polyuria, No Polydipsia, No Temperature Intolerance PMFSH Past Medical History Medical History Generalized headaches GERD (gastroesophageal reflux disease) 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 current use of immunosuppressive drug Systemic lupus erythematosus Social History Social History Household Members: Family Housing: House Do you presently have visiting nurse or other home services: No Alcohol intake: unknown Patient Tobacco Use Status: Never used Tobacco Advance Directives: Yes Advance Directives on File: Yes Advance Directives Date on File: 03/03/22 service: No Current occupational status: unemployed Physical Exam Vital Signs: Vital Signs: Last Vital Signs Temp 98.7 F 01/02/23 20:15 Pulse 96 01/02/23 20:15 Resp 18 01/02/23 20:15 BP 122/82 01/02/23 20:15 Pulse Ox 98 01/02/23 20:15 O2 Del Method 01/02/23 20:15 BMI result Body Mass Index 22.4 Const: Other: Appearance: Alert. Oriented X3. No acute distress. Eyes: Pupils equal, round and reactive to light. ENT: Pharynx normal. Bilateral erythema more prominent on the left ear canal Neck: There is a prominent lymph node below the right earlobe, painful to touch CVS: Normal heart rate and rhythm. Pulses normal. Normal S1 and S2 Respiratory: No respiratory distress. Breath sounds normal. No Wheezing. No rales Abdomen: Soft and nontender. No rigidity. No distention. Skin: Skin warm and dry. Normal skin color. Normal skin turgor. Extremities: No lower extremity edema. No Lacerations. No Rash Neuro: Oriented X 3. No motor deficit. No sensory deficit. Moving all extremities. No slurred speech. CN 2 through 12 grossly intact Psych: calm, cooperative, normal affect Course Course Course Narrative: -patient's lab work is at baseline. -patient has a lymph node on the right side of the neck. Reviewing patient's CT scan, patient has right axillary lymphadenopathy which is chronic. -this new lymph node likely viral versus infectious, patient does have a bit of erythema in the left ear but does not have any ear pain. -patient states that this lymph node has been present for approximately 4 days and gradually getting more painful. Patient denies fever chills -given and the patient has a lymph node, erythema in the ear canals, we will go ahead and start her on antibiotics. -chest x-ray today negative for infiltrates Medical Decision Making Lab Data 01/02/23 20:39 01/02/23 20:39 Labs: Lab Results 01/02/23 01/02/23 01/02/23 Range/Units 20:39 20:39 20:39 WBC 2.5 L (4.8-10.8) X10*3/uL RBC 4.02 L (4.20-5.50) X10*6/uL Hgb 11.6 L (12.0-16.0) g/dl Hct 34.4 L (37.0-47.0) % MCV 85.6 (80.0-98.0) fL MCH 28.9 (27.0-33.0) pg MCHC 33.7 (31.0-35.0) g/dl RDW 12.5 (11.0-16.0) % Plt Count 201 (160-400) X10*3/uL MPV 10.1 (9.4-12.3) fL Immature Gran % (Auto) 0.0 (0.0-0.4) % Neut % (Auto) 69.2 (45-73) % Lymph % (Auto) 24.7 (20-40) % [place]idan % (Auto) 6.1 (2-11) % Eos % (Auto) 0.0 (0-4) % Baso % (Auto) 0.0 (0-2) % Lymph # (Auto) 0.6 L (1.2-4.9) X10*3/uL [place] # (Auto) 0.2 (0.1-1.2) X10*3/uL Eos # (Auto) 0.0 (0.0-0.4) X10*3/uL Baso # (Auto) 0.0 (0.0-0.2) X10*3/uL Abs Immat Gran (auto) 0.00 (0.00-0.03) X10*3/uL Absolute Neuts (auto) 1.7 L (2.0-8.3) x10*3/uL Absolute Nucleated RBC 0.000 (0.0-0.012) X10*3/uL Nucleated RBC % (auto) 0.0 (0.0-0.2) /100WBC Smear Tech's Comments VERIFIED Sodium 136 (135-145) mmol/L Potassium 4.1 (3.3-5.1) mmol/L Chloride 106 (96-108) mmol/L Carbon Dioxide 23 (22-29) mmol/L Anion Gap 11 L (12-20) BUN 16 (9-16) mg/dL Creatinine 0.59 (0.5-1.4) mg/dL Estim Creat Clear Calc 134.6 Estimated GFR > 60 Random Glucose 97 (60-115) mg/dL Calcium 8.5 (8.4-10.2) mg/dL Total Bilirubin 0.4 (0.0-1.0) mg/dL AST 33 H (5-31) U/L ALT 25 (0-31) U/L Alkaline Phosphatase 60 (39-117) U/L Troponin I High Sens < 3.5 (<3.5-17.0) ng/L Total Protein 7.9 (6.5-8.0) g/dL Albumin 4.1 (3.5-5.0) g/dL Discharge Plan Discharge Clinical Impression: Lymphadenopathy of head and neck, Atypical chest pain, Otitis Patient Disposition: Home, Self-Care Instructions: Chest Pain (ED), Lymphadenopathy (ED) Additional Instructions: Please follow-up with your primary care physician tomorrow. If you have any worsening or new symptoms, please return to the emergency room or call 911 Prescriptions: New amoxicillin-pot clavulanate [Augmentin] 500-125 mg tablet 1 tab PO BID Qty: 14 0RF ketorolac 10 mg tablet 10 mg PO TID PRN (Reason: pain) Qty: 7 0RF No Action ondansetron 4 mg tablet,disintegrating 4 mg PO TID PRN (Reason: nausea/vomiting) Qty: 90 1RF Benlysta 200 mg/mL auto-injector 200 mg subcut QWEEK Qty: 4 5RF Rx Instructions: inject into upper thigh or abdomen; rotate sites fluticasone propionate 50 mcg/actuation spray,suspension 1 spray INTRANASAL DAILY PRN (Reason: Congestion) ketorolac 10 mg tablet 10 mg PO TID PRN (Reason: pain) 5 Days Qty: 15 0RF amitriptyline 10 mg tablet 10 mg PO BEDTIME omeprazole 20 mg capsule,delayed release(DR/EC) 40 mg PO DAILY triamcinolone acetonide 0.1 % paste 1 appl dental BEDTIME Qty: 5 3RF Rx Instructions: apply to affected area at bedtime hydroxychloroquine 200 mg tablet 300 mg PO DAILY Qty: 45 3RF prednisone 5 mg tablet See Rx Instructions .ROUTE .COMPLEX Qty: 45 3RF Rx Instructions: one tab in AM and 1/2 tab in PM
[2023-01-03] MEDS: Ketorolac Tromethamine 60 MG/2 ML VIAL IM (00:15)
[2023-01-03] MEDS: Amoxicillin/Potassium Clav 875 MG TABLET PO (00:15)
[2023-01-03 00:24] VITALS: BP 113/77; PULSE 80; RESP 18; TEMP 36.9; O2SAT 100
== END 2023-01-03 00:31 | disposition home or self-care (01) ==
PROVIDERS: Emergency Provider Emergency Medicine; PCP Internal Medicine
DX: R07.89 Other chest pain (principal); R59.0 Localized enlarged lymph nodes; H66.91 Otitis media, unspecified, right ear; M32.9 Systemic lupus erythematosus, unspecified; Z79.60 Long term (current) use of unspecified immunomodulators and immunosuppressants
CPT/HCPCS: 36415; 71045; 80053; 84484; 85025; 93005; 96372; 99284; 99285; J1885

== ENCOUNTER 2023-01-06 09:49 | Outpatient (REF) | payer OTHER, SELFPAY ==
[2023-01-06 11:40] LABS: Basophils Percent Auto 0.4 % (0-2); Eosinophils Percent Auto 0.4 % (0-4); Hematocrit 36.5 % (37.0-47.0); Lymphocytes Absolute Auto 1.1 X10*3/uL (1.2-4.9); Lymphocytes Percent Auto 45.7 % (20-40); MANUAL DIFF FLAG SCAN; Mean Corpuscular HGB Conc 32.9 g/dl (31.0-35.0); Mean Corpuscular Hemoglobin 28.7 pg (27.0-33.0); Mean Corpuscular Volume 87.3 fL (80.0-98.0); Mean Platelet Volume 10.2 fL (9.4-12.3); Monocytes Absolute Auto 0.2 X10*3/uL (0.1-1.2); Neutrophils Absolute Auto 1.1 x10*3/uL (2.0-8.3); Neutrophils Percent Auto 46.5 % (45-73); Platelet Count 199 X10*3/uL (160-400); Red Blood Count 4.18 X10*6/uL (4.20-5.50); Red Cell Distribution Width 12.6 % (11.0-16.0); SCAN SMEAR FLAG 1
[2023-01-06 11:48] LABS: White Blood Count 2.3 X10*3/uL (4.8-10.8)
[2023-01-06 12:10] LABS: Alanine Aminotransferase 28 U/L (0-31); Albumin Level 4.1 g/dL (3.5-5.0); Alkaline Phosphatase 66 U/L (39-117); Anion Gap 11 (12-20); Aspartate Amino Transferase 35 U/L (5-31); Bilirubin Total 0.5 mg/dL (0.0-1.0); Blood Urea Nitrogen 22 mg/dL (9-16); Calcium 8.7 mg/dL (8.4-10.2); Carbon Dioxide 26 mmol/L (22-29); Chloride 107 mmol/L (96-108); Estimated Glomerular Filt Rate > 60; Glucose Random 81 mg/dL (60-115); Potassium 4.3 mmol/L (3.3-5.1); SLIDE REVIEW VERIFIED; Sodium 140 mmol/L (135-145); Total Protein 7.9 g/dL (6.5-8.0)
[2023-01-06 12:39] LABS: Erythrocyte Sedimentation Rate 22 MM/HR (0-20)
== END 2023-01-06 09:50 | disposition home or self-care (01) ==
LOC: HO.LAB 09:49
PROVIDERS: PCP Internal Medicine; Visit Provider Internal Medicine Rheumatology
DX: R22.1 Localized swelling, mass and lump, neck (principal); R11.0 Nausea; M32.9 Systemic lupus erythematosus, unspecified; Z79.899 Other long term (current) drug therapy
CPT/HCPCS: 36415; 80053; 85025; 85652; 99212

== ENCOUNTER 2023-02-23 13:43 | Emergency (ER) | payer OTHER, SELFPAY ==
--- NOTE | 2023-02-23 13:57 | ED.URI ---
HPI - URI/Sore Throat General Chief Complaint: General Medical <DANIA Barnett - Last Filed: 02/23/23 14:00> Stated Complaint: Sore throat/Headache/Body aches <DANIA Barnett - Last Filed: 02/23/23 14:00> Time Seen by Provider: 02/23/23 15:14 <DANIA Barnett - Last Filed: 02/23/23 14:00> Source: patient <Zane Brunson MD - Last Filed: 02/27/23 10:12> Mode of arrival: ambulatory <Zane Brunson MD - Last Filed: 02/27/23 10:12> Limitations: no limitations <Zane Brunson MD - Last Filed: 02/27/23 10:12> History of Present Illness HPI Narrative: sore throat followed by fever with myalgias. Patient is on multiple immunosuppressives for lupus. <Zane Brunson MD - Last Filed: 02/27/23 10:12> MD elicited complaint: sore throat <Zane Brunson MD - Last Filed: 02/27/23 10:12> Related Data Home Medications: Home Medications Medication Instructions Recorded Confirmed omeprazole 20 mg capsule,delayed 40 mg PO DAILY 11/17/22 01/06/23 release amitriptyline 10 mg tablet 30 mg PO BEDTIME 01/06/23 01/06/23 Previous Rx's Medication Instructions Recorded triamcinolone acetonide 0.1 % 1 appl dental BEDTIME #5 grams 07/15/22 dental paste hydroxychloroquine 200 mg tablet 300 mg PO DAILY #45 tabs 09/17/22 prednisone 5 mg tablet See Rx Instructions .Route 09/17/22 .COMPLEX #45 tabs belimumab 200 mg/mL subcutaneous 200 mg subcut QWEEK #4 mL 12/22/22 auto-injector (Benlysta) ketorolac 10 mg tablet 10 mg PO TID PRN pain 5 days #15 12/31/22 tabs amoxicillin 500 mg-potassium 1 tab PO BID #14 tabs 01/03/23 clavulanate 125 mg tablet (Augmentin) ketorolac 10 mg tablet 10 mg PO TID PRN pain #7 tabs 01/03/23 ondansetron 4 mg disintegrating 4 mg PO TID PRN nausea/vomiting 01/06/23 tablet #90 tabs amoxicillin 875 mg-potassium 1 tab PO BID #14 tabs 02/23/23 clavulanate 125 mg tablet ondansetron 4 mg disintegrating 4 mg PO Q8H PRN nausea and 02/23/23 tablet vomiting 5 days #15 tabs prednisone 20 mg tablet 60 mg PO DAILY #12 tabs 02/23/23 <DANIA Barnett - Last Filed: 02/23/23 14:00> Allergies/Adverse Reactions: Allergies Allergy/AdvReac Type Severity Reaction Status Date / Time No Known Allergies Allergy Verified 02/23/23 13:59 <DANIA Barnett - Last Filed: 02/23/23 14:00> Review of Systems Review of Systems: Yes all other systems are reviewed and are negative <Zane Brunson MD - Last Filed: 02/27/23 10:12> Constitutional: Constitutional: Reports fatigue and Reports fever(s) <Zane Brunson MD - Last Filed: 02/27/23 10:12> ENT: Comments: sore throat <Zane Brunson MD - Last Filed: 02/27/23 10:12> Neurologic: Denies Sensory deficit (Neuro) <Zane Brunson MD - Last Filed: 02/27/23 10:12> Endocrine: Endocrine: Reports fatigue <Zane Brunson MD - Last Filed: 02/27/23 10:12> PMF Past Medical History Medical History: Medical History Generalized headaches GERD (gastroesophageal reflux disease) [employer] current use of immunosuppressive drug Systemic lupus erythematosus <DANIA Barnett - Last Filed: 02/23/23 14:00> Family History Family History: Family History Father Diabetes Arthritis Paternal Grandmother No problems noted. <DANIA Barnett - Last Filed: 02/23/23 14:00> Social History Social History: Social History Household Members: Family Housing: House Do you presently have visiting nurse or other home services: No Alcohol intake: unknown Patient Tobacco Use Status: Never used Tobacco Advance Directives: Yes Advance Directives on File: Yes Advance Directives Date on File: 03/03/22 service: No Current occupational status: unemployed <DANIA Barnett - Last Filed: 02/23/23 14:00> Physical Exam Vital Signs: Vital Signs: Last Vital Signs Temp 102.1 F H 02/23/23 13:59 Pulse 113 H 02/23/23 13:59 Resp 15 02/23/23 13:59 BP 104/65 02/23/23 13:59 Pulse Ox 98 02/23/23 13:59 O2 Del Method Room Air 02/23/23 13:59 BMI result Body Mass Index 22.6 <DANIA Barnett - Last Filed: 02/23/23 14:00> Vital Signs: Last Vital Signs Temp 102.1 F H 02/23/23 13:59 Pulse 113 H 02/23/23 13:59 Resp 15 02/23/23 13:59 BP 104/65 02/23/23 13:59 Pulse Ox 98 02/23/23 13:59 O2 Del Method Room Air 02/23/23 13:59 BMI result Body Mass Index 22.6 <Zane Brunson MD - Last Filed: 02/27/23 10:12> Const: General: healthy appearing <Zane Brunson MD - Last Filed: 02/27/23 10:12> Nutritional Appearance: average body habitus <Zane Brunson MD - Last Filed: 02/27/23 10:12> Orientation/consciousness: oriented to person and patient oriented x3 <Zane Brunson MD - Last Filed: 02/27/23 10:12> Limitations: no limitations <Zane Brunson MD - Last Filed: 02/27/23 10:12> HEENT: Other: pharynx beefy red slight exudate <Zane Brunson MD - Last Filed: 02/27/23 10:12> Head: Yes normal to inspection <Zane Brunson MD - Last Filed: 02/27/23 10:12> Ears: external ears normal <Zane Brunson MD - Last Filed: 02/27/23 10:12> General nose exam: Normal external nose present <Zane Brunson MD - Last Filed: 02/27/23 10:12> Throat: Yes posterior oropharynx normal <Zane Brunson MD - Last Filed: 02/27/23 10:12> Eyes: General: appearance normal, both eyes and all related structures <Zane Brunson MD - Last Filed: 02/27/23 10:12> Neck: Other: supple <Zane Brunson MD - Last Filed: 02/27/23 10:12> Neck: Yes normal visual inspection <Zane Brunson MD - Last Filed: 02/27/23 10:12> Chest: Chest palpation & inspection: normal inspection of the chest <Zane Brunson MD - Last Filed: 02/27/23 10:12> Resp: Auscultation: clear to auscultation bilaterally <Zane Brunson MD - Last Filed: 02/27/23 10:12> Cardio: Jugular venous distension: no JVD <Zane Brunson MD - Last Filed: 02/27/23 10:12> Rate: regular rate <Zane Brunson MD - Last Filed: 02/27/23 10:12> Rhythm: regular rhythm <Zane Brunson MD - Last Filed: 02/27/23 10:12> Heart sounds: S1 normal heart sound present and S2 normal heart sound present <Zane Brunson MD - Last Filed: 02/27/23 10:12> GI: Inspection: Yes normal to inspection <Zane Brunson MD - Last Filed: 02/27/23 10:12> Palpation (GI): Soft to palpation, nontender and No hepatosplenomegaly present <Zane Brunson MD - Last Filed: 02/27/23 10:12> Auscultation: normal bowel sounds <Zane Brunson MD - Last Filed: 02/27/23 10:12> : General: Yes no CVA tenderness <MD Gladis Cuellar Last Filed: 02/27/23 10:12> Back/Spine/Pelvis: Back: no CVA tenderness <Zane Brunson MD - Last Filed: 02/27/23 10:12> Skin: General skin exam: no rashes or lesions noted <Zane Brunson MD - Last Filed: 02/27/23 10:12> Neuro: General: oriented to person and patient oriented x3 <Zane Brunson MD - Last Filed: 02/27/23 10:12> Cranial nerves: Yes CN's II-XII intact bilaterally <Zane Brunson MD - Last Filed: 02/27/23 10:12> Motor exam (neuro): 5/5 motor strength present throughout <Zane Brunson MD - Last Filed: 02/27/23 10:12> Sensory Exam: No Sensory deficit (Neuro) <Zane Brunson MD - Last Filed: 02/27/23 10:12> Extrem: General: Yes normal to inspection <Zane Brunson MD - Last Filed: 02/27/23 10:12> Psych: Appearance: grossly normal <Zane Brunson MD - Last Filed: 02/27/23 10:12> Course Course Course Narrative: RME - 22 y/o female with history of SLE, GERD who presents to the ER for evaluation of worsening sore throat since yesterday. Unable to tolerate PO today. HR 110s in triage, febrile to 102. Nontoxic appearing. Posterior oropharynx with diffuse erythema but no tonsillar swelling. Plan: motrin, strep and covid swab. PO trial <DANIA Barnett - Last Filed: 02/23/23 14:00> Reevaluation(s) Reevaluation #1: swabs negative but patient is on a number of immunosuppressives with fever of [address] on augmentin and bump prednisone to 60 for 5 days <Zane Brunson MD - Last Filed: 02/27/23 10:12> Time: 15:47 <Zane Brunson MD - Last Filed: 02/27/23 10:12> Medications Administered Discontinued Medications Generic Name Dose Route Start Last Admin Trade Name Freq PRN Reason Stop Dose Admin Amoxicillin/Clavulanate Potassium 875 mg 02/23/23 15:50 02/23/23 16:17 Amoxicillin/Potassium Clav 875 Mg Tablet PO 02/23/23 15:51 875 mg ONCE ONE Administration Ibuprofen 600 mg 02/23/23 13:59 02/23/23 14:12 Ibuprofen 600 Mg Tablet PO 02/23/23 14:00 600 mg ONCE ONE Administration Ondansetron HCl 4 mg 02/23/23 15:50 02/23/23 16:17 Ondansetron Odt 4 Mg Tab.Rapdis TRANSLINGU 02/23/23 15:51 4 mg ONCE ONE Administration Prednisone 60 mg 02/23/23 15:50 02/23/23 16:17 Prednisone 20 Mg Tablet PO 02/23/23 15:51 60 mg ONCE ONE Administration <DANIA Barnett - Last Filed: 02/23/23 14:00> Medications Administered Discontinued Medications Generic Name Dose Route Start Last Admin Trade Name Freq PRN Reason Stop Dose Admin Amoxicillin/Clavulanate Potassium 875 mg 02/23/23 15:50 02/23/23 16:17 Amoxicillin/Potassium Clav 875 Mg Tablet PO 02/23/23 15:51 875 mg ONCE ONE Administration Ibuprofen 600 mg 02/23/23 13:59 02/23/23 14:12 Ibuprofen 600 Mg Tablet PO 02/23/23 14:00 600 mg ONCE ONE Administration Ondansetron HCl 4 mg 02/23/23 15:50 02/23/23 16:17 Ondansetron Odt 4 Mg Tab.Rapdis TRANSLINGU 02/23/23 15:51 4 mg ONCE ONE Administration Prednisone 60 mg 02/23/23 15:50 02/23/23 16:17 Prednisone 20 Mg Tablet PO 02/23/23 15:51 60 mg ONCE ONE Administration <Zane Brunson MD - Last Filed: 02/27/23 10:12> Medical Decision Making Differential Diagnosis Differential Diagnoses: The differential diagnosis associated with the presentation includes (strep throat, covid, viral pharyngitis, bacterial pharyngitis) <Zane Brunson MD - Last Filed: 02/27/23 10:12> Admission/Observation Consideration of admission/observation: Escalation of care including admission/observation considered (patient is a lupus patient on beumumab, hydrochoroquine, and prednisone who presents with fever of 102 and beefy red pharynx, admission was considered because of fever and immunosupresants) <Zane Brunson MD - Last Filed: 02/27/23 10:12> Lab Data MDM Lab Attestation statement: I reviewed the patient's lab results. <Zane Brunson MD - Last Filed: 02/27/23 10:12> Labs: Lab Results 02/23/23 02/23/23 Range/Units 14:12 14:12 COVID-19 ([facility]) Negative (Negative) COVID-19 Clin Com See Note S. pyogenes GrpA CB Negative (Negative) <DANIA Barnett - Last Filed: 02/23/23 14:00> Lab Results 02/23/23 02/23/23 Range/Units 14:12 14:12 COVID-19 ([facility]) Negative (Negative) COVID-19 Clin Com See Note S. pyogenes GrpA CB Negative (Negative) <Zane Brunson MD - Last Filed: 02/27/23 10:12> Independent Historian Clinical information obtained from an independent historian. History obtained from or confirmed by: Parent (father discussed) <Zane Brunson MD - Last Filed: 02/27/23 10:12> Discharge Plan Discharge Clinical Impression: Pharyngitis, Fever <DANIA Barnett - Last Filed: 02/23/23 14:00> Patient Disposition: Home, Self-Care <DANIA Barnett - Last Filed: 02/23/23 14:00> Instructions: Pharyngitis (ED), Fever in Adults (ED) <DANIA Barnett - Last Filed: 02/23/23 14:00> Prescriptions: New amoxicillin-pot clavulanate 875-125 mg tablet 1 tab PO BID Qty: 14 0RF ondansetron 4 mg tablet,disintegrating 4 mg PO Q8H PRN (Reason: nausea and vomiting) 5 Days Qty: 15 0RF prednisone 20 mg tablet 60 mg PO DAILY Qty: 12 0RF No Action Benlysta 200 mg/mL auto-injector 200 mg subcut QWEEK Qty: 4 5RF Rx Instructions: inject into upper thigh or abdomen; rotate sites amoxicillin-pot clavulanate [Augmentin] 500-125 mg tablet 1 tab PO BID Qty: 14 0RF ketorolac 10 mg tablet 10 mg PO TID PRN (Reason: pain) Qty: 7 0RF ketorolac 10 mg tablet 10 mg PO TID PRN (Reason: pain) 5 Days Qty: 15 0RF omeprazole 20 mg capsule,delayed release(DR/EC) 40 mg PO DAILY amitriptyline 10 mg tablet 30 mg PO BEDTIME ondansetron 4 mg tablet,disintegrating 4 mg PO TID PRN (Reason: nausea/vomiting) Qty: 90 1RF triamcinolone acetonide 0.1 % paste 1 appl dental BEDTIME Qty: 5 3RF Rx Instructions: apply to affected area at bedtime hydroxychloroquine 200 mg tablet 300 mg PO DAILY Qty: 45 3RF prednisone 5 mg tablet See Rx Instructions .ROUTE .COMPLEX Qty: 45 3RF Rx Instructions: one tab in AM and 1/2 tab in PM <DANIA Barnett - Last Filed: 02/23/23 14:00> Referrals: Erica Clayton MD [Primary Care Provider] - 5 days <DANIA Barnett - Last Filed: 02/23/23 14:00> Stand Alone Forms: Work/School Release <DANIA Barnett - Last Filed: 02/23/23 14:00> Interventions: ED Discharge Assessment Last Done: 02/23/23 16:20 <DANIA Barnett - Last Filed: 02/23/23 14:00> Discharge Date/Time: 02/23/23 16:22 <DANIA Barnett - Last Filed: 02/23/23 14:00>
[2023-02-23 13:59] VITALS: BP 104/65; PULSE 113; RESP 15; TEMP 38.9; O2SAT 98; BMI 22.6
[2023-02-23] MEDS: Ibuprofen 600 MG TABLET PO (14:12)
[2023-02-23 14:48] LABS: IDNOW Serial# 08D9AD1C; Strep A Nucleic Acid Negative (Negative)
[2023-02-23 14:50] LABS: COVID-19 Test Negative (Negative); IDNOW Serial# BCCEAD1C
[2023-02-23] MEDS: Ondansetron ODT 4 MG TAB.RAPDIS TRANSLINGU (16:17)
[2023-02-23] MEDS: predniSONE 20 MG TABLET 60 MG PO (16:17)
[2023-02-23] MEDS: Amoxicillin/Potassium Clav 875 MG TABLET PO (16:17)
== END 2023-02-23 16:22 | disposition home or self-care (01) ==
PROVIDERS: Physician Assistant; Emergency Provider Emergency Medicine; PCP Internal Medicine
DX: J02.9 Acute pharyngitis, unspecified (principal); R50.9 Fever, unspecified; Z20.822 Contact with and (suspected) exposure to COVID-19; Z20.828 Contact with and (suspected) exposure to other viral communicable diseases; Z79.899 Other long term (current) drug therapy
CPT/HCPCS: 87635; 87651; 99283

== ENCOUNTER → 2023-04-16 09:22 | Outpatient (BNVA) | payer OTHER, SELFPAY | PROVIDERS: PCP Internal Medicine; Visit Provider Internal Medicine Rheumatology | DX: M32.9 Systemic lupus erythematosus, unspecified (principal); Z79.899 Other long term (current) drug therapy | CPT/HCPCS: 99212 ==

== ENCOUNTER 2023-05-12 10:30 | Outpatient (REF) | payer OTHER, SELFPAY ==
[2023-05-12 11:08] LABS: Basophils Percent Auto 0.5 % (0-2); Eosinophils Percent Auto 2.2 % (0-4); Hematocrit 36.7 % (37.0-47.0); Hemoglobin 12.1 g/dl (12.0-16.0); Lymphocytes Percent Auto 55.1 % (20-40); MANUAL DIFF FLAG SCAN; Mean Corpuscular Hemoglobin 28.9 pg (27.0-33.0); Mean Corpuscular Volume 87.6 fL (80.0-98.0); Mean Platelet Volume 10.5 fL (9.4-12.3); Monocytes Absolute Auto 0.2 X10*3/uL (0.1-1.2); Monocytes Percent Auto 9.2 % (2-11); Neutrophils Absolute Auto 0.6 x10*3/uL (2.0-8.3); Platelet Count 194 X10*3/uL (160-400); Red Blood Count 4.19 X10*6/uL (4.20-5.50); Red Cell Distribution Width 11.9 % (11.0-16.0); SCAN SMEAR FLAG 1
[2023-05-12 11:12] LABS: White Blood Count 1.9 X10*3/uL (4.8-10.8)
[2023-05-12 11:50] LABS: SLIDE REVIEW VERIFIED
[2023-05-12 11:52] LABS: Alanine Aminotransferase 26 U/L (0-31); Alkaline Phosphatase 56 U/L (39-117); Anion Gap 11 (12-20); Aspartate Amino Transferase 31 U/L (5-31); Bilirubin Total 0.5 mg/dL (0.0-1.0); Blood Urea Nitrogen 17 mg/dL (9-16); C Reactive Protein < 0.10 mg/dL (< or = 0.50); Calcium 9.5 mg/dL (8.4-10.2); Carbon Dioxide 23 mmol/L (22-29); Chloride 104 mmol/L (96-108); Estimated Glomerular Filt Rate > 60; Glucose Random 91 mg/dL (60-115); Potassium 3.8 mmol/L (3.3-5.1); Sodium 134 mmol/L (135-145); Total Protein 7.9 g/dL (6.5-8.0)
[2023-05-12 11:57] LABS: Erythrocyte Sedimentation Rate 14 MM/HR (0-20)
[2023-05-14 11:48] LABS: Complement C3 126 mg/dL (83-193)
[2023-05-14 17:28] LABS: Anti DNA DS Antibody 1 IU/mL
== END 2023-05-12 10:31 | disposition home or self-care (01) ==
LOC: HO.LAB 10:30
PROVIDERS: PCP Internal Medicine; Visit Provider Internal Medicine Rheumatology
DX: M32.9 Systemic lupus erythematosus, unspecified (principal); Z79.899 Other long term (current) drug therapy
CPT/HCPCS: 36415; 80053; 85025; 85652; 86140; 86160; 86225

== ENCOUNTER 2023-07-10 14:21 | Outpatient (REF) | payer OTHER, SELFPAY ==
[2023-07-10 15:30] LABS: Basophils Percent Auto 0.6 % (0-2); Eosinophils Percent Auto 1.1 % (0-4); Hematocrit 37.6 % (37.0-47.0); Hemoglobin 12.5 g/dl (12.0-16.0); Imm Gran Abs Auto 0.01 X10*3/uL (0.00-0.03); Imm Gran Pct Auto 0.6 % (0.0-0.4); Lymphocytes Absolute Auto 0.9 X10*3/uL (1.2-4.9); Lymphocytes Percent Auto 48.1 % (20-40); MANUAL DIFF FLAG SCAN; Mean Corpuscular HGB Conc 33.2 g/dl (31.0-35.0); Mean Corpuscular Hemoglobin 28.6 pg (27.0-33.0); Mean Platelet Volume 10.6 fL (9.4-12.3); Monocytes Absolute Auto 0.2 X10*3/uL (0.1-1.2); Monocytes Percent Auto 10.5 % (2-11); Neutrophils Absolute Auto 0.7 x10*3/uL (2.0-8.3); Neutrophils Percent Auto 39.1 % (45-73); Platelet Count 204 X10*3/uL (160-400); Red Blood Count 4.37 X10*6/uL (4.20-5.50); SCAN SMEAR FLAG 1
[2023-07-10 15:33] LABS: White Blood Count 1.8 X10*3/uL (4.8-10.8)
[2023-07-10 15:52] LABS: SLIDE REVIEW VERIFIED
[2023-07-10 16:20] LABS: Erythrocyte Sedimentation Rate 13 MM/HR (0-20)
[2023-07-10 16:33] LABS: C Reactive Protein < 0.04 mg/dL (< or = 0.50)
[2023-07-13 13:33] LABS: Complement C3 130 mg/dL (83-193)
== END 2023-07-10 14:22 | disposition home or self-care (01) ==
LOC: HO.LAB 14:21
PROVIDERS: PCP Internal Medicine; Visit Provider Internal Medicine Rheumatology
DX: M32.9 Systemic lupus erythematosus, unspecified (principal); Z79.899 Other long term (current) drug therapy
CPT/HCPCS: 36415; 85025; 85652; 86140; 86160

== ENCOUNTER 2023-07-12 21:41 | Emergency (ER) | payer OTHER, SELFPAY ==
--- NOTE | ~2023-07-12 | XR_ITS ---
EXAMINATION: XR FINGER, LEFT CLINICAL INFORMATION: First finger injury COMPARISON: None available. TECHNIQUE: 3 views of the left second digit. FINDINGS: The bones and soft tissues are normal. No fracture. Alignment is anatomic. Joint spaces are maintained. XR/XR finger LT min 2V IMPRESSION: Normal finger radiographs.
--- NOTE | ~2023-07-12 | XR_ITS ---
EXAMINATION: XR HAND, LEFT CLINICAL INFORMATION: Acute hand pain COMPARISON: Finger radiographs earlier TECHNIQUE: PA, lateral, and oblique views of the left hand. FINDINGS: The bones and soft tissues are normal. No fracture. Alignment is anatomic. Joint spaces are maintained. No erosions or soft tissue calcifications. XR/XR hand LT 2V IMPRESSION: Normal left hand.
[2023-07-12 21:54] VITALS: BP 136/84; PULSE 59; RESP 18; TEMP 37.1; O2SAT 100
--- NOTE | 2023-07-12 23:34 | ED_ITS ---
HPI - Extremity Problem General Chief complaint: Extremity Injury, Upper Stated complaint: Finger injury Time Seen by Provider: 07/12/23 22:59 Source: patient Mode of arrival: ambulatory Limitations: no limitations History of Present Illness HPI Narrative: Patient is a 22-year-old oyeva-libo-qxadiovy female with history of SLE with long-term use of immunosuppressive drugs presenting to the emergency department with complaint of left index finger pain after she caught a ball while playing football earlier today. Patient states that she heard/felt a crack at the time of injury. She reports limited range of motion to finger related to pain. States that she applied ice prior to arrival but did not take any kqxj-jzp-whmejum medications for her pain. She denies any numbness or tingling to her finger. Denies any other injuries. Complaint: extremity pain Onset (ago): hour(s) Pain Consistency: constant Location: left and upper extremity Quality: aching Radiation: proximal Relieving factors: rest Exacerbating factors: palpation Associated symptoms: denies other symptoms Related Data Home Medications Medication Instructions Recorded Confirmed omeprazole 40 mg capsule,delayed 40 mg PO QAM 04/16/23 04/16/23 release Previous Rx's Medication Instructions Recorded triamcinolone acetonide 0.1 % 1 appl dental BEDTIME #5 grams 07/15/22 dental paste belimumab 200 mg/mL subcutaneous 200 mg subcut QWEEK #4 mL 12/22/22 auto-injector (Benlysta) ondansetron 4 mg disintegrating 4 mg PO Q8H PRN nausea and 02/23/23 tablet vomiting 5 days #15 tabs hydroxychloroquine 200 mg tablet 300 mg (1.5 x 200 mg) PO DAILY #45 03/23/23 tabs prednisone 5 mg tablet See Rx Instructions PO .COMPLEX 04/26/23 #45 tabs Allergies Allergy/AdvReac Type Severity Reaction Status Date / Time No Known Allergies Allergy Verified 07/12/23 21:53 Review of Systems Review of Systems: As per MDM. 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 Social History Social History Household Members: Family Housing: House Do you presently have visiting nurse or other home services: No Alcohol intake: unknown Patient Tobacco Use Status: Never used Tobacco Advance Directives: Yes Advance Directives on File: Yes Advance Directives Date on File: 03/03/22 service: No Current occupational status: unemployed Physical Exam Vital Signs: Vital Signs: Last Vital Signs Temp 98.7 F 07/12/23 21:54 Pulse 59 07/12/23 21:54 Resp 18 07/12/23 21:54 BP 136/84 07/12/23 21:54 Pulse Ox 100 07/12/23 21:54 O2 Del Method Room Air 07/12/23 21:54 BMI result Body Mass Index 20.0 Vital signs have been reviewed and appear to be correct. Blood pressure normal. Heart rate normal. Respiratory rate normal. Temperature normal. Oxygen saturation normal. Const: General: cooperative, healthy appearing and no acute distress Orientation/consciousness: oriented to person, oriented to place, oriented to time and patient oriented x3 Limitations: no limitations HEENT: Head: Yes normocephalic and Yes atraumatic Ears: external ears normal General nose exam: Normal external nose present Face and sinus: Yes face symmetric Mouth: oropharynx normal and moist mucous membranes Throat: Yes uvula midline Eyes: Pupils: Equal, round and reactive pupils present Neck: Neck: Yes normal visual inspection and Yes supple Resp: Effort & Inspection: normal respiratory effort and able to speak in complete sentences Auscultation: clear to auscultation bilaterally Cardio: Rate: regular rate Rhythm: regular rhythm Heart sounds: S1 normal heart sound present and S2 normal heart sound present GI: Palpation (GI): Soft to palpation and nontender Auscultation: normoactive bowel sounds : General: Yes no CVA tenderness Back/Spine/Pelvis: Back: no CVA tenderness Skin: General skin exam: elasticity normal and turgor normal Neuro: General: oriented to person, oriented to place, oriented to time, patient oriented x3, moves all extremities, no focal motor deficits and CN's II- XI intact bilaterally Cranial nerves: Yes Equal, round and reactive pupils present Cognition (Neuro): normal cognition Extrem: General: Yes full ROM, Yes no pedal edema and Yes no calf tenderness Left upper extremity: hand Details: normal to inspection, normal capillary refill, neuromotor exam normal, neurosensory exam normal, tenderness Location: of the dorsal hand Location: over the 2nd metacarpal and of the 2nd digit Location: involving the entire digit and abnormal ROM of finger Details: unable to flex Location: of the 2nd digit Psych: Mental Status: mental status grossly normal Affect: normal affect Thought process: Normal thought process present Medications Administered Discontinued Medications Generic Name Dose Route Start Last Admin Trade Name Annette PRN Reason Stop Dose Admin Acetaminophen 650 mg 07/12/23 23:30 07/12/23 23:42 Acetaminophen 325 Mg Tablet PO 07/12/23 23:31 650 mg ONCE ONE Administration Ibuprofen 600 mg 07/12/23 23:30 07/12/23 23:42 Ibuprofen 600 Mg Tablet PO 07/12/23 23:31 600 mg ONCE ONE Administration Medical Decision Making Medical Decision Making MDM Narrative: Patient is a 22-year-old jskcv-dqki-vyrnlyzo female with history of SLE with long-term use of immunosuppressive drugs presenting to the emergency department with complaint of left index finger pain after she caught a ball while playing football earlier today. On exam patient is awake, A+Ox3, VS WNL, afebrile, normal neurological exam without focal deficits, tenderness and limited ROM to left 2nd finger, normal capillary refill, tenderness over 2nd metacarpal, no swelling or ecchymosis. Given reported symptoms and physical exam findings, initial differential includes strain, sprain, fracture. X-rays notable for no acute fracture. My interpretation is in agreement with the radiologist's interpretation. All results discussed with patient and all questions answered. Discussed with patient that she can johanny tape her affected finger to the adjacent finger, should apply ice for 10-15 minutes at a time several times daily, can use Tylenol and ibuprofen as needed for pain. Will refer to orthopedics for any ongoing symptoms. Return precautions discussed at bedside. Patient verbalized understanding of and agreement with plan. Differential Diagnosis Differential Diagnoses: The differential diagnosis associated with the presentation includes As per MDM. Independent Interpretation I performed an independent interpretation of an: Plain X-Ray Interpretation: No acute fracture Radiology Impression Discussion of test interpretation with radiology: I have reviewed the radiologist's reading. Radiologist Impression: XR/XR hand LT 2V IMPRESSION: Normal left hand. XR/XR finger LT min 2V IMPRESSION: Normal finger radiographs. External Record Review External record reviewed: Inpatient record, Office record and Outpatient record Discharge Plan Discharge Clinical Impression: Sprain of finger of left hand Qualifiers: Encounter type: initial encounter Finger: index finger Sprain of finger site: unspecified site Qualified Code(s): S63.611A - Unspecified sprain of left index finger, initial encounter Patient Disposition: Home, Self-Care Instructions: Finger Sprain (ED), Jammed Finger (ED), R.I.C.E. Treatment (ED) Additional Instructions: You have been evaluated in the emergency department today for finger pain. Your evaluation did not find evidence of medical conditions requiring emergent i ntervention at this time. Your x-rays did not show any evidence of fracture. You can johanny tape your affected finger to the next finger for support. Please rest, ice, and elevate your hand, and resume normal activities as tolerated. We recommend you take 600mg ibuprofen every 6 hours or 650mg Tylenol every 6 hours as needed for pain. If Needed you can alternate these medications as they melissa e 1 medication every 3 hours. For instance at noon take ibuprofen, then at 3:00 p.m. take Tylenol, then at 6:00 p.m. take ibuprofen. Please schedule an appointment for follow-up with your primary care provider this week. Return to the emergency department if you experience worsening pain, numbness, tingling, change of color in your hand, or any other concerning symptoms. If your symptoms do not begin improve over the next 1-2 weeks, you can follow-up with orthopedics. Prescriptions: No Action Benlysta 200 mg/mL auto-injector 200 mg subcut QWEEK Qty: 4 5RF Rx Instructions: inject into upper thigh or abdomen; rotate sites hydroxychloroquine 200 mg tablet 300 mg PO DAILY Qty: 45 3RF prednisone 5 mg tablet See Rx Instructions PO .COMPLEX Qty: 45 1RF Rx Instructions: one tab in AM and 1/2 tab in PM daily ondansetron 4 mg tablet,disintegrating 4 mg PO Q8H PRN (Reason: nausea and vomiting) 5 Days Qty: 15 0RF omeprazole 40 mg capsule,delayed release(DR/EC) 40 mg PO QAM triamcinolone acetonide 0.1 % paste 1 appl dental BEDTIME Qty: 5 3RF Rx Instructions: apply to affected area at bedtime Referrals: [facility] [Provider Group]
[2023-07-12] MEDS: Ibuprofen 600 MG TABLET PO (23:42)
[2023-07-12] MEDS: Acetaminophen 325 MG TABLET 650 MG PO (23:42)
--- NOTE | 2023-07-12 23:44 | PC.NURSE ---
Assumed care of pt at 2315. Pt endorsing L hand pain from sports injury. Pt unable to extend hand completely open, equal pulses bilat. Planning for additional XR and medication for pain.
--- NOTE | 2023-07-13 00:30 | PC.NURSE ---
Justen taped 1st and 2nd fingers together for comfort. Pt tolerated well.
== END 2023-07-13 00:42 | disposition home or self-care (01) ==
PROVIDERS: Emergency Provider Internal Medicine; PCP Internal Medicine
DX: S63.611A Unspecified sprain of left index finger, initial encounter (principal); M79.642 Pain in left hand; Y93.61 Activity, american tackle football; Y93.9 Activity, unspecified; Y92.321 Football field as the place of occurrence of the external cause; Y99.9 Unspecified external cause status; Z79.899 Other long term (current) drug therapy
CPT/HCPCS: 73120; 73140; 99283

== ENCOUNTER 2023-07-16 09:14 | Outpatient (AMB) | payer OTHER, SELFPAY ==
--- NOTE | 2023-07-16 09:19 | MHC.OFFVIS ---
Intake Vital Signs 07/16/23 09:26 Height 5 ft 5 in Weight 124 lb 5.451 oz BMI 20.7 BP 90/62 Blood Pressure Location Lt brachial Position Sitting Pulse 91 Pulse Source Pulse Oximeter Temp 97.9 F Temp Source Skin Pulse Oximetry (%) 97 Oxygen Delivery Method Room Air Intake Visit Reasons: SLE Intake Note: Patient here for SLE. 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 She remains on prednisone 5 mg the morning and 2.5 in the afternoon. She is taking the Benlysta 200 mg every week. There are no problems with that. She remains on hydroxychloroquine 200 mg daily and omeprazole 40 mg daily. She does report some increased muscle aches and pains over the past week after doing some moving of her belongings to a new location. She also had a few days of pleuritic-type chest pain more on the right side of the chest with some radiation into the right upper quadrant of the abdomen. This seemed to come and go and was not associated with other symptoms. She is getting some oral ulcers that come and go but no skin rashes. She is planning on changing to a new job. 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 Social History (Updated 07/16/23 @ 09:26 by ANTWAN Watts) Household Members: Family Housing: House Do you presently have visiting nurse or other home services: No Alcohol intake: current Alcohol intake frequency: holidays/special occasions only Patient Tobacco Use Status: Never used Tobacco Advance Directives Date on File: 03/03/22 service: No Current occupational status: unemployed Review of Systems Const Details: Negative for appetite change, weight change, fever, chills, malaise and fatigue Eyes Details: Occasional headache. Negative for vision change, dry eyes and dizziness ENT Details: Some dry mouth and oral ulcers. Negative for hearing change, tinnitus, nose bleeds Card Details: Negative chest pain, edema and syncope Resp Details: Negative for SOB, cough and wheezing GI Details: Negative indigestion/heartburn, nausea, abdominal pain, bowel changes, diarrhea, constipation and bloody stool. Skin/Breast Details: Negative for itching, rash, hives, Raynaud's symptoms, sun sensitivity, and skin cancer Neuro Details: Negative for epilepsy, palsy, stroke, changes in speech, tingling and weakness Ashish/Lymph Details: Negative for excessive bruising or bleeding. Physical Exam Vital Signs: Last Vital Signs Temp 97.9 F 07/16/23 09:26 Pulse 91 07/16/23 09:26 BP 90/62 07/16/23 09:26 Pulse Ox 97 07/16/23 09:26 Oxygen Delivery Method Room Air 07/16/23 09:26 BMI result Body Mass Index 20.7 APPEARANCE: Patient in no acute distress EYES no redness, pupils equal and reactive to light, eyelids normal EARS: External ear normal, canal clear and tympanic membrane normal. NOSE/SINUS: Airflow through both nares, no nasal discharge, no bleeding THROAT: Oral mucosa moist; there are a few shallow erosions on the hard palate and the left buccal mucosa. NECK: No thyromegaly or masses, no adenopathy, trachea midline. HEART: Regulrar rhythm, S1-S2 heard, no murmurs, rubs or gallops. LUNG: Clear to percussion and auscultation ABD: Normal bowel sounds, no organomegaly, masses or tenderness. EXTREMITIES: No edema, no calf tenderness, normal peripheral pulses. NEURO: Oriented and alert x3. No focal weakness. Reflexes symmetric. Gait normal. SKIN: No inflammatory or neoplastic lesions. Normal color and turgor JOINT EXAM: She has a splint at the left 2nd finger. This was hyper extended playing some football with a cousin about 5 days ago. She did see the ER and x-rays were negative. She has plans to see Orthopedics about it.?? No tenderness or swelling in the joints. Specifically along the sternum and costosternal junction there was no tenderness. No swelling or redness. ? 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 anti-dsDNA neg. hosp with rash , arthritis, abdominal pain, lipase elevation, leukopenia, anemia, low complement Hydroxychloroquine started 02/2022 - eye exam OK 11/2022.Benlysta started 12/2022 Code(s): M32.9 - Systemic lupus erythematosus, unspecified Plan She has a few sores in the mouth but no clear signs of active inflammatory disease from the lupus. Similarly there is no rash or synovitis evident. The inflammatory markers are normal so I think we should make further attempts with tapering the prednisone to 2.5 mg b.i.d. She still of course has significant leukopenia but seems to tolerate itwithout any obvious signs of infection. I think she should follow-up with Orthopedics about the sprained finger. We will schedule her back for 2 months with lab work before that visit. Orders: Orders Erythrocyte Sedimentation Rate Today M32.9 - Systemic lupus erythematosus, unspecified, Z79.899 - Other group home (current) drug therapy C Reactive Protein Today M32.9 - Systemic lupus erythematosus, unspecified, Z79.899 - Other group home (current) drug therapy Complete Blood Count Auto Diff Today M32.9 - Systemic lupus erythematosus, unspecified, Z79.899 - Other group home (current) drug therapy Creatinine Today M32.9 - Systemic lupus erythematosus, unspecified, Z79.899 - Other group home (current) drug therapy Medications: Changed From prednisone one tab in AM and 1/2 tab in PM daily 45 tabs 1RF M32.9 - Systemic lupus erythematosus, unspecified To prednisone 1/2 tab twice a day 45 tabs 1RF M32.9 - Systemic lupus erythematosus, unspecified Coding Level of Care Code Est Pt Level 3 (16827) Diagnoses 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
[2023-07-16 09:26] VITALS: BP 90/62; PULSE 91; TEMP 36.6; O2SAT 97; BMI 20.7
== END 2023-07-16 10:03 | disposition home or self-care (01) ==
PROVIDERS: PCP Internal Medicine; Visit Provider Internal Medicine Rheumatology
DX: Z79.899 Other long term (current) drug therapy (principal); M32.9 Systemic lupus erythematosus, unspecified
CPT/HCPCS: 99213

== ENCOUNTER → 2023-07-16 09:14 | Outpatient (BNVA) | payer OTHER, SELFPAY | PROVIDERS: PCP Internal Medicine; Visit Provider Internal Medicine Rheumatology | DX: M32.9 Systemic lupus erythematosus, unspecified (principal); Z79.899 Other long term (current) drug therapy | CPT/HCPCS: 99212 ==

== ENCOUNTER 2023-08-14 08:48 | Outpatient (AMB) | payer OTHER, SELFPAY ==
--- NOTE | 2023-08-14 09:05 | MHC.OFFVIS ---
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 Patient seen in ED on 07/16/23 for her left index finger pain after she caught a ball while playing football. Patient states that she heard/felt a crack at the time of injury. She reports limited range of motion to finger related to pain however her pain has improved since date of injury, she is now able to make a full close fist. She feels tightness in her PIP joint. Also states she has numbness and tingling that started shortly after her injury. 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 In mid June 2023 she caught a football with her left hand jamming her left index finger. It sounds like it hit it mostly and on. She had radiographs at that time was told she did not have a fracture. Complaints today are of tingling sensation down the finger that has gone away and some pain that is still residual in her PIP joint of her left index finger. No numbness and tingling in any other digits. No pain in any other digits. 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 Social History Household Members: Family Housing: House Do you presently have visiting nurse or other home services: No Alcohol intake: current Alcohol intake frequency: holidays/special occasions only Patient Tobacco Use Status: Never used Tobacco Advance Directives Date on File: 03/03/22 service: No Current occupational status: unemployed Physical Exam Vital Signs: BMI result Body Mass Index 20.6 Const General: cooperative, healthy appearing and no acute distress Orientation/consciousness: oriented to person and oriented to place HEENT Head: Yes normocephalic and Yes atraumatic Eyes EOM: EOMs intact bilaterally Resp Effort & Inspection: normal respiratory effort and able to speak in complete sentences Cardio Jugular venous distension: no JVD Skin General skin exam: turgor normal Rashes: no rashes Neuro General: oriented to person and oriented to place Extrem Other: Evaluation of left Upper Extremity: Neuro: Median, ulnar, radial nerves motor and sensory intact except for some mildly decreased sensation and tingling in the left index finger extending from the tip up the length of the index finger on the volar side. Normal sensation to the adjacent digits. No thenar or intrinsic wasting. Good finger cross and APB muscle belly firing. Vascular: Cap refill brisk. ROM: Can bring fingers closed to a fist and back out to full extension. Can oppose thumb to fingertips Smooth and painless left wrist ROM Skin: No lacerations or abrasions. General: No eccymosis. No erythema or evidence of infection. Perhaps some very mild enlargement of the left index finger PIP joint compared to the adjacent digits. If so only very mild. Full active range of motion of the digit. The PIP joint is stable on exam through extension and flexion. Mild tenderness to palpation along the ulnar collateral ligament of the PIP joint with no instability. No locking and catching. Radiographs: Radiographs from June and again from today of the left hand were reviewed by me. They show no fractures or dislocations. These are normal hand radiographs. Psych Appearance: grossly normal Affect: normal affect Attitude: cooperative Assessment & Plan Assessment & Plan (1) Sprain of left index finger: Code(s): S63.611A - Unspecified sprain of left index finger, initial encounter Plan Assessment and plan: 1. Left index finger PIP sprain, mild without instability 2. Left index finger tingling sensation No numbness or tingling in adjacent digits All of these are secondary to her finger being struck by a football in mid June 2023 I do not see any operative indications or indications for treatment. I educated her about this condition We talked about activity modification while things are getting better I encouraged her to continue assuring that she has good active range of motion and avoid heavy activities with that finger for the next several weeks. Follow-up p.r.n. Orders: Orders XR hand LT min 3V Today M79.642 - Pain in left hand Coding Level of Care Code New Pt Level 3 (41227) Diagnoses Sprain of left index finger S63.611A
[2023-08-14 09:07] VITALS: BMI 20.6
== END 2023-08-14 09:41 | disposition home or self-care (01) ==
PROVIDERS: PCP Internal Medicine; Visit Provider Orthopaedic Surgery
DX: S63.611A Unspecified sprain of left index finger, initial encounter (principal)
CPT/HCPCS: 99203

== ENCOUNTER 2023-08-14 16:04 | Outpatient (REF) | payer OTHER, SELFPAY ==
--- NOTE | ~2023-08-14 | XR_ITS ---
EXAMINATION: XR HAND, LEFT CLINICAL INFORMATION: Left hand pain COMPARISON: None available. TECHNIQUE: PA, lateral, and oblique views of the left hand. FINDINGS: Arrow points to the distal aspect of the index finger. No fracture, dislocation or bony erosions. Alignment and articulations maintained. Mild soft tissue prominence second PIP. XR/XR hand LT min 3V IMPRESSION: No acute bony pathology.
== END 2023-08-14 16:05 | disposition home or self-care (01) ==
LOC: HO.HOSX 16:04
PROVIDERS: Visit Provider Orthopaedic Surgery
DX: S63.611A Unspecified sprain of left index finger, initial encounter (principal)
CPT/HCPCS: 73130; 99202

== ENCOUNTER 2023-08-27 11:46 | Outpatient (REF) | payer OTHER, SELFPAY | END 2023-08-27 11:47 | disposition home or self-care (01) | LOC: HO.MDS 11:46 | PROVIDERS: Visit Provider Internal Medicine Rheumatology | DX: M32.9 Systemic lupus erythematosus, unspecified (principal) | CPT/HCPCS: 96365; 96375; J0490; J2920 ==

== ENCOUNTER 2023-09-21 14:25 | Outpatient (AMB) | payer OTHER, SELFPAY ==
[2023-09-21 14:27] VITALS: BP 90/60; PULSE 87; TEMP 36.1; O2SAT 95; BMI 21.6
--- NOTE | 2023-09-21 14:27 | A.OFFVIS_ITS ---
Intake Vital Signs 09/21/23 14:27 Height 5 ft 5 in Weight 129 lb 10.109 oz BMI 21.6 BP 90/60 Blood Pressure Location Lt brachial Position Sitting Pulse 87 Pulse Source Pulse Oximeter Temp 97 F Temp Source Skin Pulse Oximetry (%) 95 Oxygen Delivery Method Room Air Intake Visit Reasons: sle Intake Note: Patient presents today to follow up on SLE. End User Support Specialist Required: No Accompanied by: Self / Same As Patient Allergies No Known Allergies Allergy (Verified 09/21/23 14:27) Medication List - Last Reconciled 09/21/23 by Jhonny Gentile MD belimumab (Benlysta) 600 mg IV Q4W Benlysta (belimumab) 600 mg IV Q4W NS cholecalciferol (vitamin D3) (Vitamin D3) 50 mcg PO DAILY hydroxychloroquine 300 mg (1.5 x 200 mg) PO DAILY omeprazole 40 mg PO QAM ondansetron 4 mg PO Q8H PRN 5 days prednisone 1/2 tab twice a day triamcinolone acetonide 0.1% 1 appl dental BEDTIME HPI HPI Comments History of Present Illness Details The patient returns for evaluation of her SLE. She remains on prednisone 5 mg the morning and 2.5 mg in the afternoon, hydroxychloroquine 200 mg daily, and recently received Benlysta 600 mg intravenously about a month ago. There were no adverse effects with the infusion. We had switched her from the subcutaneous injections because she thought they were too painful. She does not really have any joint pain currently. There have been no recent skin rashes or oral ulcers. She has no chest pain or abdominal pain. She does note some shortness of breath. This seems to come on at times of exertion and also with no exertion. It is unclear whether it is from asthma but she seems to think it could be. She has never had that diagnosis or been prescribed an inhaler. She was apparently yesterday at the [facility] trying to get lab work done. It is unclear what happened but she says they had drawn the blood and looking for orders. She said her relative had drawn the blood but because there were no orders they eventually discarded it. [facility] Medical History Generalized headaches GERD (gastroesophageal reflux disease) prison current use of immunosuppressive drug Systemic lupus erythematosus Family History Father Diabetes Arthritis Paternal Grandmother No problems noted. Household Members: Family Housing: House Do you presently have visiting nurse or other home services: No Alcohol intake: current Alcohol intake frequency: holidays/special occasions only Patient Tobacco Use Status: Never used Tobacco Advance Directives Date on File: 03/03/22 service: No Current occupational status: unemployed Review of Systems Const Details: Negative for appetite change, weight change, fever, chills, malaise and fatigue Eyes Details: Negative for vision change, dry eyes,headaches and dizziness ENT Details: Negative for hearing change, tinnitus, oral ulcer, nose bleeds and oral dryness. Card Details: Negative chest pain, edema and syncope Resp Details: Episodic, non exertional dyspnea. Negative for cough and wheezing GI Details: Negative indigestion/heartburn, nausea, abdominal pain, bowel changes, diarrhea, constipation and bloody stool. Details: Negative for dysuria, hematuria, nocturia, decreased force/flow and genital discharge Skin/Breast Details: Negative for itching, rash, hives, Raynaud's symptoms, sun sensitivity, and skin cancer Neuro Details: Negative for epilepsy, palsy, stroke, changes in speech, tingling and weakness Psych Details: Negative for anxiety, depression and stress Endo Details: Negative for polyuria and polydypsia Ashish/Lymph Details: Negative for excessive bruising or bleeding. Physical Exam Vital Signs: Last Vital Signs Temp 97 F 09/21/23 14:27 Pulse 87 09/21/23 14:27 BP 90/60 09/21/23 14:27 Pulse Ox 95 09/21/23 14:27 Oxygen Delivery Method Room Air 09/21/23 14:27 BMI result Body Mass Index 21.6 APPEARANCE: Patient in no acute distress APPEARANCE: Patient in no acute distress EYES no redness, pupils equal and reactive to light, eyelids normal EARS: External ear normal, canal clear and tympanic membrane normal. NOSE/SINUS: Airflow through both nares, no nasal discharge, no bleeding THROAT: Oral mucosa moist; no oral ulcers. NECK: No thyromegaly or masses, no adenopathy, trachea midline. HEART: Regulrar rhythm, S1-S2 heard, no murmurs, rubs or gallops. LUNG: Clear to percussion and auscultation ABD: Normal bowel sounds, no organomegaly, masses or tenderness. EXTREMITIES: No edema, no calf tenderness, normal peripheral pulses. NEURO: Oriented and alert x3. No focal weakness. Reflexes symmetric. Gait normal. SKIN: No inflammatory or neoplastic lesions. Normal color and turgor JOINT EXAM: No tenderness or swelling in the joints. Specifically along the sternum and costosternal junction there was no tenderness. No swelling or redness. Results Reviewed Results Reviewed: Laboratory Tests 05/12/23 07/10/23 10:44 14:42 WBC 1.8 L Hgb 12.5 ESR 13 AST 31 ALT 26 C-Reactive Protein < 0.04 Laboratory Tests 01/06/23 05/12/23 07/10/23 11:07 10:44 14:42 WBC 2.3 L 1.9 L 1.8 L Laboratory Tests 01/06/23 05/12/23 07/10/23 11:07 10:44 14:42 Absolute Neuts (auto) 1.1 L 0.6 L 0.7 L [facility] Imaging Result Report Patient: Yaz Perez Date of Service: 01/21/23 ? ? Patient Gender: Female Ordering Provider: Lisa Moncada : 00 ? ? ? Final CONTRAST CAT SCAN OF CHEST CT ABD & PELVIS W/CONTRAST Exam Date: 01/21/2023 1:21 PM Ordering Diagnosis: Adenopathy ? EXAM: CT chest, abdomen, and pelvis ? HISTORY: Cervical and mediastinal lymphadenopathy. History of chronic benign neutropenia. ? COMPARISON: CT chest angiography 12/31/2022, CT abdomen and pelvis 03/08/2022 ? TECHNIQUE: Axial CT of the chest, abdomen, and pelvis with oral and intravenous contrast. 90 cc of Isovue-370 administered intravenously. Coronal and sagittal reformatted images were generated. The radiation dose total CTDIvol: 8.53 mGy. ? FINDINGS: ? CT CHEST: ? Lungs/pleura: Few pulmonary nodules: 3 mm subpleural right apex image 71, 2 mm right lower lobe image 215, and 4 mm left lower lobe image 234. These are probably inflammatory at the patient's age. 4 mm triangular nodule in the right lower lobe along the major fissure image 153 could represent a lymph node. No mass or infiltrate. No pleural effusions. ? Lymph nodes/mediastinum: Bilateral enlarged axillary lymph nodes which measure up to 1.4 cm in short axis do not appear significantly changed. Prominent subpectoral lymph nodes also present. A lymph node in the right lateral breast measures up to 0.7 cm in short axis. Subcentimeter mediastinal lymph nodes. No hilar lymphadenopathy. Stable small amount of soft tissue density in the anterior mediastinum which has concave margins and likely represents remnant thymic tissue. ? Cardiovascular: Heart is not enlarged. No pericardial effusion. No thoracic aortic aneurysm. ? Soft tissues: Thyroid gland is not enlarged. No esophageal abnormality. ? Bones: No compression deformities. No destructive bone lesion. ? CT ABDOMEN AND PELVIS: ? Exam is mildly limited by paucity of intra-abdominal fat. ? Liver: No abnormality detected. ? Gallbladder/biliary tree: No calcified gallstones or pericholecystic infl ammatory change. No biliary ductal dilatation. ? Spleen: No abnormality detected. ? Pancreas: No abnormality detected. ? Adrenal glands: No masses. ? Kidneys/ureters: No hydronephrosis. Small extrarenal pelvis on the left. No perinephric fat stranding. No lesion detected. ? Vasculature: No abdominal aortic aneurysm. Portal vein is patent. ? Peritoneum: No evidence of free intraperitoneal air, free fluid, or organized collection. ? Lymph nodes: No lymphadenopathy detected. ? Bowel: No evidence of a bowel obstruction. No bowel inflammatory changes. Normal appendix. ? Body wall: No suspicious mass. ? Bladder: No abnormality detected. ? Reproductive: No uterine abnormality. 1.6 cm cystic lesion with a thin hyperdense irregular rim located in the right ovary probably represents a physiologic corpus luteal cyst. No left adnexal abnormality. ? Bones: No compression deformities. No destructive bone lesion. ? IMPRESSION IMPRESSION: ? Bilateral axillary lymphadenopathy as on chest CT earlier the same month. No lymphadenopathy in the abdomen or pelvis. ? POS - [id number] ? ? 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 anti-dsDNA neg. hosp with rash , arthritis, abdominal pain, lipase elevation, leukopenia, anemia, low complement Hydroxychloroquine started 02/2022 - eye exam OK 11/2022.Benlysta subcutaneously started 12/2022 -switch to IV Benlysta monthly in August 2023 Code(s): M32.9 - Systemic lupus erythematosus, unspecified Plan Lupus with no significant symptoms that would suggest lupus activity at present. She had remained with significant leukopenia, a chronic problem. We will see if that persists with the Benlysta. The shortness of breath seems to be not related to exertion. This could be asthma or anxiety related. She had a CT scan of the chest earlier this year that showed some adenopathy. An axillary node aspirate showed benign tissue. I told her to follow through with seeing her primary doctor about the shortness of breath. Perhaps PFTs or a trial of inhalers would be helpful to try to find out if she does have asthma. She seems to tolerate the 1st dose of the IV Benlysta without a problem. We will see her back in about 3 months. I will check lab work today looking at renal function, urine protein, and inflammatory markers. Her serum complement levels and anti DNA had normalized on the subcutaneous Benlysta. Orders: Orders Erythrocyte Sedimentation Rate Today M32.9 - Systemic lupus erythematosus, unspecified, Z79.899 - Other exterminator helper (current) drug therapy Complete Blood Count Auto Diff Today M32.9 - Systemic lupus erythematosus, unspecified, Z79.899 - Other snf (current) drug therapy C Reactive Protein Today M32.9 - Systemic lupus erythematosus, unspecified, Z79.899 - Other snf (current) drug therapy Comprehensive Met. 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
== END 2023-09-21 14:59 | disposition home or self-care (01) ==
PROVIDERS: PCP Internal Medicine; Visit Provider Internal Medicine Rheumatology
DX: Z79.899 Other long term (current) drug therapy (principal); M32.9 Systemic lupus erythematosus, unspecified
CPT/HCPCS: 99214

== ENCOUNTER 2023-09-21 14:25 | Outpatient (REF) | payer OTHER, SELFPAY ==
[2023-09-21 15:17] LABS: MANUAL DIFF FLAG NO
[2023-09-21 15:30] LABS: Basophils Percent Auto 0.3 % (0-2); Eosinophils Absolute Auto 0.1 X10*3/uL (0.0-0.4); Hemoglobin 12.5 g/dl (12.0-16.0); Imm Gran Abs Auto 0.01 X10*3/uL (0.00-0.03); Imm Gran Pct Auto 0.3 % (0.0-0.4); Lymphocytes Absolute Auto 0.9 X10*3/uL (1.2-4.9); Mean Corpuscular HGB Conc 32.9 g/dl (31.0-35.0); Mean Corpuscular Hemoglobin 29.1 pg (27.0-33.0); Mean Corpuscular Volume 88.4 fL (80.0-98.0); Mean Platelet Volume 10.6 fL (9.4-12.3); Monocytes Absolute Auto 0.3 X10*3/uL (0.1-1.2); Monocytes Percent Auto 10.2 % (2-11); Neutrophils Absolute Auto 1.8 x10*3/uL (2.0-8.3); Neutrophils Percent Auto 58.2 % (45-73); Platelet Count 203 X10*3/uL (160-400); Red Cell Distribution Width 12.5 % (11.0-16.0)
[2023-09-21 15:51] LABS: Alanine Aminotransferase 23 U/L (0-31); Albumin Level 3.9 g/dL (3.5-5.0); Alkaline Phosphatase 74 U/L (39-117); Anion Gap 10 (12-20); Aspartate Amino Transferase 26 U/L (5-31); Bilirubin Total 0.3 mg/dL (0.0-1.0); Blood Urea Nitrogen 12 mg/dL (9-16); C Reactive Protein 0.15 mg/dL (< or = 0.50); Carbon Dioxide 26 mmol/L (22-29); Chloride 105 mmol/L (96-108); Estimated Glomerular Filt Rate > 60; Glucose Random 87 mg/dL (60-115); Potassium 3.5 mmol/L (3.3-5.1); Sodium 137 mmol/L (135-145)
[2023-09-21 16:43] LABS: Erythrocyte Sedimentation Rate 14 MM/HR (0-20)
== END 2023-09-21 14:26 | disposition home or self-care (01) ==
LOC: HO.LAB 14:25
PROVIDERS: PCP Internal Medicine; Visit Provider Internal Medicine Rheumatology
DX: M32.9 Systemic lupus erythematosus, unspecified (principal); Z79.899 Other long term (current) drug therapy
CPT/HCPCS: 36415; 80053; 85025; 85652; 86140; 99212

== ENCOUNTER 2023-09-24 08:49 | Outpatient (REF) | payer OTHER, SELFPAY | END 2023-09-24 08:50 | disposition home or self-care (01) | LOC: HO.MDS 08:49 | PROVIDERS: Visit Provider Internal Medicine Rheumatology | DX: M32.9 Systemic lupus erythematosus, unspecified (principal) | CPT/HCPCS: 96365; 96368; J0490; J2920 ==

== ENCOUNTER 2024-07-13 18:21 | Emergency (ER) | payer OTHER, SELFPAY ==
[2024-07-13 18:35] VITALS: BP 110/71; PULSE 97; RESP 16; TEMP 36.9; O2SAT 100; BMI 19.1
--- NOTE | 2024-07-13 18:35 | ED.GENADULT ---
HPI - General Adult General Chief complaint: General Medical Stated complaint: Has Whitney having a flare up Time Seen by Provider: 07/14/24 02:39 Source: patient Mode of arrival: ambulatory Limitations: no limitations History of Present Illness ED Provider: tom HPI narrative: Patient's history of lupus has not taken her medication since 11/18 used to be on hydroxychloroquine Benlysta and prednisone comes here for increased body aches pain fever off and on nausea diarrhea which she usually had when she had flare-up had temperature of 102 degrees last night. Also complaining of cough no shortness a breath no rash no single joint enlargement Related Data Home Medications ?Medication ?Instructions ?Recorded ?Confirmed omeprazole 40 mg capsule,delayed 40 mg PO QAM 04/16/23 09/21/23 release cholecalciferol (vitamin D3) 50 50 mcg PO DAILY 09/21/23 09/21/23 mcg (2,000 unit) tablet (Vitamin D3) Previous Rx's ?Medication ?Instructions ?Recorded triamcinolone acetonide 0.1 % 1 appl dental BEDTIME #5 grams 07/15/22 dental paste ondansetron 4 mg disintegrating 4 mg PO Q8H PRN nausea and 02/23/23 tablet vomiting 5 days #15 tabs hydroxychloroquine 200 mg tablet 300 mg (1.5 x 200 mg) PO DAILY #45 03/23/23 tabs prednisone 5 mg tablet See Rx Instructions PO .COMPLEX 07/16/23 #45 tabs belimumab 400 mg intravenous 600 mg IV Q4W 08/14/23 solution (Benlysta) hydroxychloroquine 200 mg tablet 300 mg (1.5 x 200 mg) PO DAILY #60 07/14/24 tabs omeprazole 40 mg capsule,delayed 40 mg PO DAILY #90 caps 07/14/24 release prednisone 20 mg tablet 40 mg (2 x 20 mg) PO DAILY #10 tabs 07/14/24 Allergies Allergy/AdvReac Type Severity Reaction Status Date / Time lavender (Lavandula Allergy Severe Difficulty Verified 07/13/24 18:37 angustifolia) Breathing Review of Systems Review of Systems: Yes all other systems are reviewed and are negative PMFSH Past Medical History 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 Social History Social History Household Members: Family Housing: House Do you presently have visiting nurse or other home services: No Alcohol intake: never Patient Tobacco Use Status: Never used Tobacco Smoked in Last 30 Days: Yes Use of substances other than those prescribed or required for medical reasons: No Advance Directives: Yes Advance Directives on File: Yes Advance Directives Date on File: 03/03/22 service: No Current occupational status: unemployed Physical Exam ED Vital Signs: Vital Signs - 24 hr 07/13/24 18:35 07/14/24 02:10 07/14/24 04:00 Temperature 98.4 F 98.3 F 97.9 F Pulse Rate 97 67 60 Respiratory Rate 16 16 14 Blood Pressure 110/71 106/65 110/65 Pulse Oximetry 100 100 98 Oxygen Delivery Method Room Air Room Air Room Air BMI result Body Mass Index 19.1 Appearance: Alert. Oriented X3. No acute distress. Eyes: No pallor or icterus ENT: Pharynx normal. Oral Mucosa moist Neck: Normal inspection. Neck supple. CVS: Normal heart rate and rhythm. Pulses normal. Respiratory: No respiratory distress. Equal air entry bilateral, no wheezing/rales/rhonchi Abdomen: Soft and nontender. Bowel sounds are present, no mass palpable, Skin: Skin warm and dry. Normal skin color. Normal skin turgor. Extremities: No lower extremity edema. No calf tenderness diffuse bone pain no single joint enlarged Neuro: Oriented X 3. No motor deficit. Course Course Course Narrative: This is a rapid medical exam performed by Vivek Willoughby NP: Additional HPI, ROS, PE not included below will be deferred to primary provider. Patient is a 23-year-old female with history of Lupus presenting to the ED with complaint of nausea, vomiting, fevers, headaches, and intermittent hematuria. States has not had infusions since beginning of the year due to insurance issues, feels she is having a Lupus flare. Plan: labs, viral serology Medications Administered Discontinued Medications Generic Name Dose Route Start Last Admin Trade Name Freq PRN Reason Stop Dose Admin Sodium Chloride 1,000 mls @ 999 mls/hr 07/14/24 03:59 07/14/24 06:19 Ns IV 07/14/24 04:59 Infused .Q1H1M ONE Infusion Ketorolac Tromethamine 30 mg 07/14/24 05:52 07/14/24 06:17 Ketorolac Tromethamine 30 Mg/Ml Vial IVPUSH 07/14/24 05:53 30 mg ONCE ONE Administration Methylprednisolone Sodium Succinate 125 mg 07/14/24 03:59 07/14/24 04:22 Methylprednisolone Sod Succ 125 Mg/2 Ml Vial IVPUSH 07/14/24 04:00 125 mg ONCE ONE Administration Ondansetron HCl 4 mg 07/14/24 05:52 07/14/24 06:17 Ondansetron Hcl 4 Mg/2 Ml Vial IVPUSH 07/14/24 05:53 4 mg ONCE ONE Administration Medical Decision Making Medical Decision Making MDM Narrative: Patient with lupus clinically has a flare-up with elevated CRP count has leukopenia as in the past when she gets a flare-up feeling much better after prednisone will discharge patient home on prednisone and hydroxychloroquine has a follow up plan with solar energy technician next week Differential Diagnosis Differential Diagnoses: The differential diagnosis associated with the presentation includes Lupus flare-up/arthritis/viral syndrome Admission/Observation Consideration of admission/observation: Escalation of care including admission/observation considered Lab Data [facility] Lab Attestation statement: I reviewed the patient's lab results. 07/13/24 19:18 07/13/24 19:18 Labs: Lab Results 07/13/24 07/14/24 Range/Units 19:18 02:53 WBC 2.1 L (4.8-10.8) X10*3/uL RBC 4.10 L (4.20-5.50) X10*6/uL Hgb 12.1 (12.0-16.0) g/dl Hct 35.9 L (37.0-47.0) % MCV 87.6 (80.0-98.0) fL MCH 29.5 (27.0-33.0) pg MCHC 33.7 (31.0-35.0) g/dl RDW 12.3 (11.0-16.0) % Plt Count 202 (160-400) X10*3/uL MPV 10.1 (9.4-12.3) fL Immature Gran % (Auto) 0.0 (0.0-0.4) % Neut % (Auto) 53.1 (45-73) % Lymph % (Auto) 37.7 (20-40) % [place] % (Auto) 6.8 (2-11) % Eos % (Auto) 1.9 (0-4) % Baso % (Auto) 0.5 (0-2) % Lymph # (Auto) 0.8 L (1.2-4.9) X10*3/uL [place] # (Auto) 0.1 (0.1-1.2) X10*3/uL Eos # (Auto) 0.0 (0.0-0.4) X10*3/uL Baso # (Auto) 0.0 (0.0-0.2) X10*3/uL Abs Immat Gran (auto) 0.00 (0.00-0.03) X10*3/uL Absolute Neuts (auto) 1.1 L (2.0-8.3) x10*3/uL Absolute Nucleated RBC 0.000 (0.0-0.012) X10*3/uL Nucleated RBC % (auto) 0.0 (0.0-0.2) /100WBC Sodium 136 (135-145) mmol/L Potassium 3.8 (3.3-5.1) mmol/L Chloride 106 (96-108) mmol/L Carbon Dioxide 23 (22-29) mmol/L Anion Gap 11 L (12-20) BUN 12 (9-16) mg/dL Creatinine 0.64 (0.5-1.4) mg/dL Estim Creat Clear Calc 112.5 Estimated GFR > 60 Random Glucose 94 (60-115) mg/dL Calcium 8.7 (8.4-10.2) mg/dL Total Bilirubin 0.3 (0.0-1.0) mg/dL AST 46 H (5-31) U/L ALT 34 H (0-31) U/L Alkaline Phosphatase 77 (39-117) U/L C-Reactive Protein 0.17 (< or = 0.50) mg/dL Total Protein 8.6 H (6.5-8.0) g/dL Albumin 3.5 (3.5-5.0) g/dL Beta HCG, Quant < 2 mIU/mL Urine Color Dark Yellow Urine Appearance Cloudy Urine pH 5.5 (5.0-9.0) Ur Specific [place] >= 1.030 H (1.005-1.025) Urine Protein 30 (1+) H (Neg-Trace) mg/dL Urine Glucose (UA) Negative (Negative) mg/dL Urine Ketones Trace (Negative) mg/dL Urine Blood Negative (Negative) Urine Nitrite Negative (Negative) Ur Leukocyte Esterase Trace H (Negative) Urine RBC 0-2 (0-2) /HPF Urine WBC 6-10 H (0-5) /HPF Ur Squamous Epith Cells 11-20 (0-2) /HPF Urine Bacteria 3+ (None Seen) Hyaline Casts 3-5 (0-2) /LPF Influenza Type A (PCR) NEGATIVE (Negative) Influenza Type B (PCR) NEGATIVE (Negative) RSV RNA Qual (PCR) NEGATIVE (Negative) SARS-CoV-2 RNA (RT-PCR) NEGATIVE (Negative) Discharge Plan Discharge Clinical Impression: Systemic lupus erythematosus Patient Disposition: Home, Self-Care Instructions: Lupus Erythematosus (DC) Additional Instructions: Take prednisone as prescribed along with hydroxychloroquine Follow with your solar energy technician next week as scheduled Prescriptions: New prednisone 20 mg tablet 40 mg PO DAILY Qty: 10 0RF hydroxychloroquine 200 mg tablet 300 mg PO DAILY Qty: 60 0RF omeprazole 40 mg capsule,delayed release(DR/EC) 40 mg PO DAILY Qty: 90 0RF No Action hydroxychloroquine 200 mg tablet 300 mg PO DAILY Qty: 45 3RF Benlysta 400 mg recon soln 600 mg IV Q4W Rx Instructions: administer over 60 mins ondansetron 4 mg tablet,disintegrating 4 mg PO Q8H PRN (Reason: nausea and vomiting) 5 Days Qty: 15 0RF omeprazole 40 mg capsule,delayed release(DR/EC) 40 mg PO QAM triamcinolone acetonide 0.1 % paste 1 appl dental BEDTIME Qty: 5 3RF Rx Instructions: apply to affected area at bedtime cholecalciferol (vitamin D3) [Vitamin D3] 50 mcg (2,000 unit) tablet 50 mcg PO DAILY prednisone 5 mg tablet See Rx Instructions PO .COMPLEX Qty: 45 1RF Rx Instructions: 1/2 tab twice a day Interventions: ED Discharge Assessment Last Done: 07/14/24 06:27 Discharge Date/Time: 07/14/24 06:29 Print Language: Libyan
[2024-07-13 19:23] LABS: MANUAL DIFF FLAG NO
[2024-07-13 19:25] LABS: Basophils Percent Auto 0.5 % (0-2); Eosinophils Percent Auto 1.9 % (0-4); Hematocrit 35.9 % (37.0-47.0); Hemoglobin 12.1 g/dl (12.0-16.0); Lymphocytes Absolute Auto 0.8 X10*3/uL (1.2-4.9); Lymphocytes Percent Auto 37.7 % (20-40); Mean Corpuscular HGB Conc 33.7 g/dl (31.0-35.0); Mean Corpuscular Hemoglobin 29.5 pg (27.0-33.0); Mean Corpuscular Volume 87.6 fL (80.0-98.0); Mean Platelet Volume 10.1 fL (9.4-12.3); Monocytes Absolute Auto 0.1 X10*3/uL (0.1-1.2); Monocytes Percent Auto 6.8 % (2-11); Neutrophils Absolute Auto 1.1 x10*3/uL (2.0-8.3); Neutrophils Percent Auto 53.1 % (45-73); Platelet Count 202 X10*3/uL (160-400); Red Cell Distribution Width 12.3 % (11.0-16.0); SCAN SMEAR FLAG 1
[2024-07-13 19:48] LABS: White Blood Count 2.1 X10*3/uL (4.8-10.8)
[2024-07-13 20:03] LABS: Alanine Aminotransferase 34 U/L (0-31); Albumin Level 3.5 g/dL (3.5-5.0); Alkaline Phosphatase 77 U/L (39-117); Anion Gap 11 (12-20); Aspartate Amino Transferase 46 U/L (5-31); Bilirubin Total 0.3 mg/dL (0.0-1.0); Blood Urea Nitrogen 12 mg/dL (9-16); Calcium 8.7 mg/dL (8.4-10.2); Carbon Dioxide 23 mmol/L (22-29); Chloride 106 mmol/L (96-108); Creatinine Clr Calc Pharmacy 112.5; Estimated Glomerular Filt Rate > 60; Glucose Random 94 mg/dL (60-115); HCG Quantitative < 2 mIU/mL; Potassium 3.8 mmol/L (3.3-5.1); Sodium 136 mmol/L (135-145); Total Protein 8.6 g/dL (6.5-8.0)
[2024-07-13 20:04] LABS: Influenza A PCR NEGATIVE (Negative); Influenza B PCR NEGATIVE (Negative); Resp Syncy Virus RNA Qual PCR NEGATIVE (Negative); SARS COV2 PCR INHOUSE NEGATIVE (Negative)
[2024-07-14 02:10] VITALS: BP 106/65; PULSE 67; RESP 16; TEMP 36.8; O2SAT 100
[2024-07-14 03:00] LABS: Appearance Urine Cloudy; Color Urine Dark Yellow; Glucose Urine UA Negative (Negative); Leukocyte Esterase Urine Trace (Negative); Nitrite Urine Negative (Negative); PH 5.5 (5.0-9.0); Specific Gravity - Urine >= 1.030 (1.005-1.025); UMIC TRIGGER UACC YES; Urine Blood Negative (Negative); Urine Ketones Trace mg/dL (Negative); Urine Protein 30 (1+) mg/dL (Neg-Trace)
[2024-07-14 03:04] LABS: Bacteria Urine 3+ (None Seen); RBC Urine 0-2 /HPF (0-2); UACC Culture Trigger YES
[2024-07-14 04:00] VITALS: BP 110/65; PULSE 60; RESP 14; TEMP 36.6; O2SAT 98
[2024-07-14] MEDS: methylPREDNISolone Sod Succ 125 MG/2 ML VIAL IVPUSH (04:22)
[2024-07-14] MEDS: 0.9 % Sodium Chloride 1,000 ML 999 ML IV (04:23)
[2024-07-14 04:26] LABS: C Reactive Protein 0.17 mg/dL (< or = 0.50)
[2024-07-14] MEDS: Ketorolac Tromethamine 30 MG/ML VIAL IVPUSH (06:17)
[2024-07-14] MEDS: ondansetron HCL 4 MG/2 ML VIAL IVPUSH (06:17)
[2024-07-14 06:27] VITALS: BP 114/67; PULSE 78; RESP 16; TEMP 36.8; O2SAT 99
== END 2024-07-14 06:29 | disposition home or self-care (01) ==
PROVIDERS: Registered Nurse Emergency; Emergency Provider Internal Medicine; PCP Internal Medicine
DX: L93.0 Discoid lupus erythematosus (principal); Z03.818 Encounter for observation for suspected exposure to other biological agents ruled out; R05.9 Cough, unspecified; Z79.899 Other long term (current) drug therapy
CPT/HCPCS: 0241U; 36415; 80053; 81001; 81003; 84702; 85025; 86140; 87086; 96361; 96374; 96375; 99284; J1885; J2405; J2919

== ENCOUNTER 2024-08-03 15:05 | Outpatient (REF) | payer OTHER, SELFPAY ==
[2024-08-03 17:24] LABS: Appearance Urine Clear; Color Urine Yellow; Glucose Urine UA Negative (Negative); Leukocyte Esterase Urine Negative (Negative); Nitrite Urine Negative (Negative); Specific Gravity - Urine >= 1.030 (1.005-1.025); Urine Blood Negative (Negative); Urine Ketones Negative (Negative); Urine Protein Trace mg/dL (Neg-Trace)
[2024-08-03 17:27] LABS: Bacteria Urine None Seen (None Seen); Hyaline Casts Urine 0-2 /LPF (0-2); RBC Urine 0-2 /HPF (0-2); WBC Urine 0-5 /HPF (0-5)
[2024-08-03 17:29] LABS: Basophils Percent Auto 0.5 % (0-2); Eosinophils Absolute Auto 0.1 X10*3/uL (0.0-0.4); Eosinophils Percent Auto 2.6 % (0-4); Hematocrit 33.7 % (37.0-47.0); Hemoglobin 11.1 g/dl (12.0-16.0); Imm Gran Abs Auto 0.01 X10*3/uL (0.00-0.03); Imm Gran Pct Auto 0.5 % (0.0-0.4); Lymphocytes Absolute Auto 0.9 X10*3/uL (1.2-4.9); Lymphocytes Percent Auto 45.9 % (20-40); MANUAL DIFF FLAG SCAN; Mean Corpuscular HGB Conc 32.9 g/dl (31.0-35.0); Mean Corpuscular Hemoglobin 29.3 pg (27.0-33.0); Mean Corpuscular Volume 88.9 fL (80.0-98.0); Mean Platelet Volume 10.6 fL (9.4-12.3); Monocytes Absolute Auto 0.2 X10*3/uL (0.1-1.2); Monocytes Percent Auto 9.3 % (2-11); Neutrophils Absolute Auto 0.8 x10*3/uL (2.0-8.3); Neutrophils Percent Auto 41.2 % (45-73); Platelet Count 184 X10*3/uL (160-400); Red Blood Count 3.79 X10*6/uL (4.20-5.50); Red Cell Distribution Width 12.1 % (11.0-16.0); SCAN SMEAR FLAG 1
[2024-08-03 17:34] LABS: White Blood Count 1.9 X10*3/uL (4.8-10.8)
[2024-08-03 17:35] LABS: Alanine Aminotransferase 32 U/L (0-31); Albumin Level 3.9 g/dL (3.5-5.0); Alkaline Phosphatase 72 U/L (39-117); Anion Gap 11 (12-20); Aspartate Amino Transferase 42 U/L (5-31); Bilirubin Total 0.5 mg/dL (0.0-1.0); Blood Urea Nitrogen 15 mg/dL (9-16); C Reactive Protein < 0.10 mg/dL (< or = 0.50); Carbon Dioxide 26 mmol/L (22-29); Chloride 102 mmol/L (96-108); Estimated Glomerular Filt Rate > 60; Glucose Random 81 mg/dL (60-115); Potassium 3.8 mmol/L (3.3-5.1); Sodium 135 mmol/L (135-145); Total Protein 8.8 g/dL (6.5-8.0)
[2024-08-03 17:39] LABS: Creatinine Urine 211.93 mg/dL; Protein/Creatinine Ratio, Ur 0.08 (<0.2); Total Protein Urine Random 16 mg/dL (<12)
[2024-08-03 18:10] LABS: Erythrocyte Sedimentation Rate 28 MM/HR (0-20)
[2024-08-03 18:14] LABS: SLIDE REVIEW VERIFIED
[2024-08-04 04:43] LABS: HBS Num1 0.46 mIU/mL (0-7.99); HBc Num1 0.13 S/CO (0.00-0.79); HBsAGNum1 0.43 S/CO (0.00-0.99); Hepatitis A Antibody IgM 0.12 Index (0-0.79); Hepatitis B Core Antibody Nonreactive (Nonreactive); Hepatitis B Surface Antigen Negative (Negative); ~Hepatitis A Antibody IgM Nonreactive (Nonreactive); ~Hepatitis B Surface Antibody NONREACTIVE (Nonreactive); ~Hepatitis C Antibody Nonreactive (Nonreactive)
[2024-08-04 10:44] LABS: Complement C3 77 mg/dL (83-193)
[2024-08-05 13:58] LABS: Anti DNA DS Antibody 1 IU/mL
[2024-08-06 17:39] LABS: TS Negative Control Passed; TS Panel A 0; TS Panel B 0; TS Positive Control Passed; TSpotTB Negative (Negative)
== END 2024-08-03 15:06 | disposition home or self-care (01) ==
LOC: HO.LAB 15:05
PROVIDERS: PCP Internal Medicine; Visit Provider Student in an Organized Health Care Education/Training Program
DX: M32.9 Systemic lupus erythematosus, unspecified (principal); Z79.899 Other long term (current) drug therapy; I10 Essential (primary) hypertension; N92.6 Irregular menstruation, unspecified; R63.6 Underweight; R11.0 Nausea
CPT/HCPCS: 36415; 80053; 81001; 82570; 84156; 85025; 85652; 86140; 86160; 86225; 86481; 86704; 86706; 86709; 86803; 87340; 99212

== ENCOUNTER 2024-08-03 15:05 | Outpatient (AMB) | payer OTHER, SELFPAY ==
--- NOTE | 2024-08-03 15:21 | MHC.OFFVIS ---
Vital Signs 08/03/24 15:33 Height 5 ft 5 in Weight 121 lb 4.068 oz BMI 20.2 BP 112/62 Blood Pressure Location Rt brachial Position Sitting Pulse 83 Pulse Source Pulse Oximeter Pulse Oximetry (%) 92 Oxygen Delivery Method Room Air Intake Visit Reasons: Lupus/cm Intake Note: Patient presents for Lupus. Allergies lavender (Lavandula angustifolia) Allergy (Severe, Verified 08/03/24 15:24) Difficulty Breathing Medication List - Last Reconciled 08/03/24 by Ning Obregon MD albuterol sulfate 90 mcg/actuation (Ventolin HFA) inhalation belimumab (Benlysta) 600 mg IV Q4W budesonide-formoterol 80-4.5 mcg/actuation (Symbicort) inhalation cholecalciferol (vitamin D3) (Vitamin D3) 50 mcg PO DAILY hydroxychloroquine 200 mg PO DAILY omeprazole 40 mg PO DAILY ondansetron HCl 4 mg PO Q8-12H PRN prednisone 5 mg PO DAILY HPI Comments Details: This is a 23-year-old female with SLE who presents for follow-up. She was last seen by Dr. Gentile 08/2023. Patient states that she lost her insurance and has been off all her meds including her Benlysta infusion. She states that over the last few months she has not been feeling well, she has diffuse body pains, she has joint pains especially her wrists, fingers, she has been having worsening hair loss, low-grade fevers. She also lost about 15 lb of weight. She also noticed her urine has become bloody with clots, this is different from her menses. Due to her symptoms, she went to the emergency room last month and was prescribed prednisone 40 mg daily for 5 days with improvement, her symptoms came back as soon as she completed her steroid course Patient states that she has always had irregular menses. I will refer her to OBGYN She also states that since her hospitalization in 2021 she would have nausea with meals. She would like to be referred to a contact lens blocker [facility] Medical History halfway current use of immunosuppressive drug Systemic lupus erythematosus GERD (gastroesophageal reflux disease) Generalized headaches Family History Father Diabetes Arthritis Paternal Grandmother Rheumatoid arthritis Hypertension Osteoporosis Social History Household Members: Family Housing: House Do you presently have visiting nurse or other home services: No Alcohol intake: never Patient Tobacco Use Status: Never used Tobacco e-Cigarette/Vaping Use: Former Use Advance Directives Date on File: 03/03/22 service: No Current occupational status: unemployed Review of Systems Const Reports body aches, Reports fever(s), Reports weakness and Reports weight loss GI Reports nausea Details: Irregular Reports hematuria Musc Reports arthralgias and Reports joint swelling Skin/Breast Reports alopecia Neuro Reports weakness Physical Exam Vital Signs: Last Vital Signs Pulse 83 08/03/24 15:33 BP 112/62 08/03/24 15:33 Pulse Ox 92 08/03/24 15:33 Oxygen Delivery Method Room Air 08/03/24 15:33 BMI result Body Mass Index 20.2 Const General: cooperative, healthy appearing and comfortable Nutritional Appearance: thin Orientation/consciousness: patient oriented x3 Limitations: no limitations HEENT Head: Yes normocephalic and Yes atraumatic Mouth: moist mucous membranes Resp Effort & Inspection: normal respiratory effort and able to speak in complete sentences Auscultation: clear to auscultation bilaterally Skin Other: Multiple tattoos Neuro General: patient oriented x3 Extrem Other: No wrist tenderness or swelling bilaterally Few tender MCPs without swelling bilaterally Multiple swollen and tender PIP is both hands Assessment & Plan Assessment & Plan (1) Systemic lupus erythematosus: Comment: Onset 10/2021: 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 hosp with rash , arthritis, abdominal pain, lipase elevation, leukopenia, anemia Hydroxychloroquine started 02/2022 - eye exam OK 11/2022.Benlysta subcutaneously started 12/2022 -switch to IV Benlysta monthly in August 2023. Lost insurance and follow-up 08/2023 Code(s): M32.9 - Systemic lupus erythematosus, unspecified Category: Medical Plan: This is a 23-year-old female with SLE who presents for follow-up. Patient has been lost to follow-up since 08/2023. She had been maintained on hydroxychloroquine and Benlysta infusions. Patient has been off her meds for the last 10 months or so. Patient is flaring with fevers, weight loss, active synovitis. She has also states that she gets blood in the urine Check SLE activity labs today. Start hydroxychloroquine 200 mg daily and prednisone 5 mg daily We will start prior authorization for Benlysta infusions Labs before next visit in 3 months (2) halfway current use of immunosuppressive drug: Code(s): Z79.899 - Other oil heaterman (current) drug therapy Category: Medical (3) Nausea: Code(s): R11.0 - Nausea Category: Medical Plan: Chronic. Referred to GI (4) Irregular menses: Code(s): N92.6 - Irregular menstruation, unspecified Category: Medical Plan: Referred to OBGYN (5) Long-term use of hydroxychloroquine: Code(s): Z79.899 - Other oil heaterman (current) drug therapy Category: Medical Plan: Will discuss ophthalmology evaluation next visit Plan I spent 49 minutes reviewing patient's chart, evaluating patient, ordering diagnostic workup, counseling patient and documenting in the chart Orders: Orders C Reactive Protein Today M32.9 - Systemic lupus erythematosus, unspecified Erythrocyte Sedimentation Rate Today M32.9 - Systemic lupus erythematosus, unspecified UA w Microscopic Today M32.9 - Systemic lupus erythematosus, unspecified Comprehensive Met. Panel Today M3.9 - Systemic lupus erythematosus, unspecified Hepatitis A,B,C Profile Today M3.9 - Systemic lupus erythematosus, unspecified Anti DNA DS Antibody 3 Months M32.9 - Systemic lupus erythematosus, unspecified Complement C4 3 Months M32.9 - Systemic lupus erythematosus, unspecified C Reactive Protein 3 Months M32.9 - Systemic lupus erythematosus, unspecified Anti DNA DS Antibody Today M32.9 - Systemic lupus erythematosus, unspecified Complement C3 Today M32.9 - Systemic lupus erythematosus, unspecified Complement C4 Today M32.9 - Systemic lupus erythematosus, unspecified Protein Creatinine Ratio, Ur Today M32.9 - Systemic lupus erythematosus, unspecified Complete Blood Count Auto Diff Today M32.9 - Systemic lupus erythematosus, unspecified T Spot TB Today M32.9 - Systemic lupus erythematosus, unspecified Complement C3 3 Months M32.9 - Systemic lupus erythematosus, unspecified Erythrocyte Sedimentation Rate 3 Months M32.9 - Systemic lupus erythematosus, unspecified Protein Creatinine Ratio, Ur 3 Months M32.9 - Systemic lupus erythematosus, unspecified UA w Microscopic 3 Months M32.9 - Systemic lupus erythematosus, unspecified Complete Blood Count Auto Diff 3 Months M32.9 - Systemic lupus erythematosus, unspecified Comprehensive Met. 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
[2024-08-03 15:33] VITALS: BP 112/62; PULSE 83; O2SAT 92; BMI 20.2
== END 2024-08-03 16:06 | disposition home or self-care (01) ==
PROVIDERS: PCP Internal Medicine; Visit Provider Student in an Organized Health Care Education/Training Program
DX: M32.9 Systemic lupus erythematosus, unspecified (principal); Z79.899 Other long term (current) drug therapy; R11.0 Nausea; N92.6 Irregular menstruation, unspecified
CPT/HCPCS: 99215; G2211

== ENCOUNTER 2024-08-24 08:51 | Outpatient (AMB) | payer OTHER, SELFPAY ==
--- NOTE | 2024-08-24 09:16 | A.OFFVIS_ITS ---
VS Expanded 08/24/24 09:23 Height 5 ft 5 in Weight 119 lb 0.794 oz BMI 19.8 Intake Visit Reasons: Underweight/LVM Allergies lavender (Lavandula angustifolia) Allergy (Severe, Verified 08/03/24 15:24) Difficulty Breathing Nutrition Presentation Details: Pt presents for MNT for underweight. 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 Grandmother prepares home made meals and she may eat some of the meal (rice/beans/chicken) Meal time at 11-2 pm cheerios no milk or chips/ritz bitz or sausae 8-9 pm Mac and cheese or indonesian fries/nuggets with bbq sauce and sprite or burger/fries/sprite beverages: water/ice /gatorates / sprites/ (likes rodriguez's) BS Monitoring Most Recent Diabetes Results: Creatinine 0.63 mg/dL (0.5-1.4) 08/03/24 Blood Urea Nitrogen 15 mg/dL (9-16) 08/03/24 Sodium 135 mmol/L (135-145) 08/03/24 Potassium 3.8 mmol/L (3.3-5.1) 08/03/24 Chloride 102 mmol/L (96-108) 08/03/24 Carbon Dioxide 26 mmol/L (22-29) 08/03/24 Calcium 9.0 mg/dL (8.4-10.2) 08/03/24 AST 42 U/L (5-31) H 08/03/24 ALT 32 U/L (0-31) H 08/03/24 Total Protein 8.8 g/dL (6.5-8.0) H 08/03/24 Albumin 3.9 g/dL (3.5-5.0) 08/03/24 SDY-Zrubzvj-Ed.Jeor Equation Height: 5 ft 5 in Weight: 119 lb Resting Metabolic Rate: 1292.03 Calculated Activity Level: Moderate Activity Calories Needed to Maintain Weight: 2002.65 Diagnosis Nutrition problem #1: inadequate energy intake As related to (etiology) #1: decreased appetite (skipping meals, unbalanced meals with lack of fiber /protein ) PFSH Medical History M[facility] current use of immunosuppressive drug Systemic lupus erythematosus GERD (gastroesophageal reflux disease) Generalized headaches Family History Father Diabetes Arthritis Paternal Grandmother Rheumatoid arthritis Hypertension Osteoporosis Social History Household Members: Family Housing: House Do you presently have visiting nurse or other home services: No Alcohol intake: never Patient Tobacco Use Status: Never used Tobacco e-Cigarette/Vaping Use: Former Use Advance Directives Date on File: 03/03/22 service: No Current occupational status: unemployed Assessment & Plan Assessment & Plan (1) Low weight: Code(s): R63.6 - Underweight Category: Medical Plan: Wt: 54 Kg ( 08/18 ) Est kcal needs as per MSJ: 2000 + 1500 (40% carb, 30% protein/fat) Est fluid needs as per 25-30 ml/d: 1700 Est prot per day as per 1 g/kg bw: 54 Recommend fiber intake : 8-10 g per day and gradually increase to 25-28 g per day for women and 35-38 g for men or as tolerated Recommend sodium intake per day : less than 2300 mg Educated patient on: ( R = reviewed V = verbalizes understanding N/R = needs review N/A = not applicable * increasing calories from protein and fiber rich foods * Patient Instructions: Have a nutritional supplement once a day in between meals (smoothie from fruits/peanut butter and milk of choice see meal/snacks ideas options for nutrient dense foods Coding Level of Care Code Nutr Indiv Intake (64075) Diagnoses Low weight R63.6 Time Spent (min) 30
[2024-08-24 09:23] VITALS: BMI 19.8
[2024-08-30 11:35] VITALS: BMI 19.8
== END 2024-08-24 09:53 | disposition home or self-care (01) ==
LOC: HO.ENCR 08:52
PROVIDERS: PCP Internal Medicine; Visit Provider Dietitian, Registered
DX: R63.6 Underweight (principal)

== ENCOUNTER → 2024-08-24 08:51 | Outpatient (BNVA) | payer OTHER, SELFPAY | PROVIDERS: PCP Internal Medicine; Visit Provider Dietitian, Registered | DX: R63.6 Underweight (principal) | CPT/HCPCS: 97802 ==

== ENCOUNTER 2024-09-12 19:31 | Emergency (ER) | payer OTHER, SELFPAY ==
--- NOTE | ~2024-09-12 | XR_ITS ---
EXAMINATION: XR CHEST CLINICAL INFORMATION: Pain left lower lung COMPARISON: CT angiography chest 12/31/2022. Chest radiograph 12/31/2022. TECHNIQUE: 2 views of the chest were obtained. FINDINGS: The cardiac No effusions or pneumothoraces. Normal pattern of only vasculature. No focal pulmonary consolidation. No skeletal abnormalities identified. XR/XR chest 2V IMPRESSION: Normal chest. Lungs clear. Electronically signed by: Franki Castro MD 09/13/2024 05:04 AM EDVIN
[2024-09-12 19:59] VITALS: BP 111/64; PULSE 76; RESP 18; TEMP 36.1; O2SAT 100; BMI 19.1
[2024-09-12 21:38] LABS: Appearance Urine Clear; Color Urine Dark Yellow; Glucose Urine UA Negative (Negative); Leukocyte Esterase Urine Small (1+) (Negative); Nitrite Urine Negative (Negative); PH 5.5 (5.0-9.0); Specific Gravity - Urine >= 1.030 (1.005-1.025); UMIC TRIGGER UACC YES; Urine Blood Negative (Negative); Urine Ketones Negative (Negative); Urine Protein Trace mg/dL (Neg-Trace)
[2024-09-12 21:53] LABS: Bacteria Urine 1+ (None Seen); Hyaline Casts Urine 0-2 /LPF (0-2); RBC Urine 0-2 /HPF (0-2); UACC Culture Trigger YES
--- NOTE | 2024-09-13 03:05 | ED.BACK ---
HPI - Back Pain/Injury General Chief Complaint: Back Pain/Injury Stated Complaint: severe lower back pain Time Seen by Provider: 09/13/24 03:02 Source: patient Mode of arrival: ambulatory Limitations: no limitations History of Present Illness ED Provider: tom DEAN Narrative: Patient's history of lupus on Belimumab infusion comes here for pain in the left lower chest in the back for last 2 days feelss short of breath history of same pain few years ago with CTA chest was negative Related Data Home Medications ?Medication ?Instructions ?Recorded ?Confirmed cholecalciferol (vitamin D3) 50 50 mcg PO DAILY 09/21/23 08/03/24 mcg (2,000 unit) tablet (Vitamin D3) albuterol sulfate 90 mcg/actuation inhalation 08/03/24 08/03/24 aerosol inhaler (Ventolin HFA) budesonide-formoterol HFA 80 inhalation 08/03/24 08/03/24 mcg-4.5 mcg/actuation aerosol inhaler (Symbicort) Previous Rx's ?Medication ?Instructions ?Recorded belimumab 400 mg intravenous 600 mg IV Q4W 08/14/23 solution (Benlysta) omeprazole 40 mg capsule,delayed 40 mg PO DAILY #90 caps 07/14/24 release hydroxychloroquine 200 mg tablet 200 mg PO DAILY #90 tabs 08/03/24 ondansetron HCl 4 mg tablet 4 mg PO Q8-12H PRN nausea and 08/03/24 vomiting #30 tabs prednisone 5 mg tablet 5 mg PO DAILY #90 tabs 08/03/24 ibuprofen 600 mg tablet 600 mg PO Q6H PRN fever or pain 09/13/24 #30 tabs Allergies Allergy/AdvReac Type Severity Reaction Status Date / Time lavender (Lavandula Allergy Severe Difficulty Verified 09/12/24 20:01 angustifolia) Breathing Review of Systems Review of Systems: Yes all other systems are reviewed and are negative PMFSH Past Medical History 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 Systemic lupus erythematosus GERD (gastroesophageal reflux disease) Generalized headaches Family History Family History Father Diabetes Arthritis Paternal Grandmother Rheumatoid arthritis Hypertension Osteoporosis Social History Social History Household Members: Family Housing: House Do you presently have visiting nurse or other home services: No Alcohol intake: never Patient Tobacco Use Status: Never used Tobacco Smoked in Last 30 Days: No e-Cigarette/Vaping Use: Former Use Use of substances other than those prescribed or required for medical reasons: No Advance Directives: Yes Advance Directives on File: Yes Advance Directives Date on File: 03/03/22 Patient : No service: No Current occupational status: unemployed Physical Exam Vital Signs: Vital Signs: Last Vital Signs Temp 98.4 F 09/13/24 06:06 Pulse 62 09/13/24 06:06 Resp 18 09/13/24 06:06 BP 108/71 09/13/24 06:06 Pulse Ox 100 09/13/24 06:06 O2 Del Method Room Air 09/13/24 06:06 BMI result Body Mass Index 19.1 Appearance: Alert. Oriented X3. No acute distress. Eyes: PERRLA, No Nystagmus ENT: Pharynx normal. Oral Mucosa moist Neck: Normal inspection. Neck supple. CVS: Normal heart rate and rhythm. Pulses normal. Respiratory: No respiratory distress. Equal air entry bilateral, no wheezing/rales/rhonchi tenderness in the left lower ribs area Abdomen: Soft and nontender. Bowel sounds are present, no mass palpable, no CVA tenderness Skin: Skin warm and dry. Normal skin color. Normal skin turgor. Extremities: No lower extremity edema. No calf tenderness back: No spinal tenderness Neuro: Oriented X 3. No motor deficit. No sensory deficit.No cerebellar signs , cranial nerves II-XII intact Medications Administered Discontinued Medications Generic Name Dose Route Start Last Admin Trade Name Freq PRN Reason Stop Dose Admin Oxycodone HCl 10 mg 09/13/24 05:18 09/13/24 06:04 Oxycodone Hcl Immed Release 5 Mg Tablet PO 09/13/24 05:19 10 mg ONCE ONE Administration Medical Decision Making Medical Decision Making [facility] Narrative: Patient with right lung pleuritic pain D-dimer negative chest x-ray negative with history of lupus likely pleurisy will discharge patient home on ibuprofen Differential Diagnosis Differential Diagnoses: The differential diagnosis associated with the presentation includes PE/pneumonia/pleurisy/musculoskeletal Lab Data [facility] Lab Attestation statement: I reviewed the patient's lab results. Labs: Lab Results 09/12/24 09/13/24 Range/Units 21:32 03:48 D-Dimer High Sensitivty 159 NG/ML Urine Color Dark Yellow Urine Appearance Clear Urine pH 5.5 (5.0-9.0) Ur Specific Hawks >= 1.030 H (1.005-1.025) Urine Protein Trace (Neg-Trace) mg/dL Urine Glucose (UA) Negative (Negative) mg/dL Urine Ketones Negative (Negative) mg/dL Urine Blood Negative (Negative) Urine Nitrite Negative (Negative) Ur Leukocyte Esterase Small (1+) H (Negative) Urine RBC 0-2 (0-2) /HPF Urine WBC 6-10 (0-5) /HPF Ur Squamous Epith Cells 3-5 (0-2) /HPF Urine Bacteria 1+ (None Seen) Hyaline Casts 0-2 (0-2) /LPF Discharge Plan Discharge Clinical Impression: Pleurisy Patient Disposition: Home, Self-Care Instructions: Pleurisy (ED) Additional Instructions: Ibuprofen for pain Continue your other medication Prescriptions: New ibuprofen 600 mg tablet 600 mg PO Q6H PRN (Reason: fever or pain) Qty: 30 0RF No Action Benlysta 400 mg recon soln 600 mg IV Q4W Rx Instructions: administer over 60 mins omeprazole 40 mg capsule,delayed release(DR/EC) 40 mg PO DAILY Qty: 90 0RF cholecalciferol (vitamin D3) [Vitamin D3] 50 mcg (2,000 unit) tablet 50 mcg PO DAILY budesonide-formoterol [Symbicort] 80-4.5 mcg/actuation HFA aerosol inhaler inhalation albuterol sulfate [Ventolin HFA] 90 mcg/actuation HFA aerosol inhaler inhalation hydroxychloroquine 200 mg tablet 200 mg PO DAILY Qty: 90 1RF prednisone 5 mg tablet 5 mg PO DAILY Qty: 90 1RF ondansetron HCl 4 mg tablet 4 mg PO Q8-12H PRN (Reason: nausea and vomiting) Qty: 30 0RF Stand Alone Forms: Work/School Release Interventions: ED Discharge Assessment Last Done: 09/13/24 06:06 Discharge Date/Time: 09/13/24 06:06 Print Language: Thai
[2024-09-13 04:01] LABS: D Dimer High Sensitivity 159 NG/ML
[2024-09-13 06:04] VITALS: BP 108/71; PULSE 62; RESP 18; TEMP 36.9; O2SAT 100
[2024-09-13] MEDS: oxyCODONE HCl Immed Release 5 MG TABLET 10 MG PO (06:04)
[2024-09-13 06:06] VITALS: BP 108/71; PULSE 62; RESP 18; TEMP 36.9; O2SAT 100
== END 2024-09-13 06:06 | disposition home or self-care (01) ==
PROVIDERS: Emergency Provider Internal Medicine; PCP Internal Medicine
DX: R09.1 Pleurisy (principal); R06.02 Shortness of breath; M32.9 Systemic lupus erythematosus, unspecified; Z79.899 Other long term (current) drug therapy
CPT/HCPCS: 36415; 71046; 81001; 85379; 87086; 99283; 99284

== ENCOUNTER 2024-09-21 10:21 | Outpatient (AMB) | payer OTHER, SELFPAY ==
--- NOTE | 2024-09-21 10:32 | MHC.AMNUTRGE ---
VS Expanded 09/21/24 10:33 Height 5 ft 6 in Weight 118 lb 2.684 oz BMI 19.1 Intake Visit Reasons: underweight/LVM Allergies lavender (Lavandula angustifolia) Allergy (Severe, Verified 09/12/24 20:01) Difficulty Breathing Nutrition Presentation Details: Pt presents for MNT f/u for underweight. Pt reports sometimes having one meal a day due to lack of appetite vapes 7+ times/day as coping mechanism for stress, does not see therapist for stress management Has questions regarding meal supplements Looking forward to holiday celebrations meals consist of rice/sausages, cereals w milk but often dry cereal, special k snacks , sandwiches , drinks juices , sodas reports having GI side effects when consuming milk BS Monitoring Most Recent Diabetes Results: Creatinine 0.63 mg/dL (0.5-1.4) 08/03/24 Blood Urea Nitrogen 15 mg/dL (9-16) 08/03/24 Sodium 135 mmol/L (135-145) 08/03/24 Potassium 3.8 mmol/L (3.3-5.1) 08/03/24 Chloride 102 mmol/L (96-108) 08/03/24 Carbon Dioxide 26 mmol/L (22-29) 08/03/24 Calcium 9.0 mg/dL (8.4-10.2) 08/03/24 AST 42 U/L (5-31) H 08/03/24 ALT 32 U/L (0-31) H 08/03/24 Total Protein 8.8 g/dL (6.5-8.0) H 08/03/24 Albumin 3.9 g/dL (3.5-5.0) 08/03/24 [facility] Medical History long-term current use of immunosuppressive drug Systemic lupus erythematosus GERD (gastroesophageal reflux disease) Generalized headaches Family History Father Diabetes Arthritis Paternal Grandmother Rheumatoid arthritis Hypertension Osteoporosis Social History Household Members: Family Housing: House Do you presently have visiting nurse or other home services: No Alcohol intake: never Patient Tobacco Use Status: Never used Tobacco e-Cigarette/Vaping Use: Former Use Advance Directives Date on File: 03/03/22 service: No Current occupational status: unemployed Assessment & Plan Assessment & Plan (1) Low weight: Code(s): R63.6 - Underweight Category: Medical Plan: Wt: 54 Kg ( 08/18 ), 09/18 Est kcal needs as per MSJ: 2000 + 1500 (40% carb, 30% protein/fat) Est fluid needs as per 25-30 ml/d: 1700 Est prot per day as per 1 g/kg bw: 54 Recommend fiber intake : 8-10 g per day and gradually increase to 25-28 g per day for women and 35-38 g for men or as tolerated Recommend sodium intake per day : less than 2300 mg Educated patient on: ( R = reviewed V = verbalizes understanding N/R = needs review N/A = not applicable increasing calories from protein and fiber rich foods R relationship of vaping, nutrition and loss of appetite R Patient Instructions: Consider switching to lactose free milk to lessen gastrointestinal side effects Do n ot skip meals have protein shake with special k snacks /breakfast biscuit Add 1 scoop of protein powder to milk whenever having cereal or having milk with meals make smoothies at least once a day with protein shake or milk with 1 scoop of protein added Work on weaning off vaping and discuss with your doctor, Coding Level of Care Code Nutr Indiv Subseq (12873) Diagnoses Low weight R63.6 Time Spent (min) 20
[2024-09-21 10:33] VITALS: BMI 19.1
== END 2024-09-21 11:18 | disposition home or self-care (01) ==
PROVIDERS: PCP Internal Medicine; Visit Provider Dietitian, Registered
DX: R63.6 Underweight (principal)

== ENCOUNTER → 2024-09-21 10:21 | Outpatient (BNVA) | payer OTHER, SELFPAY | PROVIDERS: PCP Internal Medicine; Visit Provider Dietitian, Registered | DX: R63.6 Underweight (principal) | CPT/HCPCS: 97803 ==

== ENCOUNTER 2024-10-27 17:30 | Emergency (ER) | payer OTHER, SELFPAY ==
--- NOTE | ~2024-10-27 | CT_ITS ---
CLINICAL HISTORY: Right lower quadrant pain? Appy CT abdomen and pelvis with contrast Comparison: MR/SR - MR ABDOMEN WO/W CON - 03/15/22 14:[address]/SR - CT ABDOMEN PELVIS WO CON - 03/08/22 14:55 EDT Findings: No consolidation or effusion. The gallbladder and solid organs are within normal limits. No hydronephrosis or hydroureter. Contrast material is identified within the bilateral renal collecting systems. No bowel obstruction, pneumoperitoneum, or pneumatosis. The uterus and left adnexal region are unremarkable in appearance by CT evaluation. There is limited evaluation of the right adnexal structures related to multiple closely apposed small bowel loops of the right lower abdominal quadrant. A 2 cm involuting cyst is present at the right adnexa on coronal image number 15 of series 7. Bladder is minimally distended with fluid, limiting its evaluation. Small volume free fluid present dependently within the pelvis. Normal appendix identified along the inferior margin of the cecum with intraluminal gas, visualized on coronal image number 9 of series 7. No acute fracture visualized. IMPRESSION: 1. Small volume free fluid identified within the pelvis. This finding is nonspecific but may be related to a recently ruptured ovarian cyst. A 2 cm involuting cyst is identified of the right adnexa. 2. Normal appendix. This document has been electronically signed by: Terrance Lam MD on 10/28/2024 00:06:15
[2024-10-27 17:43] VITALS: BP 110/84; PULSE 84; RESP 18; TEMP 36.6; O2SAT 98; BMI 19.3
--- NOTE | 2024-10-27 17:55 | ED_ITS ---
HPI - General Adult General Chief complaint: Abdominal Pain Stated complaint: R sided abd pain/back pain Time Seen by Provider: 10/27/24 22:46 Source: patient History of Present Illness ED Provider: HPI narrative: Patient's history of lupus on Belimumab infusion comes here for 3 days of right lower abdominal suprapubic pain associated with nausea and poor oral intake also had diarrhea with watery stool no fever no chills Related Data Home Medications ?Medication ?Instructions ?Recorded ?Confirmed cholecalciferol (vitamin D3) 50 50 mcg PO DAILY 09/21/23 08/03/24 mcg (2,000 unit) tablet (Vitamin D3) albuterol sulfate 90 mcg/actuation inhalation 08/03/24 08/03/24 aerosol inhaler (Ventolin HFA) budesonide-formoterol HFA 80 inhalation 08/03/24 08/03/24 mcg-4.5 mcg/actuation aerosol inhaler (Symbicort) Previous Rx's ?Medication ?Instructions ?Recorded belimumab 400 mg intravenous 600 mg IV Q4W 08/14/23 solution (Benlysta) omeprazole 40 mg capsule,delayed 40 mg PO DAILY #90 caps 07/14/24 release hydroxychloroquine 200 mg tablet 200 mg PO DAILY #90 tabs 08/03/24 ondansetron HCl 4 mg tablet 4 mg PO Q8-12H PRN nausea and 08/03/24 vomiting #30 tabs prednisone 5 mg tablet 5 mg PO DAILY #90 tabs 08/03/24 ibuprofen 600 mg tablet 600 mg PO Q6H PRN fever or pain 09/13/24 #30 tabs ibuprofen 600 mg tablet 600 mg PO Q6H PRN fever or pain 10/28/24 #30 tabs Allergies Allergy/AdvReac Type Severity Reaction Status Date / Time lavender (Lavandula Allergy Severe Difficulty Verified 10/27/24 17:45 angustifolia) Breathing Review of Systems 2 Review of Systems: Yes all other systems are reviewed and are negative PMFSH Past Medical History 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 Systemic lupus erythematosus GERD (gastroesophageal reflux disease) Generalized headaches Family History Family History Father Diabetes Arthritis Paternal Grandmother Rheumatoid arthritis Hypertension Osteoporosis Social History Social History Household Members: Family Housing: House Do you presently have visiting nurse or other home services: No Alcohol intake: never Patient Tobacco Use Status: Never used Tobacco e-Cigarette/Vaping Use: Former Use Use of substances other than those prescribed or required for medical reasons: No Advance Directives: Yes Advance Directives on File: Yes Advance Directives Date on File: 03/03/22 Do you have a plan to hurt others: No Plan Patient : No service: No Current occupational status: unemployed Physical Exam ED Vital Signs: Vital Signs - 24 hr 10/27/24 17:43 10/27/24 21:46 10/28/24 00:07 Temperature 98 F 98.7 F 99.0 F Pulse Rate 84 76 75 Respiratory Rate 18 16 16 Blood Pressure 110/84 114/77 102/53 L Pulse Oximetry 98 100 100 Oxygen Delivery Method Room Air Room Air Room Air 10/28/24 00:46 Temperature 99.0 F Pulse Rate 75 Respiratory Rate 16 Blood Pressure 102/53 L Pulse Oximetry 100 Oxygen Delivery Method Room Air BMI result Body Mass Index 19.3 Appearance: Alert. Oriented X3. No acute distress. Eyes: No pallor or icterus ENT: Pharynx normal. Oral Mucosa moist Neck: Normal inspection. Neck supple. CVS: Normal heart rate and rhythm. Pulses normal. Respiratory: No respiratory distress. Equal air entry bilateral, no wheezing/rales/rhonchi Abdomen: Soft and deep tenderness suprapubic and right lower quadrant no guarding or rebound tenderness. Bowel sounds are present, no mass palpable, no CVA tenderness Skin: Skin warm and dry. Normal skin color. Normal skin turgor. Extremities: No lower extremity edema. No calf tenderness Neuro: Oriented X 3. No motor deficit. No sensory deficit.No cerebellar signs , cranial nerves II-XII intact Course Course Course Narrative: RmE: 24-year-old female presents to ED for 3 days for lower quadrant abdominal pain with nausea some diarrhea. Patient denies any fever or chills or flank pain. Labs ordered Medications Administered Discontinued Medications Generic Name Dose Route Start Last Admin Trade Name Freq PRN Reason Stop Dose Admin Sodium Chloride 1,000 mls @ 999 mls/hr 10/27/24 22:57 10/28/24 00:43 Ns IV 10/27/24 23:57 Infused .Q1H1M ONE Infusion Iohexol 85 ml 10/27/24 23:28 10/27/24 23:29 Iohexol 350 Mg/Ml 100 Ml Infus..Btl IV 10/27/24 23:29 85 ml ONCE ONE Administration Ketorolac Tromethamine 30 mg 10/28/24 00:28 10/28/24 00:35 Ketorolac Tromethamine 30 Mg/Ml Vial IVPUSH 10/28/24 00:29 30 mg ONCE ONE Administration Medical Decision Making Differential Diagnosis Differential Diagnoses: The differential diagnosis associated with the presentation includes Appendicitis/ovarian cyst/kidney stone/UTI Lab Data MDM Lab Attestation statement: I reviewed the patient's lab results. 10/27/24 19:14 10/27/24 19:14 Labs: Lab Results 10/27/24 10/27/24 Range/Units 19:14 22:51 WBC 3.6 L (4.8-10.8) X10*3/uL RBC 4.16 L (4.20-5.50) X10*6/uL Hgb 12.3 (12.0-16.0) g/dl Hct 36.2 L (37.0-47.0) % MCV 87.0 (80.0-98.0) fL MCH 29.6 (27.0-33.0) pg MCHC 34.0 (31.0-35.0) g/dl RDW 12.0 (11.0-16.0) % Plt Count 222 (160-400) X10*3/uL MPV 9.8 (9.4-12.3) fL Immature Gran % (Auto) 0.3 (0.0-0.4) % Neut % (Auto) 66.8 (45-73) % Lymph % (Auto) 24.9 (20-40) % [place] % (Auto) 5.8 (2-11) % Eos % (Auto) 1.9 (0-4) % Baso % (Auto) 0.3 (0-2) % Lymph # (Auto) 0.9 L (1.2-4.9) X10*3/uL [place] # (Auto) 0.2 (0.1-1.2) X10*3/uL Eos # (Auto) 0.1 (0.0-0.4) X10*3/uL Baso # (Auto) 0.0 (0.0-0.2) X10*3/uL Abs Immat Gran (auto) 0.01 (0.00-0.03) X10*3/uL Absolute Neuts (auto) 2.4 (2.0-8.3) x10*3/uL Absolute Nucleated RBC 0.000 (0.0-0.012) X10*3/uL Nucleated RBC % (auto) 0.0 (0.0-0.2) /100WBC Sodium 136 (135-145) mmol/L Potassium 3.8 (3.3-5.1) mmol/L Chloride 106 (96-108) mmol/L Carbon Dioxide 24 (22-29) mmol/L Anion Gap 10 L (12-20) BUN 11 (9-16) mg/dL Creatinine 0.62 (0.5-1.4) mg/dL Estim Creat Clear Calc 116.2 Estimated GFR > 60 Random Glucose 102 (60-115) mg/dL Calcium 8.5 (8.4-10.2) mg/dL Total Bilirubin 0.5 (0.0-1.0) mg/dL AST 38 H (5-31) U/L ALT 29 (0-31) U/L Alkaline Phosphatase 73 (39-117) U/L Total Protein 8.5 H (6.5-8.0) g/dL Albumin 3.8 (3.5-5.0) g/dL Beta HCG, Quant < 2 mIU/mL Urine Color Yellow Urine Appearance Clear Urine pH 6.0 (5.0-9.0) Ur Specific [place] 1.025 (1.005-1.025) Urine Protein Negative (Neg-Trace) mg/dL Urine Glucose (UA) Negative (Negative) mg/dL Urine Ketones Trace (Negative) mg/dL Urine Blood Negative (Negative) Urine Nitrite Negative (Negative) Ur Leukocyte Esterase Trace H (Negative) Urine RBC 0-2 (0-2) /HPF Urine WBC 0-5 (0-5) /HPF Ur Squamous Epith Cells 0-2 (0-2) /HPF Urine Bacteria None Seen (None Seen) Hyaline Casts 0-2 (0-2) /LPF Urine Test NEGATIVE (NEGATIVE) Influenza Type A (PCR) NEGATIVE (Negative) Influenza Type B (PCR) NEGATIVE (Negative) RSV RNA Qual (PCR) NEGATIVE (Negative) SARS-CoV-2 RNA (RT-PCR) NEGATIVE (Negative) S. pyogenes GrpA CB Negative (Negative) Independent Interpretation I performed an independent interpretation of an: CT Scan Radiology Impression Discussion of test interpretation with radiology: I have reviewed the radiologist's reading. Radiologist Impression: [address] [address] [address] Scan Report Signed Patient: Yaz Perez MR#: [id number] : 2000 Acct:[id number] Age/Sex: 24 / F ADM Date: 10/27/24 Loc: .ED Attending Dr: Ordering Physician: Saroj Hernandez MD Date of Service: 10/27/24 Procedure(s): CT abdomen pelvis w IV con Accession Number(s): [id number] cc: Nagi Rios MD; Saroj Hernandez MD~ Report Number: [id number]: Total DLP = 341.00 mGy-cm CLINICAL HISTORY: Right lower quadrant pain? Appy CT abdomen and pelvis with contrast Comparison: MR/SR - MR ABDOMEN WO/W CON - 03/15/22 14:[address]/SR - CT ABDOMEN PELVIS WO CON - 03/08/22 14:55 EDT Findings: No consolidation or effusion. The gallbladder and solid organs are within normal limits. No hydronephrosis or hydroureter. Contrast material is identified within the bilateral renal collecting systems. No bowel obstruction, pneumoperitoneum, or pneumatosis. The uterus and left adnexal region are unremarkable in appearance by CT evaluation. There is limited evaluation of the right adnexal structures related to multiple closely apposed small bowel loops of the right lower abdominal quadrant. A 2 cm involuting cyst is present at the right adnexa on coronal image number 15 of series 7. Bladder is minimally distended with fluid, limiting its evaluation. Small volume free fluid present dependently within the pelvis. Normal appendix identified along the inferior margin of the cecum with intraluminal gas, visualized on coronal image number 9 of series 7. No acute fracture visualized. IMPRESSION: 1. Small volume free fluid identified within the pelvis. This finding is nonspecific but may be related to a recently ruptured ovarian cyst. A 2 cm involuting cyst is identified of the right adnexa. 2. Normal appendix. This document has been electronically signed by: Terrance Lam MD on 10/28/2024 00:06:15 Discharge Plan Discharge Clinical Impression: Ovarian cyst Patient Disposition: Home, Self-Care Instructions: Ovarian Cyst (ED) Additional Instructions: Your pain is likely from ruptured ovarian cyst Appendix is normal Take ibuprofen for pain Prescriptions: New ibuprofen 600 mg tablet 600 mg PO Q6H PRN (Reason: fever or pain) Qty: 30 0RF No Action Benlysta 400 mg recon soln 600 mg IV Q4W Rx Instructions: administer over 60 mins ibuprofen 600 mg tablet 600 mg PO Q6H PRN (Reason: fever or pain) Qty: 30 0RF omeprazole 40 mg capsule,delayed release(DR/EC) 40 mg PO DAILY Qty: 90 0RF cholecalciferol (vitamin D3) [Vitamin D3] 50 mcg (2,000 unit) tablet 50 mcg PO DAILY budesonide-formoterol [Symbicort] 80-4.5 mcg/actuation HFA aerosol inhaler inhalation albuterol sulfate [Ventolin HFA] 90 mcg/actuation HFA aerosol inhaler inhalation hydroxychloroquine 200 mg tablet 200 mg PO DAILY Qty: 90 1RF prednisone 5 mg tablet 5 mg PO DAILY Qty: 90 1RF ondansetron HCl 4 mg tablet 4 mg PO Q8-12H PRN (Reason: nausea and vomiting) Qty: 30 0RF Interventions: ED Discharge Assessment Last Done: 10/28/24 00:46 Discharge Date/Time: 10/28/24 00:47 Print Language: Montserratian
[2024-10-27 19:19] LABS: MANUAL DIFF FLAG NO
[2024-10-27 19:20] LABS: Basophils Percent Auto 0.3 % (0-2); Eosinophils Absolute Auto 0.1 X10*3/uL (0.0-0.4); Eosinophils Percent Auto 1.9 % (0-4); Hematocrit 36.2 % (37.0-47.0); Hemoglobin 12.3 g/dl (12.0-16.0); Imm Gran Abs Auto 0.01 X10*3/uL (0.00-0.03); Imm Gran Pct Auto 0.3 % (0.0-0.4); Lymphocytes Absolute Auto 0.9 X10*3/uL (1.2-4.9); Lymphocytes Percent Auto 24.9 % (20-40); Mean Corpuscular Hemoglobin 29.6 pg (27.0-33.0); Mean Platelet Volume 9.8 fL (9.4-12.3); Monocytes Absolute Auto 0.2 X10*3/uL (0.1-1.2); Monocytes Percent Auto 5.8 % (2-11); Neutrophils Absolute Auto 2.4 x10*3/uL (2.0-8.3); Neutrophils Percent Auto 66.8 % (45-73); Platelet Count 222 X10*3/uL (160-400); Red Blood Count 4.16 X10*6/uL (4.20-5.50); White Blood Count 3.6 X10*3/uL (4.8-10.8)
[2024-10-27 19:29] LABS: IDNOW Serial# 08D9AD1C; Strep A Nucleic Acid Negative (Negative)
[2024-10-27 19:42] LABS: Alanine Aminotransferase 29 U/L (0-31); Albumin Level 3.8 g/dL (3.5-5.0); Alkaline Phosphatase 73 U/L (39-117); Anion Gap 10 (12-20); Aspartate Amino Transferase 38 U/L (5-31); Bilirubin Total 0.5 mg/dL (0.0-1.0); Blood Urea Nitrogen 11 mg/dL (9-16); Calcium 8.5 mg/dL (8.4-10.2); Carbon Dioxide 24 mmol/L (22-29); Chloride 106 mmol/L (96-108); Creatinine Clr Calc Pharmacy 116.2; Estimated Glomerular Filt Rate > 60; Glucose Random 102 mg/dL (60-115); HCG Quantitative < 2 mIU/mL; Potassium 3.8 mmol/L (3.3-5.1); Sodium 136 mmol/L (135-145); Total Protein 8.5 g/dL (6.5-8.0)
[2024-10-27 19:58] LABS: Influenza A PCR NEGATIVE (Negative); Influenza B PCR NEGATIVE (Negative); Resp Syncy Virus RNA Qual PCR NEGATIVE (Negative); SARS COV2 PCR INHOUSE NEGATIVE (Negative)
[2024-10-27 21:46] VITALS: BP 114/77; PULSE 76; RESP 16; TEMP 37.1; O2SAT 100
[2024-10-27 23:00] LABS: Appearance Urine Clear; Color Urine Yellow; Glucose Urine UA Negative (Negative); Leukocyte Esterase Urine Trace (Negative); Nitrite Urine Negative (Negative); Specific Gravity - Urine 1.025 (1.005-1.025); UMIC TRIGGER UACC YES; UPreg QC Valid YES; Urine Blood Negative (Negative); Urine Ketones Trace mg/dL (Negative); Urine Pregnancy NEGATIVE (NEGATIVE); Urine Protein Negative (Neg-Trace)
[2024-10-27] MEDS: 0.9 % Sodium Chloride 1,000 ML 999 ML IV (23:05)
[2024-10-27 23:10] LABS: Bacteria Urine None Seen (None Seen); Hyaline Casts Urine 0-2 /LPF (0-2); RBC Urine 0-2 /HPF (0-2); Squamous Epithelial Cell Urine 0-2 /HPF (0-2); WBC Urine 0-5 /HPF (0-5)
[2024-10-27] MEDS: iohexoL 350 MG/ML 100 ML INFUS..BTL 85 ML IV (23:29)
[2024-10-28 00:07] VITALS: BP 102/53; PULSE 75; RESP 16; TEMP 37.2; O2SAT 100
[2024-10-28] MEDS: Ketorolac Tromethamine 30 MG/ML VIAL IVPUSH (00:35)
[2024-10-28 00:46] VITALS: BP 102/53; PULSE 75; RESP 16; TEMP 37.2; O2SAT 100
== END 2024-10-28 00:47 | disposition home or self-care (01) ==
PROVIDERS: Physician Assistant; Emergency Provider Internal Medicine; PCP Internal Medicine
DX: N83.201 Unspecified ovarian cyst, right side (principal); R10.2 Pelvic and perineal pain; R10.31 Right lower quadrant pain; R11.0 Nausea; Z03.818 Encounter for observation for suspected exposure to other biological agents ruled out; Z79.899 Other long term (current) drug therapy
CPT/HCPCS: 0241U; 36415; 74177; 80053; 81001; 81003; 81025; 84702; 85025; 87651; 96361; 96374; 99284; 99285; J1885; Q9967

== ENCOUNTER → 2024-10-27 22:57 | Outpatient (BNV) | payer OTHER, SELFPAY | PROVIDERS: Emergency Provider Internal Medicine; PCP Internal Medicine; Visit Provider Radiology Diagnostic Radiology | DX: N83.291 Other ovarian cyst, right side (principal) | CPT/HCPCS: 74177 ==

== ENCOUNTER 2024-11-02 08:48 | Outpatient (AMB) | payer OTHER, SELFPAY ==
--- NOTE | 2024-11-02 09:06 | MHC.AMNUTRGE ---
VS Expanded 11/02/24 09:07 11/02/24 09:19 Height 5 ft 5 in 5 ft 5 in Weight 119 lb 14.903 oz BMI 20.0 Intake Visit Reasons: monitor weight Allergies lavender (Lavandula angustifolia) Allergy (Severe, Verified 10/27/24 17:45) Difficulty Breathing Nutrition Presentation Details: Pt presents for MNT f/u for low weight. Pt reports having carnation instant breakfast 2-3/d Working on reducing on vaping Meals at home consist of rice/beans/chicken or pork chops, or pasta/sauce/chicken,garlic bread, water or at work crackers/potted meat, water Energy drinks 3+/day with vitamin C added BS Monitoring Most Recent Diabetes Results: Creatinine 0.62 mg/dL (0.5-1.4) 10/27/24 Blood Urea Nitrogen 11 mg/dL (9-16) 10/27/24 Sodium 136 mmol/L (135-145) 10/27/24 Potassium 3.8 mmol/L (3.3-5.1) 10/27/24 Chloride 106 mmol/L (96-108) 10/27/24 Carbon Dioxide 24 mmol/L (22-29) 10/27/24 Calcium 8.5 mg/dL (8.4-10.2) 10/27/24 AST 38 U/L (5-31) H 10/27/24 ALT 29 U/L (0-31) 10/27/24 Total Protein 8.5 g/dL (6.5-8.0) H 10/27/24 Albumin 3.8 g/dL (3.5-5.0) 10/27/24 [facility] Medical History intermediate current use of immunosuppressive drug Systemic lupus erythematosus GERD (gastroesophageal reflux disease) Generalized headaches Family History Father Diabetes Arthritis Paternal Grandmother Rheumatoid arthritis Hypertension Osteoporosis Social History Household Members: Family Housing: House Do you presently have visiting nurse or other home services: No Alcohol intake: never Patient Tobacco Use Status: Never used Tobacco e-Cigarette/Vaping Use: Former Use Advance Directives Date on File: 03/03/22 service: No Current occupational status: unemployed Assessment & Plan Assessment & Plan (1) Low weight: Code(s): R63.6 - Underweight Category: Medical Plan: Wt: 54 Kg ( 08/18 ), 09/18, 54.5(10/2023) Est kcal needs as per MSJ: 2000 + 1500 (40% carb, 30% protein/fat) Est fluid needs as per 25-30 ml/d: 1700 Est prot per day as per 1 g/kg bw: 54 Recommend fiber intake : 8-10 g per day and gradually increase to 25-28 g per day for women and 35-38 g for men or as tolerated Recommend sodium intake per day : less than 2300 mg Educated patient on: ( R = reviewed V = verbalizes understanding N/R = needs review N/A = not applicable increasing calories from protein and fiber rich foods R, V relationship of vaping, nutrition and loss of appetite R, V Including fruits/vegetables and fats in diet: R Varying foods /combinations Patient Instructions: Continue working on not skipping meals At work vary the canned foods (poultry, fish, beans, other potte meats) choose fruit juice if no fruit available Include calcium rich foods (fish, nuts, milk, soy fortified with calcium, take a daily multivitamin Coding Level of Care Code Nutr Indiv Subseq (57621) Diagnoses Low weight R63.6 Time Spent (min) 30
== END 2024-11-02 09:36 | disposition home or self-care (01) ==
PROVIDERS: PCP Internal Medicine; Visit Provider Dietitian, Registered
DX: R63.6 Underweight (principal)

== ENCOUNTER → 2024-11-02 08:48 | Outpatient (BNVA) | payer OTHER, SELFPAY | PROVIDERS: PCP Internal Medicine; Visit Provider Dietitian, Registered | DX: R63.6 Underweight (principal) | CPT/HCPCS: 97803 ==

== ENCOUNTER 2024-11-09 08:24 | Outpatient (AMB) | payer OTHER, SELFPAY ==
--- NOTE | 2024-11-09 08:30 | A.OFFVIS_ITS ---
Vital Signs 11/09/24 08:38 Height 5 ft 5 in Weight 124 lb 5.451 oz BMI 20.7 BP 115/80 Blood Pressure Location Rt brachial Position Sitting Respiration 16 Pulse 74 Pulse Source Pulse Oximeter Pulse Oximetry (%) 98 Oxygen Delivery Method Room Air Intake Visit Reasons: Lupus/cm Intake Note: Patient presents for Lupus. Allergies lavender (Lavandula angustifolia) Allergy (Severe, Verified 11/09/24 08:35) Difficulty Breathing Medication List - Last Reconciled 11/09/24 by Ning Obregon MD albuterol sulfate 90 mcg/actuation (Ventolin HFA) inhalation belimumab (Benlysta) 600 mg IV Q4W budesonide-formoterol 80-4.5 mcg/actuation (Symbicort) inhalation cholecalciferol (vitamin D3) (Vitamin D3) 50 mcg PO DAILY hydroxychloroquine 200 mg PO DAILY ibuprofen 600 mg PO Q6H PRN ibuprofen 600 mg PO Q6H PRN omeprazole 40 mg PO DAILY ondansetron HCl 4 mg PO Q8-12H PRN prednisone 5 mg PO DAILY HPI Comments Details: This is a 24-year-old female with SLE who presents for follow-up. She started Benlysta infusions. She received 3 doses so far. She states that she has been feeling better overall with improved overall pain, fatigue and fevers, she states that as the infusion is wearing off she starts to get more body pains. She takes prednisone 5-10 mg daily once or twice a week as needed for pains. She has not been compliant with hydroxychloroquine. 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 Systemic lupus erythematosus GERD (gastroesophageal reflux disease) Generalized headaches Family History Father Diabetes Arthritis Paternal Grandmother Rheumatoid arthritis Hypertension Osteoporosis Social History Household Members: Family Housing: House Do you presently have visiting nurse or other home services: No Alcohol intake: never Patient Tobacco Use Status: Never used Tobacco e-Cigarette/Vaping Use: Former Use Advance Directives Date on File: 03/03/22 service: No Current occupational status: unemployed Review of Systems Const Reports body aches Musc Reports arthralgias and Reports joint swelling Physical Exam Vital Signs: Last Vital Signs Pulse 74 11/09/24 08:38 Resp 16 11/09/24 08:38 BP 115/80 11/09/24 08:38 Pulse Ox 98 11/09/24 08:38 Oxygen Delivery Method Room Air 11/09/24 08:38 BMI result Body Mass Index 20.7 Const General: cooperative, healthy appearing and comfortable Nutritional Appearance: thin Orientation/consciousness: patient oriented x3 Limitations: no limitations HEENT Head: Yes normocephalic and Yes atraumatic Mouth: moist mucous membranes Resp Effort & Inspection: normal respiratory effort and able to speak in complete sentences Auscultation: clear to auscultation bilaterally Skin Other: Multiple tattoos Neuro General: patient oriented x3 Extrem Other: Bilateral wrist tenderness without swelling Few tender MCPs without swelling bilaterally Multiple swollen and tender PIPs both hands No knee pain with full flexion-extension bilaterally No ankle swelling or tenderness bilaterally Assessment & Plan Assessment & Plan (1) Systemic lupus erythematosus: Comment: Onset 10/2021: 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 hosp with rash , arthritis, abdominal pain, lipase elevation, leukopenia, anemia Hydroxychloroquine started 02/2022 - eye exam OK 11/2022.Benlysta subcutaneously started 12/2022 -switch to IV Benlysta monthly in August 2023. Lost insurance and follow-up 08/2023 Benlysta infusions restarted 07/2024 Code(s): M32.9 - Systemic lupus erythematosus, unspecified Category: Medical Plan: This is a 24-year-old female with SLE who presents for follow-up. Started Benlysta infusions 3 months ago and doing better overall but continues to have active synovitis, has not been compliant with hydroxychloroquine. Continues to take prednisone 5-10 mg once or twice a week. I reinforced compliance with hydroxychloroquine. 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 Advised patient to make an appointment with her integration architect as soon as possible Plan I spent 25 minutes reviewing patient's chart, evaluating patient, ordering diagnostic workup, counseling patient and documenting in the chart Orders: Orders Comprehensive Met. Panel 3 Months M32.9 - Systemic lupus erythematosus, u nspecified Erythrocyte Sedimentation Rate 3 Months M32.9 - Systemic lupus erythematosus, unspecified Anti DNA DS Antibody 3 Months M32.9 - Systemic lupus erythematosus, unspecified Complete Blood Count Auto Diff 3 Months M32.9 - Systemic lupus erythematosus, unspecified C Reactive Protein 3 Months M32.9 - Systemic lupus erythematosus, unspecified Complement C3 3 Months M32.9 - Systemic lupus erythematosus, unspecified Complement C4 3 Months M32.9 - Systemic lupus erythematosus, unspecified Protein Creatinine Ratio, Ur 3 Months M32.9 - Systemic lupus erythematosus, unspecified UA w Microscopic 3 Months M32.9 - Systemic lupus erythematosus, unspecified Coding Level of Care Code Est Pt Level 4 (80349) Diagnoses Systemic lupus erythematosus M32.9 residential current use of immunosuppressive drug Z79.899 Long-term use of hydroxychloroquine Z79.899
[2024-11-09 08:38] VITALS: BP 115/80; PULSE 74; RESP 16; O2SAT 98; BMI 20.7
== END 2024-11-09 09:04 | disposition home or self-care (01) ==
PROVIDERS: PCP Internal Medicine; Visit Provider Student in an Organized Health Care Education/Training Program
DX: M32.9 Systemic lupus erythematosus, unspecified (principal); Z79.899 Other long term (current) drug therapy
CPT/HCPCS: 99214

== ENCOUNTER → 2024-11-09 08:24 | Outpatient (BNVA) | payer OTHER, SELFPAY | PROVIDERS: PCP Internal Medicine; Visit Provider Student in an Organized Health Care Education/Training Program | DX: M32.9 Systemic lupus erythematosus, unspecified (principal); Z79.899 Other long term (current) drug therapy | CPT/HCPCS: 99212 ==

== ENCOUNTER 2025-05-12 23:06 | Emergency (ER) | payer OTHER, SELFPAY ==
--- NOTE | ~2025-05-12 | XR_ITS ---
CLINICAL HISTORY: pain Right ankle three views Comparison: None provided Findings: No acute fracture or dislocation identified. No acute focal bony abnormality. No radiopaque foreign body noted. Impression: No acute bony abnormality This document has been electronically signed by: Sang Preston MD on 05/13/2025 00:54:34
--- NOTE | ~2025-05-12 | XR_ITS ---
CLINICAL HISTORY: pain Right foot three views Comparison: None provided Findings: No acute fracture or dislocation identified. No acute focal bony abnormality. No radiopaque foreign body noted. Impression: No acute bony abnormality This document has been electronically signed by: Sang Preston MD on 05/13/2025 00:55:08
[2025-05-12 23:23] VITALS: BP 111/67; PULSE 78; RESP 18; TEMP 36.9; O2SAT 100; BMI 20.8
[2025-05-12 23:44] LABS: UPreg QC Valid YES
--- OUTSIDE RECORDS SUMMARY | 2025-05-12 23:47 | XMS_ITS | Clinical Summary ---
Author Organization [address] Address [address] [place] [phone] Phone Care Team Providers Care Supply Service Worker Name Role Phone Nagi Rios MD Primary Care Provider Allergies No known active allergies Medications albuterol HFA (PROAIR HFA ; PROVENTIL HFA ; VENTOLIN HFA) 90 mcg/actuation inhaler Inhale 2 puffs by mouth every 4 (four) hours if needed (Cough or Wheezing). 09/25/2023 Active belimumab (Benlysta) 120 mg recon soln injection Infuse into a venous catheter every 7 (seven) days. Active budesonide-form oteroL (SYMBICORT) 80-4.5 mcg/actuation inhaler Inhale 2 puffs by mouth 1 (one) time each day. 09/25/2023 Active cholecalciferol (VITAMIN D-3) 50 mcg (2,000 unit) tablet Take 1 tablet (2,000 Units total) by mouth 1 (one) time each day. 07/16/2023 Active hydroxychloroqu ine (PLAQUENIL) 200 mg tablet Take 1.5 tablets (300 mg total) by mouth 1 (one) time each day. 04/07/2022 Active omeprazole (PriLOSEC) [address] capsule Take 1 capsule (40 mg total) by mouth 1 (one) time each day. Active ondansetron (ZOFRAN) 4 mg tablet Take 1 tablet (4 mg total) by mouth every 8 (eight) hours if needed for nausea. 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 Lin (03/27/22) ADHD (attention deficit hyperactivity disorder) 05/11/2018 Overview (10/13/2024): 09/23/16 off meds - Vyvanse for 1 1/2 years. Seeing therapist Alla Pop with [facility] Anxiety 05/11/2018 Immunizations Name Administration Dates Next Due DTaP (Infanrix) 6wks to less than 7yo ,02/22/2004,06/22/2003,04/07,06/15/2001 USxD-SVD-PON (Pentacel) 2mo to less than 5yo 04/06/2002,06/15/2001,01/15/2001,12/20 H1N1 Inj Preservative Free 09/13/2009 HPV, Quadrivalent 11/14/2014,10/18/2012,09/12/20 11 Hepatitis B Pediatric (Enger ix B; Recombivax HB) to less than 20 yo 06/15/2001,2000,2000 IPV Inactivated polio (Ipol) 6wks and older 12/20/2004,12/16/2002,04/06/2002,01/15 Influenza Quadravalent, MDCK , 0.5ml, preservative free (Flucelvax) 6mo and older 10/14/2022 Influenza trivalent, with pr eservative (Fluzone; Afluria) 6mo and older 09/23/2016,11/14/2014,10/18/2012,09/12,08/12/2010,07/13/2009 MMR, measles mumps and rubel la Live (Priorix; M-M-R II) 12mo and older 12/20/2004,12/20/2001 Meningococcal Conjugate (Men veo) MenACWY 11yo to less than 19 yo 09/23/2016 Meningococcal MCV4P 09/12/2011 [email or web address] SARS-CoV-2 COVID-19, mRNA, LNP-S, preservative free 07/18/2021,06/25/2021 Pneumococcal Conjugate Vacci ne, 7 Valent 01/15/2001 Td Tetanus diptheria (Tdvax) 7yo and older 12/10/2021 Tdap Tetanus diptheria acell ular pertussis (Boostrix; Adacel) 7yo and older 09/12/2011 Varicella live (Varivax) 12m o and older 09/13/2009,12/16/2002 Surgical History Surgery Date Site/Laterality Comments OTHER SURGICAL HISTORY PROCEDURE: DENIES PREVIOUS SURGERY Medical History Medical History Date Comments Chronic leukopenia 08/17/2019 DX:Chronic le ukopenia; COMMENT: Referred to hematology Nausea and vomiting DX:Nausea an d vomiting Weight loss DX:Weight loss Epigastric pain DX:Epigastric pa in Pancytopenia (CMS/HCC V24, C MS/HCC V28) DX:Pancytopenia (HCC) Anxiety state DX:Anxiety state Depressive disorder DX:Depressiv e disorder Lupus 04/07/2022 DX:Lupus Family History Medical History Relation Name Comments Other: ovarian cancer Aunt Depression Father Hypertension Father Other: doesnot know Mother Other cancer Paternal Grandfather Diabetes Paternal Grandmother Coronary artery disease Neg Hx Relation Name Status Comments Aunt Alive Father Alive Mother Other Paternal Grandfather Paternal Grandmother Social History Tobacco Use Types Packs/Day Years Used Date Smoking Tobacco: Never Smokeless Tobacco: Never Alcohol Use Standard Drinks/Week Comments No 0 (1 standard drink = 0.6 oz pur e alcohol) Comments Unknown Sex and Gender Information Value Date Recorded Sex Assigned at Not on file Legal Sex Female 1:32 AM EST Gender Identity Not on file Sexual Orientation Not on file Obstetrics History Last Filed Vital Signs Vital Sign Reading Time Taken Comments Blood Pressure 109/84 09/25/2023 2:33 PM EST Sit ting L Arm Pulse 72 09/25/2023 2:33 PM EST Temperature - - Respiratory Rate - - Oxygen Saturation - - Inhaled Oxygen Concentration - - Weight 57.6 kg (127 lb) 09/25/2023 2:33 PM EST Height 162.6 cm (5' 4 ) 09/25/2023 2:33 PM EST Body Mass Index 21.8 09/25/2023 2:33 PM EST Plan of Treatment Health Maintenance Due Date Last Done Comments Pneumococcal Vaccine: Pediatrics (0 to 5 Years) and At-Risk Patients (6 to 49 Years) (1 of 3 - PPSV23) 03/12/2001 01/15/2001 Gonorrhea/Chlamydia Screening 08/16/2020 08/16/2019 Cervical Cancer Screening: Pap Smear 2021 COVID-19 Vaccine (3 - Pfizer risk series) 08/15/2021 07/18/2021, 06/25/2021 Depression Screening 10/04/2022 Social Influencers of Health Screening 10/04/2022 Influenza Vaccine (#1) 2025 , 09/23/2016, 11/14/2014, Additional history exists Cholesterol Screening (Lipid Panel) 06/10/2028 06/10/2023 DTaP,Tdap,and Td Vaccines (8 - Td or Tdap) 12/10/2031 12/10/2021, 09/12/2011, 12/20/2004, Additional history exists Hepatitis B Vaccines Completed 06/15/2001, 2000, 2000 HIB Vaccines Completed 04/06/2002, 05/27, 01/15/2001, Additional history exists IPV Vaccines Completed 12/20/2004, 11/27, 04/06/2002, Additional history exists MMR Vaccines Completed 12/20/2004, 12/20/2001 Varicella Vaccines Completed 09/13/2009, 12/16/2002 HPV Vaccines Completed 11/14/2014, 09/26, 09/12/2011 Meningococcal ACWY Vaccine Completed 09/23/2016, HIV Screening Completed 06/10/2023 Hepatitis C Screening Completed 06/10/2023 Hepatitis A Vaccines Aged Out No long er eligible based on patient's age to complete this topic Meningococcal B Vaccine Aged Out No l onger eligible based on patient's age to complete this topic RSV Immunization Patients Under 20 months Aged Out No longer eligible based on patient's age to complete this topic Procedures Procedure Name Priority Date/Time Associated Diagnosis Comments HEPATITIS C SCREENING Routine 06/10/2023 HIV SCREENING Routine 06/10/2023 LIPID PANEL Routine 06/10/2023 GONORRHEA/CHLAMYDIA SCRREENING Routine 08/16/2019 from Last 3 Months or Most Recently Relevant to Health Maintenance Results * HIV Screening (06/10/2023) Pathologist [facility] HIV Screening Abstracted [facility] Provider HEALTH MAINTENANCE Final Result * Hepatitis C Screening (06/10/2023) Pathologist [facility] Hepatitis C Screening Abstracted [facility] Provider HEALTH MAINTENANCE Final Result * Lipid panel (06/10/2023) Pathologist [facility] LDL/HDL Ratio 2 0 - 4 Triglycerides 52 0 - 150 mg/dL Cholesterol 169 0 - 200 mg/dL HDL 76 >=40 mg/dL LDL Cholesterol 83 0 - 100 mg/dL Blood Venous blood specimen / Unknown [facility] Provider LAB BLOOD ORDERABLES Kindra l Result * Gonorrhea/Chlamydia Screening (08/16/2019) Pathologist [facility] Gonorrhea/Chla mydia Screening Abstracted [facility] Provider HEALTH MAINTENANCE Final Result from Last 3 Months or Most Recently Relevant to Health Maintenance Insurance [facility] Care Teams Supply Service Worker Relationship Specialty Start Date End Date Nagi Rios MD [address] [place] [id number] PCP - General 06/09/23
--- OUTSIDE RECORDS SUMMARY | 2025-05-12 23:47 | XMS_ITS | Referral Summary ---
Author Organization [facility] Address [address] [place] [address] Care Team Providers Care Client Evaluator Name Role Phone Patient, Has No Pcp Or Ref Primary Care Provider Unavailable Allergies No known active allergies Social History Tobacco Use Types Packs/Day Years Used Date Smoking Tobacco: Never Assessed Comments Unknown Sex and Gender Information Value Date Recorded Sex Assigned at Not on file Legal Sex Female 4:19 PM EDT Gender Identity Not on file Sexual Orientation Not on file Last Filed Vital Signs Vital Sign Reading Time Taken Comments Blood Pressure 115/71 05/20/2022 4:20 PM EDT Pulse 69 05/20/2022 4:20 PM EDT Temperature 36.4 C (97.5 F) 05/20/2022 4:20 PM EDT Respiratory Rate 16 05/20/2022 4:20 PM EDT Oxygen Saturation 98% 05/20/2022 4:20 PM EDT Inhaled Oxygen Concentration - - Weight - - Height - - Body Mass Index - - Plan of Treatment Not on file Insurance [employer] Care Teams Client Evaluator Relationship Specialty Start Date End Date Patient, Has No Pcp Or Ref DO NOT EDIT THIS RECORD VIA PROVIDER ON THE FLY PCP - General Marine Habitat Resource Specialist 05/20/22
--- OUTSIDE RECORDS SUMMARY | 2025-05-12 23:47 | XMS_ITS | Clinical Summary ---
Author Organization [facility] Address [address] [place] [address] Care Team Providers Care Senior Software Developer Name Role Phone Erica Clayton MD Primary Care Provider [phone] Allergies No known active allergies Medications Medication Sig Dispensed Refills Start Date End Date Status amitriptyline (ELAVIL) tablet 25 mg Take 1 tablet (25 mg total) by mouth every night at bedtime. 0 Active predniSONE (DELTASONE) 5 mg tablet Take by mouth. 0 Active omeprazole (PriLOSEC) 20 MG capsule Take 1 capsule (20 mg total) by mouth daily. 0 Active hydroxychloroquine (PLAQUENIL) 200 MG tablet Take by mouth daily. 0 Active Ondansetron 4 MG FILM Take by mouth. 0 Active Active Problems No known active problems Social History Tobacco Use Types Packs/Day Years Used Date Smoking Tobacco: Never Smokeless Tobacco: Never Alcohol Use Standard Drinks/Week Comments Never 0 (1 standard drink = 0.6 oz pur e alcohol) Sex and Gender Information Value Date Recorded Sex Assigned at Not on file Gender Identity Not on file Sexual Orientation Not on file Job Start Date Occupation Industry Not on file Not on file Not on file Last Filed Vital Signs Vital Sign Reading Time Taken Comments Blood Pressure 119/70 02/12/2023 8:13 AM EDT Pulse 78 02/12/2023 8:13 AM EDT Temperature 36.3 C (97.4 F) 02/12/2023 8:13 AM EDT Respiratory Rate - - Oxygen Saturation 99% 02/12/2023 8:13 AM EDT Inhaled Oxygen Concentration - - Weight 57.6 kg (127 lb) 02/12/2023 8:13 AM EDT Height 162.6 cm (5' 4 ) 02/12/2023 8:13 AM EDT Body Mass Index 21.8 02/12/2023 8:13 AM EDT Plan of Treatment Health Maintenance Due Date Last Done Comments Hepatitis C Screening 2000 Depression Screening 2012 Gonorrhea and Chlamydia Screening 2013 Preventative Health Evaluation 2018 Cervical Cancer Screening (Pap Smear) 2021 COVID-19 Vaccine ( season) 2024 07/18/2021, 06/25/2021 Influenza Vaccine (#1) 2025 , 09/25/2022, 09/23/2016, Additional history exists DTap / Tdap / Td (8 - Td or Tdap) 12/10/2031 12/10/2021, 09/12/2011, 12/20/2004, Additional history exists Pneumococcal Vaccine Aged Out 01/15/2001 No long er eligible based on patient's age to complete this topic Hepatitis B Vaccines Completed 06/15/2001, 2000, 2000 RSV Ped < 20 months Aged Out No longe r eligible based on patient's age to complete this topic Care Teams Senior Software Developer Relationship Specialty Start Date End Date Erica Clayton MD PCP - General Internal Medicine 02/25/22
--- NOTE | 2025-05-13 00:59 | ED_ITS ---
HPI - Extremity Injury (Lower) General Chief Complaint: Extremity Injury, Lower Stated Complaint: R Ankle pain Time Seen by Provider: 05/13/25 00:16 Source: patient Mode of arrival: ambulatory Limitations: no limitations History of Present Illness ED Provider: HPI Narrative: Patient's history of lupus usually well controlled comes here for right ankle and dorsum of the foot pain for last 3 days no injury no other joint involvement no fever no rash patient does not get similar episodes in the past involving different joints taking prednisone 5 mg daily which she increased to 10 mg without much relief no fever no chills Related Data Home Medications ?Medication ?Instructions ?Recorded ?Confirmed cholecalciferol (vitamin D3) 50 50 mcg PO DAILY 08/03/24 mcg (2,000 unit) tablet (Vitamin D3) albuterol sulfate 90 mcg/actuation inhalation 08/03/24 08/03/24 aerosol inhaler (Ventolin HFA) budesonide-formoterol HFA 80 inhalation 08/03/2408/03 mcg-4.5 mcg/actuation aerosol inhaler (Symbicort) Previous Rx's ?Medication ?Instructions ?Recorded belimumab 400 mg intravenous 600 mg IV Q4W 08/14/23 solution (Benlysta) omeprazole 40 mg capsule,delayed 40 mg PO DAILY #90 ca ps 07/14/24 release ondansetron HCl 4 mg tablet 4 mg PO Q8-12H PRN nausea and 08/03/24 vomiting #30 tabs ibuprofen 600 mg tablet 600 mg PO Q6H PRN fever or p ain 09/13/24 #30 tabs ibuprofen 600 mg tablet 600 mg PO Q6H PRN fever or p ain 10/28/24 #30 tabs hydroxychloroquine 200 mg tablet 200 mg PO DAILY #90 t abs 02/15/25 prednisone 5 mg tablet 5 mg PO DAILY #90 tabs 04/19 tramadol 50 mg tablet 50 mg PO Q6H PRN pain #20 ta bs 05/13/25 Allergies Allergy/AdvReac Type Severity Reaction Status Date / Time lavender (Lavandula Allergy Severe Difficulty Verified 05/12/25 23:23 angustifolia) Breathing Review of Systems Review of Systems: Yes all other systems are reviewed and are negative PMFSH Past Medical History Medical History 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 Systemic lupus erythematosus GERD (gastroesophageal reflux disease) Generalized headaches Family History Family History Father Diabetes Arthritis Paternal Grandmother Rheumatoid arthritis Hypertension Osteoporosis Social History Social History Household Members: Family Housing: House Do you presently have visiting nurse or other home services: No Alcohol intake: never Patient Tobacco Use Status: Never used Tobacco e-Cigarette/Vaping Use: Former Use Advance Directives Date on File: 03/03/22 service: No Current occupational status: unemployed Physical Exam Vital Signs: Vital Signs: Last Vital Signs Temp 98.4 F 05/13/25 01:11 Pulse 78 05/13/25 01:11 Resp 18 05/13/25 01:11 BP 111/67 05/13/25 01:11 Pulse Ox 100 05/13/25 01:11 O2 Del Method Room Air 05/13/25 01:11 BMI result Body Mass Index 20.8 Appearance: Alert. Oriented X3. No acute distress. Eyes: no pallor or icterus ENT: Pharynx normal Oral Mucosa moist tympanic membrane intact no erythema, Neck: Normal inspection. Neck supple. CVS: Normal heart rate and rhythm. Pulses normal. Respiratory: No respiratory distress. Equal air entry bilateral, no wheezing/rales/rhonchi Abd: soft, not tender Skin: Skin warm and dry. Normal skin color. Normal skin turgor. Extremities: No lower extremity edema, no calf tenderness right ankle slight swelling of the dorsum of the foot ankle mortise normal Neuro: Oriented X 3. Medications Administered Discontinued Medications Generic Name Dose Route Start Last Admin Trade Name Freq PRN Reason Stop Dose Admin Tramadol HCl 50 mg 05/13/25 01:05 05/13/25 01:12 Tramadol Hcl 50 Mg Tablet PO 05/13/25 01:06 50 mg ONCE ONE Administration Medical Decision Making Medical Decision Making [facility] Narrative: Patient with right ankle pain atraumatic with history of lupus likely due to lupus arthritis Lab Data [facility] Lab Attestation statement: I reviewed the patient's lab results. Labs: Lab Results 05/12/25 Range/Units 23:34 Urine Test NEGATIVE (NEGATIVE) Independent Interpretation I performed an independent interpretation of an: Plain X-Ray Radiology Impression Discussion of test interpretation with radiology: I have reviewed the radiologist's reading. Discharge Plan Discharge Clinical Impression: Systemic lupus erythematosus, Ankle sprain and strain Patient Disposition: Home, Self-Care Instructions: Ankle Sprain (ED) Additional Instructions: Likely have right foot pain from lupus Increase the dose of prednisone to 20 mg daily for 5 days Continue ibuprofen Take tramadol for severe pain Use crutches For ambulation Prescriptions: New tramadol 50 mg tablet 50 mg PO Q6H PRN (Reason: pain) Qty: 20 0RF No Action Benlysta 400 mg recon soln 600 mg IV Q4W Rx Instructions: administer over 60 mins hydroxychloroquine 200 mg tablet 200 mg PO DAILY Qty: 90 1RF prednisone 5 mg tablet 5 mg PO DAILY Qty: 90 1RF ibuprofen 600 mg tablet 600 mg PO Q6H PRN (Reason: fever or pain) Qty: 30 0RF omeprazole 40 mg capsule,delayed release(DR/EC) 40 mg PO DAILY Qty: 90 0RF ibuprofen 600 mg tablet 600 mg PO Q6H PRN (Reason: fever or pain) Qty: 30 0RF cholecalciferol (vitamin D3) [Vitamin D3] 50 mcg (2,000 unit) tablet 50 mcg PO DAILY budesonide-formoterol [Symbicort] 80-4.5 mcg/actuation HFA aerosol inhaler inhalation albuterol sulfate [Ventolin HFA] 90 mcg/actuation HFA aerosol inhaler inhalation ondansetron HCl 4 mg tablet 4 mg PO Q8-12H PRN (Reason: nausea and vomiting) Qty: 30 0RF Stand Alone Forms: Work/School Release Interventions: ED Discharge Assessment Last Done: 05/13/25 01:11 Discharge Date/Time: 05/13/25 01:17 Print Language: [place]
[2025-05-13 01:11] VITALS: BP 111/67; PULSE 78; RESP 18; TEMP 36.9; O2SAT 100
== END 2025-05-13 01:17 | disposition home or self-care (01) ==
PROVIDERS: Emergency Provider Internal Medicine; PCP Internal Medicine
DX: M32.9 Systemic lupus erythematosus, unspecified (principal); S96.911A Strain of unspecified muscle and tendon at ankle and foot level, right foot, initial encounter; S93.401A Sprain of unspecified ligament of right ankle, initial encounter; X58.XXXA Exposure to other specified factors, initial encounter; Y93.9 Activity, unspecified; Y92.9 Unspecified place or not applicable; Y99.9 Unspecified external cause status
CPT/HCPCS: 73610; 73630; 81025; 99283

== ENCOUNTER → 2025-05-13 | Outpatient (BNV) | payer OTHER, SELFPAY | PROVIDERS: Emergency Provider Internal Medicine; PCP Internal Medicine; Visit Provider Radiology Diagnostic Radiology | DX: M25.571 Pain in right ankle and joints of right foot (principal); M79.671 Pain in right foot | CPT/HCPCS: 73610; 73630 ==

== ENCOUNTER 2025-06-29 14:23 | Emergency (ER) | payer OTHER, SELFPAY ==
--- NOTE | ~2025-06-29 | CT_ITS ---
CLINICAL HISTORY: abdominal pain CT abdomen and pelvis with contrast Comparison: CT of the abdomen and pelvis from 10/27/2024 Findings: No consolidation of the imaged lung bases. Mild fat deposition of the liver adjacent to falciform ligament. Gallbladder is unremarkable for CT. Adrenal glands and pancreas are partly obscured and otherwise unremarkable. Spleen is nonenlarged. No hydronephrosis. Nonenlarged lymphadenopathy by CT. No small bowel obstruction. Severe stool burden is present, including in the cecum imaged appendix is within normal limits (imaged 5 5th of the 3 of series 4). Right ovary measures 5.2 cm with multiple internal cystic structures of the likely follicles. Left ovary measures 4.4 cm with likely dominant follicle measuring 1.4 cm. Fluid is noted in the imaged endometrium. The uterus is anteverted and deviates to the left. Mild wall thickening of the urinary bladder is nonspecific. Mild free fluid in the pelvis may be reactive. Fluid of the pelvic inflammatory disease or fluid from ruptured ovarian cysts are also considered. No free intraperitoneal air. No well-defined or walled-off abscess by CT. No acute osseous abnormality. IMPRESSION: 1. Severe stool burden. No small bowel obstruction 2. Mild free fluid in the pelvis is nonspecific. This document has been electronically signed by: Marito Gilbert MD on 06/29/2025 23:19:52
--- NOTE | 2025-06-29 14:25 | ED.GENADULT ---
HPI - General Adult General Chief complaint: Nausea/Vomiting/Diarrhea Stated complaint: vomiting diarrhea Time Seen by Provider: 06/29/25 19:58 Source: patient, RN notes reviewed and old records reviewed Mode of arrival: ambulatory Limitations: no limitations History of Present Illness ED Provider: Diamond HPI narrative: 24-year-old female with a past medical history significant for systemic lupus erythematosus on hydroxychloroquine, GERD presents for evaluation abdominal pain with nausea and vomiting. Patient reports for the last 2 weeks she has had nausea and vomiting with diarrhea. She has mild upper abdominal pain. Her pain is a 6/10. Denies any sick contacts pain Denies any recent travel. Denies any recent antibiotic use. For the last week or so she has not been taking the hydroxychloroquine because she has been vomiting every time she tried to take it. Denies any previous abdominal surgeries Related Data Home Medications ?Medication ?Instructions ?Recorded ?Confirmed cholecalciferol (vitamin D3) 50 50 mcg PO DAILY 09/21/23 08/03/24 mcg (2,000 unit) tablet (Vitamin D3) albuterol sulfate 90 mcg/actuation inhalation 08/03/24 08/03/24 aerosol inhaler (Ventolin HFA) budesonide-formoterol HFA 80 inhalation 08/03/24 08/03/24 mcg-4.5 mcg/actuation aerosol inhaler (Symbicort) Previous Rx's ?Medication ?Instructions ?Recorded belimumab 400 mg intravenous 600 mg IV Q4W 08/14/23 solution (Benlysta) omeprazole 40 mg capsule,delayed 40 mg PO DAILY #90 caps 07/14/24 release ondansetron HCl 4 mg tablet 4 mg PO Q8-12H PRN nausea and 08/03/24 vomiting #30 tabs ibuprofen 600 mg tablet 600 mg PO Q6H PRN fever or pain 09/13/24 #30 tabs ibuprofen 600 mg tablet 600 mg PO Q6H PRN fever or pain 10/28/24 #30 tabs hydroxychloroquine 200 mg tablet 200 mg PO DAILY #90 tabs 02/15/25 prednisone 5 mg tablet 5 mg PO DAILY #90 tabs 04/19/25 tramadol 50 mg tablet 50 mg PO Q6H PRN pain #20 tabs 05/13/25 magnesium citrate (OneLAX 148 ml PO BID PRN constipation 06/29/25 Magnesium Citrate oral solution) #296 mL polyethylene glycol 3350 17 17 g PO DAILY PRN constipation 06/29/25 gram/dose oral powder (ClearLax) #238 grams Allergies Allergy/AdvReac Type Severity Reaction Status Date / Time lavender (Lavandula Allergy Severe Difficulty Verified 06/29/25 14:26 angustifolia) Breathing Review of Systems Constitutional: Constitutional: Reports anorexia, Denies body ache(s), Denies chills, Denies fever(s) and Reports poor appetite Eyes: Eyes: Denies blurry vision ENT: Denies vertigo, Denies dizziness and Denies dry mouth Cardiovascular: Cardiovascular: Denies chest pain and Denies dyspnea on exertion Respiratory: Respiratory: Denies cough and Denies dyspnea on exertion Gastrointestinal: Gastrointestinal: Reports abdominal pain, Denies constipation, Reports heartburn, Reports diarrhea, Reports nausea and Reports vomiting Musculoskeletal: Musculoskeletal: Denies back pain Integumentary/Breasts: Skin/Breast: Denies rash Neurologic: Denies vertigo and Denies dizziness Psychiatric: Psychiatric: Denies anxiety [facility] Past Medical History 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 Systemic lupus erythematosus GERD (gastroesophageal reflux disease) Generalized headaches Family History Family History Father Diabetes Arthritis Paternal Grandmother Rheumatoid arthritis Hypertension Osteoporosis Social History Social History Household Members: Family Housing: House Do you presently have visiting nurse or other home services: No Alcohol intake: current Alcohol intake frequency: holidays/special occasions only Patient Tobacco Use Status: Never used Tobacco Smoked in Last 30 Days: Yes e-Cigarette/Vaping Use: Former Use Use of substances other than those prescribed or required for medical reasons: No Advance Directives: No Advance Directives Information Provided: Yes Advance Directives Date on File: 03/03/22 service: No Current occupational status: unemployed Physical Exam ED Vital Signs: Vital Signs - 24 hr 06/29/25 14:26 06/29/25 19:46 06/29/25 22:31 Temperature 98.6 F 98.2 F 98 F Pulse Rate 85 71 67 Respiratory Rate 20 16 16 Blood Pressure 114/72 111/73 119/70 Pulse Oximetry 98 95 96 Oxygen Delivery Method Room Air Room Air Room Air BMI result Body Mass Index 18.9 Const General: healthy appearing, comfortable, no acute distress, alert and awake Nutritional Appearance: well nourished Orientation/consciousness: patient oriented x3 HENMT Head: Yes normocephalic and Yes atraumatic Eyes Eyelids: Yes eyelids normal Conjunctivae: conjunctivae normal Sclerae: sclerae normal Corneas: corneas normal Pupils: Equal, round and reactive pupils present EOM: EOMs intact bilaterally Neck Neck: Yes full ROM Resp Effort & Inspection: normal respiratory effort, able to speak in complete sentences and not labored Cardio Rate: regular rate Rhythm: regular rhythm GI Inspection: No distended Palpation (GI): Soft to palpation, not firm, no guarding and not rigid Skin General skin exam: elasticity normal Neuro General: patient oriented x3 Cranial nerves: Yes Equal, round and reactive pupils present and Yes Bilaterally intact EOM present Cognition (Neuro): normal cognition Extrem Other: Moving all extremities well without any obvious deformities Course Course Course Narrative: This is a rapid medical exam performed by Vivek Willoughby NP: Additional HPI, ROS, PE not included below will be deferred to primary provider. Patient is a 24y/o F with history of lupus presenting to the ED with complaint of nausea, vomiting, and diarrhea for the past 2 weeks. Not really tolerating food or fluids. Keeps drinking water but is vomiting most of the time. No recent abx. Did not that her water bottle that she has been using had mold in it. Plan: labs, GI panel, viral swabs Medications Administered Discontinued Medications Generic Name Dose Route Start Last Admin Trade Name Annette PRN Reason Stop Dose Admin Lactated Ringer's 1,000 mls @ 999 mls/hr 06/29/25 21:00 06/29/25 22:20 Lr IV 06/29/25 22:00 Infused .Q1H1M RAJAN Infusion Iohexol 85 ml 06/29/25 21:30 06/29/25 21:33 Iohexol 350 Mg/Ml 100 Ml Infus..Btl IV 06/29/25 21:31 85 ml ONCE ONE Administration Ondansetron HCl 4 mg 06/29/25 20:57 06/29/25 21:22 Ondansetron Hcl 4 Mg/2 Ml Vial IVPUSH 06/29/25 20:58 4 mg ONCE ONE Administration Pantoprazole Sodium 40 mg 06/29/25 20:57 06/29/25 21:22 Pantoprazole Sodium 40 Mg/10 Ml Vial IVPUSH 06/29/25 20:58 40 mg ONCE ONE Administration Medical Decision Making Medical Decision Making [facility] Narrative: 24-year-old female with a past medical history significant for SLE presents for evaluation abdominal pain. She also has a history of GERD. Her symptoms tend to be worse in the morning and GERD may be the cause of her symptoms today. She has no leukocytosis, she has a mild hyponatremia of 134 which is likely related to vomiting. She has a chronic elevation of AST and ALT though her AST of 72 and ALT of 47 and a slightly above her baseline. T bili is within normal limits at 0.3, this is less likely obstructive biliary pattern. The patient is not . Renal function within normal limits. She is quite tender in the right side of her abdomen, I feel this is less likely be acute appendicitis that her symptoms started 2 weeks ago. Gallstones may still be the cause of her pain and vomiting the less likely to be choledocholithiasis or obstruction. She does appear to have a UTI with 3+ bacterian, greater than 50 white cells and moderate leukocyte esterase. No blood seen, no nitrites. The patient has seen Dr. Thomas and Dr. Robbins in the past for GI having had an abdominal MRI as well as an EGD Differential Diagnosis Differential Diagnoses: The differential diagnosis associated with the presentation includes GERD IBS IBD Constipation Pancreatitis Cholecystitis UTI Bowel obstruction Ileus SLE flare Lab Data [facility] Lab Attestation statement: I reviewed the patient's lab results. as above 06/29/25 15:33 06/29/25 15:33 Labs: Lab Results 06/29/25 06/29/25 Range/Units 15:33 20:02 WBC 2.6 L (4.8-10.8) X10*3/uL RBC 4.06 L (4.20-5.50) X10*6/uL Hgb 11.8 L (12.0-16.0) g/dl Hct 35.6 L (37.0-47.0) % MCV 87.7 (80.0-98.0) fL MCH 29.1 (27.0-33.0) pg MCHC 33.1 (31.0-35.0) g/dl RDW 12.3 (11.0-16.0) % Plt Count 206 (160-400) X10*3/uL MPV 10.3 (9.4-12.3) fL Immature Gran % (Auto) 0.4 (0.0-0.4) % Neut % (Auto) 44.4 L (45-73) % Lymph % (Auto) 38.8 (20-40) % Fallon % (Auto) 12.9 H (2-11) % Eos % (Auto) 2.7 (0-4) % Baso % (Auto) 0.8 (0-2) % Lymph # (Auto) 1.0 L (1.2-4.9) X10*3/uL Fallon # (Auto) 0.3 (0.1-1.2) X10*3/uL Eos # (Auto) 0.1 (0.0-0.4) X10*3/uL Baso # (Auto) 0.0 (0.0-0.2) X10*3/uL Abs Immat Gran (auto) 0.01 (0.00-0.03) X10*3/uL Absolute Neuts (auto) 1.2 L (2.0-8.3) x10*3/uL Absolute Nucleated RBC 0.000 (0.0-0.012) X10*3/uL Nucleated RBC % (auto) 0.0 (0.0-0.2) /100WBC Sodium 134 L (135-145) mmol/L Potassium 4.8 D (3.3-5.1) mmol/L Chloride 106 (96-108) mmol/L Carbon Dioxide 21 L (22-29) mmol/L Anion Gap 12 (12-20) BUN 15 (9-16) mg/dL Creatinine 0.63 (0.5-1.4) mg/dL Estim Creat Clear Calc 122.6 Estimated GFR > 60 Random Glucose 75 (60-115) mg/dL Calcium 8.8 (8.4-10.2) mg/dL Magnesium 1.8 (1.6-2.6) mg/dL Total Bilirubin 0.3 (0.0-1.0) mg/dL AST 72 H (5-31) U/L ALT 47 H (0-31) U/L Alkaline Phosphatase 65 (39-117) U/L Total Protein 8.6 H (6.5-8.0) g/dL Albumin 3.6 (3.5-5.0) g/dL Beta HCG, Quant < 2 mIU/mL Urine Color Yellow Urine Appearance Clear Urine pH 7.0 (5.0-9.0) Ur Specific [place] 1.025 (1.005-1.025) Urine Protein Negative (Neg-Trace) mg/dL Urine Glucose (UA) Negative (Negative) mg/dL Urine Ketones Trace (Negative) mg/dL Urine Blood Negative (Negative) Urine Nitrite Negative (Negative) Ur Leukocyte Esterase Moderate (2+) H (Negative) Urine RBC 0-2 (0-2) /HPF Urine WBC >50 H (0-5) /HPF Ur Squamous Epith Cells 6-10 (0-2) /HPF Urine Bacteria 3+ (None Seen) Hyaline Casts 0-2 (0-2) /LPF COVID-19 (MONTY) Negative (Negative) COVID-19 Clin Com See Note Influenza Type A (CB) Negative (Negative) Influenza Type B (CB) Negative (Negative) Influenza A & B Note See Note Discharge Plan Discharge Clinical Impression: Abdominal pain, Constipation Patient Disposition: Home, Self-Care Instructions: Constipation (ED), High Fiber Diet (ED) Additional Instructions: Your workup in the ER today was reassuring. Your CT scan showed severe constipation. I recommend taking MiraLax every night for the next 2 weeks. Take magnesium citrate half the bottle tomorrow morning If you do not have a bowel movement I would take the 2nd half of the bottle in the afternoon, if you do have a bowel movement I would take the 2nd half of the bottle in the next day Increase fluid and fiber intake in your diet Follow up with your primary doctor as well as GI Prescriptions: New polyethylene glycol 3350 [ClearLax] 17 gram/dose powder 17 g PO DAILY PRN (Reason: constipation) Qty: 238 0RF magnesium citrate [OneLAX Magnesium Citrate] Solution 148 ml PO BID PRN (Reason: constipation) Qty: 296 0RF No Action Benlysta 400 mg recon soln 600 mg IV Q4W Rx Instructions: administer over 60 mins hydroxychloroquine 200 mg tablet 200 mg PO DAILY Qty: 90 1RF prednisone 5 mg tablet 5 mg PO DAILY Qty: 90 1RF ibuprofen 600 mg tablet 600 mg PO Q6H PRN (Reason: fever or pain) Qty: 30 0RF tramadol 50 mg tablet 50 mg PO Q6H PRN (Reason: pain) Qty: 20 0RF omeprazole 40 mg capsule,delayed release(DR/EC) 40 mg PO DAILY Qty: 90 0RF ibuprofen 600 mg tablet 600 mg PO Q6H PRN (Reason: fever or pain) Qty: 30 0RF cholecalciferol (vitamin D3) [Vitamin D3] 50 mcg (2,000 unit) tablet 50 mcg PO DAILY budesonide-formoterol [Symbicort] 80-4.5 mcg/actuation HFA aerosol inhaler inhalation albuterol sulfate [Ventolin HFA] 90 mcg/actuation HFA aerosol inhaler inhalation ondansetron HCl 4 mg tablet 4 mg PO Q8-12H PRN (Reason: nausea and vomiting) Qty: 30 0RF Referrals: Shay Robbins MD [Physician, Gastroenterology] Referral Note: severe constipation Print Language: Sri Lankan
[2025-06-29 14:26] VITALS: BP 114/72; PULSE 85; RESP 20; TEMP 37; O2SAT 98; BMI 18.9
[2025-06-29 15:54] LABS: MANUAL DIFF FLAG NO
[2025-06-29 15:55] LABS: Hematocrit 35.6 % (37.0-47.0); Hemoglobin 11.8 g/dl (12.0-16.0); Imm Gran Abs Auto 0.01 X10*3/uL (0.00-0.03); Imm Gran Pct Auto 0.4 % (0.0-0.4); Lymphocytes Absolute Auto 1.0 X10*3/uL (1.2-4.9); Mean Corpuscular HGB Conc 33.1 g/dl (31.0-35.0); Mean Corpuscular Hemoglobin 29.1 pg (27.0-33.0); Mean Corpuscular Volume 87.7 fL (80.0-98.0); NRBC Abs Auto 0.000 X10*3/uL (0.0-0.012); NRBC Pct Auto 0.0 /100WBC (0.0-0.2); Platelet Count 206 X10*3/uL (160-400); Red Blood Count 4.06 X10*6/uL (4.20-5.50); White Blood Count 2.6 X10*3/uL (4.8-10.8)
[2025-06-29 16:10] LABS: COVID-19 Test Negative (Negative); IDNOW Serial# 58CA691E
[2025-06-29 16:14] LABS: IDNOW Serial# 55D5AD1C; Influenza B2 Negative (Negative)
[2025-06-29 16:33] LABS: Alanine Aminotransferase 47 U/L (0-31); Albumin Level 3.6 g/dL (3.5-5.0); Alkaline Phosphatase 65 U/L (39-117); Anion Gap 12 (12-20); Aspartate Amino Transferase 72 U/L (5-31); Blood Urea Nitrogen 15 mg/dL (9-16); Calcium 8.8 mg/dL (8.4-10.2); Carbon Dioxide 21 mmol/L (22-29); Chloride 106 mmol/L (96-108); Creatinine Clr Calc Pharmacy 122.6; Estimated Glomerular Filt Rate > 60; Magnesium 1.8 mg/dL (1.6-2.6); Potassium 4.8 mmol/L (3.3-5.1); Sodium 134 mmol/L (135-145); Total Protein 8.6 g/dL (6.5-8.0)
--- OUTSIDE RECORDS SUMMARY | 2025-06-29 18:49 | XMS_ITS | Clinical Summary ---
Author Organization [facility] Address [address] [place] [address] Care Team Providers Care Caustic Preparer Name Role Phone Ref, Has No Pcp Or Primary Care Provider Unavail able Allergies No known active allergies Social History [...] Mass Index - - Plan of Treatment Health Maintenance Due Date Last Done Comments HIV Screening 2000 DTaP,Tdap,and Td Vaccines (7 - Td or Tdap) 09/12/2021 09/12/2011, 12/20/2004, 02/22/2004, Additional history exists Alcohol/Substance Use Screening 10/26/2024 COVID-19 Vaccine ( season) 2025 07/18/2021, 06/25/2021 Influenza Vaccine (#1) 2025 6, 11/14/2014, 10/18/2012, Additional history exists RSV Vaccine (60+ years old and patients) (1 - 1-dose 75+ series) 2075 Pneumococcal Vaccine: Pediatric (0-5 Years) and At-Risk Patients (6-50 Years) Aged Out 01/15/2001 No longer eligible based on patient's age to complete this topic Hepatitis B Vaccines Completed 06/15/2001, 2000, 2000 Varicella Vaccines Completed 09/13/2009, 12/16/2002 HPV Vaccines Completed 11/14/2014, 09/26, 09/12/2011 Insurance [employer] Care Teams Caustic Preparer Relationship Specialty Start Date End Date Ref, Has No Pcp Or DO NOT EDIT THIS RECORD VIA PROVIDER ON THE FLY PCP - General Finish Mill Operator 05/20/22
--- OUTSIDE RECORDS SUMMARY | 2025-06-29 18:49 | XMS_ITS ---
Author Name [facility] Organization Unknown Care Team Organization Name Specialty Phone Email Start Date End Da te [facility] Erica Clayton Primary Care 09/02/2022
--- OUTSIDE RECORDS SUMMARY | 2025-06-29 18:49 | XMS_ITS | Clinical Summary ---
Author Organization [address] Address [address] [place] [phone] Phone Care Team Providers Care Net Lead Architect Name Role Phone Nagi Rios MD Primary Care Provider [phone] Allergies No known active allergies Medications albuterol [...] subpectoral lymphadenopathy Lupus (systemic lupus erythe matosus) ([facility] V24, [facility] V28) 04/07/2022 Chronic nonintractable headache 02/04/2022 Chronic benign neutropenia ([facility] V24) 019 Overview (10/13/2024): could be cyclic - Dr. Lin (03/27/22) ADHD (attention deficit hyperactivity disorder) 05/11/2018 Overview (10/13/2024): 09/23/16 off meds - Vyvanse for 1 1/2 years. Seeing therapist Alla Pop with [facility] Anxiety 05/11/2018 Immunizations Name Administration Dates Next Due DTaP (Infanrix) 6wks to less than 7yo ,02/22/2004,06/22/2003,04/07,06/15/2001 [id number] (Pentacel) 2mo to less than 5yo 04/06/2002,06/15/2001,01/15/2001,12/20 [...] than 19 yo 09/23/2016 Meningococcal MCV4P 09/12/2011 [email or web address] SARS-CoV-2 COVID-19, mRNA, LNP-S, preservative free 07/18/2021,06/25/2021 [...] - Pfizer risk series) 08/15/2021 07/18/2021, 06/25/2021 Social Influencers of Health Screening 10/04/2022 Depression Screening 10/26/2024 Influenza Vaccine (#1) 2025 , 09/23/2016, 11/14/2014, [...] Procedure Name Priority Date/Time Associated Diagnosis Comments EXTERNAL XRAY REPORT 05/13/2025 EXTERNAL XRAY REPORT 05/13/2025 EXTERNAL XRAY REPORT 05/13/2025 EXTERNAL XRAY REPORT 05/13/2025 HEPATITIS C SCREENING Routine 06/10/2023 HIV SCREENING Routine 06/10/2023 LIPID PANEL Routine 06/10/2023 GONORRHEA/CHLAMYDIA SCRREENING Routine 08/16/2019 from Last 3 Months or Most Recently Relevant to Health Maintenance Results * External Xray Report (05/13/2025) Only the most recent of4 resultswithin the time period is included. Anatomical Region Laterality Modality Radiographic Keya ging Provider [facility] XR PROCEDURES Final Result * HIV Screening (06/10/2023) HIV Screening Abstracted [facility] Provider HEALTH MAINTENANCE Final Result * Hepatitis C Screening (06/10/2023) Pathologist [facility] Hepatitis C Screening Abstracted [facility] Provider HEALTH MAINTENANCE Final Result * Lipid panel (06/10/2023) Pathologist [facility] LDL/HDL Ratio 2 0 - 4 Triglycerides 52 0 - 150 mg/dL Cholesterol 169 0 - 200 mg/dL HDL 76 >=40 mg/dL LDL Cholesterol 83 0 - 100 mg/dL Blood Venous blood specimen / Unknown [facility] Provider LAB BLOOD ORDERABLES Kindra l Result * Gonorrhea/Chlamydia Screening (08/16/2019) Pathologist [facility] Gonorrhea/Chla mydia Screening Abstracted [facility] Provider HEALTH MAINTENANCE Final Result from Last 3 Months or Most Recently Relevant to Health Maintenance Insurance [facility] PL[employer] Care Teams Net Lead Architect Relationship Specialty Start Date End Date Nagi Rios MD [address] [place] [phone] PCP - General 06/09/23
--- OUTSIDE RECORDS SUMMARY | 2025-06-29 18:49 | XMS_ITS | Encounter Summary ---
Author Organization [facility] Address [address] [place] [address] Care Team Providers Care Perlite Grinder Name Role Phone Erica Clayton MD Primary Care Provider [phone] Encounter Details Date Type Department Care Team Description 01/22/2023 Nurse Only [facility] Oncology Infusion Services [address] [place] [address] Cheryl Stewart, RN Social History Tobacco Use Types Packs/Day Years [...] file Not on file Not on file COVID-19 Exposure Response Date Recorded In the last 10 days, have yo u been in contact with someone who was confirmed or suspected to have Coronavirus/COVID-19? No / Unsure 01/22/2023 9:51 AM EDT documented as of this encounter Plan of Treatment Not on file documented as of this encounter Visit Diagnoses Not on filedocumented in this encounter Care Teams Perlite Grinder Relationship Specialty Start Date End Date Erica Clayton MD PCP - General Internal Medicine 02/25/22 documented as of this encounter
--- OUTSIDE RECORDS SUMMARY | 2025-06-29 18:49 | XMS_ITS | Clinical Summary ---
Author Organization [facility] Address [address] [place] [address] Care Team Providers Care Processing Inspector Name Role Phone Erica Clayton MD Primary Care Provider [phone] Allergies No known active allergies Medications Medication [...] (Pap Smear) 2021 COVID-19 Vaccine ( season) 2025 07/18/2021, 06/25/2021 Influenza Vaccine (#1) 2025 , [...] age to complete this topic Care Teams Processing Inspector Relationship Specialty Start Date End Date Erica Clayton MD PCP - General Internal Medicine 02/25/22
[2025-06-29 19:46] VITALS: BP 111/73; PULSE 71; RESP 16; TEMP 36.8; O2SAT 95
[2025-06-29 20:43] LABS: Appearance Urine Clear; Glucose Urine UA Negative (Negative); PH 7.0 (5.0-9.0); Specific Gravity - Urine 1.025 (1.005-1.025); UMIC TRIGGER UACC YES
[2025-06-29 20:51] LABS: UACC Culture Trigger YES
[2025-06-29] MEDS: Lactated Ringers 1,000 ML 999 ML IV (21:19)
[2025-06-29] MEDS: iohexoL 350 MG/ML 100 ML INFUS..BTL 85 ML IV (21:33)
[2025-06-29 22:31] VITALS: BP 119/70; PULSE 67; RESP 16; TEMP 36.6; O2SAT 96
[2025-06-30 00:13] VITALS: BP 119/70; PULSE 67; RESP 16; TEMP 36.6; O2SAT 96
== END 2025-06-30 00:13 | disposition home or self-care (01) ==
PROVIDERS: Registered Nurse Emergency; Emergency Provider Emergency Medicine; PCP Internal Medicine
DX: R11.2 Nausea with vomiting, unspecified (principal); R19.7 Diarrhea, unspecified; E87.1 Hypo-osmolality and hyponatremia; M32.9 Systemic lupus erythematosus, unspecified; Z87.19 Personal history of other diseases of the digestive system; Z79.899 Other long term (current) drug therapy
CPT/HCPCS: 74177; 80053; 81001; 83735; 84702; 85025; 87086; 87502; 87635; 96361; 96374; 96375; 99284; 99285; J2405; J2470; J7120; Q9967

== ENCOUNTER → 2025-06-29 20:57 | Outpatient (BNV) | payer OTHER, SELFPAY | PROVIDERS: Emergency Provider Emergency Medicine; PCP Internal Medicine; Visit Provider Radiology Neuroradiology | DX: K59.00 Constipation, unspecified (principal); R10.9 Unspecified abdominal pain | CPT/HCPCS: 74177 ==

== ENCOUNTER 2025-07-24 14:49 | Outpatient (REF) | payer OTHER, SELFPAY ==
[2025-07-24 15:10] LABS: MANUAL DIFF FLAG NO
[2025-07-24 15:39] LABS: Hematocrit 34.3 % (37.0-47.0); Hemoglobin 11.4 g/dl (12.0-16.0); Imm Gran Abs Auto 0.01 X10*3/uL (0.00-0.03); Imm Gran Pct Auto 0.4 % (0.0-0.4); Lymphocytes Absolute Auto 1.1 X10*3/uL (1.2-4.9); Mean Corpuscular HGB Conc 33.2 g/dl (31.0-35.0); Mean Corpuscular Hemoglobin 29.0 pg (27.0-33.0); Mean Corpuscular Volume 87.3 fL (80.0-98.0); NRBC Abs Auto 0.000 X10*3/uL (0.0-0.012); NRBC Pct Auto 0.0 /100WBC (0.0-0.2); Platelet Count 217 X10*3/uL (160-400); Red Blood Count 3.93 X10*6/uL (4.20-5.50); White Blood Count 2.7 X10*3/uL (4.8-10.8)
[2025-07-24 16:40] LABS: Appearance Urine Clear; Glucose Urine UA Negative (Negative); PH 6.5 (5.0-9.0); Specific Gravity - Urine >= 1.030 (1.005-1.025); UMIC TRIGGER UA YES
[2025-07-24 16:44] LABS: Alanine Aminotransferase 54 U/L (0-31); Albumin Level 3.7 g/dL (3.5-5.0); Alkaline Phosphatase 70 U/L (39-117); Anion Gap 8 (12-20); Aspartate Amino Transferase 80 U/L (5-31); Blood Urea Nitrogen 15 mg/dL (9-16); Calcium 8.8 mg/dL (8.4-10.2); Carbon Dioxide 27 mmol/L (22-29); Chloride 107 mmol/L (96-108); Estimated Glomerular Filt Rate > 60; Potassium 3.6 mmol/L (3.3-5.1); Sodium 138 mmol/L (135-145); Total Protein 8.3 g/dL (6.5-8.0)
--- OUTSIDE RECORDS SUMMARY | 2025-07-24 16:44 | XMS_ITS | Encounter Summary ---
Author Organization [facility] Address [address] [place] [address] Care Team Providers Care Costume Mistress Name Role Phone Erica Clayton MD Primary Care Provider [phone] Encounter Details Date Type Department Care Team Description 01/22/2023 Nurse Only [facility] Oncology Infusion Services [address] [place] [address] Cheryl Stewart, RN Social History [...] on filedocumented in this encounter Care Teams Costume Mistress Relationship Specialty Start Date End Date Erica Clayton MD PCP - General Internal Medicine 02/25/22 documented as of this encounter
--- OUTSIDE RECORDS SUMMARY | 2025-07-24 16:44 | XMS_ITS | Clinical Summary ---
Author Organization [address] Address [address] [place] [phone] Phone Care Team Providers Care Nursery School Teacher Name Role Phone Nagi Rios MD Primary [...] subpectoral lymphadenopathy Lupus (systemic lupus erythe matosus) ([facility] V24, [facility] V28) 04/07/2022 Chronic nonintractable headache 02/04/2022 Chronic benign neutropenia ([facility] V24) 019 Overview (10/13/2024): could be cyclic - Dr. Lin (03/27/22) ADHD (attention deficit hyperactivity disorder) 05/11/2018 Overview (10/13/2024): 09/23/16 off meds - Vyvanse for 1 1/2 years. Seeing therapist Alla Pop with [facility] Anxiety 05/11/2018 Immunizations Immunization Administration Dates Next Due DTaP (Infanrix) 6wks to less than 7yo ,02/22/2004,06/22/2003,04/07,06/15/2001 [id number] (Pentacel) 2mo to less than 5yo 04/06/2002,06/15/2001,01/15/2001,12/20 [...] than 19 yo 09/23/2016 Meningococcal MCV4P 09/12/2011 [employer] SARS-CoV-2 COVID-19, mRNA, LNP-S, preservative free 07/18/2021,06/25/2021 [...] Name Priority Date/Time Associated Diagnosis Comments EXTERNAL CT REPORT 06/29/[address] REPORT 06/29/2025 EXTERNAL XRAY REPORT 05/13/2025 EXTERNAL XRAY REPORT 05/13/2025 EXTERNAL XRAY REPORT 05/13/2025 EXTERNAL XRAY REPORT 05/13/2025 HEPATITIS C SCREENING Routine 06/10/2023 HIV SCREENING Routine 06/10/2023 LIPID PANEL Routine 06/10/2023 GONORRHEA/CHLAMYDIA SCRREENING Routine 08/16/2019 from Last 3 Months or Most Recently Relevant to Health Maintenance Results * External CT Report (06/29/2025) Only the most recent of2 resultswithin the time period is included. Anatomical Region Laterality Modality Computed Tomogra phy Provider [facility] IMG CT PROCEDURES Final Result * External Xray Report (05/13/2025) Only the most recent of4 resultswithin the time period is included. Anatomical Region Laterality Modality Radiographic Keya ging Provider [facility] XR PROCEDURES Final Result * HIV Screening (06/10/2023) Pathologist [facility] HIV Screening Abstracted Historical Provider HEALTH MAINTENANCE Final Result * Hepatitis C Screening (06/10/2023) Pathologist [facility] Hepatitis C Screening Abstracted Historical Provider HEALTH MAINTENANCE Final Result * Lipid panel (06/10/2023) Pathologist [facility] LDL/HDL Ratio 2 0 - 4 Triglycerides 52 0 - 150 mg/dL Cholesterol 169 0 - 200 mg/dL HDL 76 >=40 mg/dL LDL Cholesterol 83 0 - 100 mg/dL Blood Venous blood specimen / Unknown us Historical Provider LAB BLOOD ORDERABLES Kindra l Result * Gonorrhea/Chlamydia Screening (08/16/2019) HM Gonorrhea/Chla mydia Screening Abstracted us Historical Provider HEALTH MAINTENANCE Final Result from Last 3 Months or Most Recently Relevant to Health Maintenance Insurance [facility] [employer] PLAN Care Teams Nursery School Teacher Relationship Specialty Start Date End Date Nagi Rios MD [address] [place] [phone] PCP - General 06/09/23
--- OUTSIDE RECORDS SUMMARY | 2025-07-24 16:44 | XMS_ITS | Clinical Summary ---
Author Organization [facility] Address [address] [place] [address] Care Team Providers Care Adz Worker Name Role Phone Erica Clayton MD Primary Care Provider [phone] Allergies No known active allergies Medications Medication [...] age to complete this topic Care Teams Adz Worker Relationship Specialty Start Date End Date Erica Clayton MD PCP - General Internal Medicine 02/25/22
--- OUTSIDE RECORDS SUMMARY | 2025-07-24 16:44 | XMS_ITS | Clinical Summary ---
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
[2025-07-24 17:06] LABS: Protein/Creatinine Ratio, Ur 0.07 (<0.2); Total Protein Urine Random 18 mg/dL (<12)
== END 2025-07-24 14:50 | disposition home or self-care (01) ==
LOC: HO.LAB 14:49
PROVIDERS: PCP Internal Medicine; Visit Provider Student in an Organized Health Care Education/Training Program
DX: Z01.84 Encounter for antibody response examination (principal); M32.9 Systemic lupus erythematosus, unspecified; R76.0 Raised antibody titer; M02.30 Reiter's disease, unspecified site; Z79.899 Other long term (current) drug therapy
CPT/HCPCS: 36415; 80053; 81001; 81003; 82570; 84156; 85025; 85652; 86140; 86160; 86225

== ENCOUNTER 2025-07-31 09:34 | Emergency (ER) | payer OTHER, SELFPAY ==
--- NOTE | ~2025-07-31 | US_ITS ---
EXAMINATION: US RETROPERITONEAL LIMITED (RENAL ONLY) CLINICAL INFORMATION: Right flank pain, hematuria. COMPARISON: CT abdomen and pelvis 06/29/2025 TECHNIQUE: Grayscale and color Doppler ultrasound imaging was performed through both kidneys FINDINGS: RIGHT KIDNEY: 11 x 5 x 5 cm (SAG x AP x TRV). The kidney is normal in size, contour, and echogenicity. Renal cortical thickness is normal. No calculi or focal parenchymal lesions. The renal pelvis is mildly prominent. LEFT KIDNEY: 12 x 5 x 5 cm (SAG x AP x TRV). The kidney is normal in size, contour, and echogenicity. Renal cortical thickness is normal. No calculi or focal parenchymal lesions. Mild pelvocaliectasis is present. US/US renal BI IMPRESSION: No stones. There is mild pelvocaliectasis on left and a mildly prominent right renal pelvis, a nonspecific finding. Electronically signed by: Angel Bonilla MD 07/31/2025 12:32 PM EDT
--- NOTE | ~2025-07-31 | CT_ITS ---
EXAMINATION: CT ABDOMEN AND PELVIS WITHOUT CONTRAST CLINICAL INFORMATION: Left flank pain, pyelonephritis versus stone. COMPARISON: 06/29/2025, 10/27/2024. TECHNIQUE: Multidetector volumetric imaging was performed from the superior aspect of the liver through the pubic symphysis. Sagittal and coronal reformatted images were obtained on the technologist's workstation. This CT examination was performed using dose optimization techniques as appropriate, variously including the following: *Automated exposure control *Adjustment of mA and/or kV according to patient size (this includes techniques or standardized protocols for targeted exams where dose is matched to indication/reason for exam; i.e. extremities or head) *Use of iterative reconstruction technique FINDINGS: LUNG BASES: Lung bases are clear. There is a mild pectus excavatum. LIVER, GALLBLADDER, AND BILIARY TREE: The unenhanced liver is normal in size, shape, and attenuation. No focal hepatic lesion or biliary ductal dilatation is present. The gallbladder is unremarkable with no evidence of radiopaque gallstones, gallbladder wall thickening, or obvious pericholecystic inflammatory changes. PANCREAS: Unremarkable. SPLEEN: Unremarkable. ADRENAL GLANDS: Unremarkable. KIDNEYS AND URETERS: Both unenhanced kidneys demonstrate hyperattenuation of the renal pyramids, suggestive of medullary nephrocalcinosis. There are no calculi. There are no masses. There is no hydronephrosis or hydroureter. BLADDER: Unremarkable. GASTROINTESTINAL TRACT: The small and large bowel are unremarkable. There is no CT evidence of acute appendicitis. ABDOMINAL WALL: No significant hernia is appreciated. LYMPH NODES: No abnormal lymphadenopathy. VASCULAR: Unremarkable. PELVIC VISCERA: The uterus and adnexa are unremarkable. Small amount of free fluid in the cul-de-sac is likely physiologic. OSSEOUS STRUCTURES: No suspicious lytic or blastic bone lesions. CT/CT abdomen pelvis wo IV con IMPRESSION: 1. No definite urological calculus or obstruction. 2. Hyperattenuation of the renal pyramids of both kidneys, suggesting medullary nephrocalcinosis. Differential includes medullary sponge kidney, renal tubular acidosis type I, and hypercalcemic states. 3. Remainder of the examination is unremarkable. Electronically signed by: Sebastián Vergara MD 07/31/2025 02:32 PM EDT
[2025-07-31 09:46] VITALS: BP 113/70; PULSE 77; RESP 16; TEMP 36.7; O2SAT 98
[2025-07-31 10:04] LABS: MANUAL DIFF FLAG NO
[2025-07-31 10:07] LABS: Hematocrit 34.8 % (37.0-47.0); Hemoglobin 11.9 g/dl (12.0-16.0); Imm Gran Abs Auto 0.01 X10*3/uL (0.00-0.03); Imm Gran Pct Auto 0.4 % (0.0-0.4); Lymphocytes Absolute Auto 0.9 X10*3/uL (1.2-4.9); Mean Corpuscular HGB Conc 34.2 g/dl (31.0-35.0); Mean Corpuscular Hemoglobin 29.5 pg (27.0-33.0); Mean Corpuscular Volume 86.4 fL (80.0-98.0); NRBC Abs Auto 0.000 X10*3/uL (0.0-0.012); NRBC Pct Auto 0.0 /100WBC (0.0-0.2); Platelet Count 206 X10*3/uL (160-400); Red Blood Count 4.03 X10*6/uL (4.20-5.50); White Blood Count 2.6 X10*3/uL (4.8-10.8)
[2025-07-31 10:11] LABS: Appearance Urine Clear; Glucose Urine UA Negative (Negative); PH 7.0 (5.0-9.0); Specific Gravity - Urine 1.025 (1.005-1.025); UMIC TRIGGER UACC YES
[2025-07-31 10:13] LABS: UPreg QC Valid YES
[2025-07-31 10:15] LABS: UACC Culture Trigger YES
[2025-07-31 10:20] LABS: Alanine Aminotransferase 52 U/L (0-31); Albumin Level 3.5 g/dL (3.5-5.0); Alkaline Phosphatase 67 U/L (39-117); Anion Gap 6 (12-20); Aspartate Amino Transferase 82 U/L (5-31); Blood Urea Nitrogen 12 mg/dL (9-16); Calcium 8.6 mg/dL (8.4-10.2); Carbon Dioxide 26 mmol/L (22-29); Chloride 106 mmol/L (96-108); Creatinine Clr Calc Pharmacy 153.9; Estimated Glomerular Filt Rate > 60; Potassium 3.7 mmol/L (3.3-5.1); Sodium 134 mmol/L (135-145); Total Protein 7.9 g/dL (6.5-8.0)
--- NOTE | 2025-07-31 10:47 | ED.FEMALEGU ---
HPI - Female Genitourinary General Chief complaint: Urogenital-Female Stated complaint: kidney stones? Time Seen by Provider: 07/31/25 10:31 Source: patient, RN notes reviewed and old records reviewed Mode of arrival: ambulatory History of Present Illness ED Provider: Kelly Wallace PA-C HPI Narrative: 24-year-old female with past medical history GERD, SLE on hydrochloroquine, presenting to the ED complaining of left-sided flank/low back pain intermittently x 2 weeks with associated hematuria and dysuria. Reports small clots and nausea. Denies fever, vomiting, diarrhea, vaginal bleeding/discharge. Denies history of renal stones Related Data Home Medications ?Medication ?Instructions ?Recorded ?Confirmed cholecalciferol (vitamin D3) 50 50 mcg PO DAILY 09/21/23 08/03/24 mcg (2,000 unit) tablet (Vitamin D3) albuterol sulfate 90 mcg/actuation inhalation 08/03/24 08/03/24 aerosol inhaler (Ventolin HFA) budesonide-formoterol HFA 80 inhalation 08/03/24 08/03/24 mcg-4.5 mcg/actuation aerosol inhaler (Symbicort) Previous Rx's ?Medication ?Instructions ?Recorded belimumab 400 mg intravenous 600 mg IV Q4W 08/14/23 solution (Benlysta) omeprazole 40 mg capsule,delayed 40 mg PO DAILY #90 caps 07/14/24 release ondansetron HCl 4 mg tablet 4 mg PO Q8-12H PRN nausea and 08/03/24 vomiting #30 tabs ibuprofen 600 mg tablet 600 mg PO Q6H PRN fever or pain 09/13/24 #30 tabs ibuprofen 600 mg tablet 600 mg PO Q6H PRN fever or pain 10/28/24 #30 tabs hydroxychloroquine 200 mg tablet 200 mg PO DAILY #90 tabs 02/15/25 prednisone 5 mg tablet 5 mg PO DAILY #90 tabs 04/19/25 tramadol 50 mg tablet 50 mg PO Q6H PRN pain #20 tabs 05/13/25 magnesium citrate (OneLAX 148 ml PO BID PRN constipation 06/29/25 Magnesium Citrate oral solution) #296 mL polyethylene glycol 3350 17 17 g PO DAILY PRN constipation 06/29/25 gram/dose oral powder (ClearLax) #238 grams cefpodoxime 200 mg tablet 200 mg PO BID 10 days #20 tabs 07/31/25 Allergies Allergy/AdvReac Type Severity Reaction Status Date / Time lavender (Lavandula Allergy Severe Difficulty Verified 07/31/25 09:49 angustifolia) Breathing Review of Systems Review of Systems: Yes all other systems are reviewed and are negative Constitutional: Constitutional: Reports as per [facility] Past Medical History Attestation statement: The following information was validated with the patient. Source: old records reviewed Medical History shelter current use of immunosuppressive drug Systemic lupus erythematosus GERD (gastroesophageal reflux disease) Generalized headaches Family History Family History Father Diabetes Arthritis Paternal Grandmother Rheumatoid arthritis Hypertension Osteoporosis Social History Social History Household Members: Family Housing: House Do you presently have visiting nurse or other home services: No Alcohol intake: current Alcohol intake frequency: holidays/special occasions only Patient Tobacco Use Status: Never used Tobacco e-Cigarette/Vaping Use: Former Use Advance Directives Date on File: 03/03/22 service: No Current occupational status: unemployed Physical Exam Vital Signs: Vital Signs: Last Vital Signs Temp 98.2 F 07/31/25 15:25 Pulse 70 07/31/25 15:25 Resp 15 07/31/25 15:25 BP 117/64 07/31/25 15:25 Pulse Ox 98 07/31/25 15:25 O2 Del Method Room Air, Large B ore Nasal Cannula 07/31/25 15:25 BMI result Body Mass Index 20.0 Const: General: cooperative, healthy appearing and no acute distress Orientation/consciousness: patient oriented x3 Limitations: no limitations HEENT: Head: Yes normal to inspection and Yes atraumatic Ears: hearing grossly normal bilaterally General nose exam: Normal external nose present Face and sinus: Yes normal facial exam Eyes: General: appearance normal, both eyes and all related structures EOM: EOMs intact bilaterally Neck: Neck: Yes normal visual inspection and Yes no meningeal signs Resp: Effort & Inspection: normal respiratory effort and no respiratory distress Cardio: Rate: regular rate GI: Inspection: Yes normal to inspection Palpation (GI): Soft to palpation, nontender, no guarding and not rigid : General: Yes CVA tenderness on the left Back/Spine/Pelvis: Back: CVA tenderness Skin: Rashes: no rashes Wounds: no wounds Neuro: General: patient oriented x3, tone normal and no meningeal signs Cranial nerves: Yes CN's II-XII intact bilaterally Gait exam (Neuro): Normal gait present Extrem: General: Yes normal to inspection Course Course Course Narrative: -1135--chronic leukopenia > continued low suspicion for severe sepsis. H&H at patient's baseline. Labs otherwise reassuring -initial UA contaminated however with WBCs and leuk esterase will attempt repeat sample >> repeat UA with continued leuk esterase and WBCs, will treat for pyelo > dose of IV Rocephin given in the ED -1318-- US renal BI IMPRESSION: No stones. There is mild pelvocaliectasis on left and a mildly prominent right renal pelvis, a nonspecific finding. > on re-evaluation patient reports continued/worsening discomfort. Clinically appears comfortable. No known history of kidney stones. Due to noted UTI and worsening pain will obtain CT for further eval. 1504--CT abdomen pelvis wo IV con IMPRESSION: 1. No definite urological calculus or obstruction. 2. Hyperattenuation of the renal pyramids of both kidneys, suggesting medullary nephrocalcinosis. Differential includes medullary sponge kidney, renal tubular acidosis type I, and hypercalcemic states. 3. Remainder of the examination is unremarkable. >1507--on re-evaluation patient reports symptomatic improvement. Asymptomatic at present. Discussed CT findings and needed close follow-up with Nephrology. Verbalized understanding. Results discussed with patient including worrisome signs and symptoms and strict return precautions, and when to return to the emergency department. They verbalized understanding and feel safe for discharge at this time. Medications Administered Discontinued Medications Generic Name Dose Route Start Last Admin Trade Name Freq PRN Reason Stop Dose Admin Acetaminophen 650 mg 07/31/25 13:20 07/31/25 14:08 Acetaminophen 325 Mg Tablet PO 07/31/25 13:21 650 mg ONCE ONE Administration Ceftriaxone Sodium 1 gm 07/31/25 11:37 07/31/25 12:49 Ceftriaxone Sodium 1 Gm Vial IVPUSH 07/31/25 11:38 1 gm ONCE ONE Administration Sodium Chloride 1,000 mls @ 999 mls/hr 07/31/25 11:45 07/31/25 13:55 Ns IV 07/31/25 12:45 Infused .Q1H1M RAJAN Infusion Ketorolac Tromethamine 15 mg 07/31/25 11:35 07/31/25 12:49 Ketorolac Tromethamine 15 Mg/Ml Vial IVPUSH 07/31/25 11:36 15 mg ONCE ONE Administration Medical Decision Making Medical Decision Making [facility] Narrative: 24-year-old female with past medical history GERD, SLE on hydrochloroquine, presenting to the ED complaining of left-sided flank/low back pain intermittently x 2 weeks with associated hematuria and dysuria. On exam vital signs stable, NAD, nontoxic appearing, abdomen is soft and nontender, mild left CVAT noted. Concern for renal colic/stones vs UTI or pyelo. Lower suspicion for appendicitis/diverticulitis, pancreatitis or cholecystitis/lithiasis at this time. Unlikely ovarian torsion. Plan: Labs, UA, renal ultrasound, pain control, re-evaluate. Low suspicion for severe sepsis Avoid repeat CT at this time as patient had CT abdomen/pelvis on 06/29/2025 for abdominal pain. Please refer to course for remaining clinical decision making, interpretation of labs/imaging results, and discussions with consultants and/or family members. Differential Diagnosis Differential Diagnoses: The differential diagnosis associated with the presentation includes As above Admission/Observation Consideration of admission/observation: Escalation of care including admission/observation considered Lab Data [facility] Lab Attestation statement: I reviewed the patient's lab results. 07/31/25 09:57 07/31/25 09:57 Labs: Lab Results 07/31/25 07/31/25 07/31/25 Range/Units 09:57 10:00 11:03 WBC 2.6 L (4.8-10.8) X10*3/uL RBC 4.03 L (4.20-5.50) X10*6/uL Hgb 11.9 L (12.0-16.0) g/dl Hct 34.8 L (37.0-47.0) % MCV 86.4 (80.0-98.0) fL MCH 29.5 (27.0-33.0) pg MCHC 34.2 (31.0-35.0) g/dl RDW 12.4 (11.0-16.0) % Plt Count 206 (160-400) X10*3/uL MPV 9.4 (9.4-12.3) fL Immature Gran % (Auto) 0.4 (0.0-0.4) % Neut % (Auto) 51.0 (45-73) % Lymph % (Auto) 34.2 (20-40) % Steele % (Auto) 9.7 (2-11) % Eos % (Auto) 3.9 (0-4) % Baso % (Auto) 0.8 (0-2) % Lymph # (Auto) 0.9 L (1.2-4.9) X10*3/uL Steele # (Auto) 0.3 (0.1-1.2) X10*3/uL Eos # (Auto) 0.1 (0.0-0.4) X10*3/uL Baso # (Auto) 0.0 (0.0-0.2) X10*3/uL Abs Immat Gran (auto) 0.01 (0.00-0.03) X10*3/uL Absolute Neuts (auto) 1.3 L (2.0-8.3) x10*3/uL Absolute Nucleated RBC 0.000 (0.0-0.012) X10*3/uL Nucleated RBC % (auto) 0.0 (0.0-0.2) /100WBC Sodium 134 L (135-145) mmol/L Potassium 3.7 (3.3-5.1) mmol/L Chloride 106 (96-108) mmol/L Carbon Dioxide 26 (22-29) mmol/L Anion Gap 6 L (12-20) BUN 12 (9-16) mg/dL Creatinine 0.50 (0.5-1.4) mg/dL Estim Creat Clear Calc 153.9 Estimated GFR > 60 Random Glucose 82 (60-115) mg/dL Lactic Acid (0.5-2.0) mmol/L Calcium 8.6 (8.4-10.2) mg/dL Total Bilirubin 0.4 (0.0-1.0) mg/dL AST 82 H (5-31) U/L ALT 52 H (0-31) U/L Alkaline Phosphatase 67 (39-117) U/L Total Protein 7.9 (6.5-8.0) g/dL Albumin 3.5 (3.5-5.0) g/dL Urine Color Yellow Yellow Urine Appearance Clear Clear Urine pH 7.0 8.5 (5.0-9.0) Ur Specific [place] 1.025 1.020 (1.005-1.025) Urine Protein Negative Negative (Neg-Trace) mg/dL Urine Glucose (UA) Negative Negative (Negative) mg/dL Urine Ketones Negative Negative (Negative) mg/dL Urine Blood Negative Negative (Negative) Urine Nitrite Negative Negative (Negative) Ur Leukocyte Esterase Moderate (2+) H Small (1+) H (Negative) Urine RBC 0-2 0-2 (0-2) /HPF Urine WBC 11-20 H 6-10 H (0-5) /HPF Ur Squamous Epith Cells 6-10 3-5 (0-2) /HPF Urine Bacteria 1+ None Seen (None Seen) Hyaline Casts 0-2 0-2 (0-2) /LPF Urine Test NEGATIVE (NEGATIVE) 07/31/25 Range/Units 12:30 WBC (4.8-10.8) X10*3/uL RBC (4.20-5.50) X10*6/uL Hgb (12.0-16.0) g/dl Hct (37.0-47.0) % MCV (80.0-98.0) fL MCH (27.0-33.0) pg MCHC (31.0-35.0) g/dl RDW (11.0-16.0) % Plt Count (160-400) X10*3/uL MPV (9.4-12.3) fL Immature Gran % (Auto) (0.0-0.4) % Neut % (Auto) (45-73) % Lymph % (Auto) (20-40) % Steele % (Auto) (2-11) % Eos % (Auto) (0-4) % Baso % (Auto) (0-2) % Lymph # (Auto) (1.2-4.9) X10*3/uL Steele # (Auto) (0.1-1.2) X10*3/uL Eos # (Auto) (0.0-0.4) X10*3/uL Baso # (Auto) (0.0-0.2) X10*3/uL Abs Immat Gran (auto) (0.00-0.03) X10*3/uL Absolute Neuts (auto) (2.0-8.3) x10*3/uL Absolute Nucleated RBC (0.0-0.012) X10*3/uL Nucleated RBC % (auto) (0.0-0.2) /100WBC Sodium (135-145) mmol/L Potassium (3.3-5.1) mmol/L Chloride (96-108) mmol/L Carbon Dioxide (22-29) mmol/L Anion Gap (12-20) BUN (9-16) mg/dL Creatinine (0.5-1.4) mg/dL Estim Creat Clear Calc Estimated GFR Random Glucose (60-115) mg/dL Lactic Acid 0.8 (0.5-2.0) mmol/L Calcium (8.4-10.2) mg/dL Total Bilirubin (0.0-1.0) mg/dL AST (5-31) U/L ALT (0-31) U/L Alkaline Phosphatase (39-117) U/L Total Protein (6.5-8.0) g/dL Albumin (3.5-5.0) g/dL Urine Color Urine Appearance Urine pH (5.0-9.0) Ur Specific [place] (1.005-1.025) Urine Protein (Neg-Trace) mg/dL Urine Glucose (UA) (Negative) mg/dL Urine Ketones (Negative) mg/dL Urine Blood (Negative) Urine Nitrite (Negative) Ur Leukocyte Esterase (Negative) Urine RBC (0-2) /HPF Urine WBC (0-5) /HPF Ur Squamous Epith Cells (0-2) /HPF Urine Bacteria (None Seen) Hyaline Casts (0-2) /LPF Urine Test (NEGATIVE) Independent Interpretation I performed an independent interpretation of an: Ultrasound Radiology Impression Discussion of test interpretation with radiology: I have reviewed the radiologist's reading. External Record Review External record reviewed: Inpatient record, Office record, Outpatient record, Prior outpatient labs, Prior outpatient radiology, Primary care record and Outside ED record Tests considered The following testing was considered but not selected: As above Prescription Management I considered prescription management with: Pain Medication and Antibiotic Chronic Conditions Patient?s care impacted by: Other (SLE) Social Determinants Patient?s care significantly limited by Social Determinants of Health including: Other Social Determinant of Health Discharge Plan Discharge Clinical Impression: Pyelonephritis Patient Disposition: Home, Self-Care Additional Instructions: You have a urine/kidney infection. Cefpodoxime as an antibiotic please take as prescribed until completion. You need to have close follow up with her primary care doctor as well as Urology. Your CAT scan is suggestive of nephrocalcinosis. This needs to be further worked up with a specialist. If her symptoms persist or worsen, you have constant or worsening pain, fevers, difficulty or inability to urinate return to the emergency department CT abdomen pelvis wo IV con IMPRESSION: 1. No definite urological calculus or obstruction. 2. Hyperattenuation of the renal pyramids of both kidneys, suggesting medullary nephrocalcinosis. Differential includes medullary sponge kidney, renal tubular acidosis type I, and hypercalcemic states. 3. Remainder of the examination is unremarkable. You need to follow up with the kidney specialist. Call to make an appointment. Prescriptions: New cefpodoxime 200 mg tablet 200 mg PO BID 10 Days Qty: 20 0RF Rx Instructions: must administer with a meal/food No Action Benlysta 400 mg recon soln 600 mg IV Q4W Rx Instructions: administer over 60 mins hydroxychloroquine 200 mg tablet 200 mg PO DAILY Qty: 90 1RF prednisone 5 mg tablet 5 mg PO DAILY Qty: 90 1RF ibuprofen 600 mg tablet 600 mg PO Q6H PRN (Reason: fever or pain) Qty: 30 0RF tramadol 50 mg tablet 50 mg PO Q6H PRN (Reason: pain) Qty: 20 0RF omeprazole 40 mg capsule,delayed release(DR/EC) 40 mg PO DAILY Qty: 90 0RF ibuprofen 600 mg tablet 600 mg PO Q6H PRN (Reason: fever or pain) Qty: 30 0RF polyethylene glycol 3350 [ClearLax] 17 gram/dose powder 17 g PO DAILY PRN (Reason: constipation) Qty: 238 0RF magnesium citrate [OneLAX Magnesium Citrate] Solution 148 ml PO BID PRN (Reason: constipation) Qty: 296 0RF cholecalciferol (vitamin D3) [Vitamin D3] 50 mcg (2,000 unit) tablet 50 mcg PO DAILY budesonide-formoterol [Symbicort] 80-4.5 mcg/actuation HFA aerosol inhaler inhalation albuterol sulfate [Ventolin HFA] 90 mcg/actuation HFA aerosol inhaler inhalation ondansetron HCl 4 mg tablet 4 mg PO Q8-12H PRN (Reason: nausea and vomiting) Qty: 30 0RF Referrals: [facility] [Provider Group, Urology] Nagi Rios MD [Primary Care Provider, Internal Medicine] Stand Alone Forms: Work/School Release Interventions: ED Discharge Assessment Last Done: 07/31/25 15:25 Discharge Date/Time: 07/31/25 15:26 Print Language: Israeli
[2025-07-31 11:19] LABS: Appearance Urine Clear; Glucose Urine UA Negative (Negative); PH 8.5 (5.0-9.0); Specific Gravity - Urine 1.020 (1.005-1.025); UMIC TRIGGER UACC YES
[2025-07-31 11:25] LABS: UACC Culture Trigger YES
--- OUTSIDE RECORDS SUMMARY | 2025-07-31 12:28 | XMS_ITS | Encounter Summary ---
Author Organization [facility] Address [address] [place] [address] Care Team Providers Care Student Support Services Director Name Role Phone Erica Clayton MD Primary Care Provider [phone] Encounter Details Date Type Department Care Team Description 01/22/2023 Nurse Only [facility] Oncology Infusion Services [address] [place] [address] Cheryl Stewart, RN Social History [...] on filedocumented in this encounter Care Teams Student Support Services Director Relationship Specialty Start Date End Date Erica Clayton MD PCP - General Internal Medicine 02/25/22 documented as of this encounter
--- OUTSIDE RECORDS SUMMARY | 2025-07-31 12:28 | XMS_ITS | Clinical Summary ---
Author Organization [facility] Address [address] [place] [address] Care Team Providers Care Office Machines Wirer Name Role Phone Erica Clayton MD Primary Care Provider [phone] Allergies No known active allergies Medications Medication [...] age to complete this topic Care Teams Office Machines Wirer Relationship Specialty Start Date End Date Erica Clayton MD PCP - General Internal Medicine 02/25/22
--- OUTSIDE RECORDS SUMMARY | 2025-07-31 12:28 | XMS_ITS | Clinical Summary ---
Author Organization [address] Address [address] [place] [phone] Phone Care Team Providers Care Supervisor Production Managing Name Role Phone Nagi Rios MD Primary [...] subpectoral lymphadenopathy Lupus (systemic lupus erythe matosus) ([facility] V24, [facility] V28) 04/07/2022 Chronic nonintractable headache 02/04/2022 Chronic benign neutropenia ([facility] V24) 019 Overview (10/13/2024): could be cyclic - Dr. Lin (03/27/22) ADHD (attention deficit hyperactivity disorder) 05/11/2018 Overview (10/13/2024): 09/23/16 off meds - Vyvanse for 1 1/2 years. Seeing therapist Alla Pop with [facility] Anxiety 05/11/2018 Immunizations Immunization Administration Dates Next Due DTaP (Infanrix) 6wks to less than 7yo ,02/22/2004,06/22/2003,04/07,06/15/2001 [id number] (Pentacel) 2mo to less than 5yo 04/06/2002,06/15/2001,01/15/2001,12/20 [...] than 19 yo 09/23/2016 Meningococcal MCV4P 09/12/2011 Hyperfair SARS-CoV-2 COVID-19, mRNA, LNP-S, preservative free 07/18/2021,06/25/2021 [...] to 49 Years) (1 of 3 - PPSV23, PCV20, or PCV21) 03/12/2001 01/15/2001 Gonorrhea/Chlamydia Screening 08/16/2020 08/16/2019 Cervical Cancer Screening: Pap Smear 2021 COVID-19 Vaccine (3 - Pfizer risk series) 08/15/2021 07/18/2021, 06/25/2021 Social Influencers of Health Screening 10/04/2022 Depression Screening 10/26/2024 Influenza Vaccine (#1) 2025 , 09/23/2016, 11/14/2014, Additional history exists Cholesterol Screening (Lipid Panel) 06/10/2028 06/10/2023 DTaP,Tdap,and Td Vaccines (8 - Td or Tdap) 12/10/2031 12/10/2021, 09/12/2011, 12/20/2004, Additional history exists RSV Immunization Adult Patients (1 - 1-dose 75+ series) 2075 Hepatitis B Vaccines Completed 06/15/2001, 2000, 2000 [...] Name Priority Date/Time Associated Diagnosis Comments EXTERNAL CLINICAL LAB 07/24/[address] REPORT 06/29/[address] REPORT 06/29/2025 EXTERNAL XRAY REPORT 05/13/2025 EXTERNAL XRAY REPORT 05/13/2025 EXTERNAL XRAY REPORT 05/13/2025 EXTERNAL XRAY REPORT 05/13/2025 HEPATITIS C SCREENING Routine 06/10/2023 HM HIV SCREENING Routine 06/10/2023 LIPID PANEL Routine 06/10/2023 GONORRHEA/CHLAMYDIA SCRREENING Routine 08/16/2019 from Last 3 Months or Most Recently Relevant to Health Maintenance Results * External clinical lab (07/24/2025) Provider [place] [facility] LAB BLOOD ORDERABLES Fin al Result * External CT Report (06/29/2025) Only the most recent of2 resultswithin the time period is included. Anatomical Region Laterality Modality Computed Tomogra phy Provider [place] [facility] CT PROCEDURES Final Result * External Xray Report (05/13/2025) Only the most recent of4 resultswithin the time period is included. Anatomical Region Laterality Modality Radiographic Key[place] ging Provider [place] [facility] XR PROCEDURES Final Result * HIV Screening (06/10/2023) HIV Screening Abstracted [facility] Provider HEALTH MAINTENANCE Final Result * Hepatitis C Screening (06/10/2023) Hepatitis C Screening Abstracted Result [facility] Provider HEALTH MAINTENANCE Final Result * Lipid panel (06/10/2023) LDL/HDL Ratio 2 0 - 4 Triglycerides 52 0 - 150 mg/dL Cholesterol 169 0 - 200 mg/dL HDL 76 >=40 mg/dL LDL Cholesterol 83 0 - 100 mg/dL Blood Venous blood specimen / Unknown us Historical Provider LAB BLOOD ORDERABLES Kindra l Result * Gonorrhea/Chlamydia Screening (08/16/2019) Gonorrhea/Chla mydia Screening Abstracted us Historical Provider HEALTH MAINTENANCE Final Result from Last 3 Months or Most Recently Relevant to Health Maintenance Insurance [facility] Care Teams Supervisor Production Managing Relationship Specialty Start Date End Date Nagi Rios MD [address] [place] [phone] PCP - General 06/09/23
--- OUTSIDE RECORDS SUMMARY | 2025-07-31 12:28 | XMS_ITS | Clinical Summary ---
Author Organization [facility] Address [address] [place] [address] Care Team Providers Care Rubber Chemist Name Role Phone Ref, Has No Pcp [...] 09/26, 09/12/2011 Insurance [employer] Care Teams Rubber Chemist Relationship Specialty Start Date End Date Ref, Has No Pcp Or DO NOT EDIT THIS RECORD VIA PROVIDER ON THE FLY PCP - General Colorer Machine 05/20/22
[2025-07-31 13:48] VITALS: BP 112/73; PULSE 65; RESP 18; TEMP 36.7; O2SAT 100
[2025-07-31 14:00] VITALS: BP 110/62; PULSE 70; RESP 14; TEMP 36.7; O2SAT 97
[2025-07-31 15:22] VITALS: BP 117/64; PULSE 70; RESP 15; TEMP 36.8; O2SAT 98
[2025-07-31 15:25] VITALS: BP 117/64; PULSE 70; RESP 15; TEMP 36.8; O2SAT 98
== END 2025-07-31 15:26 | disposition home or self-care (01) ==
PROVIDERS: Physician Assistant; Emergency Provider Emergency Medicine; PCP Internal Medicine
DX: N12 Tubulo-interstitial nephritis, not specified as acute or chronic (principal); R10.A0 Flank pain, unspecified side; M54.50 Low back pain, unspecified; R31.9 Hematuria, unspecified; R30.0 Dysuria
CPT/HCPCS: 36415; 74176; 76775; 80053; 81001; 81025; 83605; 85025; 87040; 87086; 96361; 96374; 96375; 99284; J0696; J1885

== ENCOUNTER → 2025-07-31 11:00 | Outpatient (BNV) | payer OTHER, SELFPAY | PROVIDERS: Emergency Provider Emergency Medicine; PCP Internal Medicine; Visit Provider Radiology Diagnostic Radiology | DX: R10.A1 Flank pain, right side (principal); R31.9 Hematuria, unspecified | CPT/HCPCS: 74176; 76775 ==

== ENCOUNTER 2025-08-06 14:24 | Emergency (ER) | payer OTHER, SELFPAY ==
--- NOTE | ~2025-08-06 | XR_ITS ---
CLINICAL HISTORY: cough, fevers 2 view chest x-ray Comparison: CR/SR - XR CHEST 2 VIEWS - 09/13/24 03:26 EST Findings: Normal size heart. Right lower lobe infiltrate. Left lung is clear. No pleural effusion or pneumothorax. No acute fracture. IMPRESSION: 1. Right lower lobe infiltrate suggestive of pneumonia. This document has been electronically signed by: Robyn Cardenas MD on 08/06/2025 17:23:01
[2025-08-06 14:28] VITALS: BP 107/64; PULSE 92; RESP 16; TEMP 36.9; O2SAT 98; BMI 20.1
--- NOTE | 2025-08-06 14:29 | ED.GENADULT ---
HPI - General Adult General Chief complaint: Urogenital-Female Stated complaint: kidney infection worsening pain Time Seen by Provider: 08/06/25 15:03 Source: patient, RN notes reviewed and old records reviewed Mode of arrival: ambulatory Limitations: no limitations History of Present Illness ED Provider: Case DEAN narrative: Patient is a 24-year-old female with history of GERD, SLE on hydrochloroquine presenting to the emergency department with complaint of ongoing back and flank pain. Seen in this ED on 07/31 and treated for pyelonephritis with cefpodoxime. States her dysuria initially began to improve, then returned. Also complains of back and flank pain which goes back and forth between her left and right side. She is currently reporting pain directly over her thoracic spine. Also reports recent cough and subjective fevers/sweating at home. Denies any ongoing hematuria. Has a follow up appointment with urology but not until August. MD complaint: back pain Related Data Home Medications ?Medication ?Instructions ?Recorded ?Confirmed albuterol sulfate 90 mcg/actuation inhalation 08/03/24 08/09/25 aerosol inhaler (Ventolin HFA) budesonide-formoterol HFA 80 inhalation 08/03/24 08/09/25 mcg-4.5 mcg/actuation aerosol inhaler (Symbicort) cefpodoxime 200 mg tablet 200 mg PO BID 08/09/25 08/09/25 cyclobenzaprine 10 mg tablet 10 mg PO TID 08/09/25 08/09/25 doxycycline hyclate 100 mg capsule 100 mg PO BID 08/09/25 08/09/25 Previous Rx's ?Medication ?Instructions ?Recorded belimumab 400 mg intravenous 600 mg IV Q4W 08/14/23 solution (Benlysta) omeprazole 40 mg capsule,delayed 40 mg PO DAILY #90 caps 07/14/24 release fluconazole 150 mg tablet 150 mg PO QWEEK 4 doses #4 tabs 08/09/25 hydroxychloroquine 200 mg tablet 200 mg PO DAILY #90 tabs 08/09/25 ketoconazole 2 % shampoo 1 appl topical 3XW #120 mL 08/09/25 metronidazole 500 mg tablet 500 mg PO BID 7 days #14 tabs 08/09/25 modafinil 100 mg tablet 100 mg PO DAILY #90 tabs 08/09/25 ondansetron 4 mg disintegrating 4 mg PO DAILY PRN nausea and 08/09/25 tablet vomiting #90 tabs prednisone 5 mg tablet 5 mg PO DAILY #90 tabs 08/09/25 Allergies Allergy/AdvReac Type Severity Reaction Status Date / Time lavender (Lavandula Allergy Severe Difficulty Verified 08/09/25 07:59 angustifolia) Breathing Review of Systems Review of Systems: Yes all other systems are reviewed and are negative Constitutional: Constitutional: Reports as per [facility] Past Medical History 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 Systemic lupus erythematosus GERD (gastroesophageal reflux disease) Generalized headaches Family History Family History Father Diabetes Arthritis Paternal Grandmother Rheumatoid arthritis Hypertension Osteoporosis Social History Social History Household Members: Family Housing: House Do you presently have visiting nurse or other home services: No Alcohol intake: current Alcohol intake frequency: a few times a month Patient Tobacco Use Status: Never used Tobacco e-Cigarette/Vaping Use: Former Use Advance Directives Date on File: 03/03/22 service: No Current occupational status: unemployed Physical Exam ED Vital Signs: Vital Signs - 24 hr 08/06/25 14:28 08/06/25 15:06 08/06/25 18:01 Temperature 98.4 F 98.3 F 98.1 F Pulse Rate 92 84 81 Respiratory Rate 16 16 16 Blood Pressure 107/64 119/80 113/64 Pulse Oximetry 98 97 97 Oxygen Delivery Method Room Air Room Air Room Air BMI result Body Mass Index 20.1 Vital signs have been reviewed and appear to be correct. Blood pressure normal. Heart rate normal. Respiratory rate normal. Temperature normal. Oxygen saturation normal. Const General: cooperative, healthy appearing and no acute distress Orientation/consciousness: oriented to person, oriented to place, oriented to time and patient oriented x3 Limitations: no limitations HENMT Head: Yes normocephalic and Yes atraumatic Ears: external ears normal General nose exam: Normal external nose present Face and sinus: Yes face symmetric Mouth: oropharynx normal and moist mucous membranes Throat: Yes uvula midline Eyes Pupils: Equal, round and reactive pupils present Neck Neck: Yes normal visual inspection, Yes no meningeal signs and Yes supple Resp Effort & Inspection: normal respiratory effort and able to speak in complete sentences Auscultation: clear to auscultation bilaterally Cardio Rate: regular rate Rhythm: regular rhythm Heart sounds: S1 normal heart sound present and S2 normal heart sound present GI Palpation (GI): Soft to palpation and nontender Auscultation: normoactive bowel sounds General: Yes no CVA tenderness Back/Spine/Pelvis Back: no CVA tenderness Thoracic/Lumbar Spine: thoracic and lumbar spine normal to inspection, thoraco-lumbar ROM normal, pain with thoraco-lumbar ROM, No thoracic spinal tenderness and No lumbar spinal tenderness Skin General skin exam: elasticity normal and turgor normal Neuro General: oriented to person, oriented to place, oriented to time, patient oriented x3, gait normal, tone normal, moves all extremities, Normal light touch and pain sensation, no meningeal signs, no focal motor deficits, CN's II-XI intact bilaterally and deep tendon reflexes 2+ bilaterally Cranial nerves: Yes Equal, round and reactive pupils present Cognition (Neuro): normal cognition Motor exam (neuro): 5/5 motor strength present throughout, Normal motor muscle tone present throughout and Motor abnormalities not present Extrem General: Yes full ROM, Yes no pedal edema and Yes no calf tenderness Psych Mental Status: mental status grossly normal Affect: normal affect Thought process: Normal thought process present Course Course Course Narrative: Rapid medical examination performed in triage by Kari Mehta PA-C. Patient is a 24 year old assigned female at presenting to the emergency department with worsening flank pain. Patient states that she was here on 07/31/2025 and diagnosed with pyelonephritis for which she has been taking her antibiotics but the pain has gotten much worse. Detailed physical exam and review of systems are deferred to the last model department supervisor. Labs ordered. Patient placed back in the waiting room pending room availability and results. Reevaluation(s) Reevaluation #1: Patient tested positive for bacterial vaginosis, she was not treated for this. Will send over metronidazole. Left message on machine. She called back a minute later - discussed + result. Answered all questions. Medications Administered Discontinued Medications Generic Name Dose Route Start Last Admin Trade Name Freq PRN Reason Stop Dose Admin Diazepam 2 mg 08/06/25 16:50 08/06/25 17:18 Diazepam 2 Mg Tablet PO 08/06/25 16:51 2 mg ONCE ONE Administration Doxycycline Monohydrate 100 mg 08/06/25 18:40 08/06/25 18:54 Doxycycline Monohydrate 100 Mg Capsule PO 08/06/25 18:41 100 mg ONCE ONE Administration Medical Decision Making Medical Decision Making [facility] Narrative: Patient is a 24-year-old female with history of GERD, SLE on hydrochloroquine presenting to the emergency department with complaint of ongoing back and flank pain. On exam patient is awake, A+Ox3, VS WNL, afebrile, normal neurological exam without focal deficits, physical exam findings as above. Given reported symptoms and physical exam findings, initial differential includes but is not limited to worsening pyelonephritis, pneumonia, viral illness, BV, vulvovaginal selma, STI. Discussed pelvic exam versus self swabs with patient and patient electing to perform self swabs. Urine culture from visit on 07/31 notable only for [id number] mixed desean. UA at today's visit similar to visit on 07/31. Labs appear consistent with baseline. X-ray chest notable for right lower lobe infiltrate. Given report of cough and subjective fevers, will treat for pneumonia. My interpretation is in agreement with the radiologist's interpretation. Pelvic swabs will not be resulted at today's visit, cough patient will be contacted with any positive results. Patient reports significant improvement in pain after Valium, will discharge home on Flexeril. Stress importance of following up with Urology and PCP. Return precautions discussed. Patient verbalized understanding of and agreement with plan. Lab Data 08/06/25 14:49 08/06/25 14:49 Labs: Lab Results 08/06/25 08/06/25 08/06/25 Range/Units 14:49 15:09 16:36 WBC 2.7 L (4.8-10.8) X10*3/uL RBC 4.11 L (4.20-5.50) X10*6/uL Hgb 11.6 L (12.0-16.0) g/dl Hct 35.6 L (37.0-47.0) % MCV 86.6 (80.0-98.0) fL MCH 28.2 (27.0-33.0) pg MCHC 32.6 (31.0-35.0) g/dl RDW 12.2 (11.0-16.0) % Plt Count 220 (160-400) X10*3/uL MPV 9.5 (9.4-12.3) fL Immature Gran % (Auto) 0.4 (0.0-0.4) % Neut % (Auto) 64.1 (45-73) % Lymph % (Auto) 26.0 (20-40) % Beaver % (Auto) 6.2 (2-11) % Eos % (Auto) 2.9 (0-4) % Baso % (Auto) 0.4 (0-2) % Lymph # (Auto) 0.7 L (1.2-4.9) X10*3/uL Beaver # (Auto) 0.2 (0.1-1.2) X10*3/uL Eos # (Auto) 0.1 (0.0-0.4) X10*3/uL Baso # (Auto) 0.0 (0.0-0.2) X10*3/uL Abs Immat Gran (auto) 0.01 (0.00-0.03) X10*3/uL Absolute Neuts (auto) 1.8 L (2.0-8.3) x10*3/uL Absolute Nucleated RBC 0.000 (0.0-0.012) X10*3/uL Nucleated RBC % (auto) 0.0 (0.0-0.2) /100WBC ESR 22 H (0-20) MM/HR Sodium 136 (135-145) mmol/L Potassium 3.5 (3.3-5.1) mmol/L Chloride 108 (96-108) mmol/L Carbon Dioxide 22 (22-29) mmol/L Anion Gap 10 L (12-20) BUN 13 (9-16) mg/dL Creatinine 0.52 (0.5-1.4) mg/dL Estim Creat Clear Calc 144.2 Estimated GFR > 60 Random Glucose 113 (60-115) mg/dL Calcium 8.6 (8.4-10.2) mg/dL Total Bilirubin 0.5 (0.0-1.0) mg/dL AST 118 H (5-31) U/L ALT 69 H (0-31) U/L Alkaline Phosphatase 58 (39-117) U/L C-Reactive Protein < 0.10 (< or = 0.50) mg/dL Total Protein 8.2 H (6.5-8.0) g/dL Albumin 3.8 (3.5-5.0) g/dL Urine Color Yellow Urine Appearance Clear Urine pH 6.0 (5.0-9.0) Ur Specific Hewitt >= 1.030 H (1.005-1.025) Urine Protein Trace (Neg-Trace) mg/dL Urine Glucose (UA) Negative (Negative) mg/dL Urine Ketones 15 (Negative) mg/dL Urine Blood Negative (Negative) Urine Nitrite Negative (Negative) Ur Leukocyte Esterase Small (1+) H (Negative) Urine RBC 0-2 (0-2) /HPF Urine WBC 6-10 H (0-5) /HPF Ur Squamous Epith Cells 6-10 (0-2) /HPF Urine Bacteria 1+ (None Seen) Hyaline Casts 0-2 (0-2) /LPF Chlam trachomat DNA PCR (Not Detect.) COVID-19 ([facility]Y) Negative (Negative) COVID-19 Clin Com See Note Influenza Type A (CB) Negative (Negative) Influenza Type B (CB) Negative (Negative) Influenza A & B Note See Note N.gonorrhoeae DNA (PCR) (Not Detect.) T. vaginalis (PCR) (Not Detect) Bact vaginosis (PCR) (Negative) C. krusei/glabrata (PCR) (Not Detect) Selma group (PCR) (Not Detect) 08/06/25 Range/Units 17:12 WBC (4.8-10.8) X10*3/uL RBC (4.20-5.50) X10*6/uL Hgb (12.0-16.0) g/dl Hct (37.0-47.0) % MCV (80.0-98.0) fL MCH (27.0-33.0) pg MCHC (31.0-35.0) g/dl RDW (11.0-16.0) % Plt Count (160-400) X10*3/uL MPV (9.4-12.3) fL Immature Gran % (Auto) (0.0-0.4) % Neut % (Auto) (45-73) % Lymph % (Auto) (20-40) % Beaver % (Auto) (2-11) % Eos % (Auto) (0-4) % Baso % (Auto) (0-2) % Lymph # (Auto) (1.2-4.9) X10*3/uL Beaver # (Auto) (0.1-1.2) X10*3/uL Eos # (Auto) (0.0-0.4) X10*3/uL Baso # (Auto) (0.0-0.2) X10*3/uL Abs Immat Gran (auto) (0.00-0.03) X10*3/uL Absolute Neuts (auto) (2.0-8.3) x10*3/uL Absolute Nucleated RBC (0.0-0.012) X10*3/uL Nucleated RBC % (auto) (0.0-0.2) /100WBC ESR (0-20) MM/HR Sodium (135-145) mmol/L Potassium (3.3-5.1) mmol/L Chloride (96-108) mmol/L Carbon Dioxide (22-29) mmol/L Anion Gap (12-20) BUN (9-16) mg/dL Creatinine (0.5-1.4) mg/dL Estim Creat Clear Calc Estimated GFR Random Glucose (60-115) mg/dL Calcium (8.4-10.2) mg/dL Total Bilirubin (0.0-1.0) mg/dL AST (5-31) U/L ALT (0-31) U/L Alkaline Phosphatase (39-117) U/L C-Reactive Protein (< or = 0.50) mg/dL Total Protein (6.5-8.0) g/dL Albumin (3.5-5.0) g/dL Urine Color Urine Appearance Urine pH (5.0-9.0) Ur Specific Hewitt (1.005-1.025) Urine Protein (Neg-Trace) mg/dL Urine Glucose (UA) (Negative) mg/dL Urine Ketones (Negative) mg/dL Urine Blood (Negative) Urine Nitrite (Negative) Ur Leukocyte Esterase (Negative) Urine RBC (0-2) /HPF Urine WBC (0-5) /HPF Ur Squamous Epith Cells (0-2) /HPF Urine Bacteria (None Seen) Hyaline Casts (0-2) /LPF Chlam trachomat DNA PCR NOT DETECTED (Not Detect.) COVID-19 ([facility]) (Negative) COVID-19 Clin Com Influenza Type A (CB) (Negative) Influenza Type B (CB) (Negative) Influenza A & B Note N.gonorrhoeae DNA (PCR) NOT DETECTED (Not Detect.) T. vaginalis (PCR) NOT DETECTED (Not Detect) Bact vaginosis (PCR) POSITIVE A (Negative) C. krusei/glabrata (PCR) NOT DETECTED (Not Detect) Selma group (PCR) NOT DETECTED (Not Detect) Discharge Plan Discharge Clinical Impression: Right lower lobe pneumonia, Strain of thoracic back region Patient Disposition: Home, Self-Care Instructions: Community Acquired Pneumonia (DC), Thoracic Back Strain (ED) Additional Instructions: You were evaluated in the emergency department today for back pain. Your chest x-ray showed evidence of pneumonia. You are being treated with an antibiotic called doxycycline. It is important that you take this medication with food as it can upset your stomach. It is also important that you cover your skin or wear sunscreen when outdoors while taking this medication as it can make your skin extremely sensitive to sunlight and cause severe sunburn. Your pelvic swabs are pending and you will be contacted with any positive results. We also recommend that you complete the full course of antibiotics that you were previously prescribed for pyelonephritis. Keep your follow-up appointment with Urology. Return to the emergency department if you develop worsening pain, fever, difficulty urinating, vomiting or any other new or concerning symptoms. Prescriptions: New metronidazole 500 mg tablet 500 mg PO BID 7 Days Qty: 14 0RF No Action Benlysta 400 mg recon soln 600 mg IV Q4W Rx Instructions: administer over 60 mins omeprazole 40 mg capsule,delayed release(DR/EC) 40 mg PO DAILY Qty: 90 0RF budesonide-formoterol [Symbicort] 80-4.5 mcg/actuation HFA aerosol inhaler inhalation albuterol sulfate [Ventolin HFA] 90 mcg/actuation HFA aerosol inhaler inhalation cyclobenzaprine 10 mg tablet 10 mg PO TID doxycycline hyclate 100 mg capsule 100 mg PO BID cefpodoxime 200 mg tablet 200 mg PO BID Rx Instructions: must administer with a meal/food hydroxychloroquine 200 mg tablet 200 mg PO DAILY Qty: 90 1RF prednisone 5 mg tablet 5 mg PO DAILY Qty: 90 1RF ondansetron 4 mg tablet,disintegrating 4 mg PO DAILY PRN (Reason: nausea and vomiting) Qty: 90 1RF modafinil 100 mg tablet 100 mg PO DAILY Qty: 90 1RF ketoconazole 2 % shampoo 1 appl topical 3XW Qty: 120 1RF fluconazole 150 mg tablet 150 mg PO QWEEK Qty: 4 0RF Interventions: ED Discharge Assessment Last Done: 08/06/25 18:58 Discharge Date/Time: 08/06/25 19:07 Print Language: Luxembourgish
[2025-08-06 14:55] LABS: MANUAL DIFF FLAG NO
[2025-08-06 14:56] LABS: Hematocrit 35.6 % (37.0-47.0); Hemoglobin 11.6 g/dl (12.0-16.0); Imm Gran Abs Auto 0.01 X10*3/uL (0.00-0.03); Imm Gran Pct Auto 0.4 % (0.0-0.4); Lymphocytes Absolute Auto 0.7 X10*3/uL (1.2-4.9); Mean Corpuscular HGB Conc 32.6 g/dl (31.0-35.0); Mean Corpuscular Hemoglobin 28.2 pg (27.0-33.0); Mean Corpuscular Volume 86.6 fL (80.0-98.0); NRBC Abs Auto 0.000 X10*3/uL (0.0-0.012); NRBC Pct Auto 0.0 /100WBC (0.0-0.2); Platelet Count 220 X10*3/uL (160-400); Red Blood Count 4.11 X10*6/uL (4.20-5.50); White Blood Count 2.7 X10*3/uL (4.8-10.8)
[2025-08-06 15:06] VITALS: BP 119/80; PULSE 84; RESP 16; TEMP 36.8; O2SAT 97
--- NOTE | 2025-08-06 15:11 | PC.NURSE ---
Patient presents to Ed c/o increased dysuria and low back pain Patient was recently seen at [facility] for pyelonephritis Patient reports being med compliant with ABT VSS and up to date Urine sample collected/ sent Provider in to see patient Plan of care on going
--- OUTSIDE RECORDS SUMMARY | 2025-08-06 15:16 | XMS_ITS | Clinical Summary ---
Author Organization [facility] Address [address] [place] [address] Care Team Providers Care Intelligence Officer Name Role Phone Ref, Has No Pcp [...] 09/26, 09/12/2011 Insurance [employer] Care Teams Intelligence Officer Relationship Specialty Start Date End Date Ref, Has No Pcp Or DO NOT EDIT THIS RECORD VIA PROVIDER ON THE FLY PCP - General Acoustical Installer 05/20/22
--- OUTSIDE RECORDS SUMMARY | 2025-08-06 15:16 | XMS_ITS | Clinical Summary ---
Author Organization [employer] [facility] Address [address] [place] [address] Care Team Providers Care Clinical Nursing Director Name Role Phone Erica Clayton MD Primary Care Provider [phone] Allergies No known active allergies Medications Medication [...] age to complete this topic Care Teams Clinical Nursing Director Relationship Specialty Start Date End Date Erica Clayton MD PCP - General Internal Medicine 02/25/22
--- OUTSIDE RECORDS SUMMARY | 2025-08-06 15:16 | XMS_ITS | Encounter Summary ---
Author Organization [employer] [facility] Address [address] [place] [address] Care Team Providers Care Computerized Table Cutter Name Role Phone Erica Clayton MD Primary Care Provider [phone] Encounter Details Date Type Department Care Team Description 01/22/2023 Nurse Only [facility] [address] [place] [address] Cheryl Stewart, RN Social History [...] on filedocumented in this encounter Care Teams Computerized Table Cutter Relationship Specialty Start Date End Date Erica Clayton MD PCP - General Internal Medicine 02/25/22 documented as of this encounter
--- OUTSIDE RECORDS SUMMARY | 2025-08-06 15:17 | XMS_ITS | Clinical Summary ---
Author Organization [address] Address [address] [place] [phone] Phone Care Team Providers Care Academic Program Specialist Name Role Phone Nagi Rios MD Primary Care Provider [phone] Allergies No known active allergies Medications albuterol [...] lymphadenopathy Lupus (systemic lupus erythe matosus) ([facility] V24, [facility] V28) 04/07/2022 Chronic nonintractable headache 02/04/2022 Chronic benign neutropenia ([facility] V24) 019 Overview (10/13/2024): could be cyclic - Dr. Lin (03/27/22) ADHD (attention deficit hyperactivity disorder) 05/11/2018 Overview (10/13/2024): 09/23/16 off meds - Vyvanse for 1 1/2 years. Seeing therapist Alla Pop with [facility] Anxiety 05/11/2018 Immunizations Immunization Administration Dates Next Due DTaP (Infanrix) 6wks to less than 7yo ,02/22/2004,06/22/2003,04/07,06/15/2001 [id number] (Pentacel) 2mo to less than 5yo 04/06/2002,06/15/2001,01/15/2001,12/20 [...] than 19 yo 09/23/2016 Meningococcal MCV4P 09/12/2011 NEXAGE SARS-CoV-2 COVID-19, mRNA, LNP-S, preservative free 07/18/2021,06/25/2021 [...] Diagnosis Comments EXTERNAL CLINICAL LAB 07/24/2025 EXTERNAL CLINICAL LAB 07/24/[address] REPORT 06/29/[address] REPORT 06/29/2025 EXTERNAL XRAY REPORT 05/13/2025 EXTERNAL XRAY REPORT 05/13/2025 EXTERNAL XRAY REPORT 05/13/2025 EXTERNAL XRAY REPORT 05/13/2025 HEPATITIS C SCREENING Routine 06/10/2023 HIV SCREENING Routine 06/10/2023 LIPID PANEL Routine 06/10/2023 GONORRHEA/CHLAMYDIA SCRREENING Routine 08/16/2019 from Last 3 Months or Most Recently Relevant to Health Maintenance Results * External clinical lab (07/24/2025) Only the most recent of2 resultswithin the time period is included. Provider [facility] LAB BLOOD ORDERABLES Fin al Result * External CT Report (06/29/2025) Only the most recent of2 resultswithin the time period is included. Anatomical Region Laterality Modality Computed Tomogra phy Provider [facility] IMG CT PROCEDURES Final Result * External Xray Report (05/13/2025) Only the most recent of4 resultswithin the time period is included. Anatomical Region Laterality Modality Radiographic Keya ging Provider [facility] IMG XR PROCEDURES Final Result * HIV Screening (06/10/2023) HIV Screening Abstracted [facility] Provider HEALTH MAINTENANCE Final Result * Hepatitis C Screening (06/10/2023) Hepatitis C Screening Abstracted Historical Provider HEALTH MAINTENANCE Final Result * Lipid panel (06/10/2023) LDL/HDL Ratio 2 0 - 4 Triglycerides 52 0 - 150 mg/dL Cholesterol 169 0 - 200 mg/dL HDL 76 >=40 mg/dL LDL Cholesterol 83 0 - 100 mg/dL Blood Venous blood specimen / Unknown Historical Provider LAB BLOOD ORDERABLES Kindra l Result * Gonorrhea/Chlamydia Screening (08/16/2019) Pathologist [facility] Gonorrhea/Chla mydia Screening Abstracted Historical Provider HEALTH MAINTENANCE Final Result from Last 3 Months or Most Recently Relevant to Health Maintenance Insurance [facility] [address] Care Teams Academic Program Specialist Relationship Specialty Start Date End Date Nagi Rios MD [address] [place] [phone] PCP - General 06/09/23
[2025-08-06 15:23] LABS: Appearance Urine Clear; Glucose Urine UA Negative (Negative); PH 6.0 (5.0-9.0); Specific Gravity - Urine >= 1.030 (1.005-1.025); UMIC TRIGGER UACC YES
[2025-08-06 15:25] LABS: Alanine Aminotransferase 69 U/L (0-31); Albumin Level 3.8 g/dL (3.5-5.0); Anion Gap 10 (12-20); Aspartate Amino Transferase 118 U/L (5-31); Blood Urea Nitrogen 13 mg/dL (9-16); Calcium 8.6 mg/dL (8.4-10.2); Carbon Dioxide 22 mmol/L (22-29); Chloride 108 mmol/L (96-108); Creatinine Clr Calc Pharmacy 144.2; Estimated Glomerular Filt Rate > 60; Potassium 3.5 mmol/L (3.3-5.1); Sodium 136 mmol/L (135-145); Total Protein 8.2 g/dL (6.5-8.0)
[2025-08-06 15:25] LABS: UACC Culture Trigger YES
[2025-08-06 16:04] LABS: Alkaline Phosphatase 58 U/L (39-117)
[2025-08-06 16:58] LABS: COVID-19 Test Negative (Negative); IDNOW Serial# 55D5AD1C
[2025-08-06 17:01] LABS: IDNOW Serial# 58CA691E; Influenza B2 Negative (Negative)
[2025-08-06 18:01] VITALS: BP 113/64; PULSE 81; RESP 16; TEMP 36.7; O2SAT 97
[2025-08-06 18:58] VITALS: BP 119/80; PULSE 84; RESP 16; TEMP 36.7; O2SAT 97
[2025-08-07 01:53] LABS: Bacterial Vaginosis PCR POSITIVE (Negative); Candida Group PCR NOT DETECTED (Not Detect); Candida glab krusei PCR NOT DETECTED (Not Detect); Trichomonas vaginalis PCR NOT DETECTED (Not Detect)
[2025-08-07 02:24] LABS: CT PCR NOT DETECTED (Not Detect.); NG PCR NOT DETECTED (Not Detect.)
== END 2025-08-06 19:07 | disposition home or self-care (01) ==
PROVIDERS: Physician Assistant Medical; Registered Nurse Emergency; Emergency Provider Emergency Medicine
DX: J18.9 Pneumonia, unspecified organism (principal); S29.012A Strain of muscle and tendon of back wall of thorax, initial encounter; X58.XXXA Exposure to other specified factors, initial encounter; Y93.9 Activity, unspecified; Y92.9 Unspecified place or not applicable; Y99.9 Unspecified external cause status; R30.0 Dysuria; R50.9 Fever, unspecified; R05.9 Cough, unspecified
CPT/HCPCS: 36415; 71046; 80053; 81001; 81515; 85025; 85652; 86140; 87086; 87491; 87502; 87591; 87635; 99283; 99284

== ENCOUNTER → 2025-08-06 16:25 | Outpatient (BNV) | payer OTHER, SELFPAY | PROVIDERS: Emergency Provider Emergency Medicine; Visit Provider Specialist | DX: R91.8 Other nonspecific abnormal finding of lung field (principal) | CPT/HCPCS: 71046 ==

== ENCOUNTER 2025-08-09 07:43 | Outpatient (AMB) | payer OTHER, SELFPAY ==
--- OUTSIDE RECORDS SUMMARY | 2025-08-09 07:48 | XMS_ITS | Clinical Summary ---
Author Organization [address] Address [address] [place] [phone] Phone Care Team Providers Care Batch Unit Treater Name Role Phone Nagi Rios MD Primary [...] subpectoral lymphadenopathy Lupus (systemic lupus erythe matosus) ([facility] V24, [facility] V28) 04/07/2022 Chronic nonintractable headache 02/04/2022 Chronic benign neutropenia ([facility] V24) 019 Overview (10/13/2024): could be cyclic - Dr. Lin (03/27/22) ADHD (attention deficit hyperactivity disorder) 05/11/2018 Overview (10/13/2024): 09/23/16 off meds - Vyvanse for 1 1/2 years. Seeing therapist Alla Pop with [facility] Anxiety 05/11/2018 Immunizations Immunization Administration Dates Next Due DTaP (Infanrix) 6wks to less than 7yo ,02/22/2004,06/22/2003,04/07,06/15/2001 PQnM-MEK-IMK (Pentacel) 2mo to less than 5yo 04/06/2002,06/15/2001,01/15/2001,12/20 [...] than 19 yo 09/23/2016 Meningococcal MCV4P 09/12/2011 Weele SARS-CoV-2 COVID-19, mRNA, LNP-S, preservative free 07/18/2021,06/25/2021 [...] - PPSV23, PCV20, or PCV21) 03/12/2001 01/15/2001 Cervical Cancer Screening: Pap Smear 2021 COVID-19 [...] 09/26, 09/12/2011 Meningococcal ACWY Vaccine Completed 09/23/2016, Gonorrhea/Chlamydia Screening Discontinued 08/16/2019 HIV Screening Completed 06/10/2023 Hepatitis C Screening [...] Name Priority Date/Time Associated Diagnosis Comments EXTERNAL ULTRASOUND REPORT 07/31/2025 EXTERNAL ULTRASOUND REPORT 07/31/2025 EXTERNAL CLINICAL LAB 07/24/2025 EXTERNAL CLINICAL LAB 07/24/[address] REPORT 06/29/[address] REPORT 06/29/2025 EXTERNAL XRAY REPORT 05/13/2025 EXTERNAL XRAY REPORT 05/13/2025 EXTERNAL XRAY REPORT 05/13/2025 EXTERNAL XRAY REPORT 05/13/2025 HEPATITIS C SCREENING Routine 06/10/2023 HIV SCREENING Routine 06/10/2023 LIPID PANEL Routine 06/10/2023 GONORRHEA/CHLAMYDIA SCRREENING Routine 08/16/2019 from Last 3 Months or Most Recently Relevant to Health Maintenance Results * External Ultrasound Report (07/31/2025) Only the most recent of2 resultswithin the time period is included. Anatomical Region Laterality Modality Ultrasound us Provider [facility] US PROCEDURES Final Result * External clinical lab (07/24/2025) Only the most recent of2 resultswithin the time period is included. us Provider [facility] BLOOD ORDERABLES Fin al Result * External CT Report (06/29/2025) Only the most recent of2 resultswithin the time period is included. Anatomical Region Laterality Modality Computed Tomogra phy us Provider [facility] CT PROCEDURES Final Result * External Xray Report (05/13/2025) Only the most recent of4 resultswithin the time period is included. Anatomical Region Laterality Modality Radiographic Keya ging us Provider [facility] XR PROCEDURES Final Result * HIV Screening (06/10/2023) HIV Screening Abstracted Historical Provider HEALTH MAINTENANCE [...] Gonorrhea/Chlamydia Screening (08/16/2019) Gonorrhea/Chla mydia Screening Abstracted Historical Provider HEALTH MAINTENANCE Final Result from Last 3 Months or Most Recently Relevant to Health Maintenance Insurance [facility] Care Teams Batch Unit Treater Relationship Specialty Start Date End Date Nagi Rios MD [address] [place] [phone] PCP - General 06/09/23
--- OUTSIDE RECORDS SUMMARY | 2025-08-09 07:48 | XMS_ITS | Clinical Summary ---
Author Organization [employer] [facility] Address [address] [place] [address] Care Team Providers Care Facility Operations Manager Name Role Phone Erica Clayton MD Primary Care Provider [phone] Allergies No known active allergies Medications Medication [...] age to complete this topic Care Teams Facility Operations Manager Relationship Specialty Start Date End Date Erica Clayton MD PCP - General Internal Medicine 02/25/22
--- OUTSIDE RECORDS SUMMARY | 2025-08-09 07:48 | XMS_ITS | Clinical Summary ---
Author Organization [facility] Address [address] [place] [address] Care Team Providers Care Literacy Consultant Name Role Phone Ref, Has No Pcp [...] 09/26, 09/12/2011 Insurance [employer] Care Teams Literacy Consultant Relationship Specialty Start Date End Date Ref, Has No Pcp Or DO NOT EDIT THIS RECORD VIA PROVIDER ON THE [facility]Y PCP - General Career Education Teacher 05/20/22
--- OUTSIDE RECORDS SUMMARY | 2025-08-09 07:48 | XMS_ITS | Encounter Summary ---
Author Organization [employer] [facility] Address [address] [place] [address] Care Team Providers Care Privacy Compliance Manager Name Role Phone Erica Clayton MD Primary Care Provider [phone] Encounter Details Date Type Department Care Team Description 01/22/2023 Nurse Only [facility] [address] [place] [address] Cheryl Stewart, RN Social History [...] on filedocumented in this encounter Care Teams Privacy Compliance Manager Relationship Specialty Start Date End Date Erica Clayton MD PCP - General Internal Medicine 02/25/22 documented as of this encounter
--- NOTE | 2025-08-09 07:53 | MHC.OFFVIS ---
Vital Signs 08/09/25 08:10 Height 5 ft 5 in Weight 125 lb 0.034 oz BMI 20.8 BP 112/84 Blood Pressure Location Lt brachial Position Sitting Pulse 56 Pulse Source Pulse Oximeter Pulse Oximetry (%) 100 Oxygen Delivery Method Room Air Intake Visit Reasons: SLE Intake Note: Patient presents for SLE follow up. Patient stated she was seen at [facility] [place] 07[place]/25 and on 08/06/25. Was diagnose with kidney infection and pneumonia on RT lung. Allergies lavender (Lavandula angustifolia) Allergy (Severe, Verified 08/09/25 07:59) Difficulty Breathing Medication List - Last Reconciled 08/09/25 by Jada Banuelos MD albuterol sulfate 90 mcg/actuation (Ventolin HFA) inhalation belimumab (Benlysta) 600 mg IV Q4W budesonide-formoterol 80-4.5 mcg/actuation (Symbicort) inhalation cefpodoxime 200 mg PO BID cyclobenzaprine 10 mg PO TID doxycycline hyclate 100 mg PO BID hydroxychloroquine 200 mg PO DAILY omeprazole 40 mg PO DAILY prednisone 5 mg PO DAILY HPI Comments Details: Patient is a 25-year-old female with asthma, GERD, and systemic lupus erythematosus here today for follow up Interval History: Patient last seen 11/09/[address] Obregon - On Benlysta 10mg/kg every 4 weeks, Hydroxychloroquine 200mg daily and prednisone 5mg - She started Benlysta infusions. She received 3 doses so far. She states that she has been feeling better overall with improved overall pain, fatigue and fevers, she states that as the infusion is wearing off she starts to get more body pains. She takes prednisone 5-10 mg daily once or twice a week as needed for pains. She has not been compliant with hydroxychloroquine. - No changes made to medication - Encouraged compliance with plaquenil Today - On Benlysta 10mg/kg every 4 weeks, Hydroxychloroquine 200mg daily and prednisone 5mg - Last infusion 06/2025 - Currently being treated for PNA, CXR done 08/05/25 showing right lower lobe PNA - Does not feel that the Benlysta is working anymore. States that in the past after day 3 of the infusion she would feel overall improvement but that is now no longer same extreme fatigue nausea with vomiting. 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 hosp with rash , arthritis, abdominal pain, lipase elevation, leukopenia, anemia Hydroxychloroquine started 02/2022 - eye exam OK 11/2022.Benlysta subcutaneously started 12/2022 -switch to IV Benlysta monthly in August 2023. Lost insurance and follow-up 08/2023 Benlysta infusions restarted 07/2024 Initial History: The patient presents today with her aunt who gives additional history. I received a call about this patient about 10 days ago when she was in the hospital. She had developed polyarthralgias, weight loss, anorexia, at the beginning of the year. Areas of pain include the hands, knees, lower back and shoulders. In late December into early January this overall pain was worsening and was accompanied by episodes of abdominal pain and vomiting. She developed a facial and peripheral rash. The lesions on the hands and feet were painful. She also had some kind of stomatitis at the time that made it difficulty to swallow. There was a prior history of about 1 year of symptoms consistent with Raynaud's phenomenon. She was at [facility] in December for a few days with abdominal pain. She was readmitted again a few weeks ago at [facility]. She had marked leukopenia, non-hemolytic anemia and mild thrombocytopenia. There was suspicion that her skin lesions could be inflammatory and she was put on some low-dose prednisone. That did improve the irritation of the skin but the rash remained. The joint symptoms also improved but she still had abdominal pain and vomiting. No new skin lesions developed however. She underwent extensive workup including abdominal ultrasound, abdominal CT scan, HIDA scan, and abdominal MRI. There was mild elevation of amylase, transaminases, and lipase. When the anti-sm antibody came back positive it looked more likely she had lupus so she was put on higher doses of prednisone. She was discharged on Thursday but did not get her prednisone yet for Thursday or Thursday. She feels some of the arthralgias are coming back today. She normally lives in her own apartment but will be moving in with the grandmother now because she lost her job. 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 The record at [facility], the [facility] record and the [facility] record are reviewed. Current Rheumatology Medication(s): Benlysta 10mg/kg every 4 weeks Hydroxychloroquine 200mg daily Prednisone 5mg prn [facility] Medical History nursing home current use of immunosuppressive drug Systemic lupus erythematosus GERD (gastroesophageal reflux disease) Generalized headaches Family History Father Diabetes Arthritis Paternal Grandmother Rheumatoid arthritis Hypertension Osteoporosis Social History Household Members: Family Housing: House Do you presently have visiting nurse or other home services: No Alcohol intake: current Alcohol intake frequency: a few times a month Patient Tobacco Use Status: Never used Tobacco e-Cigarette/Vaping Use: Former Use Advance Directives Date on File: 03/03/22 service: No Current occupational status: unemployed Review of Systems Const Details: Review of Systems Constitutional: Denies fever, chills, weight loss ENT: Denies vision changes, eye pain or eye redness, dental caries, dry mouth GI: Denies nausea, vomiting, diarrhea, abdominal pain, change in BM Pulm: Denies SOB, BENNETT, hemoptysis, wheezing Cards: Denies chest pain, palpitations Skin: Denies Raynaud's, rash, nail changes, photosensitivity, PATIENT SAFETY TECH: Denies headaches, weakness, paresthesias, recurrent falls MSK: as per HPI All other systems reviewed and are unremarkable except noted above Physical Exam Exam Exam: Vital signs reviewed Physical Examination CONSTITUITIONAL Patient alert and cooperative. Well appearing and in no apparent painful distress CHEST/RESPIRATORY SYSTEM Normal respiratory effort and able to speak in complete sentences. Clear to auscultation bilaterally. No crackles, rales, rhonchi, wheezes heard. CARDIAC SYSTEM Regular rate and rhythm. S1 and S2 heard no murmurs. Radial pulses intact bilaterally MSK Hands Right Hand: Able to make a fist. No swelling or tenderness to palpation of the MCPs, PIPs or DIPs. No deformities noted. Left Hand: Able to make a fist. No swelling or tenderness to palpation of the MCPs, PIPs or DIPs. No deformities noted. Wrists Right Wrist: Full ROM to flexion and extension. No swelling or TTP Left Wrist: Full ROM to flexion and extension. No swelling or TTP Elbows Right Elbow: Full ROM. No swelling or TTP. No TTP of the medial epicondyle. No TTP of the lateral epicondyle Left Elbow: Full ROM. No swelling or TTP. No TTP of the medial epicondyle. No TTP of the lateral epicondyle Shoulders Right shoulder: Full ROM. No swelling noted. No TTP of the AC joint. No TTP of the subacromial bursa. No TTP of the posterior shoulder Left shoulder: Full ROM. No swelling noted. No TTP of the AC joint. No TTP of the subacromial bursa. No TTP of the posterior shoulder Knees Right knee: Full ROM. No swelling noted. No TTP of the knee joint line. No TTP of pes anserine bursa Left knee: Full ROM. No swelling noted. No TTP of the knee joint line. No TTP of pes anserine bursa. Ankles Right ankle: Good ankle dorsiflexion and plantar flexion. No swelling. No TTP of the ankle joint Left ankle: Good ankle dorsiflexion and plantar flexion. No swelling. No TTP of the ankle joint Feet Right foot: Negative squeeze test Left foot: Negative squeeze test Tender points? No tenderness to palpation of the bilateral trapezius, supraspinatus, anterior costochondral junctions, bilateral suboccipital muscle insertions SKIN Abnormal nailfold capilloroscopy Pytiriasis versicalor Vital Signs: Last Vital Signs Pulse 56 08/09/25 08:10 BP 112/84 08/09/25 08:10 Pulse Ox 100 08/09/25 08:10 Oxygen Delivery Method Room Air 08/09/25 08:10 BMI result Body Mass Index 20.8 Results Reviewed Results Reviewed: Laboratory Tests 07/24/25 07/31/25 08/06/25 15:07 09:57 14:49 WBC 2.7 L RBC 4.11 L Hgb 11.6 L Hct 35.6 L Plt Count 220 ESR 16 22 H Sodium 136 Potassium 3.5 Chloride 108 Carbon Dioxide 22 BUN 13 Creatinine 0.52 AST 82 H 118 H ALT 52 H 69 H C-Reactive Protein < 0.10 Total Protein 8.2 H Laboratory Tests 08/03/24 07/24/25 16:30 15:07 Double Strand DNA Ab 1 2 Complement C3 77 L 118 Complement C4 13 L 20 Assessment & Plan Assessment & Plan (1) Systemic lupus erythematosus: Comment: Onset 10/2021: 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 hosp with rash , arthritis, abdominal pain, lipase elevation, leukopenia, anemia Hydroxychloroquine started 02/2022 - eye exam OK 11/2022.Benlysta subcutaneously started 12/2022 -switch to IV Benlysta monthly in August 2023. Lost insurance and follow-up 08/2023 Benlysta infusions restarted 07/2024 Code(s): M32.9 - Systemic lupus erythematosus, unspecified Category: Medical Qualifiers: Systemic lupus erythematosus type: unspecified Systemic lupus erythematosus organ involvement: unspecified Qualified Code(s): M32.9 - Systemic lupus erythematosus, unspecified Plan: #SLE Patient is a 25 y.o. female with SLE here today for follow up Currently being treated for PNA and pyelonephritis with antibiotics Benlysta is not due until the end of July Okay to hold Plaquenil while she is on the antibiotics. Although she does not really need to. Discussed with patient that although she feels the Benlysta may not be helpful, her lab work shows that her complements have normalized while on Benlysta infusions. There was no active synovitis on examination today. Her symptoms of fatigue while very much related to her lupus can also be multifactorial and immunosuppression does not generally help with that. She currently drinks 3 red Bulls a day and I advised her to cut that down to 1. 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 helper (current) drug therapy Category: Medical Plan: #Long-term Use of Hydroxychloroquine Discussed with patient the risks and benefits of hydroxychloroquine in managing the rheumatic condition Benefits include: - Reduced pain, reduce mortality, maintenance of remission and reduction of flares Risks include: - GI upset, skin hyperpigmentation, retinal toxicity (especially after more than 5 years of use), myopathy Advised yearly ophthalmology visits (3) Tinea versicolor: Code(s): B36.0 - Pityriasis versicolor Plan: #Tinea versicolor Patient with extensive tinea versicolor rash extending from her face to her neck to her upper chest and back as well as her arms. Given the extensiveness of this rash we will do a dual method of eradication with shampoo as well as oral medications Plan - Ketoconazole 2% shampoo 3 x per week - Fluconazole 150mg weekly x 4 (4) Chronic nausea: Code(s): R11.0 - Nausea Plan: #Chronic nausea Responded well to daily ondansetron. 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 (current) use of immunosuppressive biologic Plan: #nursing home Belimumab Discussed with patient the risks and benefits of hydroxychloroquine in managing the rheumatic condition Benefits include: - Reduced pain, reduce mortality, maintenance of remission and reduction of flares Risks include: - insomnia, injection site reactions, psychiatric events such as worsening depression/anxiety or suicidal ideation, increased risk of infection Plan I spent 45 minutes reviewing the record and labs, taking a history, examining the patient, discussing the treatment plan, filling out disability forms, ordering diagnostic work up and documenting in the medical record Orders: Orders Comprehensive Met. Panel 4 Weeks R74.01 - Elevation of levels of liver transaminase levels Complete Blood Count Auto Diff 4 Months M32.9 - Systemic lupus erythematosus, unspecified Comprehensive Met. Panel 4 Months M32.9 - Systemic lupus erythematosus, unspecified Erythrocyte Sedimentation Rate 4 Months M32.9 - Systemic lupus erythematosus, unspecified Complement C3 4 Months M32. - Systemic lupus erythematosus, unspecified Complement C4 4 Months M32. - Systemic lupus erythematosus, unspecified Anti DNA DS Antibody 4 Months M32. - Systemic lupus erythematosus, unspecified C Reactive Protein 4 Months M32.9 - Systemic lupus erythematosus, unspecified Protein Creatinine Ratio, Ur 4 Months M32.9 - Systemic lupus erythematosus, unspecified UA ClnCatch+Micro w/rflx Cult 4 Months M32.9 - Systemic lupus erythematosus, unspecified Medications: New ondansetron 4 mg PO DAILY PRN 90 tabs 1RF nausea and vomiting R11.0 - Nausea modafinil 100 mg PO DAILY 90 tabs 1RF R53.83 - Other fatigue ketoconazole 2% 1 appl topical 3XW 120 mL 1RF B36.0 - Pityriasis versicolor fluconazole 150 mg PO QWEEK 4 tabs 0RF 4 doses B36.0 - Pityriasis versicolor Refilled hydroxychloroquine 200 mg PO DAILY 90 tabs 1RF prednisone 5 mg PO DAILY 90 tabs 1RF Coding Level of Care Code Est Pt Level 5 (69995) Complex EM visit Add On G2211 Diagnoses Systemic lupus erythematosus, unspecified SLE type, unspecified organ involvement status M32.9 Systemic lupus erythematosus type: unspecified Systemic lupus erythematosus organ involvement: unspecified Long-term use of hydroxychloroquine Z79.899 Tinea versicolor B36.0 Chronic nausea R11.0 Encounter for monitoring of belimumab therapy Z51.81; Z79.907
[2025-08-09 08:10] VITALS: BP 112/84; PULSE 56; O2SAT 100; BMI 20.8
== END 2025-08-09 08:48 | disposition home or self-care (01) ==
LOC: HO.RHES 07:43
PROVIDERS: PCP Internal Medicine; Visit Provider Student in an Organized Health Care Education/Training Program
DX: M32.9 Systemic lupus erythematosus, unspecified (principal); B36.0 Pityriasis versicolor; R11.0 Nausea; Z79.899 Other long term (current) drug therapy; Z51.81 Encounter for therapeutic drug level monitoring; Z79.620 Long term (current) use of immunosuppressive biologic
CPT/HCPCS: 99215

== ENCOUNTER → 2025-08-09 07:43 | Outpatient (BNVA) | payer OTHER, SELFPAY | PROVIDERS: PCP Internal Medicine; Visit Provider Student in an Organized Health Care Education/Training Program | DX: M32.9 Systemic lupus erythematosus, unspecified (principal); B36.0 Pityriasis versicolor; R11.0 Nausea; Z51.81 Encounter for therapeutic drug level monitoring; Z79.899 Other long term (current) drug therapy; Z79.620 Long term (current) use of immunosuppressive biologic | CPT/HCPCS: 99212 ==

== ENCOUNTER 2025-08-30 08:34 | Outpatient (AMB) | payer OTHER, SELFPAY ==
--- NOTE | 2025-08-30 08:42 | A.OFFVIS_ITS ---
Intake Visit Reasons: pyelonephrosis Intake Note: New Patient is present for Pyelonephritis Urology Med: None Antibiotic Allergy: None Blood Thinner: None Network Support Technician Required: No Accompanied by: Self / Same As Patient Allergies lavender (Lavandula angustifolia) Allergy (Severe, Verified 08/30/25 08:47) Difficulty Breathing HPI Comments Details: Yaz is a very pleasant female. She is a patient of Dr. Rios. She seen for the following urologic conditions - recurrent urinary tract infection Background systemic lupus On immunosuppression Per night combination monoclonal, prednisone, hydroxychloroquine Discussed impact of immunosuppression on urinary tract infection Start vitamin-C with methenamine for protection Six-month follow-up Culture bottles given in case symptoms recur Recurrent urinary tract infection Multiple cultures contamination [facility] Medical History detention current use of immunosuppressive drug Systemic lupus erythematosus GERD (gastroesophageal reflux disease) Generalized headaches Family History Father Diabetes Arthritis Paternal Grandmother Rheumatoid arthritis Hypertension Osteoporosis Social History Household Members: Family Housing: House Do you presently have visiting nurse or other home services: No Alcohol intake: current Alcohol intake frequency: a few times a month Patient Tobacco Use Status: Never used Tobacco e-Cigarette/Vaping Use: Former Use Advance Directives Date on File: 03/03/22 service: No Current occupational status: unemployed Review of Systems Const Denies chills and Denies fever(s) Card Reports no additional complaints and Denies syncope Resp Denies cough GI Denies abdominal pain and Denies heartburn Reports as per HPI and Denies change in libido Neuro Denies syncope Psych Denies change in libido Endo Denies change in libido Physical Exam Const General: cooperative, healthy appearing, comfortable and no acute distress Orientation/consciousness: patient oriented x3 HEENT Face and sinus: Yes normal facial exam Mouth: moist mucous membranes Neck Neck: Yes normal visual inspection, Yes full ROM and Yes trachea midline Chest Chest palpation & inspection: normal inspection of the chest Resp Effort & Inspection: normal respiratory effort, able to speak in complete sentences and no respiratory distress GI Inspection: Yes normal to inspection Back/Spine/Pelvis Cervical Spine: normal cervical lordosis Thoracic/Lumbar Spine: thoracic and lumbar spine normal to inspection Skin General skin exam: no rashes or lesions noted Neuro General: patient oriented x3, gait normal, tone normal and moves all extremities Extrem General: Yes normal to inspection and Yes capillary refill normal Results AMB Urinalysis, Automated UA Leukoctes 0 Oneyda/uL Last Edit by Sienna Aguilar [facility] on 08/30/25 08:54 UA Nitrite Negative Last Edit by Sienna Aguilar [facility] on 08/30/25 08:54 UA Urobilinogen 0.2 mg/dL Last Edit by Sienna Aguilar A on 08/30/25 08:5 4 UA Protein 30 mg/dL Last Edit by Sienna Aguilar [facility] on 08/30/25 08:54 UA pH 6.0 Last Edit by Sienna Aguilar [facility] on 08/30/25 08:54 UA Blood 0 Lopez/uL Last Edit by Sienna Aguilar [facility] on 08/30/25 08:54 UA Specific [place] 1.025 Last Edit by Sienna Aguilar [facility] on 08/30/25 08: 54 UA Ketone Negative Last Edit by Sienna Aguilar [facility] on 08/30/25 08:54 UA Bilirubin 0 mg/dL Last Edit by Sienna Aguilar [facility] on 08/30/25 08:54 UA Glucose 0 mg/dL Last Edit by Sienna Aguilar 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: Code(s): D84.821 - Immunodeficiency due to drugs; Z79.899 - Other fdc (current) drug therapy Category: Medical (2) Recurrent UTI: Code(s): N39.0 - Urinary tract infection, site not specified Category: Medical Plan Methenamine and vitamin-C Orders: Orders AMB Urinalysis Automated Today Z13.9 - Encounter for screening, unspecified Medications: New ascorbic acid (vitamin C) 1,000 mg PO DAILY 90 tabs 1RF 90 days N39.0 - Urinary tract infection, site not specified methenamine hippurate 1 g PO DAILY 90 tabs 1RF 90 days N39.0 - Urinary tract infection, site not specified Patient Instructions: This note is constructed using voice recognition software. While every effort has been made to ensure accuracy director validation errors may have been included. Imaging studies, laboratory and physical exam results were discussed and reviewed in detail. No major barriers to patient understanding were identified. An opportunity to ask questions regarding the treatment plan was provided. All questions were answered. The patient expressed understanding and agreement with the above treatment plan. The patient is aware they should contact our office by phone for worsening of their current condition or the appearance of new urologic symptoms. Compliance is encouraged with any medications and followup testing that is ordered. It is a privilege to participate in the urologic care of your patient. If you have any questions or concerns regarding treatment for the above conditions, or other urologic issues, please do not hesitate to contact me. The office telephone contact is [phone]. Sincerely, Dr Rowdy Doyle MD, [facility] - Urology Compassionate Specialist Care for the Genitourinary System Coding Level of Care Code New Pt Level 4 (20990) Diagnoses Immunosuppression due to drug therapy D84.821; Z79.899 Recurrent UTI N39.0
--- OUTSIDE RECORDS SUMMARY | 2025-08-30 08:51 | XMS_ITS | Clinical Summary ---
Author Organization [address] Address [address] [place] [phone] Phone Care Team Providers Care Hot Metal Charger Name Role Phone Nagi Rios MD Primary [...] lupus erythe matosus) ([facility] V24, [facility] V28) 04/07/2022 Chronic nonintractable headache 02/04/2022 Chronic benign neutropenia ([facility] V24) 019 Overview (10/13/2024): could be cyclic - Dr. Lin (03/27/22) ADHD (attention deficit hyperactivity disorder) 05/11/2018 Overview (10/13/2024): 09/23/16 off meds - Vyvanse for 1 1/2 years. Seeing therapist Alla Pop with [facility] Anxiety 05/11/2018 Encounters Date Type Department Care Team Description 08/15/2025 Telephone Adult Medicine [address] [phone] Nagi Rios MD from Last 3 Months Immunizations Immunization Administration Dates Next Due DTaP (Infanrix) 6wks to less than 7yo ,02/22/2004,06/22/2003,04/07,06/15/2001 [id number] (Pentacel) 2mo to less than 5yo 04/06/2002,06/15/2001,01/15/2001,12/20 [...] than 19 yo 09/23/2016 Meningococcal MCV4P 09/12/2011 [place] SARS-CoV-2 COVID-19, mRNA, LNP-S, preservative free 07/18/2021,06/25/2021 [...] CT REPORT 06/29/[address] REPORT 06/29/2025 HEPATITIS C SCREENING Routine 06/10/2023 HIV SCREENING [...] Onbase IMG CT PROCEDURES Final Result * HIV Screening (06/10/2023) [...] Venous blood specimen / Unknown Historical Provider MD LAB BLOOD ORDERABLES Kindra l Result * Gonorrhea/Chlamydia Screening (08/16/2019) Gonorrhea/Chla mydia Screening Abstracted Historical Provider HEALTH MAINTENANCE Final Result from Last 3 Months or Most Recently Relevant to Health Maintenance Insurance [facility] [employer] Care Teams Hot Metal Charger Relationship Specialty Start Date End Date Nagi Rios MD [address] [place] [phone] PCP - General 06/09/23
--- OUTSIDE RECORDS SUMMARY | 2025-08-30 08:51 | XMS_ITS | Clinical Summary ---
Author Organization [employer] [facility] Address [address] [place] [address] Care Team Providers Care Senior Director Creative Services Name Role Phone Erica Clayton MD Primary Care Provider Allergies No known active allergies Medications Medication [...] to complete this topic Care Teams Senior Director Creative Services Relationship Specialty Start Date End Date Erica Clayton MD PCP - General Internal Medicine 02/25/22
--- OUTSIDE RECORDS SUMMARY | 2025-08-30 08:51 | XMS_ITS | Encounter Summary ---
Author Organization [facility] Address [address] [place] [address] Care Team Providers Care Manager Parking Name Role Phone Erica Clayton MD Primary Care Provider [phone] Encounter Details Date Type Department Care Team Description 01/22/2023 Nurse Only [facility] Oncology Infusion Services [address] [place] [address] Cheryl Stewart, RN Social History [...] on filedocumented in this encounter Care Teams Manager Parking Relationship Specialty Start Date End Date Erica Clayton MD PCP - General Internal Medicine 02/25/22 documented as of this encounter
--- OUTSIDE RECORDS SUMMARY | 2025-08-30 08:51 | XMS_ITS | Clinical Summary ---
Author Organization [facility] Address [address] [place] [address] Care Team Providers Care Fiber Glass Worker Name Role Phone Ref, Has No Pcp [...] Date Last Done Comments HIV Screening 2000 Pap Smear 2000 DTaP,Tdap,and Td Vaccines (7 - Td or Tdap) 09/12/2021 09/12/2011, 12/20/2004, 02/22/2004, Additional history exists Alcohol/Substance Use Screening 10/26/2024 COVID-19 Vaccine (3 - 2024- season) 2025 07/18/2021, 06/25/2021 Influenza Vaccine (#1) [...] Completed 11/14/2014, 09/26, 09/12/2011 Insurance [place] [id number] Care Teams Fiber Glass Worker Relationship Specialty Start Date End Date Ref, Has No Pcp Or DO NOT EDIT THIS RECORD VIA PROVIDER ON THE FLY PCP - General Corporate Law Specialist 05/20/22
--- OUTSIDE RECORDS SUMMARY | 2025-08-30 08:51 | XMS_ITS | Encounter Summary ---
Author Organization [facility] Address [address] [place] [address] Care Team Providers Care Tax Compliance Representative Name Role Phone Nagi Rios MD Primary Care Provider Encounter Details Date Type Department Care Team ([facility] st Contact Info) Description 08/15/2025 Telephone Adult Medicine [facility] [address] [place], [place] [phone] Nagi Rios MD [address] [place] [address] Social History Tobacco Use Types Packs/Day Years Used Date Smoking Tobacco: Never Smokeless Tobacco: Never Alcohol Use Standard Drinks/Week Comments No 0 (1 standard drink = 0.6 oz pur e alcohol) Comments Unknown Sex and Gender Information Value Date Recorded Sex Assigned at Not on file Legal Sex Female 1:32 AM EST Gender Identity Not on file Sexual Orientation Not on file documented as of this encounter Progress Notes * Theresa De La Fuente - 08/19/2025 8:45 AM EDT VM message left for patient to call office and schedule a PE appointment * Nagi Rios MD - 08/15/2025 8:35 AM EDT This patient was not seen in our office for long time. Please schedule her for medical follow-up exam within 2 months. documented in this encounter Plan of Treatment Not on file documented as of this encounter Visit Diagnoses Not on filedocumented in this encounter Care Teams Tax Compliance Representative Relationship Specialty Start Date End Date Nagi Rios MD [address] [place] [phone] PCP - General 06/09/23 documented as of this encounter
== END 2025-08-30 09:10 | disposition home or self-care (01) ==
LOC: HO.HUSH 08:35
PROVIDERS: PCP Internal Medicine; Visit Provider Urology
DX: D84.821 Immunodeficiency due to drugs (principal); Z79.899 Other long term (current) drug therapy; N39.0 Urinary tract infection, site not specified; Z13.9 Encounter for screening, unspecified
CPT/HCPCS: 99204

== ENCOUNTER → 2025-08-30 08:34 | Outpatient (BNVA) | payer OTHER, SELFPAY | PROVIDERS: PCP Internal Medicine; Visit Provider Urology | DX: D84.821 Immunodeficiency due to drugs (principal); Z79.899 Other long term (current) drug therapy; N39.0 Urinary tract infection, site not specified | CPT/HCPCS: 81003; 99202 ==